=== PATIENT | female | born 1950 | race Caucasian/White ===

== ENCOUNTER 2016-09-04 01:06 | Inpatient (IN) | payer MEDICARE ==
[2016-09-04] MEDS ORDERED: DILTIAZEM 125 MG in SODIUM CHLORIDE 0.9% 100 ML IV ONE (01:30)
[2016-09-04] MEDS ORDERED: DILTIAZEM 5 MG/ML 5 ML VIAL IVP STA (01:30)
--- NOTE | 2016-09-04 01:32 | ED ---
General Adult HPI - General Chief complaint: Chest Pain Stated complaint: irregular heart beat, left arm pain Time Seen by Provider: 09/04/16 01:11 Source: patient, family, RN notes reviewed Mode of arrival: ambulatory Limitations: no limitations - History of Present Illness Initial comments: Patient is a pleasant 66-year-old female presenting to the emergency department complaining of palpitations and some discomfort of the left arm. Patient had palpitations for the past approximately 3 or 4 hours. Patient had a history of atrial fibrillation the past however this does not feel quite like that. Patient has had ablation done less than a year ago. Patient has mild discomfort of the left shoulder and radiating down the left arm. Patient has a difficult time further describing this. No dyspnea. No nausea or diaphoresis. - Related Data Home Medications Medication Instructions Recorded Confirmed Furosemide [Lasix] 10 mg PO QAM 12/20/13 09/04/16 Multivitamins, Thera [Multivitamin 1 tab PO DAILY 12/20/13 09/04/16 (formulary)] Levothyroxine Sodium [Synthroid] 25 mcg PO MOTUWETHFR 04/17/14 09/04/16 ALPRAZolam [Xanax] 0.5 mg PO BID PRN 06/02/15 09/04/16 Atorvastatin [Lipitor] 40 mg PO HS 06/02/15 09/04/16 Cholecalciferol [Vitamin D3] 2,000 unit PO DAILY 06/02/15 09/04/16 Calcium Carbonate [Calcium] 600 mg PO DAILY 09/05/15 09/04/16 Pramipexole [Mirapex] 0.5 mg PO HS 09/05/15 09/04/16 Levothyroxine Sodium [Synthroid] 50 mcg PO SUSA 09/06/15 09/04/16 Omeprazole [PriLOSEC] 20 mg PO DAILY 09/06/15 09/04/16 Fiber Choice 2 tab PO DAILY 02/23/16 09/04/16 Flecainide [Tambocor] 50 mg PO Q12H 02/23/16 09/04/16 Hydrocodone/Acetaminophen [[place] 1 tab PO Q6HR PRN 02/23/16 09/04/16 7.5-325] Warfarin Sodium 4 mg PO SUTUWEFRSA 02/23/16 09/04/16 Warfarin Sodium [Coumadin] 6 mg PO MOTH 02/23/16 09/04/16 traMADol-ACETAMINOP 37.5-325MG 1 tab PO Q6HR PRN 02/23/16 09/04/16 [Ultracet] Cyclobenzaprine [Flexeril] 10 mg PO Q8H PRN 03/29/16 09/04/16 Clotrimazole Cream [Lotrimin Cream] 1 applic TOPICAL TID PRN 04/21/16 09/04/16 Lysine 500 mg PO DAILY PRN 04/21/16 09/04/16 Petrolatum, White [Aquaphor] 1 applic TOPICAL TID PRN 04/21/16 09/04/16 Previous Rx's Medication Instructions Recorded Metoprolol Tartrate [Lopressor] 12.5 mg PO BID #60 tab 04/27/16 Allergies Allergy/AdvReac Type Severity Reaction Status Date / Time celecoxib [From Celebrex] Allergy Rash/Hives Verified 09/04/16 01:11 Penicillins Allergy Rash/Hives Verified 09/04/16 01:11 Sulfa (Sulfonamide Allergy Rash/Hives Verified 09/04/16 01:11 Antibiotics) tretinoin [From Retin-A] Allergy Rash/Hives Verified 09/04/16 01:11 meperidine HCl [From Demerol] AdvReac Nausea & Verified 09/04/16 01:11 Vomiting Review of Systems ROS Statement: Those systems with pertinent positive or pertinent negative responses have been documented in the HPI. ROS Other: All systems not noted in ROS Statement are negative. Constitutional: Denies: fever Eyes: Denies: eye pain ENT: Denies: ear pain Respiratory: Denies: cough, dyspnea Cardiovascular: Reports: palpitations. Denies: chest pain Endocrine: Denies: fatigue Gastrointestinal: Denies: abdominal pain Genitourinary: Denies: dysuria Musculoskeletal: Denies: back pain Skin: Denies: rash Neurological: Denies: weakness Past Medical History Past Medical History: Atrial Fibrillation, Hyperlipidemia, Hypertension, Thyroid Disorder Additional Past Medical History / Comment(s): Major valve prolapse of bilateral prosthetic replacement. High-dose flecainide intolerance History of Any Multi-Drug Resistant Organisms: None Reported Past Surgical History: Appendectomy, Back Surgery, Cardiac Ablation, Cardiac Valve Replacement, Hysterectomy, Orthopedic Surgery, Tonsillectomy Additional Past Surgical History / Comment(s): Right breast cyst removal. Right wrist ganglionectomy. Past Anesthesia/Blood Transfusion Reactions: No Reported Reaction Additional Past Anesthesia/Blood Transfusion Reaction / Comment(s): Patient vomited after previous surgery but she doesn't know if it was from anesthesia or the pain medication. Past Psychological History: Anxiety Additional Psychological History / Comment(s): PT STATED HAS SOME SADDNESS/MILD DEPRESSION OVER RECENT DEATHS IN HER FAMILY BUT DENIES ANY THOUGHTS OF HARMING SELF. Smoking Status: Former smoker Past Alcohol Use History: Occasional Additional Past Alcohol Use History / Comment(s): Patient states she drinks one drink per week usually Past Drug Use History: None Reported - Past Family History Mother Family Medical History: Congestive Heart Failure (CHF), Coronary Artery Disease (CAD), CVA/TIA, Hypertension Additional Family Medical History / Comment(s): Mother has been having multiple TIAs. at age 93 Father Family Medical History: CVA/TIA Additional Family Medical History / Comment(s): Father of a stroke at age 90 General Exam Limitations: no limitations General appearance: alert, in no apparent distress Head exam: Present: atraumatic Eye exam: Present: normal appearance, PERRL ENT exam: Present: normal oropharynx Neck exam: Present: normal inspection Respiratory exam: Present: normal lung sounds bilaterally Cardiovascular Exam: Present: tachycardia, irregular rhythm Expanded Peripheral pulses: 2+: Radial (R), Radial (L), Posterior Tibialis (R), Posterior Tibialis (L) GI/Abdominal exam: Present: soft. Absent: tenderness Extremities exam: Present: normal inspection. Absent: pedal edema, calf tenderness Neurological exam: Present: alert Psychiatric exam: Present: normal affect, normal mood Skin exam: Absent: rash Course Vital Signs 09/04/16 09/04/16 01:09 02:38 Temperature 97.3 F L Pulse Rate 139 H 133 H Respiratory 20 16 Rate Blood Pressure 130/94 109/71 O2 Sat by Pulse 95 95 Oximetry EKG Findings - EKG Comments: EKG Findings:: Atrial flutter with a rate of 153. QRS 74. QT 2. 68. QTC 427. Normal axis. Nonspecific ST-T. Medical Decision Making - Medical Decision Making Patient reevaluated and resting comfortably in bed. Heart rate remains in the low 130s. Patient and family updated on results and plan. Case was discussed in detail with Dr. Carson, who will admit his patient. Cardiology will be consult. Patient is already appropriately anticoagulated. Cardizem drip will be increased. - Lab Data Result diagrams: 09/04/16 01:20 09/04/16 01:20 Lab Results 09/04/16 09/04/16 09/04/16 Range/Units 01:20 01:20 01:20 WBC 9.4 (3.8-10.6) k/uL RBC 4.99 (3.80-5.40) m/uL Hgb 15.5 (11.4-16.0) gm/dL Hct 44.8 (34.0-46.0) % MCV 89.9 (80.0-100.0) fL MCH 31.0 (25.0-35.0) pg MCHC 34.5 (31.0-37.0) g/dL RDW 13.4 (11.5-15.5) % Plt Count 221 (150-450) k/uL Neutrophils % 46 % Lymphocytes % 41 % Monocytes % 7 % Eosinophils % 2 % Basophils % 1 % Neutrophils # 4.3 (1.3-7.7) k/uL Lymphocytes # 3.8 (1.0-4.8) k/uL Monocytes # 0.7 (0-1.0) k/uL Eosinophils # 0.2 (0-0.7) k/uL Basophils # 0.1 (0-0.2) k/uL PT (9.0-12.0) sec INR (<1.1) APTT (22.0-30.0) sec Sodium 141 (137-145) mmol/L Potassium 3.7 (3.5-5.1) mmol/L Chloride 102 (98-107) mmol/L Carbon Dioxide 28 (22-30) mmol/L Anion Gap 11 mmol/L BUN 20 H (7-17) mg/dL Creatinine 0.70 (0.52-1.04) mg/dL Est GFR (MDRD) Af Amer >60 (>60 ml/min/1.73 sqM) Est GFR (MDRD) Non-Af >60 (>60 ml/min/1.73 sqM) Glucose 121 H (74-99) mg/dL Calcium 9.6 (8.4-10.2) mg/dL Magnesium 1.8 (1.6-2.3) mg/dL Total Bilirubin 0.6 (0.2-1.3) mg/dL AST 33 (14-36) U/L ALT 39 (9-52) U/L Alkaline Phosphatase 88 (38-126) U/L Total Creatine Kinase 63 (30-135) U/L CK-MB (CK-2) 0.9 (0.0-2.4) ng/mL CK-MB (CK-2) Rel Index 1.4 Troponin I <0.012 (0.000-0.034) ng/mL Total Protein 7.6 (6.3-8.2) g/dL Albumin 4.3 (3.5-5.0) g/dL TSH 6.140 H (0.465-4.680) mIU/L Free T4 1.23 (0.78-2.19) ng/dL Free T3 pg/mL 4.3 (2.8-5.3) pg/ml 09/04/16 Range/Units 01:20 WBC (3.8-10.6) k/uL RBC (3.80-5.40) m/uL Hgb (11.4-16.0) gm/dL Hct (34.0-46.0) % MCV (80.0-100.0) fL MCH (25.0-35.0) pg MCHC (31.0-37.0) g/dL RDW (11.5-15.5) % Plt Count (150-450) k/uL Neutrophils % % Lymphocytes % % Monocytes % % Eosinophils % % Basophils % % Neutrophils # (1.3-7.7) k/uL Lymphocytes # (1.0-4.8) k/uL Monocytes # (0-1.0) k/uL Eosinophils # (0-0.7) k/uL Basophils # (0-0.2) k/uL PT 20.9 H (9.0-12.0) sec INR 2.2 (<1.1) APTT 30.5 H (22.0-30.0) sec Sodium (137-145) mmol/L Potassium (3.5-5.1) mmol/L Chloride (98-107) mmol/L Carbon Dioxide (22-30) mmol/L Anion Gap mmol/L BUN (7-17) mg/dL Creatinine (0.52-1.04) mg/dL Est GFR (MDRD) Af Amer (>60 ml/min/1.73 sqM) Est GFR (MDRD) Non-Af (>60 ml/min/1.73 sqM) Glucose (74-99) mg/dL Calcium (8.4-10.2) mg/dL Magnesium (1.6-2.3) mg/dL Total Bilirubin (0.2-1.3) mg/dL AST (14-36) U/L ALT (9-52) U/L Alkaline Phosphatase (38-126) U/L Total Creatine Kinase (30-135) U/L CK-MB (CK-2) (0.0-2.4) ng/mL CK-MB (CK-2) Rel Index Troponin I (0.000-0.034) ng/mL Total Protein (6.3-8.2) g/dL Albumin (3.5-5.0) g/dL TSH (0.465-4.680) mIU/L Free T4 (0.78-2.19) ng/dL Free T3 pg/mL (2.8-5.3) pg/ml - Radiology Data Radiology results: image reviewed (Chest x-ray shows no acute process.) Critical Care Time Critical Care Time: Yes Total Critical Care Time: 33 Disposition Clinical Impression: Atrial fibrillation with RVR Disposition: ADMITTED IP TO THIS HOSP
[2016-09-04] MEDS: SODIUM CHLORIDE 0.9% 1,000 ML IV STA ×2 (01:37→06:56)
[2016-09-04 01:40] LABS: Basophils # (A) 0.1 k/uL (0-0.2); Basophils % (A) 1 %; CH 31.4; Eosinophils # (A) 0.2 k/uL (0-0.7); Eosinophils % (A) 2 %; HCT 44.8 % (34.0-46.0); HDW 2.91; HGB 15.5 gm/dL (11.4-16.0); Luc # (Auto) 0.33; Luc % (Auto) 4; Lymphocytes # (A) 3.8 k/uL (1.0-4.8); Lymphocytes % (A) 41 %; MCHC 34.5 g/dL (31.0-37.0); MCV 89.9 fL (80.0-100.0); Monocytes # (A) 0.7 k/uL (0-1.0); Monocytes % (A) 7 %; Neutrophils # (A) 4.3 k/uL (1.3-7.7); Neutrophils % (A) 46 %; RBC 4.99 m/uL (3.80-5.40); RDW 13.4 % (11.5-15.5); WBC 9.4 k/uL (3.8-10.6)
[2016-09-04 01:51] LABS: INR 2.2 (<1.1); Partial Thromboplastin Time 30.5 sec (22.0-30.0); Prothrombin Time 20.9 sec (9.0-12.0)
[2016-09-04 01:54] LABS: ALT 39 U/L (9-52); AST 33 U/L (14-36); Alkaline Phosphatase 88 U/L (38-126); Anion Gap 11 mmol/L; Blood Urea Nitrogen 20 mg/dL (7-17); Calcium 9.6 mg/dL (8.4-10.2); Carbon Dioxide 28 mmol/L (22-30); Chloride 102 mmol/L (98-107); Glucose 121 mg/dL (74-99); Magnesium 1.8 mg/dL (1.6-2.3); Non-African American GFR(MDRD) >60 (>60 ml/min/1.73 sqM); Potassium 3.7 mmol/L (3.5-5.1); Sodium 141 mmol/L (137-145); Total Bilirubin 0.6 mg/dL (0.2-1.3); Total Protein 7.6 g/dL (6.3-8.2)
[2016-09-04 02:00] LABS: Creatine Kinase 63 U/L (30-135)
[2016-09-04 02:13] LABS: Creatine Kinase MB 0.9 ng/mL (0.0-2.4); Troponin I <0.012 ng/mL (0.000-0.034)
--- NOTE | 2016-09-04 02:24 | XR ---
EXAM: XR Chest, 1 View. CLINICAL HISTORY: Reason: dysrhythmia TECHNIQUE: Frontal view of the chest. COMPARISON: Chest x-ray 04/29/2016. FINDINGS: Lungs: Unremarkable. No consolidation. Pleural space: Unremarkable. No pneumothorax. Heart: Unremarkable. No cardiomegaly. Mediastinum: Unremarkable. Bones/joints: Sternotomy wires and mediastinal surgical material. IMPRESSION: No acute findings.
[2016-09-04] MEDS ORDERED: HYDROcodone/APAP 5-325MG 1 EACH TAB PO STA (03:03)
[2016-09-04] MEDS ORDERED: NALOXONE 0.4 MG/ML 1 ML VIAL IV PRN (03:13)
[2016-09-04] MEDS: SODIUM CHLORIDE 0.9% 1,000 ML IV SCH (06:56)
--- NOTE | 2016-09-04 08:57 | P.CRDCN ---
History of Present Illness Consult date: 09/04/16 Requesting physician: Jesus Carson Consult reason: atrial fibrillation Chief complaint: Chest discomfort and palpitations History of present illness: This is a 66-year-old female with history of ex-is no atrial fibrillation, patient underwent an ablation in April of last year by Dr. Cid, she also has history of mitral valve replacement, cardiac catheterization performed prior to the valve surgery in 2013 revealed normal coronary arteries. Most recent echo performed in September of this year revealed normal ejection fraction. Patient also has history of hypertension, hyperlipidemia, vertigo, hypothyroidism and descending aortic aneurysm. She presents to the hospital on this occasion with symptoms of discomfort in her left upper chest, left shoulder area with numbness in the left arm. She also had associated palpitations. According to the patient, she seen an kid club attendant last week and was started on Synthroid. She initially thought some of her symptoms may have been secondary to that. Overall since the patient 's ablation, she states that she has been doing very well. She takes Coumadin for anticoagulation, INR an admission 2.2. Potassium 3.7, BUN 20, creatinine 0.7. CBC normal. The serum level I.8, troponins negative 2. TSH level 6.14. EKG on presentation here showed atrial fibrillation with rapid ventricular response, patient was initiated on IV Cardizem drip and continues to be on Cardizem drip this morning. She is still in atrial fibrillation. Blood pressure on arrival to the emergency room 130/90 with a heart rate of 140. Afebrile. The patient states that she used to take flecainide and beta chiara prior to her ablation and that these were both discontinued after her ablation. At the time of my examination this morning, her only complaint is that she feels tired. Past Medical History Past Medical History: Atrial Fibrillation, Hyperlipidemia, Hypertension, Thyroid Disorder Additional Past Medical History / Comment(s): vertigo, neck pain. Major valve prolapse of bilateral prosthetic replacement-mitral. High-dose flecainide intolerance History of Any Multi-Drug Resistant Organisms: None Reported Past Surgical History: Appendectomy, Back Surgery, Cardiac Ablation, Cardiac Valve Replacement, Hysterectomy, Orthopedic Surgery, Tonsillectomy Additional Past Surgical History / Comment(s): Right breast cyst removal. Right wrist ganglionectomy. Past Anesthesia/Blood Transfusion Reactions: No Reported Reaction Additional Past Anesthesia/Blood Transfusion Reaction / Comment(s): Patient vomited after previous surgery but she doesn't know if it was from anesthesia or the pain medication. Past Psychological History: Anxiety Additional Psychological History / Comment(s): PT STATED HAS SOME SADDNESS/MILD DEPRESSION OVER RECENT DEATHS IN HER FAMILY BUT DENIES ANY THOUGHTS OF HARMING SELF. Smoking Status: Former smoker Past Alcohol Use History: Occasional Additional Past Alcohol Use History / Comment(s): Patient states she drinks one drink per week usually Past Drug Use History: None Reported - Past Family History Mother Family Medical History: Congestive Heart Failure (CHF), Coronary Artery Disease (CAD), CVA/TIA, Hypertension Additional Family Medical History / Comment(s): Mother has been having multiple TIAs. at age 93 Father Family Medical History: CVA/TIA Additional Family Medical History / Comment(s): Father of a stroke at age 90 Medications and Allergies Home Medications Medication Instructions Recorded Confirmed Type Furosemide [Lasix] 10 mg PO QAM 12/20/13 09/04/16 History Multivitamins, Thera [Multivitamin 1 tab PO DAILY 12/20/13 09/04/16 History (formulary)] Levothyroxine Sodium [Synthroid] 25 mcg PO MOTUWETHFR 04/17/14 09/04/16 History ALPRAZolam [Xanax] 0.5 mg PO BID PRN 06/02/15 09/04/16 History Atorvastatin [Lipitor] 40 mg PO HS 06/02/15 09/04/16 History Levothyroxine Sodium [Synthroid] 50 mcg PO SUSA 09/06/15 09/04/16 History Omeprazole [PriLOSEC] 20 mg PO DAILY 09/06/15 09/04/16 History Fiber Choice 2 tab PO DAILY 02/23/16 09/04/16 History Hydrocodone/Acetaminophen [[place] 1 tab PO Q6HR PRN 02/23/16 09/04/16 History 7.5-325] Warfarin Sodium 4 mg PO SUMOTUTHFR 02/23/16 09/04/16 History Warfarin Sodium [Coumadin] 6 mg PO WESA 02/23/16 09/04/16 History Cyclobenzaprine [Flexeril] 10 mg PO Q8H PRN 03/29/16 09/04/16 History Baclofen [Lioresal] 10 mg PO BID PRN 09/04/16 09/04/16 History Cetirizine HCl [Zyrtec] 10 mg PO DAILY PRN 09/04/16 09/04/16 History Allergies Allergy/AdvReac Type Severity Reaction Status Date / Time celecoxib [From Celebrex] Allergy Rash/Hives Verified 09/04/16 08:05 Penicillins Allergy Rash/Hives Verified 09/04/16 08:05 Sulfa (Sulfonamide Allergy Rash/Hives Verified 09/04/16 08:05 Antibiotics) tretinoin [From Retin-A] Allergy Rash/Hives Verified 09/04/16 08:05 meperidine HCl [From Demerol] AdvReac Nausea & Verified 09/04/16 08:05 Vomiting Physical Exam Vitals: Vital Signs Pulse Resp BP Pulse Ox 09/04/16 04:10 115 H 18 100/50 100 Intake and Output 09/03/16 09/04/16 09/04/16 22:59 06:59 14:59 Intake Total 106.5 240 Balance 106.5 240 Intake: Intake, IV Titration 6.5 Amount Diltiazem 125 mg In 6.5 Sodium Chloride 0.9% 100 ml @ 10 MG/HR 10 mls/hr IV .[id number] Rx#: [id number] Oral 100 240 Other: Voiding Method Toilet # Voids 1 Weight 89.3 kg PHYSICAL EXAMINATION: HEENT: Head is atraumatic, normocephalic. Pupils equal, round. Neck is supple. There is no elevated jugular venous pressure. HEART EXAMINATION: S1 and S2 irregularly irregular systolic murmur is heard. CHEST EXAMINATION: Lungs are clear to auscultation and precussion. No chest wall tenderness is noted on palpation or with deep breathing. ABDOMEN: Soft, nontender. Bowel sounds are heard. No organomegaly noted. EXTREMITIES: 2+ peripheral pulses with no evidence of peripheral edema and no calf tenderness noted. NEUROLOGIC patient is awake, alert and oriented -3. . Results 09/04/16 01:20 09/04/16 01:20 Cardiac Enzymes 09/04/16 Range/Units 07:33 Troponin I <0.012 (0.000-0.034) ng/mL Current Medications Generic Name Dose Route Start Last Admin Trade Name Freq PRN Reason Stop Dose Admin Diltiazem HCl 125 mg/ Sodium 125 mls @ 10 mls/hr 09/04/16 01:30 09/04/16 03: 22 Chloride IV 09/04/16 13:59 10 mg/hr .[id number] ONE 10 mls/hr 10 MG/HR Infusion Sodium Chloride 1,000 mls @ 50 mls/hr 09/04/16 01:29 09/04/16 06:56 Saline 0.9% IV 09/04/16 21:28 50 mls/hr .Q20H STA Administration Sodium Chloride 1,000 mls @ 20 mls/hr 09/04/16 03:15 09/04/16 06:56 Saline 0.9% IV 20 mls/hr .Q24H DORIS Administration Naloxone HCl 0.2 mg 09/04/16 03:13 Narcan IV Q2M PRN Opioid Reversal Intake and Output 09/03/16 09/04/16 09/04/16 22:59 06:59 14:59 Intake Total 106.5 240 Balance 106.5 240 Intake: Intake, IV Titration 6.5 Amount Diltiazem 125 mg In 6.5 Sodium Chloride 0.9% 100 ml @ 10 MG/HR 10 mls/hr IV .[id number] ONE Rx#: [id number] Oral 100 240 Other: Voiding Method Toilet # Voids 1 Weight 89.3 kg EKG Interpretations (text) EKG shows atrial fibrillation with a rapid ventricular response. Assessment and Plan Plan: Assessment and plan #1 atrial fibrillation with rapid ventricular response, patient has history of paroxysmal atrial fibrillation, underwent ablation in April of last year. #2 hypertension #3 hyperlipidemia #4 hypothyroidism, TSH is 6.14. # 5 history of vertigo #6 chest discomfort, atypical for acute coronary syndrome. Troponins negative 2. Cardiac catheterization performed in 2013 revealed normal coronary arteries. #7 history of ascending aortic aneurysm. Plan We will resume the patient's Coumadin, Synthroid, Lasix, Lipitor. We will obtain an echocardiogram with Doppler study. We will also give the patient 5 tonight 100 mg now and 3 times a day, at the patient on Lopressor 25 mg now and twice a day. We will keep the patient nothing by mouth at midnight, if she does not convert to normal sinus rhythm we will consider cardioversion tomorrow. Further recommendations to follow. DNP note has been reviewed, I agree with a documented findings and plan of care. Patient was seen and examined.
[2016-09-04] MEDS ORDERED: ZOLPIDEM 5 MG TAB PO PRN (09:36)
--- NOTE | 2016-09-04 09:44 | P.PN ---
Progress Note - Text This is an addendum to the dictated cardiology consultation. The patient has a known history of mitral valve replacement, paroxysmal atrial fibrillation, status post ablation done in April 2016 who presented with palpitations and recurrent atrial fibrillation. Her symptoms were associated with dyspnea, dizziness and left arm and chest discomfort. She continues to be in atrial fibrillation with episodes of rapid ventricle response. Her troponins are normal and there is no evidence of acute ST segment changes. When she had her cardiac catheterization she had no evidence of obstructive CAD. Her most recent echo in April 05 showed a normal systolic function was see no evidence of significant valvular abnormality. Patient has recurrent atrial fibrillation, post ablation. She has been anticoagulated. I will restart flecainide at the 100 mg twice a day and add a beta chiara. If she continues to be in atrial fibrillation in 24 hours then I will proceed with reversion. The plan and the risk were discussed with the patient who is in full agreement and understanding. Thank you for this consult we will follow with you.
[2016-09-04] MEDS: FLECAINIDE 50 MG TAB PO SCH ×2 (10:50→22:22)
[2016-09-04] MEDS: METOPROLOL TARTRATE 25 MG TAB PO SCH ×2 (10:50→22:23)
[2016-09-04] MEDS: FUROSEMIDE 10 MG TAB PO SCH (10:51)
[2016-09-04] MEDS: ALPRAZolam 0.25 MG TAB PO PRN ×2 (10:56→23:55)
[2016-09-04] MEDS: LEVOTHYROXINE 25 MCG TAB PO SCH (11:49)
--- NOTE | 2016-09-04 13:49 | P.HPIM ---
History of Present Illness H&P Date: 09/04/16 Chief Complaint: rapid heart rate Patient came in to the er for C/o of rapid heart rate. She has a h/o Afib with ablation in the fall of 2015. HSe had been taken off all her rate control meds. SHe reports yeaterday increased heart rate and palpitations. Only new med was change to DINA synthroid by Dr Jarvis. She is doin g better now with Lopressor. Review of Systems All systems: negative Cardiovascular: Reports as per HPI, Reports irregular heart beat Past Medical History Past Medical History: Atrial Fibrillation, Hyperlipidemia, Hypertension, Thyroid Disorder Additional Past Medical History / Comment(s): vertigo, neck pain. Major valve prolapse of bilateral prosthetic replacement-mitral. High-dose flecainide intolerance History of Any Multi-Drug Resistant Organisms: None Reported Past Surgical History: Appendectomy, Back Surgery, Cardiac Ablation, Cardiac Valve Replacement, Hysterectomy, Orthopedic Surgery, Tonsillectomy Additional Past Surgical History / Comment(s): Right breast cyst removal. Right wrist ganglionectomy. Past Anesthesia/Blood Transfusion Reactions: No Reported Reaction Additional Past Anesthesia/Blood Transfusion Reaction / Comment(s): Patient vomited after previous surgery but she doesn't know if it was from anesthesia or the pain medication. Past Psychological History: Anxiety Additional Psychological History / Comment(s): PT STATED HAS SOME SADDNESS/MILD DEPRESSION OVER RECENT DEATHS IN HER FAMILY BUT DENIES ANY THOUGHTS OF HARMING SELF. Smoking Status: Former smoker Past Alcohol Use History: Occasional Additional Past Alcohol Use History / Comment(s): Patient states she drinks one drink per week usually Past Drug Use History: None Reported - Past Family History Mother Family Medical History: Congestive Heart Failure (CHF), Coronary Artery Disease (CAD), CVA/TIA, Hypertension Additional Family Medical History / Comment(s): Mother has been having multiple TIAs. at age 93 Father Family Medical History: CVA/TIA Additional Family Medical History / Comment(s): Father of a stroke at age 90 Medications and Allergies Home Medications Medication Instructions Recorded Confirmed Type Furosemide [Lasix] 10 mg PO QAM 12/20/13 09/04/16 History Multivitamins, Thera [Multivitamin 1 tab PO DAILY 12/20/13 09/04/16 History (formulary)] Levothyroxine Sodium [Synthroid] 25 mcg PO MOTUWETHFR 04/17/14 09/04/16 History ALPRAZolam [Xanax] 0.5 mg PO BID PRN 06/02/15 09/04/16 History Atorvastatin [Lipitor] 40 mg PO HS 06/02/15 09/04/16 History Levothyroxine Sodium [Synthroid] 50 mcg PO SUSA 09/06/15 09/04/16 History Omeprazole [PriLOSEC] 20 mg PO DAILY 09/06/15 09/04/16 History Fiber Choice 2 tab PO DAILY 02/23/16 09/04/16 History Hydrocodone/Acetaminophen [[place] 1 tab PO Q6HR PRN 02/23/16 09/04/16 History 7.5-325] Warfarin Sodium 4 mg PO SUMOTUTHFR 02/23/16 09/04/16 History Warfarin Sodium [Coumadin] 6 mg PO WESA 02/23/16 09/04/16 History Cyclobenzaprine [Flexeril] 10 mg PO Q8H PRN 03/29/16 09/04/16 History Baclofen [Lioresal] 10 mg PO BID PRN 09/04/16 09/04/16 History Cetirizine HCl [Zyrtec] 10 mg PO DAILY PRN 09/04/16 09/04/16 History Allergies Allergy/AdvReac Type Severity Reaction Status Date / Time celecoxib [From Celebrex] Allergy Rash/Hives Verified 09/04/16 08:05 Penicillins Allergy Rash/Hives Verified 09/04/16 08:05 Sulfa (Sulfonamide Allergy Rash/Hives Verified 09/04/16 08:05 Antibiotics) tretinoin [From Retin-A] Allergy Rash/Hives Verified 09/04/16 08:05 meperidine HCl [From Demerol] AdvReac Nausea & Verified 09/04/16 08:05 Vomiting Physical Exam Vitals: Vital Signs Temp Pulse Pulse Resp BP Pulse Ox 09/04/16 12:00 64 18 106/63 97 09/04/16 08:00 97 F L 80 17 112/58 97 09/04/16 04:10 115 H 18 100/50 100 Intake and Output 09/03/16 09/04/16 09/04/16 22:59 06:59 14:59 Intake Total 106.5 240 Balance 106.5 240 Intake: Intake, IV Titration 6.5 Amount Diltiazem 125 mg In 6.5 Sodium Chloride 0.9% 100 ml @ 10 MG/HR 10 mls/hr IV .[id number] Rx#: [id number] Oral 100 240 Other: Voiding Method Toilet # Voids 1 Weight 89.3 kg - Constitutional General appearance: average body habitus - EENT Eyes: PERRLA Ears: bilateral: normal - Neck Neck: no lymphadenopathy, no thyromegaly - Respiratory Respiratory: bilateral: CTA - Cardiovascular Rhythm: irregularly irregular Heart sounds: normal: S1, S2 - Gastrointestinal General gastrointestinal: no hepatomegaly, normal bowel sounds, no splenomegaly - Neurologic Neurologic: CNII-XII intact - Musculoskeletal Musculoskeletal: gait normal - Psychiatric Psychiatric: A&O x's 3 Results CBC & Chem 7: 09/04/16 01:20 09/04/16 01:20 Thrombosis Risk Factor Assmnt - DVT/VTE Prophylaxis DVT/VTE Prophylaxis: Pharmacologic Prophylaxis ordered - Choose All That Apply Each Risk Factor Represents 2 Points: Age 61-74 years Thrombosis Risk Factor Assessment Total Risk Factor Score: 2 Thrombosis Risk Factor Assessment Level: Low Risk Assessment and Plan Plan: paroxismal AFib: cardiology following. she is on Metoprolol, coumadin, lasix, Tambicor Neck Pain: she had been referrred to PMR, but has not been seen yet.reorder [place] if needed hypothryroidism: check tsh, continue synthroid hyperlipidemia: cont atorvastatin GI prophylaxis: add pepcid DVT prophylaxis: cont coumadin, daily INR, see cardiology notes for more she will seen again in 24hr, cont meds
[2016-09-04] MEDS: FAMOTIDINE 20 MG TAB PO SCH (17:18)
[2016-09-04] MEDS: WARFARIN 2 MG TAB PO SCH (17:18)
[2016-09-04] MEDS: HYDROcodone/APAP 7.5-325MG 1 EACH TAB PO PRN ×2 (17:20→23:55)
[2016-09-04] MEDS: ATORVASTATIN 40 MG TAB PO SCH (22:23)
[2016-09-04] MEDS: MELATONIN 5 MG TABLET PO SCH (22:23)
[2016-09-04] MEDS: CYCLOBENZAPRINE 10 MG TAB PO PRN (22:23)
[2016-09-05] MEDS ORDERED: LEVOTHYROXINE 25 MCG TAB PO SCH (06:30)
[2016-09-05 06:44] LABS: Basophils # (A) 0.1 k/uL (0-0.2); Basophils % (A) 1 %; CH 31.3; CHCM 34.6; Eosinophils # (A) 0.2 k/uL (0-0.7); Eosinophils % (A) 3 %; HCT 43.2 % (34.0-46.0); HDW 2.92; HGB 14.6 gm/dL (11.4-16.0); Luc # (Auto) 0.17; Luc % (Auto) 3; Lymphocytes # (A) 2.9 k/uL (1.0-4.8); Lymphocytes % (A) 48 %; MCH 30.8 pg (25.0-35.0); MCHC 33.9 g/dL (31.0-37.0); MCV 90.9 fL (80.0-100.0); Monocytes # (A) 0.4 k/uL (0-1.0); Monocytes % (A) 7 %; Neutrophils # (A) 2.4 k/uL (1.3-7.7); Neutrophils % (A) 39 %; RBC 4.75 m/uL (3.80-5.40); RDW 13.5 % (11.5-15.5); WBC 6.1 k/uL (3.8-10.6); WBC (Perox) 6.31
[2016-09-05 06:49] LABS: INR 2.8 (<1.1); Prothrombin Time 26.6 sec (9.0-12.0)
[2016-09-05 06:53] LABS: Anion Gap 12 mmol/L; Blood Urea Nitrogen 14 mg/dL (7-17); Carbon Dioxide 21 mmol/L (22-30); Chloride 108 mmol/L (98-107); Glucose 96 mg/dL (74-99); Non-African American GFR(MDRD) >60 (>60 ml/min/1.73 sqM); Potassium 4.6 mmol/L (3.5-5.1); Sodium 141 mmol/L (137-145)
[2016-09-05] MEDS: SODIUM CHLORIDE 0.9% 1,000 ML IV SCH ×2 (07:02→14:39)
--- NOTE | 2016-09-05 10:11 | P.PN ---
Subjective Patient came in to the er for C/o of rapid heart rate. She has a h/o Afib with ablation in the fall of 2015. HSe had been taken off all her rate control meds. SHe reports yeaterday increased heart rate and palpitations. Only new med was change to DINA synthroid by Dr Jarvis. She is doin g better now with Lopressor. Today she feels a bit better. She does complain of shortness of breath with exertion. She reports this as a same as her previous episode of atrial fibrillation. He denies any chest pains or pressures today. She is going to have a cardioversion today. Her thyroid functions show slightly hypothyroid. She indicates she is tolerating a diet and is in no pain. Denies any nausea or vomiting today. Objective - Vital Signs Vital signs: Vital Signs Temp 97.0 F L 09/05/16 04:00 Pulse 90 09/05/16 04:00 Resp 18 09/05/16 04:00 BP 104/69 09/05/16 04:00 Pulse Ox 96 09/05/16 04:00 Intake & Output 09/04/16 09/05/16 09/05/16 18:59 06:59 18:59 Intake Total 1120 400 Output Total 450 450 Balance 670 -50 Weight 89.4 kg Intake: IV 20 Diltiazem 125 mg In 20 Sodium Chloride 0.9% 100 ml @ 10 MG/HR 10 mls/hr IV .[id number] Rx#: [id number] Intake, IV Titration 500 400 Amount Sodium Chloride 0.9% 1, 500 400 000 ml @ 50 mls/hr IV . Q20H STA Rx#:[id number] Oral 600 Output: Urine 450 450 Other: Voiding Method Toilet - Exam General: The patient is awake and alert, in no distress, and does not appear acutely ill. Neck: The neck is supple, there is no thyromegaly, lymphadenopathy, tenderness or JVD. Cardiovascular: S1S2 is normal, There is a irregular rate and rhythm. 1/6 murmur heard best over the apex, no rub or gallop is appreciated. Respiratory: Lungs are clear to auscultation bilaterally, respirations are non -labored, breath sounds are equal. Gastrointestinal: Soft, non-distended, non-tender abdomen without masses or organomegaly noted. There is no rebound or guarding present. Bowel sounds are unremarkable. Musculoskeletal: Normal ROM, no tenderness, There is no pedal edema. There is no calf tenderness or swelling. No cords were appreciated. Neurological: CN II-XII intact, there are no obvious motor or sensory deficits. Coordination appears grossly intact. Speech is normal. Skin: Skin is warm and dry and no rashes or lesions are noted. - Labs CBC & Chem 7: 09/05/16 06:05 09/05/16 06:05 Labs: Abnormal Lab Results - Last 24 Hours (Table) 09/05/16 09/05/16 Range/Units 06:05 06:05 PT 26.6 H (9.0-12.0) sec Chloride 108 H (98-107) mmol/L Carbon Dioxide 21 L (22-30) mmol/L Assessment and Plan Plan: paroxismal atrial fibrillation: cardiology following. she is on Metoprolol, coumadin, lasix, Tambicor, waiting on cardioversion History of mitral valve repair: We'll monitor Neck Pain: she had been referrred to PMR, but has not been seen yet.reorder [place] if needed for pain, Flexeril when necessary hypothryroidism: continue synthroid , she may need a higher dose in the future, Dr. Jarvis is following outpatient hyperlipidemia: Continue atorvastatin GI prophylaxis: Continue famotidine DVT prophylaxis: Continue coumadin, daily INR, see cardiology notes for more she will seen again in 24hr, cont meds
[2016-09-05] MEDS ORDERED: LIDOCAINE 1% INJ 10MG/ML (20 ML MDV) ONE (11:25)
[2016-09-05] MEDS ORDERED: PROPOFOL 10 MG/ML 20 ML VIAL IV ONE (11:25)
--- NOTE | 2016-09-05 11:31 | PN ---
Mrs. Geovany Crane is a 66-year-old female status post mitral valve surgery, history of atrial fibrillation ablation who presented with recurrent atrial fibrillation with rapid ventricular response. She is feeling slightly better today, although she continues to be dyspneic on exertion. She continues to be in atrial fibrillation, but her rate is controlled. She denies any dizziness. No syncope. She continues to be on flecainide 100 mg twice a day, metoprolol tartrate 25 mg twice a day, Lipitor 40 mg daily in addition to Coumadin. PHYSICAL EXAMINATION: Blood pressure 104/60 with the heart rate 90s. LUNGS: Clear. HEART: Regular rate and rhythm. S1, S2, no S3, with systolic murmur. No diastolic murmur. No rub. ABDOMEN: Soft, nontender. EXTREMITIES: No edema. Lab data revealed BUN and creatinine 14 and 0.65. Potassium 4.6. INR 2.8. IMPRESSION: 1. Recurrent atrial fibrillation. 2. Status post mitral valve replacement. 3. Hyperlipidemia. RECOMMENDATIONS: I will proceed with transesophageal echocardiogram and cardioversion today to restore normal sinus rhythm. The rationale behind the procedure as well as risks and complications were discussed with the patient who is in full understanding and agreement. Depending on her progress, further recommendation will be made.
[2016-09-05] MEDS ORDERED: BENZOCAINE SPRAY 100 APPLIC/CAN MUCOUS MEM ONE (12:10)
[2016-09-05] MEDS ORDERED: SODIUM CHLORIDE 0.9% 1,000 ML IV ONE (12:27)
[2016-09-05] MEDS ORDERED: SODIUM CHLORIDE 0.9% 1,000 ML IV SCH (12:30)
--- NOTE | 2016-09-05 13:00 | ECHOT ---
DATE OF SERVICE: INDICATION: Evaluation of left atrium. PROCEDURE: After explaining the procedure to the patient as well as the risks and complications, her blood pressure, heart rate, O2 saturations were monitored. The throat was sprayed with Cetacaine. She received sedation per Anesthesia Department. Following that, the probe was introduced into the esophagus without difficulty. Images were obtained. Following that, the probe was removed. There was no immediate complication. FINDINGS: Left atrial size is dilated. Left atrial appendage has been ligated. The left ventricular size and systolic function normal. The aortic valve appears to be normal. A bioprosthetic mitral valve was noted. Tricuspid valve is normal. The descending thoracic aorta appears to be normal. No pericardial effusion was noted. Contrast bubble study revealed no evidence of shunting across the interatrial septum. Doppler pulse wave and color Doppler obtained and revealed a normal function of her mitral valve with mild to moderate tricuspid regurgitation and no shunting by color Doppler study. CONCLUSION: 1. Dilated left atrium with no evidence of thrombus. 2. Normal left ventricular size and systolic function. 3. Bioprosthetic mitral valve with normal appearance and function. 4. Mild to moderate tricuspid regurgitation. 5. No shunting across the interatrial septum. 6. Normal appearance of the descending thoracic aorta. FINDINGS: FINAL IMPRESSION:
[2016-09-05] MEDS: ALPRAZolam 0.25 MG TAB PO PRN ×2 (14:36→22:09)
[2016-09-05] MEDS: HYDROcodone/APAP 7.5-325MG 1 EACH TAB PO PRN ×2 (14:36→22:09)
[2016-09-05] MEDS: LEVOTHYROXINE 25 MCG TAB PO SCH (14:39)
[2016-09-05] MEDS: FAMOTIDINE 20 MG TAB PO SCH (14:39)
[2016-09-05] MEDS: FLECAINIDE 50 MG TAB PO SCH ×2 (14:40→20:24)
[2016-09-05] MEDS: METOPROLOL TARTRATE 25 MG TAB PO SCH ×2 (14:40→20:24)
[2016-09-05] MEDS: FUROSEMIDE 10 MG TAB PO SCH (14:40)
[2016-09-05] MEDS: WARFARIN 2 MG TAB PO SCH (17:06)
[2016-09-05] MEDS: ATORVASTATIN 40 MG TAB PO SCH (20:23)
[2016-09-05] MEDS: MELATONIN 5 MG TABLET PO SCH (20:24)
[2016-09-05] MEDS: CYCLOBENZAPRINE 10 MG TAB PO PRN (23:50)
[2016-09-06] MEDS: LEVOTHYROXINE 25 MCG TAB PO SCH (06:20)
[2016-09-06] MEDS: HYDROcodone/APAP 7.5-325MG 1 EACH TAB PO PRN (06:37)
[2016-09-06 07:24] LABS: INR 2.7 (<1.1); Prothrombin Time 26.1 sec (9.0-12.0)
[2016-09-06] MEDS ORDERED: FLECAINIDE 50 MG TAB PO SCH (07:30)
--- NOTE | 2016-09-06 07:42 | CE ---
DATE OF SERVICE: INDICATION: Atrial fibrillation. PROCEDURE: After explaining the procedure to patient as well as risks and complications and after performing transesophageal echocardiogram and obtaining sedated state by the General Anesthesia Department, the cardioversion using 200 biphasic synchronized joules were performed with amish of normal sinus rhythm. There was no immediate complication.
[2016-09-06] MEDS: METOPROLOL TARTRATE 25 MG TAB PO SCH (08:48)
[2016-09-06] MEDS: FUROSEMIDE 10 MG TAB PO SCH (08:48)
[2016-09-06] MEDS: FAMOTIDINE 20 MG TAB PO SCH (08:48)
[2016-09-06] MEDS: SODIUM CHLORIDE 0.9% 1,000 ML IV SCH (08:48)
[2016-09-06 10:08] VITALS: RESP 20
--- NOTE | 2016-09-06 10:55 | PN ---
Mrs. Hahn is a 66-year-old female with a history of mitral valve replacement, history of atrial fibrillation, status post ablation who presents with atrial fibrillation. She was started on flecainide with persistent atrial fibrillation, subsequently underwent transesophageal echocardiogram and cardioversion with protestant of normal sinus rhythm. She is doing well this morning, ambulating without difficulty. Denying any chest pain, denies any dizziness or palpitation. She continues to be at this time on Coumadin, Lipitor 40 mg daily, flecainide 100 mg twice a day, Lasix 10 mg daily, metoprolol tartrate 25 mg twice a day and levothyroxine. PHYSICAL EXAMINATION: Blood pressure 111/60 with a heart rate in the 70s. LUNGS: Clear. HEART: Regular rate and rhythm. S1, S2, no S3 with soft systolic murmur. ABDOMEN: Soft, nontender. EXTREMITIES: No edema. LAB DATA: Her INR is pending today. IMPRESSION: 1. Atrial fibrillation, status post transesophageal echocardiogram and cardioversion to sinus mechanism. 2. Status post mitral valve replacement. 3. History of hyperlipidemia. RECOMMENDATION: Patient will be discharged home today, the dose of her flecainide will be decreased to 50 mg twice a day. She will be followed as an outpatient and depending on her progress, further recommendation will be made.
[2016-09-06 11:29] VITALS: TEMP 98.4
--- NOTE | 2016-09-06 14:01 | P.DS ---
Providers Date of admission: 09/04/16 03:14 Expected date of discharge: 09/06/16 Attending physician: Jesus Carson Consults: Cardiology Primary care physician: Jesus Carson [facility] Course: Patient came in to the er for C/o of rapid heart rate. She has a h/o Afib with ablation in the fall of 2015. HSe had been taken off all her rate control meds. SHe reports yeaterday increased heart rate and palpitations. Only new med was change to DINA synthroid by Dr Jarvis. She is doin g better now with Lopressor. she felt better 09/05/2016. She does complain of shortness of breath with exertion. She reports this as a same as her previous episode of atrial fibrillation. SHe denies any chest pains or pressures today. She is going to have a cardioversion today. Her thyroid functions show slightly hypothyroid. She indicates she is tolerating a diet and is in no pain. Denies any nausea or vomiting today. 09/06/2016 she underwent a LAURA and cardioversion that were successful. After this cardiology recommendations continue Tambocor and metoprolol. She was cleared for discharge Final diagnosis. paroxismal atrial fibrillation S/P cardioversion History of mitral valve repair Neck Pain hypothryroidism hyperlipidemia Plan - Discharge Summary New Discharge Prescriptions: Flecainide [Tambocor] 50 mg PO Q12HR #180 tab Metoprolol Tartrate [Lopressor] 25 mg PO BID #180 tab Discharge Medication List Furosemide [Lasix] 10 mg PO QAM 12/20/13 [History] Multivitamins, Thera [Multivitamin (formulary)] 1 tab PO DAILY 12/20/13 [History ] Levothyroxine Sodium [Synthroid] 25 mcg PO MOTUWETHFR 04/17/14 [History] ALPRAZolam [Xanax] 0.5 mg PO BID PRN 06/02/15 [History] Atorvastatin [Lipitor] 40 mg PO HS 06/02/15 [History] Levothyroxine Sodium [Synthroid] 50 mcg PO SUSA 09/06/15 [History] Omeprazole [PriLOSEC] 20 mg PO DAILY 09/06/15 [History] Fiber Choice 2 tab PO DAILY 02/23/16 [History] Hydrocodone/Acetaminophen [[place] 7.5-325] 1 tab PO Q6HR PRN 02/23/16 [History] Warfarin Sodium 4 mg PO SUMOTUTHFR 02/23/16 [History] Warfarin Sodium [Coumadin] 6 mg PO WESA 02/23/16 [History] Cyclobenzaprine [Flexeril] 10 mg PO Q8H PRN 03/29/16 [History] Baclofen [Lioresal] 10 mg PO BID PRN 09/04/16 [History] Cetirizine HCl [Zyrtec] 10 mg PO DAILY PRN 09/04/16 [History] Flecainide [Tambocor] 50 mg PO Q12HR #180 tab 09/06/16 [Rx] Metoprolol Tartrate [Lopressor] 25 mg PO BID #180 tab 09/06/16 [Rx] Follow up Appointment(s)/Referral(s): Dipesh Benson MD [STAFF PHYSICIAN] - 1 Week Jesus Carson MD [Primary Care Provider] - 1-2 days Discharge Disposition: HOME SELF-CARE
[2016-09-06 14:59] VITALS: BP 101/68; PULSE 87
[2016-09-06] MEDS ORDERED: WARFARIN 3 MG TAB PO SCH (18:00)
[2016-09-09] MEDS ORDERED: LEVOTHYROXINE 25 MCG TAB PO SCH (06:30)
== END 2016-09-06 15:05 | disposition home or self-care (01) | DRG 310 ==
LOC: EC 01:06 → 6SEL 03:14
PROVIDERS: ADMIT Family Medicine; ATTEND Family Medicine
PROC: B245ZZ4 Ultrasonography of Left Heart, Transesophageal (ICD-10-PCS; 2016-09-05)
PROC: 5A2204Z Restoration of Cardiac Rhythm, Single (ICD-10-PCS; principal; 2016-09-05 07:30)
DX: I48.0 Paroxysmal atrial fibrillation (principal); I71.2 Thoracic aortic aneurysm, without rupture; Z95.2 Presence of prosthetic heart valve; I10 Essential (primary) hypertension; E03.9 Hypothyroidism, unspecified; E78.5 Hyperlipidemia, unspecified; F41.9 Anxiety disorder, unspecified; G47.00 Insomnia, unspecified; M54.2 Cervicalgia; Z90.710 Acquired absence of both cervix and uterus; Z90.49 Acquired absence of other specified parts of digestive tract; Z87.891 Personal history of nicotine dependence; Z79.01 Long term (current) use of anticoagulants; Z79.899 Other long term (current) drug therapy; Z88.5 Allergy status to narcotic agent; Z88.0 Allergy status to penicillin; Z88.2 Allergy status to sulfonamides; Z88.8 Allergy status to other drugs, medicaments and biological substances; Z82.49 Family history of ischemic heart disease and other diseases of the circulatory system
CPT/HCPCS: 36415; 71010; 80048; 80053; 82550; 82553; 83735; 84439; 84443; 84481; 84484; 85025; 85610; 85730; 92960; 93005; 93312; 93320; 93325; 96365; 96366; 96376; 99291

== ENCOUNTER → 2016-10-06 | Outpatient (CLI) | payer MEDICARE ==
[2016-10-06 16:40] LABS: INR 2.9 (<1.1); Prothrombin Time 27.5 sec (9.0-12.0)
== END | disposition home or self-care (01) ==
LOC: LABWHC1 16:19
PROVIDERS: ATTEND Psychiatry & Neurology Neurology
DX: D68.9 Coagulation defect, unspecified (principal)
CPT/HCPCS: 36415; 85610

== ENCOUNTER 2016-10-27 02:07 | Emergency (ER) | payer MEDICARE ==
[2016-10-27 02:11] VITALS: TEMP 98
[2016-10-27 02:45] LABS: Basophils % (A) 0 %; CH 31.5; CHCM 35.1; Eosinophils # (A) 0.2 k/uL (0-0.7); Eosinophils % (A) 2 %; HCT 39.4 % (34.0-46.0); HDW 2.91; HGB 14.1 gm/dL (11.4-16.0); Luc # (Auto) 0.23; Luc % (Auto) 2; Lymphocytes # (A) 3.6 k/uL (1.0-4.8); Lymphocytes % (A) 37 %; MCH 32.3 pg (25.0-35.0); MCHC 35.8 g/dL (31.0-37.0); Mean Platelet Volume 6.9; Monocytes # (A) 0.5 k/uL (0-1.0); Monocytes % (A) 5 %; Neutrophils # (A) 5.3 k/uL (1.3-7.7); Neutrophils % (A) 53 %; RBC 4.38 m/uL (3.80-5.40); RDW 13.9 % (11.5-15.5)
[2016-10-27 02:51] LABS: Particle Count 23840; RBC,Urine >182 /hpf (0-5); WBC,Urine 11 /hpf (0-5)
[2016-10-27 02:52] LABS: Appearance,Urine Bloody (Clear); UA Billing (MACRO vs. MICRO) MICRO
[2016-10-27 02:58] LABS: Partial Thromboplastin Time 40.4 sec (22.0-30.0); Prothrombin Time 56.4 sec (9.0-12.0)
[2016-10-27] MEDS ORDERED: PHENAZOPYRIDINE 100 MG TAB PO STA (02:59)
[2016-10-27 03:00] LABS: INR 5.6 (<1.1)
[2016-10-27] MEDS ORDERED: NITROFURANTOIN MONOHYD/M-CRYST 100 MG CAP PO STA (03:11)
[2016-10-27] MEDS ORDERED: PHYTONADIONE ORAL 5 MG/5 ML ORAL.SYRG PO STA (03:11)
[2016-10-27] MEDS ORDERED: ONDANSETRON 4 MG ODT STARTER PACK 2 TAB BTL PO STA (03:17)
--- NOTE | 2016-10-27 03:26 | ED ---
Female Urogenital HPI - General Chief complaint: Urogenital Stated complaint: Vaginal Bleeding Time Seen by Provider: 10/27/16 02:17 Source: patient, RN notes reviewed, old records reviewed Mode of arrival: wheelchair Limitations: no limitations - History of Present Illness Initial comments: This is a 66-year-old female presenting to the emergency department with chief complaint 1 day of dysuria and polyuria. Patient reports whenever she urinates she's noticed that only blood. She reports that she is on Coumadin. She states for the past 2 weeks she has been eating a proper diet she's had increased diarrhea. Patient reports that has not subsided but she is realized that she has not been eating properly for her Coumadin. Patient states she has not had it checked recently and is concerned that it may be off. Patient denies any fever or chills. She reports that she does feel somewhat nauseated. Denies any specific abdominal pain or flap back pain or flank pain. Patient reports that she had a relatively normal day today. It all the symptoms started with started this evening. She reports that every few minutes she feels like she needs to urinate and when she does only has a few dribbles of urine at that time. Patient reports she has not had a urinary tract infection recently. She reports that she's had a total hysterectomy. - Related Data Home Medications Medication Instructions Recorded Confirmed Furosemide [Lasix] 10 mg PO QAM 12/20/13 10/27/16 Multivitamins, Thera [Multivitamin 1 tab PO DAILY 12/20/13 10/27/16 (formulary)] Levothyroxine Sodium [Synthroid] 25 mcg PO MOTUWETHFR 04/17/14 10/27/16 ALPRAZolam [Xanax] 0.5 mg PO BID PRN 06/02/15 10/27/16 Atorvastatin [Lipitor] 40 mg PO HS 06/02/15 10/27/16 Levothyroxine Sodium [Synthroid] 50 mcg PO SUSA 09/06/15 10/27/16 Omeprazole [PriLOSEC] 20 mg PO DAILY 09/06/15 10/27/16 Fiber Choice 2 tab PO DAILY 02/23/16 10/27/16 Hydrocodone/Acetaminophen [Reydon 1 tab PO Q6HR PRN 02/23/16 10/27/16 7.5-325] Warfarin Sodium 4 mg PO SUMOTUTHFR 02/23/16 10/27/16 Warfarin Sodium [Coumadin] 6 mg PO WESA 02/23/16 10/27/16 Cyclobenzaprine [Flexeril] 10 mg PO Q8H PRN 03/29/16 10/27/16 Baclofen [Lioresal] 10 mg PO BID PRN 09/04/16 10/27/16 Cetirizine HCl [Zyrtec] 10 mg PO DAILY PRN 09/04/16 10/27/16 Diphenox-Atrop 2.5-0.025 mg 2 tab PO QID PRN 10/27/16 10/27/16 [Lomotil] Previous Rx's Medication Instructions Recorded Flecainide [Tambocor] 50 mg PO Q12HR #180 tab 09/06/16 Metoprolol Tartrate [Lopressor] 25 mg PO BID #180 tab 09/06/16 Nitrofurantoin Monohyd/M-Cryst 100 mg PO Q12HR #14 cap 10/27/16 [Macrobid] Phenazopyridine HCl [Pyridium] 100 mg PO TID #6 tab 10/27/16 Allergies Allergy/AdvReac Type Severity Reaction Status Date / Time celecoxib [From Celebrex] Allergy Rash/Hives Verified 10/27/16 02:11 Penicillins Allergy Rash/Hives Verified 10/27/16 02:11 Sulfa (Sulfonamide Allergy Rash/Hives Verified 10/27/16 02:11 Antibiotics) tretinoin [From Retin-A] Allergy Rash/Hives Verified 10/27/16 02:11 meperidine HCl [From Demerol] AdvReac Nausea & Verified 10/27/16 02:11 Vomiting Review of Systems ROS Statement: Those systems with pertinent positive or pertinent negative responses have been documented in the HPI. ROS Other: All systems not noted in ROS Statement are negative. Past Medical History Past Medical History: Atrial Fibrillation, Hyperlipidemia, Hypertension, Thyroid Disorder Additional Past Medical History / Comment(s): vertigo, neck pain. Major valve prolapse of bilateral prosthetic replacement-mitral. High-dose flecainide intolerance History of Any Multi-Drug Resistant Organisms: None Reported Past Surgical History: Appendectomy, Back Surgery, Cardiac Ablation, Cardiac Valve Replacement, Hysterectomy, Orthopedic Surgery, Tonsillectomy Additional Past Surgical History / Comment(s): Right breast cyst removal. Right wrist ganglionectomy. Past Anesthesia/Blood Transfusion Reactions: No Reported Reaction Additional Past Anesthesia/Blood Transfusion Reaction / Comment(s): Patient vomited after previous surgery but she doesn't know if it was from anesthesia or the pain medication. Past Psychological History: Anxiety Additional Psychological History / Comment(s): PT STATED HAS SOME SADDNESS/MILD DEPRESSION OVER RECENT DEATHS IN HER FAMILY BUT DENIES ANY THOUGHTS OF HARMING SELF. Smoking Status: Former smoker Past Alcohol Use History: Occasional Additional Past Alcohol Use History / Comment(s): Patient states she drinks one drink per week usually Past Drug Use History: None Reported - Past Family History Mother Family Medical History: Congestive Heart Failure (CHF), Coronary Artery Disease (CAD), CVA/TIA, Hypertension Additional Family Medical History / Comment(s): Mother has been having multiple TIAs. at age 93 Father Family Medical History: CVA/TIA Additional Family Medical History / Comment(s): Father of a stroke at age 90 General Exam - General Exam Comments Initial Comments: This is a 66-year-old female. No acute distress. Limitations: no limitations General appearance: alert, in no apparent distress Head exam: Present: atraumatic, normocephalic, normal inspection Eye exam: Present: normal appearance, PERRL, EOMI. Absent: scleral icterus, conjunctival injection, periorbital swelling ENT exam: Present: normal exam, mucous membranes moist Neck exam: Present: normal inspection. Absent: tenderness, meningismus, lymphadenopathy Respiratory exam: Present: normal lung sounds bilaterally. Absent: respiratory distress, wheezes, rales, rhonchi, stridor Cardiovascular Exam: Present: regular rate, normal rhythm, normal heart sounds. Absent: systolic murmur, diastolic murmur, rubs, gallop, clicks GI/Abdominal exam: Present: soft, normal bowel sounds. Absent: distended, tenderness, guarding, rebound, rigid Extremities exam: Present: normal inspection, full ROM, normal capillary refill. Absent: tenderness, pedal edema, joint swelling, calf tenderness Back exam: Present: normal inspection Neurological exam: Present: alert, oriented X3, CN II-XII intact Psychiatric exam: Present: normal affect, normal mood Skin exam: Present: warm, dry, intact, normal color. Absent: rash Course Vital Signs 10/27/16 02:09 Temperature 98.0 F Pulse Rate 76 Respiratory 18 Rate Blood Pressure 142/69 O2 Sat by Pulse 98 Oximetry Medical Decision Making - Medical Decision Making Is a 66-year-old female presents emergency Department with chief complaint of polyuria and dysuria. Patient reports every time she urinates he only has blood when she does. Patient reports she is on Coumadin but has not been monitoring her diet is concerned that her INR levels are abnormal. Patient's INR at this time is 5.4. Patient was given 5 mg of vitamin K by mouth. Patient urine is also very thick with blood unable to totally and last for urinalysis. Given patient's physical symptoms and presentation we'll treat the patient for urinary tract infection. Patient will be started on Macrobid and also given Pyridium for pain. Patient has been advised to discontinue her Coumadin for the next 2 days. 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 shira rao checks her INR levels. As a patient denies any chest pain,, abdominal pain, flank pain. White count was normal. Patient agrees to treatment plan will comply. Return parameters were discussed. - Lab Data Result diagrams: 10/27/16 02:21 Lab Results 10/27/16 10/27/16 10/27/16 Range/Units 02:14 02:21 02:21 WBC 10.0 (3.8-10.6) k/uL RBC 4.38 (3.80-5.40) m/uL Hgb 14.1 (11.4-16.0) gm/dL Hct 39.4 (34.0-46.0) % MCV 90.0 (80.0-100.0) fL MCH 32.3 (25.0-35.0) pg MCHC 35.8 (31.0-37.0) g/dL RDW 13.9 (11.5-15.5) % Plt Count 158 (150-450) k/uL Neutrophils % 53 % Lymphocytes % 37 % Monocytes % 5 % Eosinophils % 2 % Basophils % 0 % Neutrophils # 5.3 (1.3-7.7) k/uL Lymphocytes # 3.6 (1.0-4.8) k/uL Monocytes # 0.5 (0-1.0) k/uL Eosinophils # 0.2 (0-0.7) k/uL Basophils # 0.0 (0-0.2) k/uL PT 56.4 H (9.0-12.0) sec INR 5.6 H* (<1.1) APTT 40.4 H (22.0-30.0) sec Urine Color Red Urine Appearance Bloody H (Clear) Urine RBC >182 H (0-5) /hpf Urine WBC 11 H (0-5) /hpf Disposition Clinical Impression: Urinary tract infection, Elevated INR Disposition: HOME SELF-CARE Condition: Good Instructions: Urinary Tract Infection in Women (ED), Elevated INR (ED) Additional Instructions: Follow-up with Dr. Benson on Sunday to have her Coumadin levels rechecked. Discontinue Coumadin for the next 2 days and return to normal diet, then resume normal coumadin. Patient advised to return to the emergency department if any alarming signs or symptoms occur. Completely entire antibiotic prescription. Prescriptions: Nitrofurantoin Monohyd/M-Cryst [Macrobid] 100 mg PO Q12HR #14 cap Phenazopyridine HCl [Pyridium] 100 mg PO TID #6 tab Referrals: Jseus Carson MD [Primary Care Provider] - 1-2 days Time of Disposition: 03:24
[2016-10-27 03:40] VITALS: BP 123/81; PULSE 72; RESP 16
== END 2016-10-27 03:37 | disposition home or self-care (01) ==
LOC: EC 02:07
DX: N39.0 Urinary tract infection, site not specified (principal); R79.1 Abnormal coagulation profile; I48.91 Unspecified atrial fibrillation; E78.5 Hyperlipidemia, unspecified; I10 Essential (primary) hypertension; E07.9 Disorder of thyroid, unspecified; F41.9 Anxiety disorder, unspecified; Z87.891 Personal history of nicotine dependence; Z79.01 Long term (current) use of anticoagulants; Z79.899 Other long term (current) drug therapy; Z88.0 Allergy status to penicillin; Z88.2 Allergy status to sulfonamides; Z88.5 Allergy status to narcotic agent; Z88.6 Allergy status to analgesic agent; Z88.8 Allergy status to other drugs, medicaments and biological substances
CPT/HCPCS: 36415; 85025; 85610; 85730; 81001; 99284; S0119

== ENCOUNTER → 2016-11-28 | Outpatient (CLI) | payer MEDICARE ==
--- NOTE | 2016-11-30 08:51 | CONS ---
REASON FOR THE CONSULTATION: Sleep apnea. PRIMARY CARE PHYSICIAN: Dr. Carson. A 66-year-old female patient coming in with complaints of feeling tired all the time. She reports her sleep quality is not the best. She goes to bed around 11 p.m. to 1 a.m. and she wakes up between 5 and 7 a.m. in the morning. Sometimes , it takes her more than 30 minutes to fall asleep. She is not sure if she quits breathing or she snores at night, however, she feels very tired and fatigued during the day. She does not fall asleep easily while driving or while doing any day to day activities. Coram score is 1. There are further concerns for a sleep breathing disorder knowing that the patient has paroxysmal atrial fibrillation. She has history of mitral valve prolapse and ultimately severe mitral regurgitation requiring mitral valve replacement and she has history of paroxysmal atrial fibrillation for which she has had previous cardiac ablation. PAST MEDICAL HISTORY: 1. Mitral valve replacement. 2. Restless leg syndrome. 3. Hyperlipidemia. 4. Hypothyroidism. 5. Paroxysmal atrial fibrillation. Surgical history includes mitral valve replacement, back surgery with fusion and insertion of plates and rods, complete hysterectomy, appendectomy, tonsillectomy, foot surgery, right toe surgery, wrist surgery with ORIF and cardiac ablation for atrial fibrillation. Allergies are to SULFA, DEMEROL and PENICILLIN. Outpatient medication list includes a combination flecainide, metoprolol, Synthroid, omeprazole, warfarin, Lipitor, Lasix, multivitamin, Requip and fiber. She also takes Xanax p.r.n., Flexeril p.r.n., hydrocodone p.r.n., Baclofen p.r.n. and Zyrtec p.r.n. FAMILY HISTORY: Father had CVA, mother had CVA and TIA and she at the age of 93. REVIEW OF SYSTEM: Twelve-point review of system was done, positive findings were mentioned above in the history of present illness. BP is 115/68, pulse 74, respirations 16, temperature 98.1, saturation is 98% on room air. BMI is 33.4. Weight is 192. Height is 5 feet, 3 inches. Neck size is 14-1/2. GENERAL APPEARANCE: Calm, comfortable. HEENT : Mallampati class 3. There is no goiter or neck masses. LUNGS: Clear to auscultation. HEART: Sounds regular rate and rhythm. Normal S1, S2. No S3. No murmurs. ABDOMEN: Soft, nontender. No organomegaly. EXTREMITIES: No cyanosis or clubbing. IMPRESSION: 1. Obstructive sleep apnea, clinically suspected although the overall clinical suspicion is lower in this patient based on the reported history. 2. Chronic fatigue without major sleepiness. Coram score is 1. 3. Paroxysmal atrial fibrillation. Current rhythm is sinus, wearing a heart monitor. 4. Hypothyroidism. 5. Hyperlipidemia. 6. Restless leg syndrome. 7. Mitral valve replacement. PLAN: 1. Encourage weight loss. 2. Encourage avoiding caffeinated beverages late at night time. 3. To improve sleep hygiene measures. 4. home sleep study looking for any significant sleep breathing disorder that may warrant further treatment. SIMA
== END | disposition home or self-care (01) ==
LOC: SLEEP 14:23
PROVIDERS: ATTEND Internal Medicine Critical Care Medicine
DX: I48.0 Paroxysmal atrial fibrillation (principal); E03.9 Hypothyroidism, unspecified; E78.5 Hyperlipidemia, unspecified; R53.82 Chronic fatigue, unspecified; G25.81 Restless legs syndrome; Z95.2 Presence of prosthetic heart valve; Z88.2 Allergy status to sulfonamides; Z88.5 Allergy status to narcotic agent; Z88.0 Allergy status to penicillin; Z79.899 Other long term (current) drug therapy; Z79.01 Long term (current) use of anticoagulants
CPT/HCPCS: 99211

== ENCOUNTER → 2016-12-20 | Outpatient (CLI) | payer MEDICARE ==
--- NOTE | 2016-12-20 15:18 | XR ---
EXAMINATION TYPE: XR lumbosacral spine min 4V , 5 VIEWS DATE OF EXAM ORDERED: 12/20/2016 HISTORY: M54.89 Other dorsalgia. COMPARISON: Previous study dated 03/22/2015. FINDINGS: There has been an interpedicular fusion at L3, L4 and L5 with spacing material placement a t L4-5. There has been a laminectomy at L4. There is a mild levoscoliosis. There is a superior endplate infraction of L2 which has progressed sli ghtly from previous. This hypertrophic spondylosis in L1-2 as well as T11-12. There is disc space irma rowing at L2-3 and also T11-12. There is mild facet arthropathy in the facets above the fusion. IMPRESSION: 1. POSTSURGICAL CHANGE. 2. DEGENERATIVE CHANGE. 3. SLIGHT WORSENING IN THE SUPERIOR ENDPLATE INFRACTION OF L2.
== END | disposition home or self-care (01) ==
LOC: RADXRMAIN 14:44
PROVIDERS: ATTEND Family Medicine
DX: M47.816 Spondylosis without myelopathy or radiculopathy, lumbar region (principal); Z98.890 Other specified postprocedural states
CPT/HCPCS: 72110

== ENCOUNTER → 2016-12-26 | Outpatient (CLI) | payer MEDICARE ==
--- NOTE | 2016-12-26 14:03 | MM ---
Reason for exam: screening (asymptomatic). Last mammogram was performed 1 year and 1 month ago. History: Patient is postmenopausal and is nulliparous. Family history of breast cancer in aunt. Benign excisional biopsy of the right breast, 1974. Benign excisional biopsy of the right breast, 1973. Physical Findings: A clinical breast exam by your physician is recommended on an annual basis and results should be correlated with mammographic findings. MG Screening Mammo w CAD Bilateral CC and MLO view(s) were taken. Prior study comparison: November 30, 2015, bilateral MG 3d screening mammo w/cad. October 05, 2014, bilateral MG screening mammo w CAD. The breast tissue is heterogeneously dense. This may lower the sensitivity of mammography. There is no discrete abnormality. No significant changes when compared with prior studies. ASSESSMENT: Negative, BI-RAD 1 RECOMMENDATION: Routine screening mammogram of both breasts in 1 year.
== END | disposition home or self-care (01) ==
LOC: RADMAMWWP 09:34
PROVIDERS: ATTEND Family Medicine
DX: Z12.31 Encounter for screening mammogram for malignant neoplasm of breast (principal); Z80.3 Family history of malignant neoplasm of breast

== ENCOUNTER → 2016-12-26 | Outpatient (CLI) | payer MEDICARE ==
[2016-12-26 10:32] LABS: ALT 37 U/L (9-52); AST 31 U/L (14-36); Alkaline Phosphatase 89 U/L (38-126); Anion Gap 8 mmol/L; Blood Urea Nitrogen 13 mg/dL (7-17); Calcium 9.3 mg/dL (8.4-10.2); Carbon Dioxide 29 mmol/L (22-30); Chloride 102 mmol/L (98-107); Cholesterol 151 mg/dL (<200); Glucose 91 mg/dL (74-99); HDL Cholesterol 46 mg/dL (40-60); Non-African American GFR(MDRD) >60 (>60 ml/min/1.73 sqM); Potassium 4.2 mmol/L (3.5-5.1); Sodium 139 mmol/L (137-145); Total Bilirubin 0.7 mg/dL (0.2-1.3); Total Protein 6.9 g/dL (6.3-8.2); Triglycerides 120 mg/dL (<150)
== END | disposition home or self-care (01) ==
LOC: LABWHC1 09:16
PROVIDERS: ATTEND Internal Medicine Interventional Cardiology
DX: E78.2 Mixed hyperlipidemia (principal)
CPT/HCPCS: 36415; 80053; 80061

== ENCOUNTER 2017-01-03 13:16 | Observation (INO) | payer MEDICARE ==
[2017-01-03] MEDS ORDERED: MECLIZINE 25 MG TAB PO STA (13:43)
--- NOTE | 2017-01-03 14:04 | ED ---
General Adult HPI - General Chief complaint: Arrhythmia/Palpitations Stated complaint: Headache/dizziness Time Seen by Provider: 01/03/17 13:20 Source: patient, RN notes reviewed Mode of arrival: wheelchair Limitations: no limitations - History of Present Illness Initial comments: This is a 66-year-old female with past medical history significant for atrial fibrillation. Patient states she has been feeling her atrial fib come and go and she became extremely diaphoretic today with some left-sided chest pain which was very concerning to her because it is not typical for atrial fibrillation. Patient states she started getting some head rushes as well where she felt as though she was dizzy and lightheaded and possibly could follow her. states she needed assistance and keeping her balance. Patient denies those symptoms currently but she still having some mild chest pain. Patient denies any shortness of breath or difficulty breathing. Patient states the sensation in her head started yesterday intermittently and again today intermittently. Patient states the chest pain started after she had the episode of atrial fibrillation today. Patient denies any recent fever chills or cough. Patient denies any abdominal pain patient denies nausea vomiting diarrhea. Patient denies headache patient denies numbness weakness. - Related Data Home Medications Medication Instructions Recorded Confirmed Furosemide [Lasix] 10 mg PO QAM 12/20/13 01/03/17 Multivitamins, Thera [Multivitamin 1 tab PO DAILY 12/20/13 01/03/17 (formulary)] Levothyroxine Sodium [Synthroid] 25 mcg PO MOTUWETHFR 04/17/14 01/03/17 ALPRAZolam [Xanax] 0.5 mg PO BID PRN 06/02/15 01/03/17 Atorvastatin [Lipitor] 40 mg PO HS 06/02/15 01/03/17 Levothyroxine Sodium [Synthroid] 50 mcg PO SUSA 09/06/15 01/03/17 Omeprazole [PriLOSEC] 20 mg PO DAILY 09/06/15 01/03/17 Fiber Choice 2 tab PO DAILY 02/23/16 01/03/17 Hydrocodone/Acetaminophen [Mitchell 1 tab PO Q6HR PRN 02/23/16 01/03/17 7.5-325] Warfarin Sodium 4 mg PO SUMOTUTHFR 02/23/16 01/03/17 Warfarin Sodium [Coumadin] 6 mg PO WESA 02/23/16 01/03/17 Cyclobenzaprine [Flexeril] 10 mg PO Q8H PRN 03/29/16 01/03/17 Baclofen [Lioresal] 10 mg PO BID PRN 09/04/16 01/03/17 Cetirizine HCl [Zyrtec] 10 mg PO DAILY PRN 09/04/16 01/03/17 L.acidoph,Paracasei, B.lactis 1 cap PO DAILY 01/03/17 01/03/17 [Probiotic] Melatonin 5 mg PO HS 01/03/17 01/03/17 rOPINIRole HCL [Requip] 2 mg PO HS 01/03/17 01/03/17 Previous Rx's Medication Instructions Recorded Flecainide [Tambocor] 50 mg PO Q12HR #180 tab 09/06/16 Metoprolol Tartrate [Lopressor] 25 mg PO BID #180 tab 09/06/16 Nitrofurantoin Monohyd/M-Cryst 100 mg PO Q12HR #14 cap 10/27/16 [Macrobid] Allergies Allergy/AdvReac Type Severity Reaction Status Date / Time Penicillins Allergy Rash/Hives Verified 01/03/17 14:27 Sulfa (Sulfonamide Allergy Rash/Hives Verified 01/03/17 14:27 Antibiotics) tretinoin [From Retin-A] Allergy Rash/Hives Verified 01/03/17 14:27 meperidine HCl [From Demerol] AdvReac Nausea & Verified 01/03/17 14:27 Vomiting Review of Systems ROS Statement: Those systems with pertinent positive or pertinent negative responses have been documented in the HPI. ROS Other: All systems not noted in ROS Statement are negative. Past Medical History Past Medical History: Atrial Fibrillation, Hyperlipidemia, Hypertension, Thyroid Disorder Additional Past Medical History / Comment(s): vertigo, neck pain. Major valve prolapse of bilateral prosthetic replacement-mitral. High-dose flecainide intolerance History of Any Multi-Drug Resistant Organisms: None Reported Past Surgical History: Appendectomy, Back Surgery, Cardiac Ablation, Cardiac Valve Replacement, Hysterectomy, Orthopedic Surgery, Tonsillectomy Additional Past Surgical History / Comment(s): Right breast cyst removal. Right wrist ganglionectomy. Past Anesthesia/Blood Transfusion Reactions: No Reported Reaction Additional Past Anesthesia/Blood Transfusion Reaction / Comment(s): Patient vomited after previous surgery but she doesn't know if it was from anesthesia or the pain medication. Past Psychological History: Anxiety Smoking Status: Former smoker Past Alcohol Use History: Occasional Past Drug Use History: None Reported - Past Family History Mother Family Medical History: Congestive Heart Failure (CHF), Coronary Artery Disease (CAD), CVA/TIA, Hypertension Additional Family Medical History / Comment(s): Mother has been having multiple TIAs. at age 93 Father Family Medical History: CVA/TIA Additional Family Medical History / Comment(s): Father of a stroke at age 90 General Exam - General Exam Comments Initial Comments: GENERAL: Patient is well-developed and well-nourished. Patient is nontoxic and well- hydrated and is in mild distress. ENT: Neck is soft and supple. No significant lymphadenopathy is noted. Oropharynx is clear. Moist mucous membranes. EYES: The sclera were anicteric and conjunctiva were pink and moist. Extraocular movements were intact and pupils were equal round and reactive to light. Eyelids were unremarkable. PULMONARY: Unlabored respirations. Good breath sounds bilaterally. No audible rales rhonchi or wheezing was noted. CARDIOVASCULAR: There is a regular rate and rhythm without any murmurs gallops or rubs. ABDOMEN: Soft and nontender with normal bowel sounds. No palpable organomegaly was noted. There is no palpable pulsatile mass. SKIN: Skin is clear with no lesions or rashes and otherwise unremarkable. NEUROLOGIC: Patient is alert and oriented x3. Cranial nerves II through XII are grossly intact. Motor and sensory are also intact. Normal speech, volume and content. Symmetrical smile. MUSCULOSKELETAL: Normal extremities with adequate strength and full range of motion. No lower extremity swelling or edema. No calf tenderness. LYMPHATICS: No significant lymphadenopathy is noted PSYCHIATRIC: Normal psychiatric evaluation. Normal interpersonal interactions appears functionally intact in deals appropriately with others. No signs of depression. No signs of anxiety. Limitations: no limitations Course Vital Signs 01/03/17 01/03/17 01/03/17 13:20 14:24 14:50 Temperature 97.8 F Pulse Rate 94 66 65 Respiratory 20 18 18 Rate Blood Pressure 122/68 120/60 107/58 O2 Sat by Pulse 98 98 99 Oximetry 01/03/17 15:24 Temperature Pulse Rate 63 Respiratory 18 Rate Blood Pressure 136/61 O2 Sat by Pulse 99 Oximetry Medical Decision Making - Medical Decision Making EKG shows sinus rhythm at 67 bpm RI interval 238 QRS is 86 QT interval 444 QTC is 469 per patient's EKG shows no ST segment elevation or depression or T-wave abdomen is noted. - Lab Data Result diagrams: 01/03/17 13:54 01/03/17 13:54 Lab Results 01/03/17 01/03/17 01/03/17 Range/Units 13:54 13:54 13:54 WBC 7.0 (3.8-10.6) k/uL RBC 5.01 (3.80-5.40) m/uL Hgb 15.4 (11.4-16.0) gm/dL Hct 45.6 (34.0-46.0) % MCV 91.0 (80.0-100.0) fL MCH 30.7 (25.0-35.0) pg MCHC 33.7 (31.0-37.0) g/dL RDW 14.5 (11.5-15.5) % Plt Count 252 (150-450) k/uL Neutrophils % 45 % Lymphocytes % 43 % Monocytes % 7 % Eosinophils % 2 % Basophils % 1 % Neutrophils # 3.2 (1.3-7.7) k/uL Lymphocytes # 3.0 (1.0-4.8) k/uL Monocytes # 0.5 (0-1.0) k/uL Eosinophils # 0.2 (0-0.7) k/uL Basophils # 0.1 (0-0.2) k/uL PT (9.0-12.0) sec INR (<1.2) APTT (22.0-30.0) sec Sodium 140 (137-145) mmol/L Potassium 4.1 (3.5-5.1) mmol/L Chloride 106 (98-107) mmol/L Carbon Dioxide 25 (22-30) mmol/L Anion Gap 9 mmol/L BUN 14 (7-17) mg/dL Creatinine 0.69 (0.52-1.04) mg/dL Est GFR (MDRD) Af Amer >60 (>60 ml/min/1.73 sqM) Est GFR (MDRD) Non-Af >60 (>60 ml/min/1.73 sqM) Glucose 104 H (74-99) mg/dL Calcium 9.0 (8.4-10.2) mg/dL Magnesium 1.9 (1.6-2.3) mg/dL Total Bilirubin 0.5 (0.2-1.3) mg/dL AST 29 (14-36) U/L ALT 40 (9-52) U/L Alkaline Phosphatase 97 (38-126) U/L Total Creatine Kinase 37 (30-135) U/L CK-MB (CK-2) 0.5 (0.0-2.4) ng/mL CK-MB (CK-2) Rel Index 1.4 Troponin I <0.012 (0.000-0.034) ng/mL Total Protein 7.4 (6.3-8.2) g/dL Albumin 4.1 (3.5-5.0) g/dL TSH 2.900 (0.465-4.680) mIU/L Free T4 1.34 (0.78-2.19) ng/dL 01/03/17 Range/Units 13:54 WBC (3.8-10.6) k/uL RBC (3.80-5.40) m/uL Hgb (11.4-16.0) gm/dL Hct (34.0-46.0) % MCV (80.0-100.0) fL MCH (25.0-35.0) pg MCHC (31.0-37.0) g/dL RDW (11.5-15.5) % Plt Count (150-450) k/uL Neutrophils % % Lymphocytes % % Monocytes % % Eosinophils % % Basophils % % Neutrophils # (1.3-7.7) k/uL Lymphocytes # (1.0-4.8) k/uL Monocytes # (0-1.0) k/uL Eosinophils # (0-0.7) k/uL Basophils # (0-0.2) k/uL PT 21.4 H (9.0-12.0) sec INR 2.2 H (<1.2) APTT 29.7 (22.0-30.0) sec Sodium (137-145) mmol/L Potassium (3.5-5.1) mmol/L Chloride (98-107) mmol/L Carbon Dioxide (22-30) mmol/L Anion Gap mmol/L BUN (7-17) mg/dL Creatinine (0.52-1.04) mg/dL Est GFR (MDRD) Af Amer (>60 ml/min/1.73 sqM) Est GFR (MDRD) Non-Af (>60 ml/min/1.73 sqM) Glucose (74-99) mg/dL Calcium (8.4-10.2) mg/dL Magnesium (1.6-2.3) mg/dL Total Bilirubin (0.2-1.3) mg/dL AST (14-36) U/L ALT (9-52) U/L Alkaline Phosphatase (38-126) U/L Total Creatine Kinase (30-135) U/L CK-MB (CK-2) (0.0-2.4) ng/mL CK-MB (CK-2) Rel Index Troponin I (0.000-0.034) ng/mL Total Protein (6.3-8.2) g/dL Albumin (3.5-5.0) g/dL TSH (0.465-4.680) mIU/L Free T4 (0.78-2.19) ng/dL Disposition Clinical Impression: Chest pain, Vertigo Disposition: ADMITTED IP TO THIS HOSP Referrals: Jesus Carson MD [Primary Care Provider] - 1-2 days Time of Disposition: 15:33
[2017-01-03 14:13] LABS: Basophils # (A) 0.1 k/uL (0-0.2); Basophils % (A) 1 %; CH 31.3; CHCM 34.6; Eosinophils # (A) 0.2 k/uL (0-0.7); Eosinophils % (A) 2 %; HCT 45.6 % (34.0-46.0); HDW 2.85; HGB 15.4 gm/dL (11.4-16.0); Luc # (Auto) 0.18; Luc % (Auto) 3; Lymphocytes % (A) 43 %; MCH 30.7 pg (25.0-35.0); MCHC 33.7 g/dL (31.0-37.0); Mean Platelet Volume 7.6; Monocytes # (A) 0.5 k/uL (0-1.0); Monocytes % (A) 7 %; Neutrophils # (A) 3.2 k/uL (1.3-7.7); Neutrophils % (A) 45 %; RBC 5.01 m/uL (3.80-5.40); RDW 14.5 % (11.5-15.5); WBC (Perox) 6.88
[2017-01-03 14:23] LABS: INR 2.2 (<1.2); Partial Thromboplastin Time 29.7 sec (22.0-30.0); Prothrombin Time 21.4 sec (9.0-12.0)
[2017-01-03 14:28] LABS: ALT 40 U/L (9-52); AST 29 U/L (14-36); Alkaline Phosphatase 97 U/L (38-126); Anion Gap 9 mmol/L; Blood Urea Nitrogen 14 mg/dL (7-17); Carbon Dioxide 25 mmol/L (22-30); Chloride 106 mmol/L (98-107); Glucose 104 mg/dL (74-99); Magnesium 1.9 mg/dL (1.6-2.3); Non-African American GFR(MDRD) >60 (>60 ml/min/1.73 sqM); Potassium 4.1 mmol/L (3.5-5.1); Sodium 140 mmol/L (137-145); Total Bilirubin 0.5 mg/dL (0.2-1.3); Total Protein 7.4 g/dL (6.3-8.2)
[2017-01-03 14:40] LABS: Creatine Kinase 37 U/L (30-135)
--- NOTE | 2017-01-03 14:45 | XR ---
EXAMINATION TYPE: XR chest 2V DATE OF EXAM: 01/03/2017 COMPARISON: 09/04/2016 HISTORY: 66-year-old female with dysrhythmia TECHNIQUE: PA and lateral views FINDINGS: Median sternotomy wires are present. Heart upper limits of normal in size. Mild interstitial prominen ce has a chronic appearance. Retained epicardial pacer leads. No consolidation or pleural effusion. P artially visualized posterior lumbar fusion hardware. IMPRESSION: Chronic changes without acute process.
[2017-01-03 14:52] LABS: Creatine Kinase MB 0.5 ng/mL (0.0-2.4); Troponin I <0.012 ng/mL (0.000-0.034)
--- NOTE | 2017-01-03 15:25 | CT ---
EXAMINATION TYPE: CT brain wo con DATE OF EXAM: 01/03/2017 COMPARISON: Prior CT brain 04/29/2016 HISTORY: Headache and dizziness. CT DLP: 1067 mGycm Automated exposure control for dose reduction was used. Helical acquisition obtained through the [employer] n. FINDINGS: No significant interval change is evident. There is no hemorrhage or hydrocephalus. Cortical atrophy is noted. IMPRESSION: STABLE EXAM, NO ACUTE ABNORMALITY.
[2017-01-03] MEDS ORDERED: NITROGLYCERIN SL TABS 0.4 MG TAB SUBLINGUAL PRN (15:34)
[2017-01-03] MEDS ORDERED: MECLIZINE 25 MG TAB PO PRN (15:35)
[2017-01-03] MEDS ORDERED: LORATADINE 10 MG TAB PO PRN (17:28)
[2017-01-03] MEDS ORDERED: BACLOFEN 10 MG TAB PO PRN (17:28)
[2017-01-03] MEDS ORDERED: CYCLOBENZAPRINE 10 MG TAB PO PRN (17:28)
[2017-01-03] MEDS ORDERED: WARFARIN 3 MG TAB PO SCH (18:00)
[2017-01-03] MEDS: LEVOTHYROXINE 25 MCG TAB PO SCH (18:03)
[2017-01-03] MEDS: NITROGLYCERIN OINT 1 INCH/GM PACKET TOPICAL SCH ×2 (18:03→23:40)
[2017-01-03] MEDS: METOPROLOL TARTRATE 25 MG TAB PO SCH (20:18)
[2017-01-03] MEDS: ATORVASTATIN 40 MG TAB PO SCH (20:18)
[2017-01-03] MEDS: ALPRAZolam 0.5 MG TAB PO PRN (20:18)
[2017-01-03] MEDS: FLECAINIDE 50 MG TAB PO SCH (20:18)
[2017-01-03] MEDS: NITROFURANTOIN MONOHYD/M-CRYST 100 MG CAP PO SCH (20:18)
[2017-01-03 21:01] LABS: Creatine Kinase 30 U/L (30-135)
[2017-01-03 21:14] LABS: Creatine Kinase MB 0.4 ng/mL (0.0-2.4); Troponin I <0.012 ng/mL (0.000-0.034)
[2017-01-03] MEDS: LACTOBACILLUS ACIDOPH & BULGAR 1 EACH PACKET PO SCH (21:27)
[2017-01-03] MEDS: DIPHENOX-ATROP 2.5-0.025 MG 1 EACH TAB PO SCH ×2 (21:27→22:29)
[2017-01-03] MEDS: MELATONIN 5 MG TABLET PO SCH (21:57)
[2017-01-03] MEDS: HYDROcodone/APAP 7.5-325MG 1 EACH TAB PO PRN (21:57)
[2017-01-04 02:39] LABS: Cholesterol 141 mg/dL (<200); HDL Cholesterol 36 mg/dL (40-60)
[2017-01-04 02:49] LABS: Creatine Kinase 29 U/L (30-135)
[2017-01-04 03:01] LABS: Creatine Kinase MB 0.4 ng/mL (0.0-2.4); Troponin I <0.012 ng/mL (0.000-0.034)
[2017-01-04] MEDS: NITROGLYCERIN OINT 1 INCH/GM PACKET TOPICAL SCH ×4 (06:11→20:20)
[2017-01-04] MEDS: DIPHENOX-ATROP 2.5-0.025 MG 1 EACH TAB PO SCH ×4 (06:17→22:05)
[2017-01-04] MEDS: LEVOTHYROXINE 25 MCG TAB PO SCH (06:17)
[2017-01-04] MEDS: ASPIRIN 325 MG TAB PO SCH (09:44)
[2017-01-04] MEDS: NITROFURANTOIN MONOHYD/M-CRYST 100 MG CAP PO SCH ×2 (09:48→20:05)
[2017-01-04] MEDS: PANTOPRAZOLE 40 MG TABLET PO SCH (09:52)
[2017-01-04] MEDS: FLECAINIDE 50 MG TAB PO SCH ×2 (09:52→20:05)
[2017-01-04] MEDS: ALPRAZolam 0.5 MG TAB PO PRN ×2 (12:13→22:05)
[2017-01-04] MEDS: MULTIVITAMINS, THERA 1 EACH TAB PO SCH (12:13)
[2017-01-04] MEDS: METOPROLOL TARTRATE 25 MG TAB PO SCH ×2 (12:13→20:05)
[2017-01-04] MEDS: FUROSEMIDE 10 MG TAB PO SCH (12:13)
--- NOTE | 2017-01-04 13:32 | P.CRDCN ---
History of Present Illness Consult date: 01/04/17 History of present illness: This is a 66-year-old female patient who follows with Dr. Benson in the office. She has a history of atrial fibrillation with rapid ventricular response and is maintained on Coumadin, metoprolol 25 mg twice a day and flecanide 50 mg twice a day. She presented to the emergency room after an episode of converting into atrial fibrillation with what she believes to be a rapid ventricular rate. She became very dizzy at home and felt what she described as a "swishing" in her head with some chest pressure. She has a history of an ablation in April [address] Cid and a subsequent LAURA cardioversion in September [address] Benson. Since the cardioversion she has episodes of recurrent atrial fibrillation and recently had a 30-day Holter monitor to evaluate this. Upon examination she is seen resting comfortably in bed in no acute distress. Cardiac monitoring overnight shows no episodes of atrial fibrillation and EKG upon admission is a normal sinus mechanism. She denies any chest pain, shortness of breath, nausea, vomiting, diaphoresis or palpitations. Her INR is therapeutic at 2.2 and troponins are negative. Chest x-ray is negative for acute process. Review of Systems REVIEW OF SYSTEMS: Patient denies any chest discomfort. No shortness of breath. No diaphoresis. He denies headache, dizziness, blurred vision, double vision. No dyspnea on exertion. Patient denies any stomach discomfort. No nausea, vomiting. No hematochezia. No hematemesis. Denies any black stools or blood in his stools. No syncope. No palpitations. No cough. No recent fever or chills. Denies dysuria or hematuria. No muscle weakness or numbness. Past Medical History Past Medical History: Atrial Fibrillation, Hyperlipidemia, Hypertension, Thyroid Disorder Additional Past Medical History / Comment(s): vertigo, neck pain, wore a heart monitor for a sun that was taken off december 09. Major valve prolapse of bilateral prosthetic replacement-mitral. High-dose flecainide intolerance History of Any Multi-Drug Resistant Organisms: None Reported Past Surgical History: Appendectomy, Back Surgery, Cardiac Ablation, Cardiac Valve Replacement, Hysterectomy, Orthopedic Surgery, Tonsillectomy Additional Past Surgical History / Comment(s): Right breast cyst removal.pasr cardioversion for afib., injections in neck.sees dr snow. Right wrist ganglionectomy. Past Anesthesia/Blood Transfusion Reactions: No Reported Reaction Additional Past Anesthesia/Blood Transfusion Reaction / Comment(s): Patient vomited after previous surgery but she doesn't know if it was from anesthesia or the pain medication. Smoking Status: Former smoker - Past Family History Mother Family Medical History: Congestive Heart Failure (CHF), Coronary Artery Disease (CAD), CVA/TIA, Hypertension Additional Family Medical History / Comment(s): Mother has been having multiple TIAs. at age 93 Father Family Medical History: CVA/TIA Additional Family Medical History / Comment(s): Father of a stroke at age 90 Medications and Allergies Home Medications Medication Instructions Recorded Confirmed Type Furosemide [Lasix] 10 mg PO QAM 12/20/13 01/03/17 History Multivitamins, Thera [Multivitamin 1 tab PO DAILY 12/20/13 01/03/17 History (formulary)] Levothyroxine Sodium [Synthroid] 25 mcg PO MOTUWETHFR 04/17/14 01/03/17 History ALPRAZolam [Xanax] 0.5 mg PO BID PRN 06/02/15 01/03/17 History Atorvastatin [Lipitor] 40 mg PO HS 06/02/15 01/03/17 History Levothyroxine Sodium [Synthroid] 50 mcg PO SUSA 09/06/15 01/03/17 History Omeprazole [PriLOSEC] 20 mg PO DAILY 09/06/15 01/03/17 History Fiber Choice 2 tab PO DAILY 02/23/16 01/03/17 History Hydrocodone/Acetaminophen [[place] 1 tab PO Q6HR PRN 02/23/16 01/03/17 History 7.5-325] Warfarin Sodium 4 mg PO SUMOTUTHFR 02/23/16 01/03/17 History Warfarin Sodium [Coumadin] 6 mg PO WESA 02/23/16 01/03/17 History Cyclobenzaprine [Flexeril] 10 mg PO Q8H PRN 03/29/16 01/03/17 History Baclofen [Lioresal] 10 mg PO BID PRN 09/04/16 01/03/17 History Cetirizine HCl [Zyrtec] 10 mg PO DAILY PRN 09/04/16 01/03/17 History L.acidoph,Paracasei, B.lactis 1 cap PO DAILY 01/03/17 01/03/17 History [Probiotic] Melatonin 5 mg PO HS 01/03/17 01/03/17 History rOPINIRole HCL [Requip] 2 mg PO HS 01/03/17 01/03/17 History Allergies Allergy/AdvReac Type Severity Reaction Status Date / Time Penicillins Allergy Rash/Hives Verified 01/03/17 14:27 Sulfa (Sulfonamide Allergy Rash/Hives Verified 01/03/17 14:27 Antibiotics) tretinoin [From Retin-A] Allergy Rash/Hives Verified 01/03/17 14:27 meperidine HCl [From Demerol] AdvReac Nausea & Verified 01/03/17 14:27 Vomiting Physical Exam Vitals: Vital Signs Temp Pulse Pulse Resp BP BP Pulse Ox 01/04/17 07:27 98.7 F 57 L 16 110/51 95 01/04/17 04:00 18 01/04/17 03:24 97.6 F 63 18 104/56 93 L 01/03/17 23:37 18 01/03/17 23:17 60 18 90/48 96 01/03/17 20:38 95 01/03/17 20:00 18 01/03/17 19:45 98 F 74 18 114/75 96 01/03/17 17:07 18 01/03/17 16:59 97.3 F L 62 18 114/58 97 01/03/17 16:21 97.3 F L 62 18 114/58 97 01/03/17 16:00 98.1 F 54 L 16 115/61 98 01/03/17 15:24 63 18 136/61 99 01/03/17 14:50 65 18 107/58 99 01/03/17 14:24 66 18 120/60 98 01/03/17 13:20 97.8 F 94 20 122/68 98 Intake and Output 01/03/17 01/04/17 01/04/17 22:59 06:59 14:59 Intake Total 236 250 Balance 236 250 Intake: Oral 236 250 Other: Voiding Method Toilet Toilet # Voids 2 # Bowel Movements 1 GENERAL: This is a 66-year-old female in no apparent distress at the time of my examination. HEENT: Head is atraumatic, normocephalic. Pupils are equal, round. Sclerae anicteric. Conjunctivae are clear. Mucous membranes of the mouth are moist. Neck is supple. There is no jugular venous distention. No carotid bruit is heard. LUNGS: Clear to auscultation no wheezes, rales or rhonchi. No chest wall tenderness is noted on palpation or with deep breathing. HEART: Regular rate and rhythm, click heard at the apex from mitral valve replacement, no rubs or gallops. S1 and S2 heard. ABDOMEN: Soft, nontender. Bowel sounds are heard. No organomegaly noted. EXTREMITIES: 2+ peripheral pulses with no evidence of peripheral edema and no calf tenderness noted. NEUROLOGIC: Patient is awake, alert and oriented x3. Results 01/03/17 13:54 01/03/17 13:54 Cardiac Enzymes 01/03/17 01/03/17 01/03/17 Range/Units 13:54 13:54 20:11 AST 29 (14-36) U/L CK-MB (CK-2) 0.5 0.4 (0.0-2.4) ng/mL Troponin I <0.012 <0.012 (0.000-0.034) ng/mL 01/04/17 Range/Units 02:00 AST (14-36) U/L CK-MB (CK-2) 0.4 (0.0-2.4) ng/mL Troponin I <0.012 (0.000-0.034) ng/mL Coagulation 01/03/17 Range/Units 13:54 PT 21.4 H (9.0-12.0) sec APTT 29.7 (22.0-30.0) sec Lipids 01/04/17 Range/Units 02:00 Triglycerides 157 H (<150) mg/dL Cholesterol 141 (<200) mg/dL HDL Cholesterol 36 L (40-60) mg/dL CBC 01/03/17 Range/Units 13:54 WBC 7.0 (3.8-10.6) k/uL RBC 5.01 (3.80-5.40) m/uL Hgb 15.4 (11.4-16.0) gm/dL Hct 45.6 (34.0-46.0) % Plt Count 252 (150-450) k/uL Comprehensive Metabolic Panel 01/03/17 Range/Units 13:54 Sodium 140 (137-145) mmol/L Potassium 4.1 (3.5-5.1) mmol/L Chloride 106 (98-107) mmol/L Carbon Dioxide 25 (22-30) mmol/L BUN 14 (7-17) mg/dL Creatinine 0.69 (0.52-1.04) mg/dL Glucose 104 H (74-99) mg/dL Calcium 9.0 (8.4-10.2) mg/dL AST 29 (14-36) U/L ALT 40 (9-52) U/L Alkaline Phosphatase 97 (38-126) U/L Total Protein 7.4 (6.3-8.2) g/dL Albumin 4.1 (3.5-5.0) g/dL Current Medications Generic Name Dose Route Start Last Admin Trade Name Freq PRN Reason Stop Dose Admin Hydrocodone Bitart/Acetaminophen 1 each 01/03/17 17:28 01/03/17 21:57 [place] 7.5-325 PO 1 each Q6HR PRN Administration Pain Alprazolam 0.5 mg 01/03/17 17:28 01/03/17 20:18 Xanax PO 0.5 mg BID PRN Administration Anxiety Aspirin 325 mg 01/04/17 09:00 Aspirin PO DAILY [facility] Atorvastatin Calcium 40 mg 01/03/17 21:00 01/03/17 20:18 Lipitor PO 40 mg HS DORIS Administration Baclofen 10 mg 01/03/17 17:28 01/03/17 19:25 Lioresal PO 10 mg BID PRN Administration CRAMPS Cyclobenzaprine HCl 10 mg 01/03/17 17:28 Flexeril PO Q8H PRN Muscle Pain Diphenoxylate HCl/Atropine 1 each 01/03/17 20:45 01/04/17 06:17 Lomotil PO 1 each Q6HR DORIS Administration Flecainide Acetate 50 mg 01/03/17 21:00 01/03/17 20:18 Tambocor PO 50 mg Q12HR DORIS Administration Furosemide 10 mg 01/04/17 09:00 Lasix PO QAM DORIS Lactobacillus Acidoph/Bulgar[place] 1 each 01/03/17 20:45 01/03/17 21:27 Lactinex PO 1 each PC-SUPPER DORIS Administration Levothyroxine Sodium 25 mcg 01/03/17 17:45 01/04/17 06:17 Synthroid PO 25 mcg [email or web address] [facility] Administration Levothyroxine Sodium 50 mcg 01/06/17 06:30 Synthroid PO [email or web address] [facility] Loratadine 10 mg 01/03/17 17:28 Claritin PO DAILY PRN ALLERGIES Meclizine HCl 25 mg 01/03/17 15:35 01/03/17 21:57 Antivert PO 25 mg TID PRN Administration Vertigo Melatonin 5 mg 01/03/17 21:00 01/03/17 21:57 Melatonin PO 5 mg HS [facility] Administration Metoprolol Tartrate 25 mg 01/03/17 21:00 01/03/17 20:18 Lopressor PO 25 mg BID [facility] Administration Multivitamins 1 each 01/04/17 12:00 Theragran PO [id number]@1200 [facility] Nitrofurantoin Macrocrystals 100 mg 01/03/17 21:00 01/03/17 20:18 Macrobid PO 100 mg Q12HR [facility] Administration Nitroglycerin 1 inch 01/03/17 18:00 01/04/17 06:11 Nitro-Bid Oint TOPICAL Not Given Q6HR [facility] Nitroglycerin 0.4 mg 01/03/17 15:34 Nitrostat SUBLINGUAL Q5M PRN Chest Pain Pantoprazole Sodium 40 mg 01/04/17 07:30 Protonix PO AC-[id number] [facility] Ropinirole HCl 2 mg 01/03/17 21:00 01/03/17 20:17 Requip PO 2 mg HS [facility] Administration Warfarin Sodium 6 mg 01/03/17 18:00 01/03/17 18:34 Coumadin PO 6 mg [email or web address] [facility] Administration Warfarin Sodium 4 mg 01/04/17 18:00 Coumadin PO [email or web address] [facility] Intake and Output 01/03/17 01/04/17 01/04/17 22:59 06:59 14:59 Intake Total 236 250 Balance 236 250 Intake: Oral 236 250 Other: Voiding Method Toilet Toilet # Voids 2 # Bowel Movements 1 01/03/17 13:54 01/03/17 13:54 - EKG Interpretation EKG: sinus rhythm Assessment and Plan Plan: ASSESSMENT 1. History of atrial fibrillation with history of rapid ventricular rate, status post successful ablation and cardioversion 2. Near syncope 3. Chest pain 4. History of mitral valve replacement PLAN We will increase the patient's flecainide dose to 100 mg twice a day, if she continues to have episodes of atrial fibrillation with rapid ventricular rate would recommend she have a repeat consultation with Dr. Cid to discuss possibilty a repeat ablation. She should follow-up with Dr. Benson in the office in 2 weeks. Nurse Practitioner note has been reviewed, I agree with a documented findings and plan of care. Patient was seen and examined.
[2017-01-04] MEDS: HYDROcodone/APAP 7.5-325MG 1 EACH TAB PO PRN ×2 (13:39→22:05)
[2017-01-04] MEDS ORDERED: ACETAMINOPHEN TAB 325 MG TAB PO PRN (17:39)
[2017-01-04] MEDS ORDERED: WARFARIN 2 MG TAB PO SCH (18:00)
--- NOTE | 2017-01-04 18:23 | P.HPIM ---
History of Present Illness H&P Date: 01/04/17 Chief Complaint: Arrhythmia/ palpitations This 62-year-old female known to the practice with a past history of some significant for atrial fibrillation patient states she has been experiencing A. fib coming and going she became extremely diaphoretic today with some left- sided chest pain which was very concerning to her because it was not typical for the atrial fibrillation that she been experiencing. Patient states she started getting 100 rashes as well her, also she experienced vertigo and lightheadedness as well. state that she needed assistance to keep her balance. Patient stated that those symptoms completely lately resolved but she was still having some mild chest pain patient denies shortness of breath or difficulty breathing. Patient states the sensation in her head started yesterday intermittently and again today intermittently. Patient states the chest pain started after she had an episode of atrial fibrillation earlier today. This patient denies recent fever chills or cough denies abdominal pain as well as nausea and vomiting patient did state however she recently had occipital injections by a local neurologist for the vertigo and that she was given baclofen recently for discomfort and spasm Review of Systems Constitutional: Reports fatigue Ears, nose, mouth and throat: Reports as per HPI, Reports headache Cardiovascular: Reports as per HPI, Reports chest pain, Reports irregular heart beat, Reports lightheadedness, Reports rapid heart beat Respiratory: Reports as per HPI Gastrointestinal: Reports as per HPI Genitourinary: Reports as per HPI Menstruation: Reports as per HPI Musculoskeletal: Reports as per HPI Integumentary: Reports as per HPI Neurological: Reports as per HPI Psychiatric: Reports as per HPI Past Medical History Past Medical History: Atrial Fibrillation, Hyperlipidemia, Hypertension, Thyroid Disorder Additional Past Medical History / Comment(s): vertigo, neck pain, wore a heart monitor for a sun that was taken off december 09. Major valve prolapse of bilateral prosthetic replacement-mitral. High-dose flecainide intolerance History of Any Multi-Drug Resistant Organisms: None Reported Past Surgical History: Appendectomy, Back Surgery, Cardiac Ablation, Cardiac Valve Replacement, Hysterectomy, Orthopedic Surgery, Tonsillectomy Additional Past Surgical History / Comment(s): Right breast cyst removal.pasr cardioversion for afib., injections in neck.sees dr snow. Right wrist ganglionectomy. Past Anesthesia/Blood Transfusion Reactions: No Reported Reaction Additional Past Anesthesia/Blood Transfusion Reaction / Comment(s): Patient vomited after previous surgery but she doesn't know if it was from anesthesia or the pain medication. Smoking Status: Former smoker - Past Family History Mother Family Medical History: Congestive Heart Failure (CHF), Coronary Artery Disease (CAD), CVA/TIA, Hypertension Additional Family Medical History / Comment(s): Mother has been having multiple TIAs. at age 93 Father Family Medical History: CVA/TIA Additional Family Medical History / Comment(s): Father of a stroke at age 90 Medications and Allergies Home Medications Medication Instructions Recorded Confirmed Type RX: Furosemide [Lasix] 10 mg PO QAM 12/20/13 01/03/17 History RX: Multivitamins, Thera 1 tab PO DAILY 12/20/13 01/03/17 History [Multivitamin (formulary)] RX: Levothyroxine Sodium 25 mcg PO MOTUWETHFR 04/17/14 01/03/17 History [Synthroid] RX: ALPRAZolam [Xanax] 0.5 mg PO BID PRN 06/02/15 01/03/17 History RX: Atorvastatin [Lipitor] 40 mg PO HS 06/02/15 01/03/17 History RX: Levothyroxine Sodium 50 mcg PO SUSA 09/06/15 01/03/17 History [Synthroid] RX: Omeprazole [PriLOSEC] 20 mg PO DAILY 09/06/15 01/03/17 History Fiber Choice 2 tab PO DAILY 02/23/16 01/03/17 History RX: Hydrocodone/Acetaminophen 1 tab PO Q6HR PRN 02/23/16 01/03/17 History [[place] 7.5-325] RX: Warfarin Sodium 4 mg PO SUMOTUTHFR 02/23/16 01/03/17 History RX: Warfarin Sodium [Coumadin] 6 mg PO WESA 02/23/16 01/03/17 History RX: Cyclobenzaprine [Flexeril] 10 mg PO Q8H PRN 03/29/16 01/03/17 History RX: Baclofen [Lioresal] 10 mg PO BID PRN 09/04/16 01/03/17 History RX: Cetirizine HCl [Zyrtec] 10 mg PO DAILY PRN 09/04/16 01/03/17 History L.acidoph,Paracasei, B.lactis 1 cap PO DAILY 01/03/17 01/03/17 History [Probiotic] RX: Melatonin 5 mg PO HS 01/03/17 01/03/17 History rOPINIRole HCL [Requip] 2 mg PO HS 01/03/17 01/03/17 History Allergies Allergy/AdvReac Type Severity Reaction Status Date / Time Penicillins Allergy Rash/Hives Verified 01/03/17 14:27 Sulfa (Sulfonamide Allergy Rash/Hives Verified 01/03/17 14:27 Antibiotics) tretinoin [From Retin-A] Allergy Rash/Hives Verified 01/03/17 14:27 meperidine HCl [From Demerol] AdvReac Nausea & Verified 01/03/17 14:27 Vomiting Physical Exam Osteopathic Statement: *. No significant issues noted on an osteopathic structural exam other than those noted in the History and Physical/Consult. Vitals: Vital Signs Temp Pulse Resp BP Pulse Ox 01/04/17 16:00 98.1 F 65 16 111/75 95 01/04/17 12:00 98.1 F 60 16 105/50 97 01/04/17 07:27 98.7 F 57 L 16 110/51 95 01/04/17 04:00 18 01/04/17 03:24 97.6 F 63 18 104/56 93 L 01/03/17 23:37 18 01/03/17 23:17 60 18 90/48 96 01/03/17 20:38 95 01/03/17 20:00 18 01/03/17 19:45 98 F 74 18 114/75 96 Intake and Output 01/04/17 01/04/17 01/04/17 06:59 14:59 22:59 Intake Total 250 345 Balance 250 345 Intake: Oral 250 345 Other: Voiding Method Toilet Toilet # Voids 2 # Bowel Movements 1 General: [Patient awake, alert and oriented times 3. Patient in no acute distress.] HEENT: [PERRL. EOMI. No pharyngeal erythema or exudate.] Neck: [No adenopathy.] Cardiac: [Heart regular in rate and rhythm. No S3. No S4. No clicks, rubs. No murmur.] Lungs: [Clear to auscultation bilaterally.] Abdomen: [No mass. No organomegaly. Bowel sounds presnt and normoactive in all 4 quadrants.] Extremes: [No edema no cyanosis no claudication normal pulses] : [] Musculoskeletal: [No joint erythema, edema or tenderness.] Skin: [No rash.] Neurologic: [No lateralizing deficits. CN II - XII grossly intact.] Lymphatic: [No adenopathy.] Results CBC & Chem 7: 01/03/17 13:54 01/03/17 13:54 Labs: Abnormal Lab Results - Last 24 Hours (Table) 01/04/17 01/04/17 Range/Units 02:00 02:00 Total Creatine Kinase 29 L (30-135) U/L Triglycerides 157 H (<150) mg/dL HDL Cholesterol 36 L (40-60) mg/dL Assessment and Plan (1) Chest pain Narrative/Plan: Patient's flecainide dose was increased to 100 mg twice daily by cardiology Decision was made to keep patient overnight to see if she tolerates the increase in dose Status: Acute (2) Vertigo Narrative/Plan: Patient recently was treated for vertigo with occipital crest injections and was also given at this time prescription for baclofen which she filled and begin taking which may account for the unusual sensation that she was feeling in her head Status: Acute (3) A-fib Narrative/Plan: Patient's flecainide dose was increased to 100 mg twice a day, if she continued to have episodes of atrial fibrillation with rapid response she would be evaluated by Dr. Cdi for possible repeat ablation Cardiology stated patient should remain overnight to see how she tolerates the increased dose in flecainide Status: Acute
[2017-01-04] MEDS: ATORVASTATIN 40 MG TAB PO SCH (20:05)
[2017-01-04] MEDS: MELATONIN 5 MG TABLET PO SCH (20:20)
[2017-01-04] MEDS: LACTOBACILLUS ACIDOPH & BULGAR 1 EACH PACKET PO SCH (20:25)
[2017-01-05] MEDS: HYDROcodone/APAP 7.5-325MG 1 EACH TAB PO PRN (04:07)
[2017-01-05] MEDS: NITROGLYCERIN OINT 1 INCH/GM PACKET TOPICAL SCH ×2 (05:22→12:33)
[2017-01-05] MEDS: DIPHENOX-ATROP 2.5-0.025 MG 1 EACH TAB PO SCH ×2 (05:37→12:33)
[2017-01-05] MEDS: LEVOTHYROXINE 25 MCG TAB PO SCH (05:37)
[2017-01-05 07:37] LABS: INR 3.1 (<1.2); Prothrombin Time 30.5 sec (9.0-12.0)
[2017-01-05] MEDS: ALPRAZolam 0.5 MG TAB PO PRN (08:28)
[2017-01-05] MEDS: FLECAINIDE 50 MG TAB PO SCH (08:28)
[2017-01-05] MEDS: NITROFURANTOIN MONOHYD/M-CRYST 100 MG CAP PO SCH (08:29)
[2017-01-05] MEDS: ASPIRIN 325 MG TAB PO SCH (08:29)
[2017-01-05] MEDS: FUROSEMIDE 10 MG TAB PO SCH (08:29)
[2017-01-05] MEDS: METOPROLOL TARTRATE 25 MG TAB PO SCH (08:29)
[2017-01-05] MEDS: PANTOPRAZOLE 40 MG TABLET PO SCH (08:30)
[2017-01-05] MEDS ORDERED: CALCIUM POLYCARBOPHIL 625 MG TAB PO SCH (09:00)
[2017-01-05 12:09] VITALS: RESP 18
[2017-01-05] MEDS: MULTIVITAMINS, THERA 1 EACH TAB PO SCH (12:33)
--- NOTE | 2017-01-05 13:33 | P.PN ---
Subjective This is a 66-year-old female patient who follows with Dr. Benson in the office. She has a history of atrial fibrillation with rapid ventricular response and is maintained on Coumadin, metoprolol 25 mg twice a day and flecanide 50 mg twice a day. She presented to the emergency room after an episode of converting into atrial fibrillation with what she believes to be a rapid ventricular rate. She became very dizzy at home and felt what she described as a "swishing" in her head with some chest pressure. She has a history of an ablation in April [address] Cid and a subsequent LAURA cardioversion in September [address] Benson. Since the cardioversion she has episodes of recurrent atrial fibrillation and recently had a 30-day Holter monitor to evaluate this. Upon examination she is seen resting comfortably in bed in no acute distress. Cardiac monitoring overnight shows no episodes of atrial fibrillation and EKG upon admission is a normal sinus mechanism. She denies any chest pain, shortness of breath, nausea, vomiting, diaphoresis or palpitations. Her INR is therapeutic at 2.2 and troponins are negative. Chest x-ray is negative for acute process. 01/05/2017 Patient seems to be tolerating increased dose of flecainide. She has shown no signs of further arrhythmia on the continuous telemetry monitoring. She is up ambulating in the halls with no complaints of dizziness, chest pain, shortness of breath, palpitations or nausea. Objective - Vital Signs Vital signs: Vital Signs Temp 98.2 F 01/05/17 12:00 Pulse 63 01/05/17 12:00 Resp 18 01/05/17 12:00 BP 89/44 01/05/17 12:00 Pulse Ox 95 01/05/17 12:00 Intake & Output 01/04/17 01/05/17 01/05/17 18:59 06:59 18:59 Intake Total 345 320 Balance 345 320 Intake: Oral 345 320 Other: Voiding Method Toilet Toilet Toilet - Exam GENERAL: Well-appearing, well-nourished and in no acute distress. NECK: Supple without JVD or thyromegaly. LUNGS: Breath sounds clear to auscultation bilaterally and equal. No wheezes, rales or rhonchi. HEART: Regular rate and rhythm, click heard at the apex from mitral valve replacement, no rubs or gallops. S1 and S2 heard. ABDOMEN: Soft, nontender, normoactive bowel sounds. EXTREMITIES: Normal range of motion, no edema. No clubbing or cyanosis. Peripheral pulses intact and strong. - Labs CBC & Chem 7: 01/03/17 13:54 01/03/17 13:54 Labs: Abnormal Lab Results - Last 24 Hours (Table) 01/05/17 Range/Units 07:08 PT 30.5 H (9.0-12.0) sec INR 3.1 H (<1.2) Assessment and Plan Plan: ASSESSMENT 1. History of atrial fibrillation with history of rapid ventricular rate, status post successful ablation and cardioversion 2. Near syncope 3. Chest pain 4. History of mitral valve replacement PLAN Patient can be discharged home on increased dose of flecainide 100 mg twice a day. She is to follow-up with Dr. Benson in the office in 2 weeks. Nurse Practitioner note has been reviewed, I agree with a documented findings and plan of care. Patient was seen and examined.
[2017-01-05 16:18] VITALS: BP 134/57; PULSE 64; TEMP 97.7
--- NOTE | 2017-01-05 17:06 | P.DS ---
Providers Date of admission: 01/03/17 15:34 Expected date of discharge: 01/05/17 Attending physician: Jesus Carson Consults: 01/03/17 15:34 Consult Physician Urgent Consulting Provider: [facility] Consult Reason/Comments: Chest pain Do you want consulting provider notified?: Yes Primary care physician: Jesus Carson - Discharge Diagnosis(es) (1) Chest pain She was observed for intermittent A. fib cardiology evaluated patient and determined to increase flecainide 200 mg twice daily General: [Patient awake, alert and oriented times 3. Patient in no acute distress.] HEENT: [PERRL. EOMI. No pharyngeal erythema or exudate.] Neck: [No adenopathy.] Cardiac: [Heart regular in rate and rhythm. No S3. No S4. No clicks, rubs. No murmur.] Lungs: [Clear to auscultation bilaterally.] Abdomen: [No mass. No organomegaly. Bowel sounds presnt and normoactive in all 4 quadrants.] Extremes: [No edema no cyanosis no claudication normal pulses] : [] Musculoskeletal: [No joint erythema, edema or tenderness.] Skin: [No rash.] Neurologic: [No lateralizing deficits. CN II - XII grossly intact.] Lymphatic: [No adenopathy.] Current Visit: Yes Status: Acute (2) Vertigo Current Visit: Yes Status: Acute (3) A-fib Current Visit: No Status: Acute Plan - Discharge Summary New Discharge Prescriptions: New Flecainide [Tambocor] 100 mg PO Q12HR #60 tab Discontinued Flecainide [Tambocor] 50 mg PO Q12HR #180 tab No Action Furosemide [Lasix] 10 mg PO QAM Multivitamins, Thera [Multivitamin (formulary)] 1 tab PO DAILY Levothyroxine Sodium [Synthroid] 25 mcg PO MOTUWETHFR ALPRAZolam [Xanax] 0.5 mg PO BID PRN PRN Reason: Anxiety Atorvastatin [Lipitor] 40 mg PO HS Levothyroxine Sodium [Synthroid] 50 mcg PO SUSA Omeprazole [PriLOSEC] 20 mg PO DAILY Warfarin Sodium 4 mg PO SUMOTUTHFR Hydrocodone/Acetaminophen [[place] 7.5-325] 1 tab PO Q6HR PRN PRN Reason: Pain Warfarin Sodium [Coumadin] 6 mg PO WESA Fiber Choice 2 tab PO DAILY Cyclobenzaprine [Flexeril] 10 mg PO Q8H PRN PRN Reason: Pain Cetirizine HCl [Zyrtec] 10 mg PO DAILY PRN PRN Reason: ALLERGIES Baclofen [Lioresal] 10 mg PO BID PRN PRN Reason: CRAMPS Metoprolol Tartrate [Lopressor] 25 mg PO BID #180 tab Nitrofurantoin Monohyd/M-Cryst [Macrobid] 100 mg PO Q12HR #14 cap rOPINIRole HCL [Requip] 2 mg PO HS Melatonin 5 mg PO HS L.acidoph,Paracasei, B.lactis [Probiotic] 1 cap PO DAILY Discharge Medication List Furosemide [Lasix] 10 mg PO QAM 12/20/13 [History] Multivitamins, Thera [Multivitamin (formulary)] 1 tab PO DAILY 12/20/13 [History ] Levothyroxine Sodium [Synthroid] 25 mcg PO MOTUWETHFR 04/17/14 [History] ALPRAZolam [Xanax] 0.5 mg PO BID PRN 06/02/15 [History] Atorvastatin [Lipitor] 40 mg PO HS 06/02/15 [History] Levothyroxine Sodium [Synthroid] 50 mcg PO SUSA 09/06/15 [History] Omeprazole [PriLOSEC] 20 mg PO DAILY 09/06/15 [History] Fiber Choice 2 tab PO DAILY 02/23/16 [History] Hydrocodone/Acetaminophen [[place] 7.5-325] 1 tab PO Q6HR PRN 02/23/16 [History] Warfarin Sodium 4 mg PO SUMOTUTHFR 02/23/16 [History] Warfarin Sodium [Coumadin] 6 mg PO WESA 02/23/16 [History] Cyclobenzaprine [Flexeril] 10 mg PO Q8H PRN 03/29/16 [History] Baclofen [Lioresal] 10 mg PO BID PRN 09/04/16 [History] Cetirizine HCl [Zyrtec] 10 mg PO DAILY PRN 09/04/16 [History] Metoprolol Tartrate [Lopressor] 25 mg PO BID #180 tab 09/06/16 [Rx] Nitrofurantoin Monohyd/M-Cryst [Macrobid] 100 mg PO Q12HR #14 cap 10/27/16 [Rx] L.acidoph,Paracasei, B.lactis [Probiotic] 1 cap PO DAILY 01/03/17 [History] Melatonin 5 mg PO HS 01/03/17 [History] rOPINIRole HCL [Requip] 2 mg PO HS 01/03/17 [History] Flecainide [Tambocor] 100 mg PO Q12HR #60 tab 01/05/17 [Rx] Follow up Appointment(s)/Referral(s): Dipesh Benson MD [STAFF PHYSICIAN] - 2 Weeks Jesus Carson MD [Primary Care Provider] - 1-2 days Patient Instructions/Handouts: Chest Pain (GEN) Activity/Diet/Wound Care/Special Instructions: low fat/low salt diet activity as tolerated
[2017-01-06] MEDS ORDERED: LEVOTHYROXINE 50 MCG TAB PO SCH (06:30)
== END 2017-01-05 17:20 | disposition home or self-care (01) ==
LOC: EC 13:16 → 3OBS 15:34
PROVIDERS: ADMIT Family Medicine; ATTEND Family Medicine
DX: I48.91 Unspecified atrial fibrillation (principal); R51 Headache; I10 Essential (primary) hypertension; E78.5 Hyperlipidemia, unspecified; E07.9 Disorder of thyroid, unspecified; F41.9 Anxiety disorder, unspecified; R55 Syncope and collapse; Z79.899 Other long term (current) drug therapy; Z79.01 Long term (current) use of anticoagulants; Z88.0 Allergy status to penicillin; Z88.2 Allergy status to sulfonamides; Z88.8 Allergy status to other drugs, medicaments and biological substances; Z87.891 Personal history of nicotine dependence; Z82.49 Family history of ischemic heart disease and other diseases of the circulatory system; Z82.3 Family history of stroke; Z95.2 Presence of prosthetic heart valve
CPT/HCPCS: 36415; 70450; 71020; 80053; 80061; 82550; 82553; 83735; 84439; 84443; 84484; 85025; 85610; 85730; 93005; 94760; 99285

== ENCOUNTER → 2017-02-22 | Outpatient (CLI) | payer MEDICARE ==
--- NOTE | 2017-02-22 11:42 | XR ---
EXAM TYPE: LUMBAR SPINE X RAY SERIES COMPARISON: NONE HISTORY: 12/20/2016 TECHNIQUE: 4 views are submitted. FINDINGS: Extensive postsurgical change seen with a slight curvature the spine and diffuse osteopenia. Chronic appearing superior endplate compression deformity in the upper lumbar spine. Multilevel degenerative disc disease seen. Postsurgical region appears in near-anatomic alignment. Vascular calcifications noted. IMPRESSION: 1. Postoperative change with chronic appearing superior endplate compression deformity in the upper l umbar region. Stable from the previous exam.
== END | disposition home or self-care (01) ==
LOC: RADXRMAIN 11:06
PROVIDERS: ATTEND Family Medicine
DX: M54.5 Low back pain (principal); Z98.890 Other specified postprocedural states
CPT/HCPCS: 72110

== ENCOUNTER → 2017-03-20 | Outpatient (CLI) | payer MEDICARE ==
--- NOTE | 2017-03-20 13:06 | PN ---
PROGRESS NOTE A 66-year-old female patient, diagnosed having mild obstructive sleep apnea with an AHI of 12, currently on auto CPAP therapy, coming in for a compliancy check. Despite the mild nature of her AMY, the patient is very much benefitting from the treatment. Her sleep quality has improved. Her snoring has subsided. She is waking up much more alert during the day. No significant sleepiness and she has got more energy and her thinking process has also improved and her headaches are gone. She has no specific complaints otherwise. She is very happy with the treatment. She is averaging around 6 hours of 52 minutes of CPAP use every night. Her CPAP use for more than 4 hours is 100% and her P90 pressure is at 7.2, and her AHI is down to 1.7. As such, treatment has been extremely successful and the patient has no complaints for now. Her current vitals: BP is 127/68, pulse 66, respiratory rate 16, temperature 98.1, weight is 190 [place] Score is at 4, saturation 99% on room air. GENERAL APPEARANCE: Calm, comfortable. HEENT: Negative for JVD. No goiter or neck masses. Head is atraumatic, normocephalic. NECK: Supple. There is no JVD. No goiter or neck mass. LUNGS: Clear to auscultation. HEART: Sounds are regular rate and rhythm. Normal S1, S2. No S3. No S4. No murmurs. ABDOMEN: Soft, nontender. No organomegaly. EXTREMITIES: No edema. No cyanosis or clubbing. NEUROLOGIC: Alert and oriented x3. There is no focal neurological deficits. PSYCHIATRIC: Adequate mood and affect. No anxiety or depression. SKIN: Negative for ulcers or wounds. IMPRESSION: 1. Mild obstructive sleep apnea with apnea-hypopnea index of 12, currently receiving auto continuous positive airway pressure therapy and treatment is successful. 2. Hypersomnia, improved. 3. Chronic fatigue, improved. 4. Nocturnal oxygen desaturation, recovered. 5. Paroxysmal atrial fibrillation. Current rhythm is sinus. 6. Hypothyroidism. 7. Hyperlipidemia. 8. Mitral valve repair. 9. RLS. PLAN: Treatment has been successful. Continue auto CPAP therapy. No need for any adjustments. See me back in a year's time in followup. MMODL / IJN: [id number] /
== END ==
LOC: SLEEP 10:24
PROVIDERS: ATTEND Internal Medicine Critical Care Medicine
DX: G47.33 Obstructive sleep apnea (adult) (pediatric) (principal); R53.83 Other fatigue; I48.0 Paroxysmal atrial fibrillation; E03.9 Hypothyroidism, unspecified; E78.5 Hyperlipidemia, unspecified; G25.81 Restless legs syndrome

== ENCOUNTER → 2017-05-03 | Outpatient (CLI) | payer MEDICARE | END | disposition home or self-care (01) | LOC: LABWHC1 10:17 | PROVIDERS: ATTEND Internal Medicine Endocrinology, Diabetes & Metabolism | DX: E03.8 Other specified hypothyroidism (principal) | CPT/HCPCS: 36415; 84443 ==

== ENCOUNTER → 2017-07-03 | Outpatient (CLI) | payer MEDICARE ==
--- NOTE | 2017-07-03 21:17 | PN ---
PROGRESS NOTE A 67-year-old female patient with known history of obstructive sleep apnea coming in for a routine followup. Doing well, averaging around 7.9 hours of CPAP use per night, CPAP use for more than 4 hours is 28/30 over the past 30 days. AHI while on treatment is down 2.1. Leak factor is 11 L/minute and the average CPAP use around 7.9 hours per night. No significant leaks around the mask. The tubing temperature is at 72. Humidity level is at 3. Snoring has completely subsided. She is waking up alert and refreshed and her apnea score at baseline was 12. BP is 102/69, pulse 72, respirations 16, temperature 98.3, weight 203. Height is 5 feet 4 inches, BMI 34.8. [place] Score is 1. GENERAL APPEARANCE: Calm, comfortable. Head is atraumatic, normocephalic. NECK: Supple. There is no JVD. No goiter or neck masses. LUNGS: Clear to auscultation. HEART: Sounds regular rhythm. Normal S1, S2. No S3, S4. No murmurs. ABDOMEN: Soft, nontender. No organomegaly. EXTREMITIES: No edema. No cyanosis or clubbing. REVIEW OF SYSTEMS: 12-point review of system was done. The positive findings are mentioned above in the history of present illness. IMPRESSION: 1. Obstructive sleep apnea, apnea-hypopnea index of 12. Continues to be successfully treated with auto CPAP. Adequate compliance and clinical response. 2. Hypersomnia, recovered. 3. Chronic fatigue, improved. 4. Paroxysmal atrial fibrillation. Rhythm is sinus. 5. Hypothyroidism. 6. Hyperlipidemia. 7. Mitral valve repair. 8. Restless leg syndrome. PLAN: 1. Renew supplies. 2. See me back in a year's time, earlier if needed. MMODL / IJN: [id number] /
== END | disposition home or self-care (01) ==
LOC: SLEEP 14:52
PROVIDERS: ATTEND Internal Medicine Critical Care Medicine
DX: G47.33 Obstructive sleep apnea (adult) (pediatric) (principal); I48.0 Paroxysmal atrial fibrillation; E03.9 Hypothyroidism, unspecified; E78.5 Hyperlipidemia, unspecified; G25.81 Restless legs syndrome; Z99.89 Dependence on other enabling machines and devices; Z95.2 Presence of prosthetic heart valve

== ENCOUNTER → 2017-11-01 | Outpatient (CLI) | payer MEDICARE ==
[2017-11-01 08:53] LABS: Basophils % (A) 1 %; Eosinophils # (A) 0.2 k/uL (0-0.7); Eosinophils % (A) 4 %; HCT 42.6 % (34.0-46.0); HGB 14.3 gm/dL (11.4-16.0); Lymphocytes # (A) 2.4 k/uL (1.0-4.8); Lymphocytes % (A) 38 %; MCH 30.4 pg (25.0-35.0); MCHC 33.6 g/dL (31.0-37.0); MCV 90.4 fL (80.0-100.0); Monocytes # (A) 0.4 k/uL (0-1.0); Monocytes % (A) 7 %; Neutrophils % (A) 49 %; Platelet Count 226 k/uL (150-450); RBC 4.71 m/uL (3.80-5.40); RDW 13.9 % (11.5-15.5); WBC 6.2 k/uL (3.8-10.6)
[2017-11-01 09:24] LABS: ALT 36 U/L (9-52); AST 28 U/L (14-36); Alkaline Phosphatase 76 U/L (38-126); Anion Gap 9 mmol/L; Blood Urea Nitrogen 15 mg/dL (7-17); Calcium 9.3 mg/dL (8.4-10.2); Carbon Dioxide 27 mmol/L (22-30); Chloride 104 mmol/L (98-107); Cholesterol 170 mg/dL (<200); Glucose 96 mg/dL (74-99); HDL Cholesterol 46 mg/dL (40-60); LDL Cholesterol,Calculated 79 mg/dL (0-99); Potassium 4.4 mmol/L (3.5-5.1); Sodium 140 mmol/L (137-145); Total Bilirubin 0.6 mg/dL (0.2-1.3); Total Protein 6.5 g/dL (6.3-8.2); Triglycerides 227 mg/dL (<150)
[2017-11-01 09:38] LABS: T4, Free (Free Thyroxine) 1.12 ng/dL (0.78-2.19)
== END | disposition home or self-care (01) ==
LOC: LABWHC1 08:20
PROVIDERS: ATTEND Internal Medicine Endocrinology, Diabetes & Metabolism
DX: Z00.00 Encounter for general adult medical examination without abnormal findings (principal); E03.8 Other specified hypothyroidism; E78.00 Pure hypercholesterolemia, unspecified; M25.50 Pain in unspecified joint; M19.90 Unspecified osteoarthritis, unspecified site; Z79.01 Long term (current) use of anticoagulants; Z79.899 Other long term (current) drug therapy
CPT/HCPCS: 36415; 80053; 80061; 84439; 84443; 85025; 86803

== ENCOUNTER → 2017-11-13 | Outpatient (CLI) | payer MEDICARE ==
--- NOTE | 2017-11-13 14:32 | MR ---
MR left ankle HISTORY: Strain or muscle and tendon left ankle No comparisons Multiplanar multisequence imaging through the left ankle There is fluid signal along the peroneal longus and brevis tendons, increased signal is present withi n the tendon suggestive of a partial tear. There is an ankle joint effusion present, fluid signal ext ends into the sinus Tarsi, ligament is not well-defined at this level. Osteoarthritic changes are pre sent with reactive marrow edema involving the subtalar joint with joint space loss and marginal spurr ing. Ossific density present distal to the lateral malleolus compatible with chronic fracture, avulsi on injury. Degenerative changes present at the tarsometatarsal joint of the first digit subchondral g eode formation, joint space loss, similar findings present at the intertarsal and second tarsometatar portia joint, marginal spurring present at the third and fourth tarsometatarsal joints. Joint space loss and subchondral sclerosis, reactive marrow edema noted especially at the posterior facet subtalar ortiz int Plantar aponeurosis, Achilles tendon are intact. Striated appearance within the Achilles tendon could represent strain or partial tear. Flexor and extensor tendons are intact. Subchondral marrow edema p resent at the tibiotalar joint within the talus, no definite osteochondral fracture identified, carti lizzy signal slightly thinned lateral aspect of the talus. 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 Suspect partial tear of the peroneal tendons as described. Consider sinus Tarsi syndrome.
== END ==
LOC: RADMRIMAIN 08:31
PROVIDERS: ATTEND Podiatrist Foot & Ankle Surgery
DX: S96.912A Strain of unspecified muscle and tendon at ankle and foot level, left foot, initial encounter (principal); M19.90 Unspecified osteoarthritis, unspecified site

== ENCOUNTER → 2017-12-12 | Outpatient (CLI) | payer MEDICARE ==
[2017-12-12 09:17] LABS: ALT 32 U/L (9-52); AST 32 U/L (14-36); Alkaline Phosphatase 76 U/L (38-126); Anion Gap 12 mmol/L; Blood Urea Nitrogen 17 mg/dL (7-17); Calcium 9.3 mg/dL (8.4-10.2); Carbon Dioxide 27 mmol/L (22-30); Chloride 102 mmol/L (98-107); Cholesterol 169 mg/dL (<200); Glucose 106 mg/dL (74-99); HDL Cholesterol 49 mg/dL (40-60); LDL Cholesterol,Calculated 85 mg/dL (0-99); Potassium 4.4 mmol/L (3.5-5.1); Sodium 141 mmol/L (137-145); Total Bilirubin 0.5 mg/dL (0.2-1.3); Total Protein 6.7 g/dL (6.3-8.2); Triglycerides 176 mg/dL (<150)
== END | disposition home or self-care (01) ==
LOC: LABWHC1 07:55
PROVIDERS: ATTEND Internal Medicine Interventional Cardiology
DX: E78.2 Mixed hyperlipidemia (principal)
CPT/HCPCS: 36415; 80053; 80061

== ENCOUNTER → 2018-01-10 | Outpatient (CLI) | payer MEDICARE ==
--- NOTE | 2018-01-15 13:30 | MM ---
Reason for exam: screening (asymptomatic). Last mammogram was performed 1 year ago. History: Patient is postmenopausal and is nulliparous. Family history of breast cancer in aunt. Benign excisional biopsy of the right breast, 1974. Benign excisional biopsy of the right breast, 1973. MG 3D Screening Mammo W/Cad Bilateral CC and MLO view(s) were taken. Prior study comparison: December 26, 2016, bilateral MG screening mammo w CAD. November 30, 2015, bilateral MG 3d screening mammo w/cad. October 05, 2014, bilateral MG screening mammo w CAD. There are scattered fibroglandular densities. Bilateral nodularity is mor defined from prior exams along with an area of possible distortion laterally in the right breast. ASSESSMENT: Incomplete: need additional imaging evaluation, BI-RAD 0 RECOMMENDATION: Special view mammogram of both breasts.
== END | disposition home or self-care (01) ==
LOC: RADMAMWWP 08:27
PROVIDERS: ATTEND Family Medicine
DX: Z12.31 Encounter for screening mammogram for malignant neoplasm of breast (principal); Z80.3 Family history of malignant neoplasm of breast
CPT/HCPCS: 77063; 77067

== ENCOUNTER → 2018-01-23 | Outpatient (CLI) | payer MEDICARE ==
--- NOTE | 2018-01-24 08:50 | MM ---
Reason for exam: additional evaluation requested from abnormal screening. Last mammogram was performed less than 1 month ago. History: Patient is postmenopausal and is nulliparous. Family history of breast cancer in aunt. Benign excisional biopsy of the right breast, 1974. Benign excisional biopsy of the right breast, 1973. Physical Findings: Nurse did not find any significant physical abnormalities on exam. MG 3D Work Up W/Cad JOCY Bilateral spot compression CC and spot compression MLO view(s) were taken. ML view(s) were taken of the right breast. LM view(s) were taken of the left breast. Prior study comparison: December 26, 2016, bilateral MG screening mammo w CAD. November 30, 2015, bilateral MG 3d screening mammo w/cad. September 23, 2013, CAD bilateral diagnostic mammogram. Finding: There is a typically benign 7 mm equal density (isodense) mass in the 3 o'clock position of the left breast consistent with possible cysts. New finding since December 26, 2016, November 30, 2015, and September 23, 2013. These results were verbally communicated with the patient and result sheet given to the patient on 01/23/18. ASSESSMENT: Incomplete: need additional imaging evaluation, BI-RAD 0 RECOMMENDATION: Ultrasound of the left breast.
--- NOTE | 2018-01-24 08:51 | USB ---
Reason for exam: additional evaluation requested from abnormal screening. History: Patient is postmenopausal and is nulliparous. Family history of breast cancer in aunt. Benign excisional biopsy of the right breast, 1974. Benign excisional biopsy of the right breast, 1973. US Breast Workup Limited LT Left limited breast ultrasound including focal area of concern, retroareolar and axilla demonstrates a 0.5 x 0.3 x 0.5cm lesion too small to characterize at 1 o'clock and a 0.6 x 0.4 x 0.5cm cystic cluster at 2 o'clock. These results were verbally communicated with the patient and result sheet given to the patient on 01/23/18. ASSESSMENT: Benign, BI-RAD 2 RECOMMENDATION: Return to routine screening mammogram schedule for both breasts.
== END | disposition home or self-care (01) ==
LOC: RADMAMWWP 12:47
PROVIDERS: ATTEND Family Medicine
DX: R92.8 Other abnormal and inconclusive findings on diagnostic imaging of breast (principal)
CPT/HCPCS: 77066; 76642; G0279; 77062

== ENCOUNTER → 2018-05-03 | Outpatient (CLI) | payer MEDICARE ==
[2018-05-03 17:01] LABS: Albumin 4.2 g/dL (3.80-4.90); Albumin/Globulin Ratio 2.1 (1.20-2.10); Anion Gap 6.5 mmol/L (4.00-12.00); Carbon Dioxide 28.5 mmol/L (21.6-31.8); LDL Cholesterol,Calculated 69.8 mg/dL (0.0-131.0); Potassium 4.1 mmol/L (3.5-5.5); Total Bilirubin 0.5 mg/dL (0.2-1.2); Total Protein 6.2 g/dL (6.2-8.2); VLDL Calculation 42.2 mg/dL (5.00-40.00)
== END ==
LOC: LABWHC1 07:27
PROVIDERS: ATTEND Internal Medicine Interventional Cardiology
DX: E78.2 Mixed hyperlipidemia (principal)
CPT/HCPCS: 36415; 80053; 80061

== ENCOUNTER → 2018-08-02 | Outpatient (CLI) | payer MEDICARE | LOC: LABWHC1 08:14 | PROVIDERS: ATTEND Internal Medicine Endocrinology, Diabetes & Metabolism | DX: E03.8 Other specified hypothyroidism (principal) | CPT/HCPCS: 36415; 84443 ==

== ENCOUNTER → 2018-09-17 | Outpatient (CLI) | payer MEDICARE | LOC: LABWHC1 09:47 | PROVIDERS: ATTEND Internal Medicine Endocrinology, Diabetes & Metabolism | DX: E03.8 Other specified hypothyroidism (principal) | CPT/HCPCS: 36415; 84443 ==

== ENCOUNTER 2018-09-20 11:28 | Emergency (ER) | payer MEDICARE ==
--- NOTE | 2018-09-20 11:56 | ED ---
General Adult HPI - General Chief complaint: Arrhythmia/Palpitations Stated complaint: A-Fib problems Time Seen by Provider: 09/20/18 11:38 Source: patient, RN notes reviewed Mode of arrival: ambulatory Limitations: no limitations - History of Present Illness Initial comments: Patient is a pleasant 68-year-old female presenting to the emergency department palpitations. Patient does have history of similar symptoms previously associated with atrial fibrillation. Patient did have some discomfort of her right shoulder yesterday that radiated down the arm. No discomfort today. Patient did take an extra fleckanide this morning. Patient still has occasional symptoms. Patient describes symptoms as if quivering in her chest. Patient denies ever having any chest discomfort. Patient does get some dyspnea associated with palpitations only. - Related Data Home Medications Medication Instructions Recorded Confirmed Furosemide [Lasix] 10 mg PO QAM 12/20/13 09/20/18 Multivitamins, Thera [Multivitamin 1 tab PO DAILY 12/20/13 09/20/18 (formulary)] ALPRAZolam [Xanax] 0.5 mg PO BID PRN 06/02/15 09/20/18 Atorvastatin [Lipitor] 40 mg PO HS 06/02/15 09/20/18 Omeprazole [PriLOSEC] 20 mg PO DAILY PRN 09/06/15 09/20/18 Warfarin Sodium 4 mg PO DAILY 02/23/16 09/20/18 Cyclobenzaprine [Flexeril] 10 mg PO Q8H PRN 03/29/16 09/20/18 Melatonin 5 mg PO HS 01/03/17 09/20/18 rOPINIRole HCL [Requip] 2 mg PO HS PRN 01/03/17 09/20/18 Albuterol Inhaler [Ventolin Hfa 1 - 2 puff INHALATION RT-Q6H PRN 04/01/18 09/20/18 Inhaler] Albuterol Nebulized [Ventolin 2.5 mg INHALATION RT-Q6H PRN 04/01/18 09/20/18 Nebulized] Calcium Carbonate [Calcium] 600 mg PO DAILY 04/01/18 09/20/18 Cholecalciferol (Vitamin D3) 2,000 unit PO DAILY 04/01/18 09/20/18 [Vitamin D3] Flecainide [Tambocor] 50 mg PO BID 04/01/18 09/20/18 Levothyroxine Sodium [Synthroid] 75 mcg PO MOTUWETHFRSA 04/01/18 09/20/18 Zolpidem [Ambien] 10 mg PO HS PRN 09/20/18 09/20/18 Previous Rx's Medication Instructions Recorded Metoprolol Tartrate [Lopressor] 25 mg PO BID #180 tab 09/06/16 Allergies Allergy/AdvReac Type Severity Reaction Status Date / Time gabapentin Allergy Unknown Verified 09/20/18 12:08 Penicillins Allergy Rash/Hives Verified 09/20/18 12:08 Sulfa (Sulfonamide Allergy Rash/Hives Verified 09/20/18 12:08 Antibiotics) tretinoin [From Retin-A] Allergy Rash/Hives Verified 09/20/18 12:08 escitalopram [From Lexapro] AdvReac Nausea & Verified 09/20/18 12:08 Vomiting meperidine HCl [From Demerol] AdvReac Nausea & Verified 09/20/18 12:08 Vomiting Review of Systems ROS Statement: Those systems with pertinent positive or pertinent negative responses have been documented in the HPI. ROS Other: All systems not noted in ROS Statement are negative. Constitutional: Denies: fever Eyes: Denies: eye pain ENT: Denies: ear pain Respiratory: Reports: as per HPI. Denies: cough Cardiovascular: Reports: palpitations. Denies: chest pain Endocrine: Denies: fatigue Gastrointestinal: Denies: abdominal pain Genitourinary: Denies: dysuria Musculoskeletal: Denies: back pain Skin: Denies: rash Neurological: Denies: weakness Past Medical History Past Medical History: Atrial Fibrillation, Hyperlipidemia, Hypertension, Thyroid Disorder Additional Past Medical History / Comment(s): Recent lung infection with antibiotics, respiratory infection after cruise in Jul 2017-pt had bronch and lavage/ABX/12 day hospitalization, Afib RVR, hypothyroid, vertigo with ablation 2 yrs ago, chronic cervical pain since ablation procedure, chronic back pain, mitral valve prolapse with surgery, AMY with Cpap, occasional migraines, UTI. History of Any Multi-Drug Resistant Organisms: None Reported Past Surgical History: Appendectomy, Back Surgery, Breast Surgery, Cardiac Ablation, Cardiac Valve Replacement, Heart Catheterization, Hysterectomy, Joint Replacement, Orthopedic Surgery, Tonsillectomy Additional Past Surgical History / Comment(s): 07/2017 bronchoscopy with lavage, cardioversion, cardiac ablation, open mitral valve replacement, back surgery with rods/screws, cervical injections, R wrist ganglion cyst removed, R great toe replacement, L great toe "cleaned up", L knee arthroscopy, L ankle surgery for tendon/ligament and cysts, colonoscopy, R breast cystectomy, total hysterectomy. Past Anesthesia/Blood Transfusion Reactions: No Reported Reaction Additional Past Anesthesia/Blood Transfusion Reaction / Comment(s): Patient vomited after previous surgeries but she doesn't know if it was from anesthesia or the pain medication. Past Psychological History: Anxiety Smoking Status: Former smoker Past Alcohol Use History: Occasional Past Drug Use History: None Reported - Past Family History Mother Family Medical History: Congestive Heart Failure (CHF), Coronary Artery Disease (CAD), CVA/TIA, Hypertension Additional Family Medical History / Comment(s): Mother has been having multiple TIAs. at age 93 Father Family Medical History: CVA/TIA Additional Family Medical History / Comment(s): Father of a stroke at age 90 General Exam Limitations: no limitations General appearance: alert, in no apparent distress Head exam: Present: atraumatic Eye exam: Present: normal appearance, PERRL ENT exam: Present: normal oropharynx Neck exam: Present: normal inspection Respiratory exam: Present: normal lung sounds bilaterally Cardiovascular Exam: Present: irregular rhythm, other (Patient heart sounds are regular rate and rhythm however patient did go into an irregular rhythm rate couple of seconds during the evaluation.) Expanded Peripheral pulses: 2+: Radial (R), Radial (L), Dorsalis Pedis (R), Dorsalis Pedis (L) GI/Abdominal exam: Present: soft. Absent: tenderness Extremities exam: Present: normal inspection Neurological exam: Present: alert Psychiatric exam: Present: normal affect, normal mood Skin exam: Present: normal color Course Vital Signs 09/20/18 09/20/18 09/20/18 11:34 11:48 11:54 Temperature 97.6 F Pulse Rate 63 62 Pulse Rate [ 62 Left Supine Valuation Consultant ] Respiratory 20 16 Rate Blood Pressure 132/75 135/67 O2 Sat by Pulse 99 98 Oximetry 09/20/18 09/20/18 12:57 14:30 Temperature Pulse Rate 60 65 Pulse Rate [ Left Supine Valuation Consultant ] Respiratory 18 18 Rate Blood Pressure 108/68 104/59 O2 Sat by Pulse 96 97 Oximetry EKG Findings - EKG Comments: EKG Findings:: Sinus rhythm at 62. First-degree AV block IA of 266. QRS 92. QT 426. QTc were 32. Normal axis. Normal QRS. No acute ST change. Medical Decision Making - Medical Decision Making Patient reevaluated and resting comfortably in bed. Monitor normal sinus rhythm. Patient was witnessed by nursing staff with atrial fibrillation for a couple of seconds following ambulation. Case was discussed in detail with Dr. Dahl who is comfortable with discharge and follow-up with this patient. He states the patient is not comfortable he will observe her with cardiology consult. Patient was offered this option and prefers discharge home. Patient is agreeable to close follow-up with primary care physician as well as cardiology next week, patient is currently symptom-free. - Lab Data Result diagrams: 09/20/18 13:49 09/20/18 12:20 Lab Results 09/20/18 09/20/18 09/20/18 Range/Units 12:20 12:20 12:20 WBC (3.8-10.6) k/uL RBC (3.80-5.40) m/uL Hgb (11.4-16.0) gm/dL Hct (34.0-46.0) % MCV (80.0-100.0) fL MCH (25.0-35.0) pg MCHC (31.0-37.0) g/dL RDW (11.5-15.5) % Plt Count (150-450) k/uL Neutrophils % % Lymphocytes % % Monocytes % % Eosinophils % % Basophils % % Neutrophils # (1.3-7.7) k/uL Lymphocytes # (1.0-4.8) k/uL Monocytes # (0-1.0) k/uL Eosinophils # (0-0.7) k/uL Basophils # (0-0.2) k/uL PT 26.3 H (9.0-12.0) sec INR 2.7 H (<1.2) APTT 21.9 L (22.0-30.0) sec Sodium 139 (137-145) mmol/L Potassium 4.8 (3.5-5.1) mmol/L Chloride 107 (98-107) mmol/L Carbon Dioxide 25 (22-30) mmol/L Anion Gap 7 mmol/L BUN 13 (7-17) mg/dL Creatinine 0.54 (0.52-1.04) mg/dL Est GFR (CKD-EPI)AfAm >90 (>60 ml/min/1.73 sqM) Est GFR (CKD-EPI)NonAf >90 (>60 ml/min/1.73 sqM) Glucose 95 (74-99) mg/dL Calcium 9.6 (8.4-10.2) mg/dL Magnesium 1.9 (1.6-2.3) mg/dL Total Bilirubin 0.8 (0.2-1.3) mg/dL AST 38 H (14-36) U/L ALT 33 (9-52) U/L Alkaline Phosphatase 82 (38-126) U/L Troponin I <0.012 (0.000-0.034) ng/mL Total Protein 7.2 (6.3-8.2) g/dL Albumin 4.3 (3.5-5.0) g/dL TSH 4.040 (0.465-4.680) mIU/L Free T4 1.43 (0.78-2.19) ng/dL Free T3 pg/mL 3.5 (2.8-5.3) pg/ml 09/20/18 Range/Units 13:49 WBC 6.8 (3.8-10.6) k/uL RBC 4.97 (3.80-5.40) m/uL Hgb 15.1 (11.4-16.0) gm/dL Hct 44.2 (34.0-46.0) % MCV 89.0 (80.0-100.0) fL MCH 30.4 (25.0-35.0) pg MCHC 34.2 (31.0-37.0) g/dL RDW 14.1 (11.5-15.5) % Plt Count 236 (150-450) k/uL Neutrophils % 54 % Lymphocytes % 33 % Monocytes % 6 % Eosinophils % 4 % Basophils % 1 % Neutrophils # 3.6 (1.3-7.7) k/uL Lymphocytes # 2.3 (1.0-4.8) k/uL Monocytes # 0.4 (0-1.0) k/uL Eosinophils # 0.2 (0-0.7) k/uL Basophils # 0.0 (0-0.2) k/uL PT (9.0-12.0) sec INR (<1.2) APTT (22.0-30.0) sec Sodium (137-145) mmol/L Potassium (3.5-5.1) mmol/L Chloride (98-107) mmol/L Carbon Dioxide (22-30) mmol/L Anion Gap mmol/L BUN (7-17) mg/dL Creatinine (0.52-1.04) mg/dL Est GFR (CKD-EPI)AfAm (>60 ml/min/1.73 sqM) Est GFR (CKD-EPI)NonAf (>60 ml/min/1.73 sqM) Glucose (74-99) mg/dL Calcium (8.4-10.2) mg/dL Magnesium (1.6-2.3) mg/dL Total Bilirubin (0.2-1.3) mg/dL AST (14-36) U/L ALT (9-52) U/L Alkaline Phosphatase (38-126) U/L Troponin I (0.000-0.034) ng/mL Total Protein (6.3-8.2) g/dL Albumin (3.5-5.0) g/dL TSH (0.465-4.680) mIU/L Free T4 (0.78-2.19) ng/dL Free T3 pg/mL (2.8-5.3) pg/ml - Radiology Data Radiology results: image reviewed (Chest x-ray shows no acute process) Disposition Clinical Impression: A-fib Disposition: HOME SELF-CARE Condition: Stable Instructions (If sedation given, give patient instructions): A-fib (Atrial Fibr illation) (ED) Additional Instructions: Please follow-up with your primary care physician and 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 Return for increased heart rate, pain or difficulty breathing, worsening symptoms or other concerns. Is patient prescribed a controlled substance at d/c from ED?: No Referrals: Jesus Carson MD [Primary Care Provider] - 1-2 days Dipesh Benson MD [STAFF PHYSICIAN] - 1-2 days Time of Disposition: 15:49
[2018-09-20 12:57] LABS: ALT 33 U/L (9-52); AST 38 U/L (14-36); Albumin 4.3 g/dL (3.5-5.0); Alkaline Phosphatase 82 U/L (38-126); Anion Gap 7 mmol/L; Blood Urea Nitrogen 13 mg/dL (7-17); Calcium 9.6 mg/dL (8.4-10.2); Carbon Dioxide 25 mmol/L (22-30); Chloride 107 mmol/L (98-107); Glucose 95 mg/dL (74-99); Magnesium 1.9 mg/dL (1.6-2.3); Sodium 139 mmol/L (137-145); Total Bilirubin 0.8 mg/dL (0.2-1.3); Total Protein 7.2 g/dL (6.3-8.2)
--- NOTE | 2018-09-20 12:57 | XR ---
EXAMINATION TYPE: XR chest 2V DATE OF EXAM: 09/20/2018 COMPARISON: 04/01/2018 HISTORY: Dysrhythmia. TECHNIQUE: Frontal and lateral views of the chest are obtained. FINDINGS: There is no focal air space opacity, pleural effusion, or pneumothorax seen. Post CABG ch anges are seen of the chest. The cardiac silhouette size is within normal limits. The osseous struc tures are intact. There is partial visualization of surgical fusion of the lumbar spine. Very mild de xtroscoliosis of the lower thoracic spine is noted. IMPRESSION: No acute cardiopulmonary process.
[2018-09-20 12:58] VITALS: RESP 18
[2018-09-20 12:58] LABS: Potassium 4.8 mmol/L (3.5-5.1)
[2018-09-20 13:14] LABS: INR 2.7 (<1.2); Prothrombin Time 26.3 sec (9.0-12.0); T4, Free (Free Thyroxine) 1.43 ng/dL (0.78-2.19)
[2018-09-20 13:47] LABS: Partial Thromboplastin Time 21.9 sec (22.0-30.0)
[2018-09-20 14:06] LABS: Basophils % (A) 1 %; Eosinophils # (A) 0.2 k/uL (0-0.7); Eosinophils % (A) 4 %; HCT 44.2 % (34.0-46.0); HGB 15.1 gm/dL (11.4-16.0); Lymphocytes # (A) 2.3 k/uL (1.0-4.8); Lymphocytes % (A) 33 %; MCH 30.4 pg (25.0-35.0); MCHC 34.2 g/dL (31.0-37.0); Mean Platelet Volume 7.5; Monocytes # (A) 0.4 k/uL (0-1.0); Monocytes % (A) 6 %; Neutrophils # (A) 3.6 k/uL (1.3-7.7); Neutrophils % (A) 54 %; Platelet Count 236 k/uL (150-450); RBC 4.97 m/uL (3.80-5.40); RDW 14.1 % (11.5-15.5); WBC 6.8 k/uL (3.8-10.6)
[2018-09-20 16:06] VITALS: BP 115/65; PULSE 64; TEMP 97.8
== END 2018-09-20 16:06 | disposition home or self-care (01) ==
LOC: EC 11:28
DX: I48.91 Unspecified atrial fibrillation (principal); E78.5 Hyperlipidemia, unspecified; I10 Essential (primary) hypertension; E03.9 Hypothyroidism, unspecified; G47.33 Obstructive sleep apnea (adult) (pediatric); G89.29 Other chronic pain; Z87.891 Personal history of nicotine dependence; Z88.0 Allergy status to penicillin; Z88.2 Allergy status to sulfonamides; Z88.5 Allergy status to narcotic agent; Z88.8 Allergy status to other drugs, medicaments and biological substances; Z79.01 Long term (current) use of anticoagulants; Z79.890 Hormone replacement therapy; Z79.899 Other long term (current) drug therapy; Z86.79 Personal history of other diseases of the circulatory system; Z95.2 Presence of prosthetic heart valve; Z95.818 Presence of other cardiac implants and grafts; Z98.890 Other specified postprocedural states; Z96.698 Presence of other orthopedic joint implants; Z99.89 Dependence on other enabling machines and devices; Z82.49 Family history of ischemic heart disease and other diseases of the circulatory system
CPT/HCPCS: 36415; 71046; 80053; 83735; 84439; 84443; 84481; 84484; 85025; 85610; 85730; 93005; 99285

== ENCOUNTER 2018-10-30 11:24 | Day surgery (SDC) | payer MEDICARE ==
[2018-10-25 12:02] VITALS: BMI 35.7
[~2018-10-30 11:24] MED LIST: LACTATED RINGERS 1,000 ML IV SCH; LIDOCAINE 1% 20 ML VIAL (10MG/ML) FOR IV START INTRADERMA PRN; LIDOCAINE 2% (PF) 20 MG/ML 5 ML VIAL INHALATION ONE; LIDOCAINE VISCOUS 300 MG/15 ML CUP MUCOUS MEM ONE; SODIUM CHLORIDE 0.9% 1,000 ML IV SCH
[2018-10-30 11:51] VITALS: TEMP 98.6
[2018-10-30] MEDS ORDERED: LACTATED RINGERS 1,000 ML IV ONE (11:51)
[2018-10-30] MEDS ORDERED: SODIUM CHLORIDE 0.9% 1,000 ML IV ONE (11:51)
[2018-10-30] MEDS ORDERED: MIDAZOLAM (PF) 2 MG/2 ML VIAL IVP ONE (12:04)
[2018-10-30] MEDS ORDERED: ALBUTEROL NEBULIZED 2.5 MG/3 ML INHALATION STA (12:10)
[2018-10-30] MEDS: ALBUTEROL NEB (CONC) 2.5 MG/0.5 ML INHALATION ONE ×2 (12:12→12:16)
[2018-10-30] MEDS ORDERED: PROPOFOL 10 MG/ML 20 ML VIAL IV ONE (12:39)
[2018-10-30] MEDS ORDERED: LIDOCAINE 2% INJ 20 MG/ML INTRATRACH ONE (12:54)
--- NOTE | 2018-10-30 12:59 | P.PCN ---
Date of Procedure: 10/30/18 Preoperative Diagnosis: Persistent cough, COPD, tracheobronchomalacia Postoperative Diagnosis: Cough, COPD, tracheobronchomalacia Procedure(s) Performed: Flexible bronchoscopy, bronchioloalveolar lavage of the lingula Anesthesia: MAC Surgeon: Hattie Brito Estimated Blood Loss (ml): 0 Pathology: other Condition: stable Disposition: same day Operative Findings: This procedure was done under conscious sedation. Indication with the procedure was persistent cough, not responsive to antibiotics and steroids. The patient was brought into the endoscopy suite. A consent was obtained. Timeout was done. Under conscious sedation, a flexible bronchoscope was done. Anesthetic agents was being administered by [facility] RN the bedside. The patient was given propofol. After achieving adequate sedation, the flexible bronchoscope was inserted through the right nostril. The bronchoscope was advanced to the posterior nasopharynx, and vented oropharynx and the pharyngeal and laryngeal structures were all inspected. All of this upper airway structures were within normal limits. Epiglottis was identified. The arytenoids vallecula and the true and the false vocal cords were all inspected and there was no abnormalities noted. The function of the vocal cords was within normal limits. Following that a total of 2 mL of 1% lidocaine was applied to the vocal cord and the bronchoscope was advanced through the upper trachea. A moderate degree of tracheobronchomalacia was noted throughout the patient's airway. The airway inspection included the entire trachea, bilateral mainstem bronchi, right upper lobe bronchus, right middle lobe bronchus regular lobe bronchus, left upper lobe bronchus and left lower bronchus along with a segments and subsegments. All of these areas were palpated and within normal limits. Contrary to my expectation, there was no significant mucosal inflammatory changes or any mucous plugs. No endobronchial tumors. No lesions. No foreign bodies. MRI inspection was completed. The bronchoscope was wedged in the severe segment of the lingula whe re lavage was done. A total 100 mL of normal saline was infused and 35 mL was aspirated. No complications. Bronchoscope was removed. The patient a chest to recovery in stable condition. No bedside complications. The patient will be discharged home. We'll be awaiting the cultures and sensitivities. We'll give the patient another prednisone taper.
[2018-10-30 13:48] VITALS: BP 113/66; PULSE 65; RESP 18
== END 2018-10-30 13:41 | disposition home or self-care (01) ==
LOC: ORWHC2ENDO 11:24
PROVIDERS: ATTEND Internal Medicine Critical Care Medicine
DX: J98.09 Other diseases of bronchus, not elsewhere classified (principal); E03.9 Hypothyroidism, unspecified; I48.2 Chronic atrial fibrillation; J44.9 Chronic obstructive pulmonary disease, unspecified; I10 Essential (primary) hypertension; G47.33 Obstructive sleep apnea (adult) (pediatric); E78.5 Hyperlipidemia, unspecified; E66.9 Obesity, unspecified; Z68.35 Body mass index [BMI] 35.0-35.9, adult; Z79.01 Long term (current) use of anticoagulants; Z79.890 Hormone replacement therapy; Z79.899 Other long term (current) drug therapy; Z79.51 Long term (current) use of inhaled steroids; Z79.52 Long term (current) use of systemic steroids; Z87.01 Personal history of pneumonia (recurrent); Z88.0 Allergy status to penicillin; Z88.2 Allergy status to sulfonamides; Z88.8 Allergy status to other drugs, medicaments and biological substances; Z88.5 Allergy status to narcotic agent; Z95.2 Presence of prosthetic heart valve
CPT/HCPCS: 94640; 88108; 88305; 87252; 87070; 87205; 87116; 87102; 87206; 31624; J2001 ×2; J2704; J2250

== ENCOUNTER → 2018-11-22 | Outpatient (CLI) | payer MEDICARE | END | disposition home or self-care (01) | LOC: LABWHC1 09:55 | PROVIDERS: ATTEND Internal Medicine Endocrinology, Diabetes & Metabolism | DX: E03.8 Other specified hypothyroidism (principal) | CPT/HCPCS: 36415; 84443 ==

== ENCOUNTER → 2018-11-29 | Outpatient (CLI) | payer MEDICARE ==
[2018-11-29 11:22] LABS: African American GFR (CKD) >90 (>60 ml/min/1.73 sqM); Blood Urea Nitrogen 15 mg/dL (7-17)
--- NOTE | 2018-11-29 12:09 | CT ---
EXAMINATION TYPE: CT chest w con DATE OF EXAM: 11/29/2018 COMPARISON: 04/01/2018 HISTORY: Shortness of breath Automated exposure control for dose reduction was used. CONTRAST: CT scan of the chest is performed with IV Contrast, patient injected with 100 mL of Isovue 300. FINDINGS: LUNGS: The lungs are grossly clear, there is no concerning parenchymal mass or nodule identified. T here is no pleural effusion or pneumothorax seen. The tracheobronchial tree is patent. Scattered dalila cified granulomas. MEDIASTINUM: There are no greater than 1 cm hilar or mediastinal lymph nodes. No pericardial effusi on is seen. Thoracic aorta is of normal caliber. The heart is enlarged. UPPER ABDOMEN: There is evidence of hepatic steatosis. OTHER: No additional significant abnormality is seen. IMPRESSION: 1. Remote granulomatous disease. No evidence for infiltrate or mass.
== END | disposition home or self-care (01) ==
LOC: RADCTMAIN 10:13
PROVIDERS: ATTEND Internal Medicine
DX: R06.02 Shortness of breath (principal)
CPT/HCPCS: 82565; 84520; 71260; Q9967

== ENCOUNTER → 2019-01-02 | Outpatient (CLI) | payer MEDICARE | END | disposition home or self-care (01) | LOC: LABWHC1 12:56 | PROVIDERS: ATTEND Internal Medicine Endocrinology, Diabetes & Metabolism | DX: E03.8 Other specified hypothyroidism (principal) | CPT/HCPCS: 36415; 84443 ==

== ENCOUNTER → 2019-01-16 | Outpatient (CLI) | payer MEDICARE ==
--- NOTE | 2019-01-17 08:19 | US ---
DATE OF EXAM: 01/16/2019 COMPARISON: NONE CLINICAL HISTORY: E03.8 Other specified hypothyroidism. GLAND SIZE: Right Lobe: 4.3 x 1.7 x 1.8 cm Overall Parenchyma: heterogenous Left Lobe: 4.1 x 1.7 x 1.5 cm Overall Parenchyma: heterogeneous Isthmus Thickness: 0.5 cm NODULES RIGHT: # of nodules measured on right: 2 1. 0.8 X 0.8 x 1.0 cm solid nodule at the lower pole with poorly defined margins. This nodule is r ound and shows intranodular vascularity. Prior size: no prior 2. 0.7 X 0.7 x 0.4 cm mixed nodule at the mid pole with poorly defined margins. This nodule is wid er than tall and shows intranodular vascularity. Prior size: no prior LEFT: # of nodules measured on left: 2 1. 0.9 X 0.8 x 0.6 cm solid nodule at the lower pole with poorly defined margins . This nodule is irregular and shows intranodular vascularity. Prior size: no prior 2. 1.2 X 1.0 x 0.5 cm mixed nodule at the mid pole with well-defined margins. This nodule is wider than tall and shows intranodular vascularity. Prior size: no prior ISTHMUS: # of nodules measured in the isthmus: 0 Bilateral neck scanned, no evidence of lymphadenopathy. IMPRESSION: There are small bilateral thyroid nodules measuring up to 1.2 cm on the left. Follow-up is recommende d in 6-12 months to ensure ability.
== END | disposition home or self-care (01) ==
LOC: RADUSWWP 16:11
PROVIDERS: ATTEND Internal Medicine Endocrinology, Diabetes & Metabolism
DX: E04.2 Nontoxic multinodular goiter (principal)
CPT/HCPCS: 76536

== ENCOUNTER → 2019-02-01 | Outpatient (CLI) | payer MEDICARE ==
[2019-02-01 09:09] LABS: Basophils # (A) 0.1 k/uL (0-0.2); Basophils % (A) 1 %; Eosinophils # (A) 0.2 k/uL (0-0.7); Eosinophils % (A) 3 %; HCT 41.2 % (34.0-46.0); HGB 14.4 gm/dL (11.4-16.0); Lymphocytes # (A) 2.4 k/uL (1.0-4.8); Lymphocytes % (A) 36 %; MCH 32.6 pg (25.0-35.0); MCHC 34.9 g/dL (31.0-37.0); MCV 93.4 fL (80.0-100.0); Mean Platelet Volume 7.2; Monocytes # (A) 0.5 k/uL (0-1.0); Monocytes % (A) 8 %; Neutrophils # (A) 3.4 k/uL (1.3-7.7); Neutrophils % (A) 51 %; Platelet Count 217 k/uL (150-450); RBC 4.41 m/uL (3.80-5.40); RDW 14.9 % (11.5-15.5); WBC 6.6 k/uL (3.8-10.6)
[2019-02-01 17:02] LABS: African American GFR (CKD) 104.6 (60.0-200.0); Albumin 4.1 g/dL (3.80-4.90); Albumin/Globulin Ratio 2.05 (1.60-3.17); Anion Gap 7.8 mmol/L (4.00-12.00); BUN/Creat Ratio 17.14 Ratio (12.00-20.00); Calcium 9.2 mg/dL (8.7-10.3); Carbon Dioxide 26.2 mmol/L (21.6-31.8); Chol/HDL Ratio 2.88; LDL Cholesterol,Calculated 72.4 mg/dL (0.0-131.0); Phosphorus 3.7 mg/dL (2.4-5.1); Potassium 4.4 mmol/L (3.5-5.5); Total Bilirubin 0.6 mg/dL (0.3-1.2); Total Protein 6.1 g/dL (6.2-8.2); VLDL Calculation 25.6 mg/dL (5.00-40.00)
[2019-02-01 17:10] LABS: T4, Free (Free Thyroxine) 1.4 ng/dL (0.80-1.80)
== END | disposition home or self-care (01) ==
LOC: LABWHC1 08:25
PROVIDERS: ATTEND Nurse Practitioner Women's Health
DX: Z00.00 Encounter for general adult medical examination without abnormal findings (principal); E78.00 Pure hypercholesterolemia, unspecified; E03.9 Hypothyroidism, unspecified; Z79.899 Other long term (current) drug therapy
CPT/HCPCS: 36415; 80053; 80061; 83735; 83970; 84100; 84439; 84443; 85025

== ENCOUNTER 2019-02-23 03:25 | Emergency (ER) | payer MEDICARE ==
[2019-02-23 03:33] VITALS: RESP 18
[2019-02-23] MEDS ORDERED: METOCLOPRAMIDE 5 MG/ML 2 ML VIAL IVP STA (04:28)
--- NOTE | 2019-02-23 04:33 | ED ---
Arrhythmia/Palpitations HPI <Marisol López - Last Filed: 02/23/19 06:55> - General Source: patient Mode of arrival: wheelchair Limitations: no limitations <Lucio Bearden - Last Filed: 02/25/19 20:58> - General Chief Complaint: Arrhythmia/Palpitations Stated Complaint: Nausea/Chest Pressure Hx Afib Time Seen by Provider: 02/23/19 04:11 - History of Present Illness Initial Comments: Patient is 68-year-old female with history of heart valve replacement is presenting to the emergency department with a chief complaint of weakness. Patient reports she developed sudden onset of weakness approximately 4 hours ago. Patient also reports she felt like her heart is "vibrating". Patient does have history of A. fib and it was treated with an ablation in 2016. Currently patient denies any chest pain, shortness of breath or heart palpitations. Patient does report nausea with no vomiting. Patient denies any headache blurry vision. Patient denies any abdominal pain. Patient does take Coumadin. Patient denies any fevers or chills. Patient denies any back pain or abdominal pain. Patient denies any urinary or bowel symptoms. (Lucio Bearden) - Related Data Home Medications Medication Instructions Recorded Confirmed Furosemide [Lasix] 10 mg PO QAM 12/20/13 10/30/18 Multivitamins, Thera [Multivitamin 1 tab PO DAILY 12/20/13 10/30/18 (formulary)] ALPRAZolam [Xanax] 0.5 mg PO BID PRN 06/02/15 10/30/18 Atorvastatin [Lipitor] 40 mg PO HS 06/02/15 10/30/18 Omeprazole [PriLOSEC] 20 mg PO DAILY PRN 09/06/15 10/30/18 Warfarin Sodium 4 mg PO DAILY 02/23/16 10/30/18 Cyclobenzaprine [Flexeril] 10 mg PO Q8H PRN 03/29/16 10/30/18 Melatonin 5 mg PO HS 01/03/17 10/30/18 rOPINIRole HCL [Requip] 2 mg PO HS PRN 01/03/17 10/30/18 Albuterol Inhaler [Ventolin Hfa 1 - 2 puff INHALATION RT-Q6H PRN 04/01/18 10/30/18 Inhaler] Albuterol Nebulized [Ventolin 2.5 mg INHALATION RT-Q6H PRN 04/01/18 10/30/18 Nebulized] Calcium Carbonate [Calcium] 600 mg PO DAILY 04/01/18 10/30/18 Cholecalciferol (Vitamin D3) 2,000 unit PO DAILY 04/01/18 10/30/18 [Vitamin D3] Flecainide [Tambocor] 50 mg PO BID 04/01/18 10/30/18 Levothyroxine Sodium [Synthroid] 75 mcg PO MOTUWETHFRSA 04/01/18 10/30/18 Zolpidem [Ambien] 10 mg PO HS PRN 09/20/18 10/30/18 Previous Rx's Medication Instructions Recorded Metoprolol Tartrate [Lopressor] 25 mg PO BID #180 tab 09/06/16 Allergies Allergy/AdvReac Type Severity Reaction Status Date / Time gabapentin Allergy Rash/Hives Verified 10/25/18 11:51 Penicillins Allergy Rash/Hives Verified 09/20/18 12:08 Sulfa (Sulfonamide Allergy Rash/Hives Verified 09/20/18 12:08 Antibiotics) tretinoin [From Retin-A] Allergy Rash/Hives Verified 09/20/18 12:08 escitalopram [From Lexapro] AdvReac Nausea & Verified 09/20/18 12:08 Vomiting meperidine HCl [From Demerol] AdvReac Nausea & Verified 09/20/18 12:08 Vomiting Review of Systems ROS Other: All systems not noted in ROS Statement are negative. <Marisol López - Last Filed: 02/23/19 06:55> ROS Other: All systems not noted in ROS Statement are negative. <Lucio Bearden - Last Filed: 02/25/19 20:58> ROS Statement: Those systems with pertinent positive or pertinent negative responses have been documented in the HPI. Past Medical History Past Medical History: Atrial Fibrillation, Hyperlipidemia, Hypertension, Thyroid Disorder Additional Past Medical History / Comment(s): Afib RVR, hypothyroid, vertigo with ablation 2 yrs ago, chronic cervical pain since ablation procedure, chronic back pain, mitral valve prolapse with surgery, AMY with Cpap, occasional migraines, UTI. 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 History of Any Multi-Drug Resistant Organisms: None Reported Past Surgical History: Appendectomy, Back Surgery, Breast Surgery, Cardiac Ablation, Cardiac Valve Replacement, Heart Catheterization, Hysterectomy, Joint Replacement, Orthopedic Surgery, Tonsillectomy Additional Past Surgical History / Comment(s): 07/2017 bronchoscopy with lavage, cardioversion, cardiac ablation, open mitral valve replacement, back surgery with rods/screws, cervical injections, R wrist ganglion cyst removed, R great toe replacement, L great toe "cleaned up", L knee arthroscopy, L ankle surgery for tendon/ligament and cysts, colonoscopy, R breast cystectomy, total hysterectomy. Past Anesthesia/Blood Transfusion Reactions: Postoperative Nausea & Vomiting (PONV) Additional Past Anesthesia/Blood Transfusion Reaction / Comment(s): Patient vomited after previous surgeries but she doesn't know if it was from anesthesia or the pain medication. Past Psychological History: Anxiety Smoking Status: Former smoker - Past Family History Mother Family Medical History: Congestive Heart Failure (CHF), Coronary Artery Disease (CAD), CVA/TIA, Hypertension Additional Family Medical History / Comment(s): Mother has been having multiple TIAs. at age 93 Father Family Medical History: CVA/TIA Additional Family Medical History / Comment(s): Father of a stroke at age 90 <Lucio Bearden - Last Filed: 02/25/19 20:58> General Exam Limitations: no limitations General appearance: alert, in no apparent distress Head exam: Present: atraumatic, normocephalic, normal inspection Eye exam: Present: normal appearance, PERRL, EOMI Pupils: Present: normal accommodation ENT exam: Present: normal exam, normal oropharynx, mucous membranes moist, TM's normal bilaterally, normal external ear exam Neck exam: Present: normal inspection, full ROM Respiratory exam: Present: normal lung sounds bilaterally Cardiovascular Exam: Present: regular rate, normal rhythm, normal heart sounds GI/Abdominal exam: Present: soft. Absent: tenderness Extremities exam: Present: normal inspection, full ROM, normal capillary refill, other (+2 ulnar radial pulses bilaterally.) Back exam: Present: normal inspection, full ROM Neurological exam: Present: alert, oriented X3 Psychiatric exam: Present: normal affect, normal mood Skin exam: Present: warm, intact, normal color <Lucio Bearden Last Filed: 02/25/19 20:58> Course Vital Signs 02/23/19 02/23/19 02/23/19 03:29 04:39 07:00 Temperature 97.4 F L 97.7 F Pulse Rate 62 60 57 L Respiratory 18 18 18 Rate Blood Pressure 112/65 102/59 122/72 O2 Sat by Pulse 99 95 95 Oximetry EKG Findings - EKG Comments: EKG Findings:: Sinus bradycardia with first-degree AV block. Ventricular rate 59, UT interval 256, QRS duration 86, QT/QTc 460/463. <Lucio Bearden - Last Filed: 02/25/19 20:58> Medical Decision Making - Lab Data Result diagrams: 02/23/19 03:50 02/23/19 03:50 <Marisol López - Last Filed: 02/23/19 06:55> - Lab Data Result diagrams: 02/23/19 03:50 02/23/19 03:50 <Lucio Bearden - Last Filed: 02/25/19 20:58> - Medical Decision Making Patient is 68-year-old female presenting to the emergency department with a chief complaint of nausea vomiting chest palpitation. EKG is indicative of first-degree AV heart block. Patient is bradycardic. Patient does have nausea but no vomiting at this time. Patient was given antiemetics and fluids. On reevaluation patient reports she feels better. Patient reports the chest palpitation as since resolved. Patient denies any chest pain or shortness of breath at this time. Laboratory workup is unremarkable. Chest x-ray is unremarkable. At this time patient care transferred to Dr. López. (Lucio Bearden) - Lab Data Lab Results 02/23/19 02/23/19 02/23/19 Range/Units 03:50 03:50 03:50 WBC 8.8 (3.8-10.6) k/uL RBC 4.79 (3.80-5.40) m/uL Hgb 15.1 (11.4-16.0) gm/dL Hct 43.4 (34.0-46.0) % MCV 90.7 (80.0-100.0) fL MCH 31.6 (25.0-35.0) pg MCHC 34.9 (31.0-37.0) g/dL RDW 13.2 (11.5-15.5) % Plt Count 233 (150-450) k/uL Neutrophils % 54 % Lymphocytes % 34 % Monocytes % 6 % Eosinophils % 3 % Basophils % 1 % Neutrophils # 4.7 (1.3-7.7) k/uL Lymphocytes # 3.0 (1.0-4.8) k/uL Monocytes # 0.5 (0-1.0) k/uL Eosinophils # 0.3 (0-0.7) k/uL Basophils # 0.1 (0-0.2) k/uL PT 24.3 H (9.0-12.0) sec INR 2.5 H (<1.2) APTT 33.9 H (22.0-30.0) sec Sodium 138 (137-145) mmol/L Potassium 4.3 (3.5-5.1) mmol/L Chloride 102 (98-107) mmol/L Carbon Dioxide 30 (22-30) mmol/L Anion Gap 6 mmol/L BUN 17 (7-17) mg/dL Creatinine 0.60 (0.52-1.04) mg/dL Est GFR (CKD-EPI)AfAm >90 (>60 ml/min/1.73 sqM) Est GFR (CKD-EPI)NonAf >90 (>60 ml/min/1.73 sqM) Glucose 104 H (74-99) mg/dL Plasma Lactic Acid Fran (0.7-2.0) mmol/L Calcium 9.3 (8.4-10.2) mg/dL Magnesium 2.0 (1.6-2.3) mg/dL Total Bilirubin 0.5 (0.2-1.3) mg/dL AST 34 (14-36) U/L ALT 28 (9-52) U/L Alkaline Phosphatase 84 (38-126) U/L Troponin I (0.000-0.034) ng/mL Total Protein 6.8 (6.3-8.2) g/dL Albumin 4.0 (3.5-5.0) g/dL Urine Color Urine Appearance (Clear) Urine pH (5.0-8.0) Ur Specific [place] (1.001-1.035) Urine Protein (Negative) Urine Glucose (UA) (Negative) Urine Ketones (Negative) Urine Blood (Negative) Urine Nitrite (Negative) Urine Bilirubin (Negative) Urine Urobilinogen (<2.0) mg/dL Ur Leukocyte Esterase (Negative) 02/23/19 02/23/19 02/23/19 Range/Units 03:50 03:50 05:04 WBC (3.8-10.6) k/uL RBC (3.80-5.40) m/uL Hgb (11.4-16.0) gm/dL Hct (34.0-46.0) % MCV (80.0-100.0) fL MCH (25.0-35.0) pg MCHC (31.0-37.0) g/dL RDW (11.5-15.5) % Plt Count (150-450) k/uL Neutrophils % % Lymphocytes % % Monocytes % % Eosinophils % % Basophils % % Neutrophils # (1.3-7.7) k/uL Lymphocytes # (1.0-4.8) k/uL Monocytes # (0-1.0) k/uL Eosinophils # (0-0.7) k/uL Basophils # (0-0.2) k/uL PT (9.0-12.0) sec INR (<1.2) APTT (22.0-30.0) sec Sodium (137-145) mmol/L Potassium (3.5-5.1) mmol/L Chloride (98-107) mmol/L Carbon Dioxide (22-30) mmol/L Anion Gap mmol/L BUN (7-17) mg/dL Creatinine (0.52-1.04) mg/dL Est GFR (CKD-EPI)AfAm (>60 ml/min/1.73 sqM) Est GFR (CKD-EPI)NonAf (>60 ml/min/1.73 sqM) Glucose (74-99) mg/dL Plasma Lactic Acid Fran 1.0 (0.7-2.0) mmol/L Calcium (8.4-10.2) mg/dL Magnesium (1.6-2.3) mg/dL Total Bilirubin (0.2-1.3) mg/dL AST (14-36) U/L ALT (9-52) U/L Alkaline Phosphatase (38-126) U/L Troponin I <0.012 (0.000-0.034) ng/mL Total Protein (6.3-8.2) g/dL Albumin (3.5-5.0) g/dL Urine Color Yellow Urine Appearance Clear (Clear) Urine pH 5.5 (5.0-8.0) Ur Specific [place] 1.020 (1.001-1.035) Urine Protein Negative (Negative) Urine Glucose (UA) Negative (Negative) Urine Ketones Negative (Negative) Urine Blood Negative (Negative) Urine Nitrite Negative (Negative) Urine Bilirubin Negative (Negative) Urine Urobilinogen <2.0 (<2.0) mg/dL Ur Leukocyte Esterase Negative (Negative) Disposition Is patient prescribed a controlled substance at d/c from ED?: No Time of Disposition: 07:03 <Marisol López - Last Filed: 02/23/19 06:55> Is patient prescribed a controlled substance at d/c from ED?: No <Lucio Bearden - Last Filed: 02/25/19 20:58> Clinical Impression: Nausea & vomiting, Palpitations Disposition: HOME SELF-CARE Condition: Stable Instructions (If sedation given, give patient instructions): Heart Palpitations (ED) Additional Instructions: Please follow-up with your primary care doctor in 2-4 days. Return to the ED for any new or worsening symptoms. Referrals: Keiry Baxter MD [Primary Care Provider] - 1-2 days
[2019-02-23 04:39] LABS: Basophils # (A) 0.1 k/uL (0-0.2); Basophils % (A) 1 %; Eosinophils # (A) 0.3 k/uL (0-0.7); Eosinophils % (A) 3 %; HCT 43.4 % (34.0-46.0); HGB 15.1 gm/dL (11.4-16.0); Lymphocytes % (A) 34 %; MCH 31.6 pg (25.0-35.0); MCHC 34.9 g/dL (31.0-37.0); MCV 90.7 fL (80.0-100.0); Mean Platelet Volume 7.1; Monocytes # (A) 0.5 k/uL (0-1.0); Monocytes % (A) 6 %; Neutrophils # (A) 4.7 k/uL (1.3-7.7); Neutrophils % (A) 54 %; Platelet Count 233 k/uL (150-450); RBC 4.79 m/uL (3.80-5.40); RDW 13.2 % (11.5-15.5); WBC 8.8 k/uL (3.8-10.6)
[2019-02-23] MEDS ORDERED: SODIUM CHLORIDE 0.9% 1,000 ML IV STA (04:47)
[2019-02-23 04:48] LABS: ALT 28 U/L (9-52); AST 34 U/L (14-36); African American GFR (CKD) >90 (>60 ml/min/1.73 sqM); Alkaline Phosphatase 84 U/L (38-126); Anion Gap 6 mmol/L; Blood Urea Nitrogen 17 mg/dL (7-17); Calcium 9.3 mg/dL (8.4-10.2); Carbon Dioxide 30 mmol/L (22-30); Chloride 102 mmol/L (98-107); Glucose 104 mg/dL (74-99); Sodium 138 mmol/L (137-145); Total Bilirubin 0.5 mg/dL (0.2-1.3); Total Protein 6.8 g/dL (6.3-8.2)
[2019-02-23 04:49] LABS: INR 2.5 (<1.2); Partial Thromboplastin Time 33.9 sec (22.0-30.0); Prothrombin Time 24.3 sec (9.0-12.0)
[2019-02-23] MEDS ORDERED: ALPRAZolam 0.25 MG TAB PO STA (05:00)
[2019-02-23 05:27] LABS: Potassium 4.3 mmol/L (3.5-5.1)
[2019-02-23 05:39] LABS: Appearance,Urine Clear (Clear); Bilirubin,Urine Negative (Negative); Blood,Urine Negative (Negative); Color,Urine Yellow; Glucose,Urine (UA) Negative (Negative); Ketones,Urine Negative (Negative); Leukocyte Esterase,Urine Negative (Negative); Nitrite,Urine Negative (Negative); PH, Urine 5.5 (5.0-8.0); Protein,Urine Negative (Negative); Urobilinogen,Urine <2.0 mg/dL (<2.0)
[2019-02-23 07:01] VITALS: BP 122/72; PULSE 57; TEMP 97.7
[2019-02-23] MEDS ORDERED: ONDANSETRON 4 MG ODT STARTER PACK 2 TAB BTL PO STA (07:04)
== END 2019-02-23 07:17 | disposition home or self-care (01) ==
LOC: EC 03:25
DX: R11.2 Nausea with vomiting, unspecified (principal); R00.2 Palpitations; F41.9 Anxiety disorder, unspecified; E78.5 Hyperlipidemia, unspecified; I10 Essential (primary) hypertension; E03.9 Hypothyroidism, unspecified; I48.2 Chronic atrial fibrillation; G47.33 Obstructive sleep apnea (adult) (pediatric); Z79.01 Long term (current) use of anticoagulants; Z79.82 Long term (current) use of aspirin; Z79.890 Hormone replacement therapy; Z79.899 Other long term (current) drug therapy; Z88.0 Allergy status to penicillin; Z88.2 Allergy status to sulfonamides; Z88.6 Allergy status to analgesic agent; Z88.5 Allergy status to narcotic agent; Z88.8 Allergy status to other drugs, medicaments and biological substances; Z99.89 Dependence on other enabling machines and devices; Z95.5 Presence of coronary angioplasty implant and graft; Z95.2 Presence of prosthetic heart valve; Z98.890 Other specified postprocedural states; Z87.891 Personal history of nicotine dependence; Z82.49 Family history of ischemic heart disease and other diseases of the circulatory system
CPT/HCPCS: 36415; 93005; 80053; 83605; 83735; 84484; 85025; 85610; 85730; 81003; 99285; 96374; 96361 ×2; J2765; S0119

== ENCOUNTER → 2019-02-24 | Outpatient (CLI) | payer MEDICARE | END | disposition home or self-care (01) | LOC: LABWHC1 09:22 | PROVIDERS: ATTEND Internal Medicine Endocrinology, Diabetes & Metabolism | DX: E03.8 Other specified hypothyroidism (principal) | CPT/HCPCS: 36415; 84443 ==

== ENCOUNTER → 2019-02-27 | Outpatient (CLI) | payer MEDICARE ==
--- NOTE | 2019-02-28 14:03 | MM ---
Reason for exam: screening (asymptomatic). Last mammogram was performed 1 year and 1 month ago. History: Patient is postmenopausal and is nulliparous. Family history of breast cancer in aunt. Benign excisional biopsy of the right breast, 1974. Benign excisional biopsy of the right breast, 1973. Physical Findings: A clinical breast exam by your physician is recommended on an annual basis and results should be correlated with mammographic findings. MG 3D Screening Mammo W/Cad Bilateral CC and MLO view(s) were taken. Prior study comparison: January 23, 2018, bilateral MG 3d work up w/cad JOCY. January 10, 2018, bilateral MG 3d screening mammo w/cad. There are scattered fibroglandular densities. Asymmetric breast tissue left lower inner quadrant 3cm from nipple. This finding is changed when compared with previous exams. ASSESSMENT: Incomplete: need additional imaging evaluation, BI-RAD 0 RECOMMENDATION: Ultrasound of the left breast. [facility] will attempt to contact patient to return for ultrasound.
== END | disposition home or self-care (01) ==
LOC: RADMAMWWP 09:12
PROVIDERS: ATTEND Family Medicine
DX: Z12.31 Encounter for screening mammogram for malignant neoplasm of breast (principal); Z80.3 Family history of malignant neoplasm of breast
CPT/HCPCS: 77063; 77067

== ENCOUNTER → 2019-03-06 | Outpatient (CLI) | payer MEDICARE ==
--- NOTE | 2019-03-06 14:10 | USB ---
Reason for exam: additional evaluation requested from abnormal screening. History: Patient is postmenopausal and is nulliparous. Family history of breast cancer in aunt. Benign excisional biopsy of the right breast, 1974. Benign excisional biopsy of the right breast, 1973. Physical Findings: Nurse Summary: 1cm movable nodule (nurse dw). US Breast Workup Limited LT Left limited breast ultrasound including focal area of concern, retroareolar and axilla demonstrates a 0.5 x 0.3 x 0.3cm probable cystic cluster at 8 o'clock, mammographically stable for 1 year and a 0.3 x 0.2 x 0.4cm probable small cyst in dense tissue at 9 o'clock, 6 month follow up ultrasound recommended. These results were verbally communicated with the patient and result sheet given to the patient on 03/06/19. ASSESSMENT: Probably benign, BI-RAD 3 RECOMMENDATION: Ultrasound of the left breast in 6 months. (lower inner quadrant)
== END | disposition home or self-care (01) ==
LOC: RADUSWWP 13:00
PROVIDERS: ATTEND Family Medicine
DX: R92.8 Other abnormal and inconclusive findings on diagnostic imaging of breast (principal)

== ENCOUNTER → 2019-03-19 | Outpatient (CLI) | payer MEDICARE ==
--- NOTE | 2019-03-19 16:06 | XR ---
EXAMINATION TYPE: XR chest 2V DATE OF EXAM: 03/19/2019 COMPARISON: 09/20/2018 INDICATION: R05, G 44.9 TECHNIQUE: Frontal and lateral views of the chest are obtained. FINDINGS: The heart size is normal. The pulmonary vasculature is normal. The lungs are clear. Sternotomy wires are present from prior surgery IMPRESSION: 1. No acute pulmonary process.
== END | disposition home or self-care (01) ==
LOC: RADXRMAIN 14:02
PROVIDERS: ATTEND Nurse Practitioner Women's Health
DX: J44.9 Chronic obstructive pulmonary disease, unspecified (principal)
CPT/HCPCS: 71046

== ENCOUNTER 2019-04-21 09:36 | Emergency (ER) | payer MEDICARE ==
[2019-04-21 09:45] VITALS: RESP 18
[2019-04-21] MEDS ORDERED: SODIUM CHLORIDE 0.9% 1,000 ML IV STA (10:18)
[2019-04-21 11:02] LABS: Basophils # (A) 0.1 k/uL (0-0.2); Basophils % (A) 1 %; Eosinophils # (A) 0.1 k/uL (0-0.7); Eosinophils % (A) 1 %; HGB 15.1 gm/dL (11.4-16.0); Lymphocytes # (A) 1.9 k/uL (1.0-4.8); Lymphocytes % (A) 23 %; MCH 31.1 pg (25.0-35.0); MCHC 34.3 g/dL (31.0-37.0); MCV 90.6 fL (80.0-100.0); Monocytes # (A) 0.4 k/uL (0-1.0); Monocytes % (A) 5 %; Neutrophils # (A) 5.6 k/uL (1.3-7.7); Neutrophils % (A) 68 %; Platelet Count 233 k/uL (150-450); RBC 4.85 m/uL (3.80-5.40); RDW 13.7 % (11.5-15.5); WBC 8.2 k/uL (3.8-10.6)
--- NOTE | 2019-04-21 11:03 | ED ---
Weakness HPI - General Chief complaint: Weakness Stated complaint: Weak/abn blood pressure Time Seen by Provider: 04/21/19 09:57 Source: patient Mode of arrival: ambulatory Limitations: no limitations - History of Present Illness Initial comments: Patient is a 68-year-old female, with PMHx of Maritza moon on warfarin, hypertension, thyroid disorder, hyperlipidemia, presenting to emergency Department with complaints of weakness since early this morning. Patient states yesterday she was just feeling a little bit more tired than usual and then she woke up early this morning feeling weak and lightheaded so she attempted to get something to drink from her kitchen but states she felt too weak to walk there. Patient then laid back down and woke up approximately 8:30 this morning and felt very similar. Patient states she took her blood pressure and it was really low. Patient denies any recent fever, chills, nausea, vomiting, diarrhea, cough, chest pain. Patient states she does feel a little shortness of breath but she thinks it is mostly from feeling weak. Patient denies any urinary complaints at this time. Patient has no other complaints at this time. Upon arrival to the ER, Patient's BP was 105/62, rest of vitals were normal. - Related Data Home Medications Medication Instructions Recorded Confirmed Furosemide [Lasix] 10 mg PO QAM 12/20/13 04/21/19 Multivitamins, Thera [Multivitamin 1 tab PO DAILY 12/20/13 04/21/19 (formulary)] ALPRAZolam [Xanax] 0.5 mg PO BID PRN 06/02/15 04/21/19 Atorvastatin [Lipitor] 40 mg PO HS 06/02/15 04/21/19 Omeprazole [PriLOSEC] 20 mg PO DAILY PRN 09/06/15 04/21/19 Warfarin Sodium 4 mg PO DIRECTED 02/23/16 04/21/19 Cyclobenzaprine [Flexeril] 10 mg PO Q8H PRN 03/29/16 04/21/19 Melatonin 5 mg PO HS 01/03/17 04/21/19 rOPINIRole HCL [Requip] 2 mg PO HS PRN 01/03/17 04/21/19 Albuterol Inhaler [Ventolin Hfa 1 - 2 puff INHALATION RT-Q6H PRN 04/01/18 04/21/19 Inhaler] Albuterol Nebulized [Ventolin 2.5 mg INHALATION RT-Q6H PRN 04/01/18 04/21/19 Nebulized] Calcium Carbonate [Calcium] 600 mg PO DAILY 04/01/18 04/21/19 Cholecalciferol (Vitamin D3) 2,000 unit PO DAILY 04/01/18 04/21/19 [Vitamin D3] Flecainide [Tambocor] 50 mg PO BID 04/01/18 04/21/19 Fluticasone/Vilanterol [Breo 1 puff INHALATION RT-DAILY 04/21/19 04/21/19 Ellipta 200-25 Mcg INH] Levothyroxine Sodium [Synthroid] 75 mcg PO DAILY 04/21/19 04/21/19 Previous Rx's Medication Instructions Recorded Metoprolol Tartrate [Lopressor] 25 mg PO BID #180 tab 09/06/16 Allergies Allergy/AdvReac Type Severity Reaction Status Date / Time gabapentin Allergy Rash/Hives Verified 04/21/19 09:42 Penicillins Allergy Rash/Hives Verified 04/21/19 09:42 Sulfa (Sulfonamide Allergy Rash/Hives Verified 04/21/19 09:42 Antibiotics) tretinoin [From Retin-A] Allergy Rash/Hives Verified 04/21/19 09:42 escitalopram [From Lexapro] AdvReac Nausea & Verified 04/21/19 09:42 Vomiting meperidine HCl [From Demerol] AdvReac Nausea & Verified 04/21/19 09:42 Vomiting Review of Systems ROS Statement: Those systems with pertinent positive or pertinent negative responses have been documented in the HPI. ROS Other: All systems not noted in ROS Statement are negative. Past Medical History Past Medical History: Atrial Fibrillation, Hyperlipidemia, Hypertension, Thyroid Disorder Additional Past Medical History / Comment(s): Afib RVR, hypothyroid, vertigo with ablation 2 yrs ago, chronic cervical pain since ablation procedure, chronic back pain, mitral valve prolapse with surgery, AMY with Cpap, occasional migraines, UTI. 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 History of Any Multi-Drug Resistant Organisms: None Reported Past Surgical History: Appendectomy, Back Surgery, Breast Surgery, Cardiac Ablation, Cardiac Valve Replacement, Heart Catheterization, Hysterectomy, Joint Replacement, Orthopedic Surgery, Tonsillectomy Additional Past Surgical History / Comment(s): 07/2017 bronchoscopy with lavage, cardioversion, cardiac ablation, open mitral valve replacement, back surgery with rods/screws, cervical injections, R wrist ganglion cyst removed, R great toe replacement, L great toe "cleaned up", L knee arthroscopy, L ankle surgery for tendon/ligament and cysts, colonoscopy, R breast cystectomy, total hysterectomy. Past Anesthesia/Blood Transfusion Reactions: Postoperative Nausea & Vomiting (PONV) Additional Past Anesthesia/Blood Transfusion Reaction / Comment(s): Patient vomited after previous surgeries but she doesn't know if it was from anesthesia or the pain medication. Past Psychological History: Anxiety Smoking Status: Former smoker Past Alcohol Use History: Occasional Past Drug Use History: None Reported - Past Family History Mother Family Medical History: Congestive Heart Failure (CHF), Coronary Artery Disease (CAD), CVA/TIA, Hypertension Additional Family Medical History / Comment(s): Mother has been having multiple TIAs. at age 93 Father Family Medical History: CVA/TIA Additional Family Medical History / Comment(s): Father of a stroke at age 90 General Exam - General Exam Comments Initial Comments: GENERAL: Well-appearing, well-nourished and in no acute distress. HEAD: Atraumatic, normocephalic. EYES: Pupils equal round and reactive to light, extraocular movements intact, sclera anicteric, conjunctiva are normal. ENT: TMs normal, nares patent, oropharynx clear without exudates. Moist mucous membranes. NECK: Normal range of motion, supple without lymphadenopathy or JVD. LUNGS: Breath sounds clear to auscultation bilaterally and equal. No wheezes rales or rhonchi. HEART: Regular rate and rhythm without murmurs, rubs or gallops. ABDOMEN: Soft, nontender, normoactive bowel sounds. No guarding, no rebound. No masses appreciated. EXTREMITIES: Normal range of motion, no pitting or edema. No clubbing or cyanosis. NEUROLOGICAL: Cranial nerves II through XII grossly intact. Normal speech, normal gait. PSYCH: Normal mood, normal affect. SKIN: Warm, Dry, normal turgor, no rashes or lesions noted. Limitations: no limitations Course Vital Signs 04/21/19 04/21/19 04/21/19 09:42 11:12 13:00 Temperature 97.7 F 98.2 F Pulse Rate 58 L 57 L 60 Respiratory 18 18 18 Rate Blood Pressure 105/62 107/48 138/68 O2 Sat by Pulse 98 98 98 Oximetry EKG Findings - EKG Comments: EKG Findings:: Ventricular rate 55, SD interval 240, QTC 455. Sinus bradycardia with first-degree block. Nonspecific ST abnormality. Similar to previous EKG on 02/23/19. Medical Decision Making - Medical Decision Making Patient is a 68-year-old female presenting with weakness for the past 2 days. Upon arrival to the ER, patient's BP was 105/62. Rest of vitals were normal. Patient's exam was unremarkable. Lab work shows no acute abnormalities. Troponin is normal. UA shows no signs of infection. EKG shows no acute abnormalities. Chest x-ray shows no acute processes. She was given a fluid bolus. Patient states she is still feeling a little tired but the weakness has improved. Case was discussed with Dr. Daniels. Dr. Daniels spoke with Dr. Carson's office and patient will follow up with Dr. Luna tomorrow morning. They are comfortable with her being discharged at this time. Patient is comfortable with this plan of care as well. Patient is stable for discharge at this time. Return parameters were discussed with the patient and she verbalized understanding. - Lab Data Result diagrams: 04/21/19 10:08 04/21/19 10:08 Lab Results 04/21/19 04/21/19 04/21/19 Range/Units 10:08 10:08 10:08 WBC 8.2 (3.8-10.6) k/uL RBC 4.85 (3.80-5.40) m/uL Hgb 15.1 (11.4-16.0) gm/dL Hct 44.0 (34.0-46.0) % MCV 90.6 (80.0-100.0) fL MCH 31.1 (25.0-35.0) pg MCHC 34.3 (31.0-37.0) g/dL RDW 13.7 (11.5-15.5) % Plt Count 233 (150-450) k/uL Neutrophils % 68 % Lymphocytes % 23 % Monocytes % 5 % Eosinophils % 1 % Basophils % 1 % Neutrophils # 5.6 (1.3-7.7) k/uL Lymphocytes # 1.9 (1.0-4.8) k/uL Monocytes # 0.4 (0-1.0) k/uL Eosinophils # 0.1 (0-0.7) k/uL Basophils # 0.1 (0-0.2) k/uL PT (9.0-12.0) sec INR (<1.2) APTT (22.0-30.0) sec Sodium 138 (137-145) mmol/L Potassium 4.0 (3.5-5.1) mmol/L Chloride 103 (98-107) mmol/L Carbon Dioxide 26 (22-30) mmol/L Anion Gap 9 mmol/L BUN 15 (7-17) mg/dL Creatinine 0.64 (0.52-1.04) mg/dL Est GFR (CKD-EPI)AfAm >90 (>60 ml/min/1.73 sqM) Est GFR (CKD-EPI)NonAf >90 (>60 ml/min/1.73 sqM) Glucose 113 H (74-99) mg/dL Plasma Lactic Acid Fran 1.1 (0.7-2.0) mmol/L Calcium 9.7 (8.4-10.2) mg/dL Magnesium 1.8 (1.6-2.3) mg/dL Total Bilirubin 1.0 (0.2-1.3) mg/dL AST 27 (14-36) U/L ALT 28 (9-52) U/L Alkaline Phosphatase 101 (38-126) U/L Troponin I (0.000-0.034) ng/mL Total Protein 7.1 (6.3-8.2) g/dL Albumin 4.2 (3.5-5.0) g/dL Urine Color Urine Appearance (Clear) Urine pH (5.0-8.0) Ur Specific [place] (1.001-1.035) Urine Protein (Negative) Urine Glucose (UA) (Negative) Urine Ketones (Negative) Urine Blood (Negative) Urine Nitrite (Negative) Urine Bilirubin (Negative) Urine Urobilinogen (<2.0) mg/dL Ur Leukocyte Esterase (Negative) 04/21/19 04/21/19 04/21/19 Range/Units 10:08 10:08 11:10 WBC (3.8-10.6) k/uL RBC (3.80-5.40) m/uL Hgb (11.4-16.0) gm/dL Hct (34.0-46.0) % MCV (80.0-100.0) fL MCH (25.0-35.0) pg MCHC (31.0-37.0) g/dL RDW (11.5-15.5) % Plt Count (150-450) k/uL Neutrophils % % Lymphocytes % % Monocytes % % Eosinophils % % Basophils % % Neutrophils # (1.3-7.7) k/uL Lymphocytes # (1.0-4.8) k/uL Monocytes # (0-1.0) k/uL Eosinophils # (0-0.7) k/uL Basophils # (0-0.2) k/uL PT 17.9 H (9.0-12.0) sec INR 1.8 H (<1.2) APTT 30.9 H (22.0-30.0) sec Sodium (137-145) mmol/L Potassium (3.5-5.1) mmol/L Chloride (98-107) mmol/L Carbon Dioxide (22-30) mmol/L Anion Gap mmol/L BUN (7-17) mg/dL Creatinine (0.52-1.04) mg/dL Est GFR (CKD-EPI)AfAm (>60 ml/min/1.73 sqM) Est GFR (CKD-EPI)NonAf (>60 ml/min/1.73 sqM) Glucose (74-99) mg/dL Plasma Lactic Acid Fran (0.7-2.0) mmol/L Calcium (8.4-10.2) mg/dL Magnesium (1.6-2.3) mg/dL Total Bilirubin (0.2-1.3) mg/dL AST (14-36) U/L ALT (9-52) U/L Alkaline Phosphatase (38-126) U/L Troponin I <0.012 (0.000-0.034) ng/mL Total Protein (6.3-8.2) g/dL Albumin (3.5-5.0) g/dL Urine Color Light Yellow Urine Appearance Clear (Clear) Urine pH 6.0 (5.0-8.0) Ur Specific [place] 1.009 (1.001-1.035) Urine Protein Negative (Negative) Urine Glucose (UA) Negative (Negative) Urine Ketones Negative (Negative) Urine Blood Negative (Negative) Urine Nitrite Negative (Negative) Urine Bilirubin Negative (Negative) Urine Urobilinogen <2.0 (<2.0) mg/dL Ur Leukocyte Esterase Negative (Negative) Disposition Clinical Impression: Weakness Disposition: HOME SELF-CARE Condition: Stable Instructions (If sedation given, give patient instructions): Weakness (ED) Additional Instructions: Please return to the Emergency Department if symptoms worsen or any other concerns. Follow-up with Dr. Carson's office tomorrow as discussed. Follow-up with cardiology in a few weeks as discussed. Continue to increase fluid and food intake. Is patient prescribed a controlled substance at d/c from ED?: No Referrals: Jesus Carson MD [Primary Care Provider] - 1-2 days
[2019-04-21 11:13] LABS: ALT 28 U/L (9-52); AST 27 U/L (14-36); African American GFR (CKD) >90 (>60 ml/min/1.73 sqM); Albumin 4.2 g/dL (3.5-5.0); Alkaline Phosphatase 101 U/L (38-126); Anion Gap 9 mmol/L; Blood Urea Nitrogen 15 mg/dL (7-17); Calcium 9.7 mg/dL (8.4-10.2); Carbon Dioxide 26 mmol/L (22-30); Chloride 103 mmol/L (98-107); Glucose 113 mg/dL (74-99); Magnesium 1.8 mg/dL (1.6-2.3); Non-African American GFR(CKD) >90 (>60 ml/min/1.73 sqM); Sodium 138 mmol/L (137-145); Total Protein 7.1 g/dL (6.3-8.2)
[2019-04-21 11:18] LABS: INR 1.8 (<1.2); Partial Thromboplastin Time 30.9 sec (22.0-30.0); Prothrombin Time 17.9 sec (9.0-12.0)
[2019-04-21 11:37] LABS: Appearance,Urine Clear (Clear); Bilirubin,Urine Negative (Negative); Blood,Urine Negative (Negative); Color,Urine Light Yellow; Glucose,Urine (UA) Negative (Negative); Ketones,Urine Negative (Negative); Leukocyte Esterase,Urine Negative (Negative); Nitrite,Urine Negative (Negative); Protein,Urine Negative (Negative); Specific Gravity,Urine 1.009 (1.001-1.035); Urobilinogen,Urine <2.0 mg/dL (<2.0)
--- NOTE | 2019-04-21 12:35 | XR ---
EXAMINATION TYPE: XR chest 2V DATE OF EXAM: 04/21/2019 COMPARISON: 03/19/2019 HISTORY: 68-year-old female with weakness TECHNIQUE: AP and lateral views FINDINGS: Median sternotomy wires are present. Heart upper limits of normal in size. Mild interstitial prominen ce is similar prior. Strandy atelectasis in the lower lungs. No consolidation or pleural effusion. IMPRESSION: Chronic-appearing changes. No acute process seen.
[2019-04-21 13:18] VITALS: BP 138/68; PULSE 60; TEMP 98.2
== END 2019-04-21 13:20 | disposition home or self-care (01) ==
LOC: EC 09:36
DX: R53.1 Weakness (principal); I48.20 Chronic atrial fibrillation, unspecified; I34.1 Nonrheumatic mitral (valve) prolapse; F41.9 Anxiety disorder, unspecified; E78.5 Hyperlipidemia, unspecified; I10 Essential (primary) hypertension; E03.9 Hypothyroidism, unspecified; G47.33 Obstructive sleep apnea (adult) (pediatric); G89.29 Other chronic pain; M54.5 Low back pain; Z79.51 Long term (current) use of inhaled steroids; Z79.01 Long term (current) use of anticoagulants; Z79.890 Hormone replacement therapy; Z79.899 Other long term (current) drug therapy; Z87.891 Personal history of nicotine dependence; Z88.0 Allergy status to penicillin; Z88.2 Allergy status to sulfonamides; Z88.8 Allergy status to other drugs, medicaments and biological substances; Z88.5 Allergy status to narcotic agent; Z95.5 Presence of coronary angioplasty implant and graft; Z95.2 Presence of prosthetic heart valve; Z98.890 Other specified postprocedural states; Z82.49 Family history of ischemic heart disease and other diseases of the circulatory system
CPT/HCPCS: 36415; 71046; 80053; 81003; 83605; 83735; 84484; 85025; 85610; 85730; 93005; 96360; 99285

== ENCOUNTER → 2019-05-12 | Outpatient (CLI) | payer MEDICARE ==
[2019-05-12 21:08] LABS: Immunoglobulin E 9.48 IU/mL (0.00-114.00)
== END | disposition home or self-care (01) ==
LOC: LABWHC1 12:35
PROVIDERS: ATTEND Internal Medicine Critical Care Medicine
DX: Q32.2 Congenital bronchomalacia (principal)
CPT/HCPCS: 36415; 82784; 82785

== ENCOUNTER → 2019-06-06 | Outpatient (CLI) | payer MEDICARE | END | disposition home or self-care (01) | LOC: LABWHC1 12:24 | PROVIDERS: ATTEND Internal Medicine Endocrinology, Diabetes & Metabolism | DX: E03.8 Other specified hypothyroidism (principal) | CPT/HCPCS: 36415; 84443 ==

== ENCOUNTER → 2019-06-06 | Outpatient (CLI) | payer MEDICARE ==
--- NOTE | 2019-06-06 13:40 | US ---
EXAMINATION TYPE: US venous doppler duplex LE DATE OF EXAM: 06/06/2019 12:53 PM COMPARISON: NONE CLINICAL HISTORY: M79.661,M79.662 PAIN IN LT AND RT LOWER LIMB. Patient states sometimes her feet fee l either cold or hot, or numb. No hx blood clots. On blood thinners. SIDE PERFORMED: Bilateral TECHNIQUE: The lower extremity deep venous system is examined utilizing real time linear array sonog sushil with graded compression, doppler sonography and color-flow sonography. VESSELS IMAGED: External Iliac Vein (EIV) Common Femoral Vein Deep Femoral Vein Greater Saphenous Vein * Femoral Vein Popliteal Vein Small Saphenous Vein * Proximal Calf Veins (* superficial vessels) Right Leg: Negative for DVT Left Leg: Negative for DVT IMPRESSION: 1. No diagnostic evidence of DVT.
== END | disposition home or self-care (01) ==
LOC: RADUSWWP 12:20
PROVIDERS: ATTEND Family Medicine
DX: M79.662 Pain in left lower leg (principal); M79.661 Pain in right lower leg; E03.9 Hypothyroidism, unspecified; Z88.0 Allergy status to penicillin; Z88.2 Allergy status to sulfonamides
CPT/HCPCS: 93970

== ENCOUNTER → 2019-08-14 | Outpatient (CLI) | payer MEDICARE ==
--- NOTE | 2019-08-14 12:16 | MM ---
Reason for exam: follow-up at short interval from prior study. Last mammogram was performed 6 months ago. History: Patient is postmenopausal and is nulliparous. Family history of breast cancer in aunt. Benign excisional biopsy of the right breast, 1974. Benign excisional biopsy of the right breast, 1973. Physical Findings: Nurse did not find any significant physical abnormalities on exam. MG 3D Diag Mammo W/Cad LT CC, MLO, and ML view(s) were taken of the left breast. Prior study comparison: February 27, 2019, bilateral MG 3d screening mammo w/cad. January 23, 2018, bilateral MG 3d work up w/cad JOCY. There are scattered fibroglandular densities. Benign appearing calcifications in the left breast. No new suspicious abnormality. Stable left lower inner quadrant anterior depth focal asymmetry. These results were verbally communicated with the patient and result sheet given to the patient on 08/14/19. ASSESSMENT: Incomplete: need additional imaging evaluation, BI-RAD 0 RECOMMENDATION: Ultrasound of the left breast. (lower inner quadrant as recommended on the prior for follow up)
--- NOTE | 2019-08-14 12:18 | USB ---
Reason for exam: additional evaluation requested from abnormal screening. History: Patient is postmenopausal and is nulliparous. Family history of breast cancer in aunt. Benign excisional biopsy of the right breast, 1974. Benign excisional biopsy of the right breast, 1973. US Breast Limited LT Left limited breast ultrasound including focal area of concern, retroareolar and axilla demonstrates a 0.6 x 0.6 x 0.3cm oval, cystic cluster at 10 o'clock, increasing degree of cystic nature apears as a benign cystic cluster. Prior measurements of 0.5 x 0.3 x 0.2cm. These results were verbally communicated with the patient and result sheet given to the patient on 08/14/19. ASSESSMENT: Benign, BI-RAD 2 RECOMMENDATION: Return to routine screening mammogram schedule for both breasts. Back on schedule.
== END | disposition home or self-care (01) ==
LOC: RADMAMWWP 10:50
PROVIDERS: ATTEND Family Medicine
DX: N60.02 Solitary cyst of left breast (principal); R92.8 Other abnormal and inconclusive findings on diagnostic imaging of breast
CPT/HCPCS: 77065; 76642; G0279; 77061

== ENCOUNTER → 2019-12-11 | Outpatient (CLI) | payer MEDICARE ==
--- NOTE | 2019-12-11 10:13 | CT ---
EXAMINATION TYPE: CT chest wo con DATE OF EXAM: 12/11/2019 COMPARISON: 11/29/2018 HISTORY: follow up lung nodule CT DLP: 354.[address] of the chest was performed with lung and mediastinal window settings submitted. The la ck of contrast limits evaluation of the vascular, mediastinal and parenchymal structures including th e upper abdomen. LUNGS: Scattered granulomas are redemonstrated. The lungs are clear and free of infiltrate. No atelec tasis. No pulmonary nodule or mass is detected. No pleural effusion. No CT evidence of interstitia l lung disease. MEDIASTINUM/HARJINDER: Thoracic aorta is of normal caliber with limited evaluation given lack of contrast . The heart is enlarged. No evidence for mediastinal mass. No lymph nodes greater than 1cm. UPPER ABDOMEN: No significant abnormality is seen. OTHER: No significant other abnormality. IMPRESSION: 1. Remote granulomatous disease is stable.
== END | disposition home or self-care (01) ==
LOC: RADCTMAIN 09:42
PROVIDERS: ATTEND Internal Medicine Pulmonary Disease
DX: J84.10 Pulmonary fibrosis, unspecified (principal); R91.1 Solitary pulmonary nodule
CPT/HCPCS: 71250

== ENCOUNTER → 2019-12-11 | Outpatient (CLI) | payer MEDICARE ==
--- NOTE | 2019-12-11 10:49 | US ---
EXAMINATION TYPE: US thyroid st tissue head/neck DATE OF EXAM: 12/11/2019 COMPARISON: 01/16/2019 CLINICAL HISTORY: 69-year-old female E03.8 HYPOTHYROIDISM. TECHNIQUE: Multiple sonographic images of the thyroid gland are obtained. FINDINGS: GLAND SIZE: Right Lobe: 5.1 x 1.4 x 1.6 cm Overall Parenchyma: Diffusely heterogenous Left Lobe: 4.8 x 1.4 x 1.5 cm Overall Parenchyma: Diffusely heterogenous Isthmus Thickness: 0.3 cm NODULES RIGHT: # of nodules measured on right: 0 LEFT: # of nodules measured on left: 0 ISTHMUS: # of nodules measured in the isthmus: 0 Bilateral neck scanned, no evidence of lymphadenopathy. Fire Sprinkler Fitter notes: Today's ultrasound does not show specific nodules, tissue is diffusely heterogeneo us. IMPRESSION: 1. Borderline to mild thyromegaly with diffuse glandular heterogeneity. Correlate for goiter or diffu se thyroiditis. 2. No discrete nodule is apparent on the present exam.
== END | disposition home or self-care (01) ==
LOC: RADUSWWP 08:36
PROVIDERS: ATTEND Internal Medicine Endocrinology, Diabetes & Metabolism
DX: E01.0 Iodine-deficiency related diffuse (endemic) goiter (principal)
CPT/HCPCS: 76536; 84443

== ENCOUNTER → 2019-12-19 | Outpatient (CLI) | payer MEDICARE ==
--- NOTE | 2019-12-19 12:04 | CT ---
EXAMINATION TYPE: CT brain wo con DATE OF EXAM: 12/19/2019 COMPARISON: January 03, 2017 HISTORY: Vertigo x [address] DLP: [address] of the brain was performed. The ventricles, basal cisterns and sulci overlying the cerebral convexities demonstrate mild enlargem ent. There is no evidence for intracranial hemorrhage or sulcal effacement. There is decreased attenuation about the periventricular white matter and deep white matter of both c erebral hemispheres, compatible with chronic small vessel ischemia. Differential diagnosis does inclu de demyelination. No mass effects are seen.No midline shift. Osseous calvarium is intact. If symptoms persist consider MRI. IMPRESSION: 1. Age related atrophic and chronic small vessel ischemic change without acute intracranial process s een at this time.
[2019-12-19 13:30] LABS: Basophils # (A) 0.1 k/uL (0-0.2); Basophils % (A) 1 %; Eosinophils # (A) 0.2 k/uL (0-0.7); Eosinophils % (A) 3 %; HCT 44.8 % (34.0-46.0); HGB 15.1 gm/dL (11.4-16.0); Lymphocytes # (A) 2.7 k/uL (1.0-4.8); Lymphocytes % (A) 32 %; MCH 31.7 pg (25.0-35.0); MCHC 33.8 g/dL (31.0-37.0); MCV 93.7 fL (80.0-100.0); Mean Platelet Volume 7.8; Monocytes # (A) 0.5 k/uL (0-1.0); Monocytes % (A) 6 %; Neutrophils # (A) 4.8 k/uL (1.3-7.7); Neutrophils % (A) 57 %; Platelet Count 228 k/uL (150-450); RBC 4.78 m/uL (3.80-5.40); RDW 13.4 % (11.5-15.5); WBC 8.4 k/uL (3.8-10.6)
[2019-12-19 13:47] LABS: C Reactive Protein <5.0 mg/L (<10.0); Magnesium 2.1 mg/dL (1.6-2.3); Phosphorus 4.6 mg/dL (2.5-4.5)
[2019-12-19 15:19] LABS: Erythrocyte Sedimentation Rate 14 mm/hr (0-20)
== END | disposition home or self-care (01) ==
LOC: RADCTMAIN 11:18
PROVIDERS: ATTEND Family Medicine
DX: I67.82 Cerebral ischemia (principal); G31.1 Senile degeneration of brain, not elsewhere classified; H81.10 Benign paroxysmal vertigo, unspecified ear; H53.9 Unspecified visual disturbance; Z88.2 Allergy status to sulfonamides; Z88.8 Allergy status to other drugs, medicaments and biological substances; Z88.6 Allergy status to analgesic agent; Z88.5 Allergy status to narcotic agent
CPT/HCPCS: 70450; 83735; 84100; 85025; 85652; 86140

== ENCOUNTER → 2019-12-29 | Outpatient (CLI) | payer MEDICARE ==
[2019-12-29 11:46] LABS: Basophils % (A) 1 %; Eosinophils # (A) 0.2 k/uL (0-0.7); Eosinophils % (A) 4 %; HCT 43.4 % (34.0-46.0); HGB 14.7 gm/dL (11.4-16.0); Lymphocytes # (A) 2.1 k/uL (1.0-4.8); Lymphocytes % (A) 37 %; MCH 31.7 pg (25.0-35.0); MCHC 33.8 g/dL (31.0-37.0); MCV 93.8 fL (80.0-100.0); Mean Platelet Volume 7.8; Monocytes # (A) 0.4 k/uL (0-1.0); Monocytes % (A) 6 %; Neutrophils # (A) 2.9 k/uL (1.3-7.7); Neutrophils % (A) 50 %; Platelet Count 203 k/uL (150-450); RBC 4.63 m/uL (3.80-5.40); RDW 13.4 % (11.5-15.5); WBC 5.8 k/uL (3.8-10.6)
[2019-12-29 16:34] LABS: INR 1.79 (0.90-1.11); Prothrombin Time 18.7 sec (9.9-11.9)
[2019-12-29 20:32] LABS: African American GFR (CKD) 103.9 (60.0-200.0); Anion Gap 9.1 mmol/L (4.00-12.00); Calcium 9.4 mg/dL (8.7-10.3); Carbon Dioxide 24.9 mmol/L (21.6-31.8); Non-African American GFR(CKD) 89.7 (60.0-200.0); Potassium 4.3 mmol/L (3.5-5.5)
== END | disposition home or self-care (01) ==
LOC: LABWHC1 10:04
PROVIDERS: ATTEND Internal Medicine
DX: I48.91 Unspecified atrial fibrillation (principal)
CPT/HCPCS: 36415; 80048; 85025; 85610

== ENCOUNTER → 2020-06-14 | Outpatient (CLI) | payer MEDICARE | END | disposition home or self-care (01) | LOC: LABWHC1 11:14 | PROVIDERS: ATTEND Internal Medicine Endocrinology, Diabetes & Metabolism | DX: E03.8 Other specified hypothyroidism (principal) | CPT/HCPCS: 36415; 84443 ==

== ENCOUNTER 2020-08-14 15:00 | Emergency (ER) | payer MEDICARE ==
--- NOTE | 2020-08-14 15:38 | ED ---
General Adult HPI - General Chief complaint: Arrhythmia/Palpitations Stated complaint: AFIB Time Seen by Provider: 08/14/20 15:17 Source: patient Mode of arrival: wheelchair Limitations: no limitations - History of Present Illness Initial comments: Dictation was produced using [employer] dictation software. please excuse any grammatical, word or spelling errors. This patient was cared for during a federal and state declared state of emergency secondary to Covid 19 Chief Complaint: 70-year-old female presents with palpitations History of Present Illness: Patient is a 70-year-old female she has past medical history of A. fib chemistry with multiple ablations and bowel replacement. Patient takes Coumadin. Patient states she noted that she is having palpitations. She has one of those medical devices that Her fall. During 1 episode of palpitations she checked her heart rate and her device read possible A. fib. She had a heart rate jumped from anywhere to the 80s to 120s. She denies any other changes in her daily habits. She took 2 extra metoprolol tablets with better control of her tachycardia. The ROS documented in this emergency department record has been reviewed and confirmed by me. Those systems with pertinent positive or negative responses have been documented in the HPI. All other systems are other negative and/or noncontributory. PHYSICAL EXAM: General Impression: Alert and oriented x3, not in acute distress HEENT: Normocephalic atraumatic, extra-ocular movements intact, pupils equal and reactive to light bilaterally, mucous membranes moist. Cardiovascular: Irregular Chest: Able to complete full sentences, no retractions, no tachypnea Abdomen: abdomen soft, non-tender, non-distended, no organomegaly Musculoskeletal: Pulses present and equal in all extremities, no peripheral edema Motor: no focal deficits noted Neurological: CN II-XII grossly intact, no focal motor or sensory deficits noted Skin: Intact with no visualized rashes Psych: Normal affect and mood ED course: 70-year-old female presents with palpitations. She has history of atrial fibrillation she takes Coumadin. Signs upon arrival are within acceptable limits. EKG shows sinus arrhythmia. Laboratory evaluation obtained. CBC [place]. INR is therapeutic at 2.0. Metabolic panel is unremarkable. Coronal virus is negative. Chest x-ray is nonacute. Repeat vital signs are stable. Patient's clinical stable at bedside. Patient will be discharged. 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 EKG interpretation: Ventricular rate 101, sinus tachycardia,. Interval to 10, QRS 92, QTc 466. No SD prolongation, no QTC prolongation, no ST or T-wave changes noted. EKG compared to 04/21/2019 showing no changes. Overall, this EKG is unremarkable - Related Data Home Medications Medication Instructions Recorded Confirmed Furosemide [Lasix] 10 mg PO QAM 12/20/13 04/21/19 Multivitamins, Thera [Multivitamin 1 tab PO DAILY 12/20/13 04/21/19 (formulary)] ALPRAZolam [Xanax] 0.5 mg PO BID PRN 06/02/15 04/21/19 Atorvastatin [Lipitor] 40 mg PO HS 06/02/15 04/21/19 Omeprazole [PriLOSEC] 20 mg PO DAILY PRN 09/06/15 04/21/19 Warfarin Sodium 4 mg PO DIRECTED 02/23/16 04/21/19 Cyclobenzaprine [Flexeril] 10 mg PO Q8H PRN 03/29/16 04/21/19 Melatonin 5 mg PO HS 01/03/17 04/21/19 rOPINIRole HCL [Requip] 2 mg PO HS PRN 01/03/17 04/21/19 Albuterol Inhaler (Mhu) [Ventolin 1 - 2 puff INHALATION RT-Q6H PRN 04/01/18 04/21/19 Hfa Inhaler (Mhu)] Albuterol Nebulized [Ventolin 2.5 mg INHALATION RT-Q6H PRN 04/01/18 04/21/19 Nebulized] Calcium Carbonate [Calcium] 600 mg PO DAILY 04/01/18 04/21/19 Cholecalciferol (Vitamin D3) 2,000 unit PO DAILY 04/01/18 04/21/19 [Vitamin D3] Flecainide [Tambocor] 50 mg PO BID 04/01/18 04/21/19 Fluticasone/Vilanterol [Breo 1 puff INHALATION RT-DAILY 04/21/19 04/21/19 Ellipta 200-25 Mcg INH] Levothyroxine Sodium [Synthroid] 75 mcg PO DAILY 04/21/19 04/21/19 Previous Rx's Medication Instructions Recorded Metoprolol Tartrate [Lopressor] 25 mg PO BID #180 tab 09/06/16 Allergies Allergy/AdvReac Type Severity Reaction Status Date / Time gabapentin Allergy Rash/Hives Verified 08/14/20 15:08 Penicillins Allergy Rash/Hives Verified 08/14/20 15:08 Sulfa (Sulfonamide Allergy Rash/Hives Verified 08/14/20 15:08 Antibiotics) tretinoin [From Retin-A] Allergy Rash/Hives Verified 08/14/20 15:08 escitalopram [From Lexapro] AdvReac Nausea & Verified 08/14/20 15:08 Vomiting meperidine HCl [From Demerol] AdvReac Nausea & Verified 08/14/20 15:08 Vomiting Review of Systems ROS Statement: Those systems with pertinent positive or pertinent negative responses have been documented in the HPI. ROS Other: All systems not noted in ROS Statement are negative. Past Medical History Past Medical History: Atrial Fibrillation, Hyperlipidemia, Hypertension, Thyroid Disorder Additional Past Medical History / Comment(s): Afib RVR, hypothyroid, vertigo with ablation 2 yrs ago, chronic cervical pain since ablation procedure, chronic back pain, mitral valve prolapse with surgery, AMY with Cpap, occasional migraines, UTI. 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 History of Any Multi-Drug Resistant Organisms: None Reported Past Surgical History: Appendectomy, Back Surgery, Breast Surgery, Cardiac Abl ation, Cardiac Valve Replacement, Heart Catheterization, Hysterectomy, Joint Replacement, Orthopedic Surgery, Tonsillectomy Additional Past Surgical History / Comment(s): 07/2017 bronchoscopy with lavage, cardioversion, cardiac ablation, open mitral valve replacement, back surgery with rods/screws, cervical injections, R wrist ganglion cyst removed, R great toe replacement, L great toe "cleaned up", L knee arthroscopy, L ankle surgery for tendon/ligament and cysts, colonoscopy, R breast cystectomy, total hysterectomy. Past Anesthesia/Blood Transfusion Reactions: Postoperative Nausea & Vomiting (PONV) Additional Past Anesthesia/Blood Transfusion Reaction / Comment(s): Patient vomited after previous surgeries but she doesn't know if it was from anesthesia or the pain medication. Past Psychological History: Anxiety Smoking Status: Never smoker Past Alcohol Use History: Occasional Past Drug Use History: None Reported - Past Family History Mother Family Medical History: Congestive Heart Failure (CHF), Coronary Artery Disease (CAD), CVA/TIA, Hypertension Additional Family Medical History / Comment(s): Mother has been having multiple TIAs. at age 93 Father Family Medical History: CVA/TIA Additional Family Medical History / Comment(s): Father of a stroke at age 90 General Exam Limitations: no limitations Course Vital Signs 08/14/20 08/14/20 15:05 16:34 Temperature 97.9 F 97.6 F Pulse Rate 96 61 Respiratory 18 16 Rate Blood Pressure 122/74 118/62 O2 Sat by Pulse 95 98 Oximetry Medical Decision Making - Lab Data Result diagrams: 08/14/20 15:44 08/14/20 15:44 Lab Results 08/14/20 08/14/20 08/14/20 Range/Units 15:44 15:44 15:44 WBC 7.4 (3.8-10.6) k/uL RBC 4.77 (3.80-5.40) m/uL Hgb 14.9 (11.4-16.0) gm/dL Hct 42.8 (34.0-46.0) % MCV 89.6 (80.0-100.0) fL MCH 31.3 (25.0-35.0) pg MCHC 34.9 (31.0-37.0) g/dL RDW 13.0 (11.5-15.5) % Plt Count 220 (150-450) k/uL MPV 7.0 Neutrophils % 55 % Lymphocytes % 33 % Monocytes % 7 % Eosinophils % 3 % Basophils % 1 % Neutrophils # 4.1 (1.3-7.7) k/uL Lymphocytes # 2.4 (1.0-4.8) k/uL Monocytes # 0.5 (0-1.0) k/uL Eosinophils # 0.2 (0-0.7) k/uL Basophils # 0.1 (0-0.2) k/uL PT 20.0 H (9.0-12.0) sec INR 2.0 H (<1.2) APTT 29.1 (22.0-30.0) sec Sodium 138 (137-145) mmol/L Potassium 3.7 (3.5-5.1) mmol/L Chloride 105 (98-107) mmol/L Carbon Dioxide 25 (22-30) mmol/L Anion Gap 8 mmol/L BUN 19 H (7-17) mg/dL Creatinine 0.68 (0.52-1.04) mg/dL Est GFR (CKD-EPI)AfAm >90 (>60 ml/min/1.73 sqM) Est GFR (CKD-EPI)NonAf >90 (>60 ml/min/1.73 sqM) Glucose 106 H (74-99) mg/dL Calcium 9.4 (8.4-10.2) mg/dL Magnesium 1.8 (1.6-2.3) mg/dL Troponin I (0.000-0.034) ng/mL Coronavirus (PCR) (Not Detectd) 08/14/20 08/14/20 Range/Units 15:44 16:20 WBC (3.8-10.6) k/uL RBC (3.80-5.40) m/uL Hgb (11.4-16.0) gm/dL Hct (34.0-46.0) % MCV (80.0-100.0) fL MCH (25.0-35.0) pg MCHC (31.0-37.0) g/dL RDW (11.5-15.5) % Plt Count (150-450) k/uL MPV Neutrophils % % Lymphocytes % % Monocytes % % Eosinophils % % Basophils % % Neutrophils # (1.3-7.7) k/uL Lymphocytes # (1.0-4.8) k/uL Monocytes # (0-1.0) k/uL Eosinophils # (0-0.7) k/uL Basophils # (0-0.2) k/uL PT (9.0-12.0) sec INR (<1.2) APTT (22.0-30.0) sec Sodium (137-145) mmol/L Potassium (3.5-5.1) mmol/L Chloride (98-107) mmol/L Carbon Dioxide (22-30) mmol/L Anion Gap mmol/L BUN (7-17) mg/dL Creatinine (0.52-1.04) mg/dL Est GFR (CKD-EPI)AfAm (>60 ml/min/1.73 sqM) Est GFR (CKD-EPI)NonAf (>60 ml/min/1.73 sqM) Glucose (74-99) mg/dL Calcium (8.4-10.2) mg/dL Magnesium (1.6-2.3) mg/dL Troponin I <0.012 (0.000-0.034) ng/mL Coronavirus (PCR) Not Detected (Not Detectd) Disposition Clinical Impression: Palpitations Disposition: HOME SELF-CARE Condition: Good Instructions (If sedation given, give patient instructions): Heart Palpitations (ED) Is patient prescribed a controlled substance at d/c from ED?: No Referrals: Jesus Carson MD [Primary Care Provider] - 1-2 days Time of Disposition: 17:19
[2020-08-14 16:00] LABS: Basophils # (A) 0.1 k/uL (0-0.2); Basophils % (A) 1 %; Eosinophils # (A) 0.2 k/uL (0-0.7); Eosinophils % (A) 3 %; HCT 42.8 % (34.0-46.0); HGB 14.9 gm/dL (11.4-16.0); Lymphocytes # (A) 2.4 k/uL (1.0-4.8); Lymphocytes % (A) 33 %; MCH 31.3 pg (25.0-35.0); MCHC 34.9 g/dL (31.0-37.0); MCV 89.6 fL (80.0-100.0); Monocytes # (A) 0.5 k/uL (0-1.0); Monocytes % (A) 7 %; Neutrophils # (A) 4.1 k/uL (1.3-7.7); Neutrophils % (A) 55 %; Platelet Count 220 k/uL (150-450); RBC 4.77 m/uL (3.80-5.40); WBC 7.4 k/uL (3.8-10.6)
--- NOTE | 2020-08-14 16:00 | XR ---
EXAMINATION TYPE: XR chest 1V portable DATE OF EXAM: 08/14/2020 COMPARISON: 04/21/2019 HISTORY: Weakness TECHNIQUE: Single view FINDINGS: Heart and mediastinum are normal. Lungs are clear. Costophrenic angles are clear. There are sternal wires. There are chest leads. IMPRESSION: No active cardiopulmonary disease. No adverse change. Inspiration improved compared to ol d exam.
[2020-08-14 16:12] LABS: Partial Thromboplastin Time 29.1 sec (22.0-30.0)
[2020-08-14] MEDS ORDERED: ALPRAZolam 0.25 MG TAB PO STA (16:19)
[2020-08-14 16:27] LABS: African American GFR (CKD) >90 (>60 ml/min/1.73 sqM); Anion Gap 8 mmol/L; Blood Urea Nitrogen 19 mg/dL (7-17); Calcium 9.4 mg/dL (8.4-10.2); Carbon Dioxide 25 mmol/L (22-30); Chloride 105 mmol/L (98-107); Glucose 106 mg/dL (74-99); Magnesium 1.8 mg/dL (1.6-2.3); Non-African American GFR(CKD) >90 (>60 ml/min/1.73 sqM); Potassium 3.7 mmol/L (3.5-5.1); Sodium 138 mmol/L (137-145)
[2020-08-14 16:35] VITALS: RESP 16; TEMP 97.6
[2020-08-14 17:29] VITALS: BP 118/72; PULSE 62
== END 2020-08-14 17:29 | disposition home or self-care (01) ==
LOC: EC 15:00
DX: R00.2 Palpitations (principal); Z20.822 Contact with and (suspected) exposure to COVID-19; E03.9 Hypothyroidism, unspecified; E78.5 Hyperlipidemia, unspecified; F41.9 Anxiety disorder, unspecified; G47.33 Obstructive sleep apnea (adult) (pediatric); I10 Essential (primary) hypertension; I48.91 Unspecified atrial fibrillation; Z79.01 Long term (current) use of anticoagulants; Z88.0 Allergy status to penicillin
CPT/HCPCS: 36415; 71045; 80048; 83735; 84484; 85025; 85610; 85730; 87635; 93005; 99285

== ENCOUNTER → 2020-08-20 | Outpatient (CLI) | payer MEDICARE ==
[2020-08-20 13:20] LABS: African American GFR (CKD) >90 (>60 ml/min/1.73 sqM); Blood Urea Nitrogen 18 mg/dL (7-17); Non-African American GFR(CKD) 84 (>60 ml/min/1.73 sqM)
--- NOTE | 2020-08-20 14:28 | CT ---
CT CHEST FOR PULMONARY EMBOLISM. EXAMINATION TYPE: CT angio chest DATE OF EXAM: 08/20/2020 INDICATION: Marfan's syndrome. CT DLP: 743.8 mGycm, Automated exposure control for dose reduction was used. CONTRAST: Patient injected with 100ml mL of Isovue 370. COMPARISON: 12/11/2019 TECHNIQUE: Pre and postcontrast CT of the chest is performed on a spiral scan at 2 mm thick sections. Study is performed with intravenous contrast timed for evaluation of the arterial system. This quoc l limit additional portions of the evaluation. 3-D MIP images reconstructed by the technologist are reviewed on the computer in the coronal and sagittal planes. FINDINGS: No persistent filling defects are evident to suggest an acute pulmonary embolism. No mediastinal or hilar adenopathy enlarged by CT criteria is evident. The ascending aorta diameter at the level of the main pulmonary artery is 3.5 cm. The main pulmonary artery diameter at the bifur cation is 2.70 cm. No aneurysmal dilatation of the aorta is evident. No dissection is evident. Vascul ar calcification within the aorta is noted Lung windows are clear. There is a posterior pleural plaque with calcification in the mid right lung, present previously Limited CT section through the upper abdomen are unremarkable. Epicardial leads are noted. IMPRESSIONS: 1. No suspicious dilatation or dissection of the thoracic aorta
== END ==
LOC: RADCTMAIN 12:39
PROVIDERS: ATTEND Internal Medicine Interventional Cardiology
DX: Q87.40 Marfan syndrome, unspecified (principal)
CPT/HCPCS: 82565; 84520; 71275; 36415; Q9967

== ENCOUNTER → 2020-10-01 | Outpatient (CLI) | payer MEDICARE ==
--- NOTE | 2020-10-01 11:47 | XR ---
EXAMINATION TYPE: XR abdomen 1V DATE OF EXAM: 10/01/2020 COMPARISON: NONE HISTORY: Pain TECHNIQUE: Single supine KUB image of the abdomen is obtained FINDINGS: Small bowel demonstrates no evidence for dilatation or air fluid levels. Gas and fecal material is seen in non-distended colon. No convincing evidence for pneumoperitoneum. No unusual calcifications. The lung bases are clear. Postoperative changes lumbar spine. IMPRESSION: 1. Overall nonobstructive bowel gas pattern.
== END | disposition home or self-care (01) ==
LOC: RADXRMAIN 10:11
PROVIDERS: ATTEND Nurse Practitioner Women's Health
DX: R10.11 Right upper quadrant pain (principal)
CPT/HCPCS: 74018

== ENCOUNTER → 2020-11-08 | Outpatient (CLI) | payer MEDICARE ==
--- NOTE | 2020-11-08 16:21 | NM ---
EXAMINATION TYPE: NM hepatobiliary w EF DATE OF EXAM: 11/08/2020 COMPARISON: NONE HISTORY: 70-year-old female R1 0.11, right upper quadrant pain TECHNIQUE: After the intravenous administration of 5.1 mCi Tc 99m Mebrofenin hepatobiliary scintigrap hy is performed. Immediate images post injection. FINDINGS: There is satisfactory initial accumulation of tracer by the liver. The gallbladder is visualized wit hin 10 minutes. The small bowel activity is noted within 6 minutes. At one hour 8 ounces of oral en sure plus is given to mimic CCK and gallbladder ejection fraction is calculated at 61 %, in the nalini l range. Therefore there is no scintigraphic evidence of cystic or common bile duct obstruction to s uggest acute cholecystitis or gallbladder dyskinesia. IMPRESSION: No scintigraphic evidence for acute/chronic cholecystitis or biliary dyskinesia.
== END | disposition home or self-care (01) ==
LOC: RADNMMAIN 12:53
PROVIDERS: ATTEND Family Medicine
DX: R10.11 Right upper quadrant pain (principal)
CPT/HCPCS: 78226; A9537

== ENCOUNTER 2020-11-11 14:30 | Emergency (ER) | payer MEDICARE ==
[2020-11-11] MEDS ORDERED: diphenhydrAMINE 50 MG CAP PO STA (14:59)
[2020-11-11] MEDS ORDERED: predniSONE 50 MG TAB PO STA (14:59)
[2020-11-11] MEDS ORDERED: FAMOTIDINE 20 MG TAB PO STA (14:59)
[2020-11-11] MEDS ORDERED: HYDROcodone/APAP 7.5-325MG 1 EACH TAB PO STA (15:00)
--- NOTE | 2020-11-11 15:36 | CT ---
EXAMINATION TYPE: CT brain wo con DATE OF EXAM: 11/11/2020 HISTORY: headache from new medication CT DLP: 1055.4 mGycm. Automated Exposure Control for Dose Reduction was Utilized. TECHNIQUE: CT scan of the head is performed without contrast. COMPARISON: CT brain December 19, 2019. FINDINGS: There is no acute intracranial hemorrhage or midline shift identified. There is mild-to-m oderate diffuse ventricular and sulcal prominence consistent with diffuse age-related cerebral atroph y greatest over bilateral frontal lobes. There is mild low-attenuation in the periventricular white matter consistent with chronic small vessel ischemic change. The globes are intact and the visualize d sinuses are clear. Mild to moderate vascular calcification distal internal carotid arteries. IMPRESSION: No acute intracranial hemorrhage or midline shift. There is mild to moderate diffuse ce rebral atrophy and mild chronic small vessel ischemic change redemonstrated. No significant change f rom prior.
--- NOTE | 2020-11-11 15:55 | ED ---
General Adult HPI - General Chief complaint: Allergic Reaction Stated complaint: Elevated BP Time Seen by Provider: 11/11/20 14:46 Source: patient, RN notes reviewed Mode of arrival: ambulatory Limitations: no limitations - History of Present Illness Initial comments: 70-year-old female with a past medical history of atrial fibrillation, hyperlipidemia, hypertension presents to the emergency room for ALLERGIC reaction. Patient reports she started a new medication escitalopram today. She reports that she started to notice her face felt flushed and her skin felt itchy shortly after taking this medication. She also developed a headache and checks her blood pressure and it was 160/100 which is high for her. Patient reports she became very anxious about this and her blood pressure would not go down. Therefore she presented to the emergency room. Patient does admit to mild headache at this time. Denies any sudden onset or thunderclap in nature.Patient has no other complaints at this time including shortness of breath, chest pain, abdominal pain, nausea or vomiting, or visual changes. - Related Data Home Medications Medication Instructions Recorded Confirmed Furosemide [Lasix] 10 mg PO QAM 12/20/13 04/21/19 Multivitamins, Thera [Multivitamin 1 tab PO DAILY 12/20/13 04/21/19 (formulary)] ALPRAZolam [Xanax] 0.5 mg PO BID PRN 06/02/15 04/21/19 Atorvastatin [Lipitor] 40 mg PO HS 06/02/15 04/21/19 Omeprazole [PriLOSEC] 20 mg PO DAILY PRN 09/06/15 04/21/19 Warfarin Sodium 4 mg PO DIRECTED 02/23/16 04/21/19 Cyclobenzaprine [Flexeril] 10 mg PO Q8H PRN 03/29/16 04/21/19 Melatonin 5 mg PO HS 01/03/17 04/21/19 rOPINIRole HCL [Requip] 2 mg PO HS PRN 01/03/17 04/21/19 Albuterol Inhaler (Mhu) [Ventolin 1 - 2 puff INHALATION RT-Q6H PRN 04/01/18 04/21/19 Hfa Inhaler (Mhu)] Albuterol Nebulized [Ventolin 2.5 mg INHALATION RT-Q6H PRN 04/01/18 04/21/19 Nebulized] Calcium Carbonate [Calcium] 600 mg PO DAILY 04/01/18 04/21/19 Cholecalciferol (Vitamin D3) 2,000 unit PO DAILY 04/01/18 04/21/19 [Vitamin D3] Flecainide [Tambocor] 50 mg PO BID 04/01/18 04/21/19 Fluticasone/Vilanterol [Breo 1 puff INHALATION RT-DAILY 04/21/19 04/21/19 Ellipta 200-25 Mcg INH] Levothyroxine Sodium [Synthroid] 75 mcg PO DAILY 04/21/19 04/21/19 Previous Rx's Medication Instructions Recorded Metoprolol Tartrate [Lopressor] 25 mg PO BID #180 tab 09/06/16 Allergies Allergy/AdvReac Type Severity Reaction Status Date / Time gabapentin Allergy Rash/Hives Verified 11/11/20 14:36 Penicillins Allergy Rash/Hives Verified 11/11/20 14:36 Sulfa (Sulfonamide Allergy Rash/Hives Verified 11/11/20 14:36 Antibiotics) tretinoin [From Retin-A] Allergy Rash/Hives Verified 11/11/20 14:36 escitalopram [From Lexapro] AdvReac Nausea & Verified 11/11/20 14:36 Vomiting meperidine HCl [From Demerol] AdvReac Nausea & Verified 11/11/20 14:36 Vomiting Review of Systems ROS Statement: Those systems with pertinent positive or pertinent negative responses have been documented in the HPI. ROS Other: All systems not noted in ROS Statement are negative. Past Medical History Past Medical History: Atrial Fibrillation, Hyperlipidemia, Hypertension, Thyroid Disorder Additional Past Medical History / Comment(s): Afib RVR, hypothyroid, vertigo with ablation 2 yrs ago, chronic cervical pain since ablation procedure, chronic back pain, mitral valve prolapse with surgery, AMY with Cpap, occasional migraines, UTI. 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 History of Any Multi-Drug Resistant Organisms: None Reported Past Surgical History: Appendectomy, Back Surgery, Breast Surgery, Cardiac Ablation, Cardiac Valve Replacement, Heart Catheterization, Hysterectomy, Joint Replacement, Orthopedic Surgery, Tonsillectomy Additional Past Surgical History / Comment(s): 07/2017 bronchoscopy with lavage, cardioversion, cardiac ablation, open mitral valve replacement, back surgery with rods/screws, cervical injections, R wrist ganglion cyst removed, R great toe replacement, L great toe "cleaned up", L knee arthroscopy, L ankle surgery for tendon/ligament and cysts, colonoscopy, R breast cystectomy, total hysterectomy. Past Anesthesia/Blood Transfusion Reactions: Postoperative Nausea & Vomiting (PONV) Additional Past Anesthesia/Blood Transfusion Reaction / Comment(s): Patient vomited after previous surgeries but she doesn't know if it was from anesthesia or the pain medication. Past Psychological History: Anxiety Smoking Status: Never smoker Past Alcohol Use History: Occasional Past Drug Use History: None Reported - Past Family History Mother Family Medical History: Congestive Heart Failure (CHF), Coronary Artery Disease (CAD), CVA/TIA, Hypertension Additional Family Medical History / Comment(s): Mother has been having multiple TIAs. at age 93 Father Family Medical History: CVA/TIA Additional Family Medical History / Comment(s): Father of a stroke at age 90 General Exam Limitations: no limitations General appearance: alert, in no apparent distress Head exam: Present: atraumatic, normocephalic, normal inspection Eye exam: Present: normal appearance, PERRL, EOMI. Absent: scleral icterus, conjunctival injection, periorbital swelling ENT exam: Present: normal exam, mucous membranes moist Neck exam: Present: normal inspection, full ROM. Absent: tenderness, meningismus, lymphadenopathy Respiratory exam: Present: normal lung sounds bilaterally. Absent: respiratory distress, wheezes, rales, rhonchi, stridor Cardiovascular Exam: Present: regular rate, normal rhythm, normal heart sounds. Absent: systolic murmur, diastolic murmur, rubs, gallop, clicks GI/Abdominal exam: Present: soft, normal bowel sounds. Absent: distended, tenderness, guarding, rebound, rigid Skin exam: Present: warm, dry, intact, normal color, other (No skin rash noted however patient does have flushed cheeks.). Absent: rash Course Vital Signs 11/11/20 14:33 Temperature 98 F Pulse Rate 62 Respiratory 20 Rate Blood Pressure 158/88 O2 Sat by Pulse 99 Oximetry Medical Decision Making - Medical Decision Making Patient presents for possible ALLERGIC reaction to citalopram. She has a flushed face and itchy arms without diffuse body rash. No swelling of the lips tongue or throat. Patient also has a headache and believes it is from her blood pressure. Here blood pressure is 158/88. Repeat blood pressure was 145/90. CT brain was ordered which did not show intracranial hemorrhage or midline shift. Patient was given [place] which did help. She declined any further pain medi cations. Patient is itching improved significantly with Benadryl. Recommended she discontinue the new medication and take Benadryl as needed. She will keep a log of her blood pressures and follow up with her doctor. She will return here for any worsening symptoms. Disposition Clinical Impression: Allergic reaction, Headache, Hypertension Disposition: HOME SELF-CARE Instructions (If sedation given, give patient instructions): General Allergic Reaction (ED), Acute Headache (ED) Additional Instructions: Please take Benadryl as needed. Take your [place] for pain. Discontinue the new medication. Follow-up with your doctor to discuss medication change as well as high blood pressure. Keep a log over the next week of blood pressures twice daily. Return to the emergency room for any worsening symptoms. Is patient prescribed a controlled substance at d/c from ED?: No Referrals: Jesus Carson MD [Primary Care Provider] - 1-2 days Time of Disposition: 16:28
[2020-11-11 17:02] VITALS: BP 133/66; PULSE 64; RESP 18; TEMP 99
== END 2020-11-11 17:30 | disposition home or self-care (01) ==
LOC: EC 14:30
DX: I10 Essential (primary) hypertension (principal); R23.2 Flushing; T43.225A Adverse effect of selective serotonin reuptake inhibitors, initial encounter; E78.5 Hyperlipidemia, unspecified; E03.9 Hypothyroidism, unspecified; I48.91 Unspecified atrial fibrillation; G47.33 Obstructive sleep apnea (adult) (pediatric); G43.909 Migraine, unspecified, not intractable, without status migrainosus; F41.9 Anxiety disorder, unspecified; Z79.01 Long term (current) use of anticoagulants; Z79.890 Hormone replacement therapy
CPT/HCPCS: 70450; 99284; J7512

== ENCOUNTER → 2020-12-20 | Outpatient (CLI) | payer MEDICARE ==
[2020-12-20 16:00] LABS: T4, Free (Free Thyroxine) 1.5 ng/dL (0.80-1.80)
== END | disposition home or self-care (01) ==
LOC: LABWHC1 09:27
PROVIDERS: ATTEND Internal Medicine Endocrinology, Diabetes & Metabolism
DX: E04.2 Nontoxic multinodular goiter (principal)
CPT/HCPCS: 36415; 84439; 84443

== ENCOUNTER 2021-04-05 07:27 | Emergency (ER) | payer MEDICARE ==
[2021-04-05 07:32] VITALS: TEMP 98.4
[2021-04-05] MEDS ORDERED: ONDANSETRON 4 MG/2 ML VIAL IVP STA (08:08)
[2021-04-05] MEDS ORDERED: MORPHINE SULFATE 4 MG/ML SYRINGE IVP STA (08:08)
[2021-04-05 08:49] LABS: Basophils % (A) 1 %; Eosinophils # (A) 0.2 k/uL (0-0.7); Eosinophils % (A) 3 %; HCT 35.4 % (34.0-46.0); HGB 12.3 gm/dL (11.4-16.0); Lymphocytes # (A) 2.6 k/uL (1.0-4.8); Lymphocytes % (A) 33 %; MCH 32.4 pg (25.0-35.0); MCHC 34.7 g/dL (31.0-37.0); MCV 93.2 fL (80.0-100.0); Mean Platelet Volume 7.6; Monocytes # (A) 0.5 k/uL (0-1.0); Monocytes % (A) 6 %; Neutrophils # (A) 4.3 k/uL (1.3-7.7); Neutrophils % (A) 55 %; Platelet Count 234 k/uL (150-450); RDW 13.4 % (11.5-15.5); WBC 7.8 k/uL (3.8-10.6)
[2021-04-05 08:59] LABS: INR 2.1 (<1.2); Prothrombin Time 20.5 sec (9.0-12.0)
[2021-04-05 09:19] LABS: ALT 22 U/L (4-34); AST 45 U/L (14-36); African American GFR (CKD) >90 (>60 ml/min/1.73 sqM); Albumin 3.8 g/dL (3.5-5.0); Alkaline Phosphatase 96 U/L (38-126); Anion Gap 12 mmol/L; Blood Urea Nitrogen 13 mg/dL (7-17); Calcium 9.4 mg/dL (8.4-10.2); Carbon Dioxide 19 mmol/L (22-30); Chloride 108 mmol/L (98-107); Glucose 114 mg/dL (74-99); Non-African American GFR(CKD) >90 (>60 ml/min/1.73 sqM); Sodium 139 mmol/L (137-145); Total Bilirubin 1.7 mg/dL (0.2-1.3); Total Protein 6.8 g/dL (6.3-8.2)
[2021-04-05 09:46] LABS: Potassium 3.8 mmol/L (3.5-5.1)
--- NOTE | 2021-04-05 10:28 | CT ---
EXAMINATION TYPE: CT angio abdomen pelvis DATE OF EXAM: 04/05/2021 HISTORY: Hematoma CT DLP: 2312.2mGycm Automated Exposure Control for Dose Reduction was Utilized. CONTRAST: CTA scan of the abdomen and pelvis with lower extremity runoff is performed without oral and without and with IV Contrast, patient injected with 100 mL of Isovue 370. Three-D reconstructed images are cr eated on an independent workstation and reviewed COMPARISON: None. FINDINGS: VASCULAR: [id number] calcified plaque in the abdominal aorta extends into the iliac vessels. Th ere is patent celiac artery with mild calcified plaque at its origin but no significant stenosis. The re is narrowing at origin of SMA sagittal image 89 with stenosis of just under 50%. There is small ca liber second left renal artery. There is no significant stenosis in the bilateral renal arteries. Pat ent IRENE. No aneurysm. Patent iliac arteries bilaterally without significant plaque or stenosis. In th e left groin there is heterogeneous hematoma measuring 9.5 x 6.8 cm coronal image 35 x 5.0 cm AP diam eter axial image 120. This is anterior to the femoral vessels with a ovoid area of hyperdensity along the medial aspect axial images 119 -124 series 501 consistent with area of acute or active hemorrhag e. Moderate ill-defined fluid and fat stranding is noted. Suspect small caliber feeding vessel sagitt al image 103 between femoral vessels and hematoma. No significant plaque or stenosis in the superfici al femoral to the popliteal arteries bilaterally up to knee joint. LUNG BASES: Calcification at level of the mitral valve. There are inferior epicardial pacer wires. LIVER/GB: No significant abnormality is appreciated. PANCREAS: No significant abnormality is seen. SPLEEN: No significant abnormality is seen. ADRENALS: No significant abnormality is seen. KIDNEYS: There is 1.6 cm thin-walled cyst medially in the lower pole right kidney. Mild bilateral hyd ronephrosis without obstructing calculi. Moderately distended bladder extending to lower abdominal le chaitanya. BOWEL: No significant abnormality is seen. UTERUS/ADNEXA: Uterus surgically absent or markedly atrophic. Occasional scattered tiny pelvic phlebo liths. LYMPH NODES: No greater than 1cm abdominal or pelvic lymph nodes are appreciated. OSSEOUS STRUCTURES: Osseous structures are demineralized. Transitional-type L6 vertebra is sacralized on the right. Slight underlying scoliotic curvature. There is vertebral plasty at mild height loss L 2 vertebra extending into L1-L2 disc space. Posterior interpedicular rods and screws transfix L3-L5 l evels bilaterally. Artificial disc material L4-L5 level. OTHER: No significant additional abnormality is seen. LOWER EXTREMITIES: Metallic hardware from total left knee arthroplasty causes streak artifact. IMPRESSION: Moderate size anterior lateral left thigh hematoma as detailed above with focus of active or more acute hemorrhage medially. Possible small caliber feeding vessel into hematoma just above si te of the left common femoral artery bifurcation.
[2021-04-05] MEDS ORDERED: HYDROmorphone 0.5 MG/0.5 ML SYRINGE IVP STA ×2 (10:45→13:01)
[2021-04-05 10:54] VITALS: BP 102/65; RESP 18
--- NOTE | 2021-04-05 11:31 | ED ---
General Adult HPI - General Chief complaint: Recheck/Abnormal Lab/Rx Stated complaint: hematoma Time Seen by Provider: 04/05/21 07:49 Source: patient, RN notes reviewed Mode of arrival: ambulatory Limitations: no limitations - History of Present Illness Initial comments: 70-year-old female presents to the emergency department for a chief complaint of left groin pain. Patient had an open lesion with access through the left groin last Sunday at [facility]. States that she had some bruising since that time and is on Coumadin. However today she woke up in acute pain of the left groin. States it is unbearable. Patient states there is a lump and it feels like it is expanding. States the bruising has worsened as well. Patient has no other complaints at this time including shortness of breath, chest pain, abdominal pain, nausea or vomiting, headache, or visual changes. - Related Data Home Medications Medication Instructions Recorded Confirmed Furosemide [Lasix] 10 mg PO DAILY 12/20/13 04/05/21 Multivitamins, Thera [Multivitamin 1 tab PO DAILY 12/20/13 04/05/21 (formulary)] ALPRAZolam [Xanax] 0.5 mg PO TID PRN 06/02/15 04/05/21 Atorvastatin [Lipitor] 40 mg PO HS 06/02/15 04/05/21 Warfarin Sodium 2 mg PO HS 02/23/16 04/05/21 Levothyroxine Sodium [Synthroid] 75 mcg PO DAILY 04/21/19 04/05/21 Amiodarone [Cordarone] See Taper PO DAILY 04/05/21 04/05/21 Cholecalciferol (Vitamin D3) 125 mcg PO DAILY 04/05/21 04/05/21 [Vitamin D3 (125 MCG = 5,000 IU)] Colchicine 0.6 mg PO DAILY 04/05/21 04/05/21 Cyanocobalamin (Vitamin B-12) 1,000 mcg PO DAILY 04/05/21 04/05/21 [Vitamin B-12] HYDROcodone/APAP 7.5-325MG [[place] 1 tab PO Q4H PRN 04/05/21 04/05/21 7.5-325] Pantoprazole [Protonix] 40 mg PO BID 04/05/21 04/05/21 Sucralfate [Carafate] 1 gm PO TID 04/05/21 04/05/21 Zolpidem [Ambien] 10 mg PO HS PRN 04/05/21 04/05/21 lisinopriL [Zestril] 5 mg PO DAILY 04/05/21 04/05/21 Previous Rx's Medication Instructions Recorded Metoprolol Tartrate [Lopressor] 25 mg PO BID #180 tab 09/06/16 Allergies Allergy/AdvReac Type Severity Reaction Status Date / Time gabapentin Allergy Rash/Hives Verified 04/05/21 08:31 Penicillins Allergy Rash/Hives Verified 04/05/21 08:31 Sulfa (Sulfonamide Allergy Rash/Hives Verified 04/05/21 08:31 Antibiotics) tretinoin [From Retin-A] Allergy Rash/Hives Verified 04/05/21 08:31 escitalopram [From Lexapro] AdvReac Nausea & Verified 04/05/21 08:31 Vomiting meperidine HCl [From Demerol] AdvReac Nausea & Verified 04/05/21 08:31 Vomiting Review of Systems ROS Statement: Those systems with pertinent positive or pertinent negative responses have been documented in the HPI. ROS Other: All systems not noted in ROS Statement are negative. Past Medical History Past Medical History: Atrial Fibrillation, Hyperlipidemia, Hypertension, Thyroid Disorder Additional Past Medical History / Comment(s): Afib RVR, hypothyroid, vertigo with ablation 2 yrs ago, chronic cervical pain since ablation procedure, chronic back pain, mitral valve prolapse with surgery, AMY with Cpap, occasional migraines, UTI. 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 History of Any Multi-Drug Resistant Organisms: None Reported Past Surgical History: Appendectomy, Back Surgery, Breast Surgery, Cardiac Ablation, Cardiac Valve Replacement, Heart Catheterization, Hysterectomy, Joint Replacement, Orthopedic Surgery, Tonsillectomy Additional Past Surgical History / Comment(s): 07/2017 bronchoscopy with lavage, cardioversion, cardiac ablation, open mitral valve replacement, back surgery with rods/screws, cervical injections, R wrist ganglion cyst removed, R great toe replacement, L great toe "cleaned up", L knee arthroscopy, L ankle surgery for tendon/ligament and cysts, colonoscopy, R breast cystectomy, total hysterectomy. Past Anesthesia/Blood Transfusion Reactions: Postoperative Nausea & Vomiting (PONV) Additional Past Anesthesia/Blood Transfusion Reaction / Comment(s): Patient vomited after previous surgeries but she doesn't know if it was from anesthesia or the pain medication. Past Psychological History: Anxiety Smoking Status: Never smoker Past Alcohol Use History: Occasional Past Drug Use History: None Reported - Past Family History Mother Family Medical History: Congestive Heart Failure (CHF), Coronary Artery Disease (CAD), CVA/TIA, Hypertension Additional Family Medical History / Comment(s): Mother has been having multiple TIAs. at age 93 Father Family Medical History: CVA/TIA Additional Family Medical History / Comment(s): Father of a stroke at age 90 General Exam Limitations: no limitations General appearance: alert, in no apparent distress Head exam: Present: atraumatic Eye exam: Present: normal appearance, PERRL, EOMI. Absent: scleral icterus, conjunctival injection ENT exam: Present: normal exam, mucous membranes moist Neck exam: Present: normal inspection, full ROM. Absent: tenderness Respiratory exam: Present: normal lung sounds bilaterally. Absent: respiratory distress, wheezes Cardiovascular Exam: Present: regular rate, normal rhythm, normal heart sounds GI/Abdominal exam: Present: soft, normal bowel sounds. Absent: distended, tenderness Extremities exam: Present: tenderness (Tenderness of the left groin with ecchymosis noted as well as palpable hematoma nonpulsatile.), normal capillary refill (Capillary refill less than 2 seconds, DP pulses 2+ in the left lower extremity.), other (Sensation intact left lower extremity.. Significant ecchymosis noted of the left groin extending down to the left knee on the medial aspect of the left leg.). Absent: calf tenderness Neurological exam: Present: alert Course Vital Signs 04/05/21 04/05/21 04/05/21 07:29 08:35 10:53 Temperature 98.4 F Pulse Rate 97 100 83 Respiratory 22 20 18 Rate Blood Pressure 158/71 155/82 102/65 O2 Sat by Pulse 100 100 100 Oximetry 04/05/21 13:34 Temperature Pulse Rate 93 Respiratory 18 Rate Blood Pressure O2 Sat by Pulse 98 Oximetry - Reevaluation(s) Reevaluation #1: 04/05/21 11:[address] Xiao as I could not get a hold of the cardiologists from [facility]. He stated that this should be managed by cardiology. Recommended reversing the Coumadin but making sure with the market research lead first. Reevaluation #2: 04/05/21 11:30 Lissa call several places with an essentially calm trying to get hold of the market research lead. At this point we will try our own cardiology. 1131 Dr Schuler will call back in 10 mins. he is in a procedure Medical Decision Making - Medical Decision Making vitals are stable. CBC and CMP unremarkable. Hemoglobin is 12.3. INR 2.1. CT angiography revealed him 9.5 x 6.8 cm anterior lateral left thigh hematoma as detailed above with focus of active or more acute hemorrhage medially. There is a possible small caliber feeding vessel into the hematoma just above the left common femoral artery bifurcation. I was able to discuss this case with patient's market research lead at [facility]. At this time does not recommend reversing the Coumadin. Recommends transferring back to original facility. He does state that patient had a 7 cm hematoma at that time as well. I spoke with Dr. Hopkins, ER attending at [facility], accepts transfer - Lab Data Result diagrams: 04/05/21 08:18 04/05/21 08:18 Lab Results 04/05/21 04/05/21 04/05/21 Range/Units 08:18 08:18 08:18 WBC 7.8 (3.8-10.6) k/uL RBC 3.80 (3.80-5.40) m/uL Hgb 12.3 (11.4-16.0) gm/dL Hct 35.4 (34.0-46.0) % MCV 93.2 (80.0-100.0) fL MCH 32.4 (25.0-35.0) pg MCHC 34.7 (31.0-37.0) g/dL RDW 13.4 (11.5-15.5) % Plt Count 234 (150-450) k/uL MPV 7.6 Neutrophils % 55 % Lymphocytes % 33 % Monocytes % 6 % Eosinophils % 3 % Basophils % 1 % Neutrophils # 4.3 (1.3-7.7) k/uL Lymphocytes # 2.6 (1.0-4.8) k/uL Monocytes # 0.5 (0-1.0) k/uL Eosinophils # 0.2 (0-0.7) k/uL Basophils # 0.0 (0-0.2) k/uL PT 20.5 H (9.0-12.0) sec INR 2.1 H (<1.2) APTT 28.0 (22.0-30.0) sec Sodium 139 (137-145) mmol/L Potassium 3.8 (3.5-5.1) mmol/L Chloride 108 H (98-107) mmol/L Carbon Dioxide 19 L (22-30) mmol/L Anion Gap 12 mmol/L BUN 13 (7-17) mg/dL Creatinine 0.59 (0.52-1.04) mg/dL Est GFR (CKD-EPI)AfAm >90 (>60 ml/min/1.73 sqM) Est GFR (CKD-EPI)NonAf >90 (>60 ml/min/1.73 sqM) Glucose 114 H (74-99) mg/dL Calcium 9.4 (8.4-10.2) mg/dL Total Bilirubin 1.7 H (0.2-1.3) mg/dL AST 45 H (14-36) U/L ALT 22 (4-34) U/L Alkaline Phosphatase 96 (38-126) U/L Total Protein 6.8 (6.3-8.2) g/dL Albumin 3.8 (3.5-5.0) g/dL Disposition Clinical Impression: Hematoma complicating a procedure, Left groin pain Disposition: OTHER INSTITUTION NOT DEFINED Is patient prescribed a controlled substance at d/c from ED?: No Referrals: Jesus Carson MD [Primary Care Provider] - 1-2 days Decision Time: 12:34 - Out of Hospital Transfer - Req. Specs Out of Hospital Transfer - Requested Specifics: Other Emergency Center ([facility])
[2021-04-05] MEDS ORDERED: LORazepam 2 MG/ML INJ IV STA (13:01)
[2021-04-05] MEDS ORDERED: SODIUM CHLORIDE 0.9% 1,000 ML IV STA (13:01)
[2021-04-05 13:35] VITALS: PULSE 93
== END 2021-04-05 14:38 | disposition other institution (70) ==
LOC: EC 07:27
DX: R10.32 Left lower quadrant pain (principal); L76.32 Postprocedural hematoma of skin and subcutaneous tissue following other procedure; I10 Essential (primary) hypertension; I48.91 Unspecified atrial fibrillation; E78.5 Hyperlipidemia, unspecified; E03.9 Hypothyroidism, unspecified; F41.9 Anxiety disorder, unspecified; Z79.01 Long term (current) use of anticoagulants; Z79.890 Hormone replacement therapy; Z79.899 Other long term (current) drug therapy; Z88.0 Allergy status to penicillin; Z88.2 Allergy status to sulfonamides; Z88.5 Allergy status to narcotic agent; Z88.8 Allergy status to other drugs, medicaments and biological substances; Z90.49 Acquired absence of other specified parts of digestive tract; Z95.2 Presence of prosthetic heart valve; Z82.49 Family history of ischemic heart disease and other diseases of the circulatory system
CPT/HCPCS: 36415; 93005; 80053; 85025; 85610; 85730; 87635; 74174; 99285; 96374; 96375 ×3; 96376; J2060; J2270; J2405; J1170; Q9967

== ENCOUNTER → 2021-06-14 | Outpatient (CLI) | payer MEDICARE ==
--- NOTE | 2021-06-14 16:08 | US ---
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 TECHNIQUE: Multiple sonographic images of the thyroid gland are obtained. FINDINGS: GLAND SIZE: Right Lobe: 4.7 x 1.6 x 1.8 cm Overall Parenchyma: Markedly heterogenous Left Lobe: 3.8 x 1.6 x 1.9 cm Overall Parenchyma: Markedly heterogeneous Isthmus Thickness: 0.6 cm NODULES RIGHT: # of nodules measured on right: 0 LEFT: # of nodules measured on left: 0 ISTHMUS: # of nodules measured in the isthmus: 0 Bilateral neck scanned, no evidence of lymphadenopathy. IMPRESSION: Markedly heterogeneous thyroid gland suggesting goiter or diffuse thyroiditis. No discrete nodules ar e seen.
== END | disposition home or self-care (01) ==
LOC: RADUSWWP 13:25
PROVIDERS: ATTEND Internal Medicine Endocrinology, Diabetes & Metabolism
DX: E07.89 Other specified disorders of thyroid (principal)
CPT/HCPCS: 76536

== ENCOUNTER → 2021-06-14 | Outpatient (CLI) | payer MEDICARE ==
--- NOTE | 2021-06-14 16:49 | BD ---
EXAMINATION TYPE: Axial Bone Density DATE OF EXAM: 06/14/2021 COMPARISON: NONE CLINICAL HISTORY: post menopausal Height: 5'3 06/05 Weight: 195 FRAX RISK QUESTIONS: History of Fracture in Adulthood: y Secondary Osteoporosis: RISK FACTORS HISTORY OF: Spine Fracture: y When: 2008 Surgery to Spine/rt forearm When: 2010 2013 Active: n Postmenopausal woman: MEDICATIONS: Thyroid Medications: Which medication: Synthroid How Lon years Additional Medications: cholesterol, heart , xanax, pain , urinate Additional History: EXAM MEASUREMENTS: Bone mineral density about the R hip (g/cm2): 0.859 Bone mineral density about the L hip (g/cm2): 0.689 T Score values are as follows: -----R Neck: -1.3 -----L Neck: -2.5 -----R Total: -1.0 -----L Total: -2.6 Bone mineral density about the L Wrist (g/cm2): 0.501 T Score values are as follows: -----Dist. R+U: -4.1 -----Prox. R+U: -1.7 -----Radius total: -2.9 IMPRESSION: Osteoporosis (T Score less than -2.5). There is increased fracture risk and therapy is usually indicated based on age. Re-Screen 1-2 years. NOTE: T-SCORE=SD OF THE YOUNG ADULT MEAN.
== END | disposition home or self-care (01) ==
LOC: RADBDWWP 13:27
PROVIDERS: ATTEND Family Medicine
DX: M81.0 Age-related osteoporosis without current pathological fracture (principal); Z78.0 Asymptomatic menopausal state
CPT/HCPCS: 77080

== ENCOUNTER → 2021-06-20 | Outpatient (CLI) | payer MEDICARE ==
--- NOTE | 2021-06-21 13:18 | MM ---
Reason for exam: screening (asymptomatic). Last mammogram was performed 1 year and 10 months ago. History: Patient is postmenopausal and is nulliparous. Family history of breast cancer in aunt. Benign excisional biopsy of the right breast, 1974. Benign excisional biopsy of the right breast, 1973. Physical Findings: A clinical breast exam by your physician is recommended on an annual basis and results should be correlated with mammographic findings. MG 3D Screening Mammo W/Cad Bilateral CC and MLO view(s) were taken. Prior study comparison: August 14, 2019, left breast MG 3d diag mammo w/cad LT. February 27, 2019, bilateral MG 3d screening mammo w/cad. The breast tissue is heterogeneously dense. This may lower the sensitivity of mammography. No significant changes when compared with prior studies. ASSESSMENT: Benign, BI-RAD 2 RECOMMENDATION: Routine screening mammogram of both breasts in 1 year.
== END | disposition home or self-care (01) ==
LOC: RADMAMWWP 15:28
PROVIDERS: ATTEND Family Medicine
DX: Z12.31 Encounter for screening mammogram for malignant neoplasm of breast (principal); Z80.3 Family history of malignant neoplasm of breast; Z78.0 Asymptomatic menopausal state
CPT/HCPCS: 77063; 77067

== ENCOUNTER 2021-12-21 11:12 | Day surgery (SDC) | payer MEDICARE ==
[2021-12-20 09:25] VITALS: BMI 33.5
[~2021-12-21 11:12] MED LIST changes: +ALBUTEROL NEB (CONC) 2.5 MG/0.5 ML INHALATION ONE; -LIDOCAINE 1% 20 ML VIAL (10MG/ML) FOR IV START INTRADERMA PRN; -SODIUM CHLORIDE 0.9% 1,000 ML IV SCH
[2021-12-21] MEDS ORDERED: LIDOCAINE 1% (10MG/ML) FOR IV START INTRADERMA ONE (12:22)
[2021-12-21 12:24] VITALS: RESP 16; TEMP 96.8
[2021-12-21] MEDS ORDERED: fentaNYL (PF) 50 MCG/ML 2 ML AMP IV ONE (12:25)
[2021-12-21] MEDS ORDERED: MIDAZOLAM 2 MG/2 ML VIAL ONE (13:08)
[2021-12-21] MEDS ORDERED: GLYCOPYRROLATE 0.2 MG/ML 2 ML VIAL ONE (13:08)
[2021-12-21] MEDS ORDERED: LIDOCAINE 2% INJ 20 MG/ML (2 ML VIAL) ONE (13:08)
[2021-12-21] MEDS ORDERED: PROPOFOL 10 MG/ML 20 ML VIAL IV ONE (13:08)
[2021-12-21] MEDS ORDERED: KETAMINE 10 MG/ML 20 ML VIAL ONE (13:08)
[2021-12-21] MEDS ORDERED: fentaNYL (PF) 50 MCG/ML 2 ML AMP ONE (13:08)
[2021-12-21] MEDS ORDERED: LIDOCAINE 2% INJ 20 MG/ML INTRATRACH ONE (13:21)
[2021-12-21 13:54] VITALS: BP 109/69; PULSE 89
--- NOTE | 2021-12-21 13:54 | P.PCN ---
Date of Procedure: 12/21/21 Preoperative Diagnosis: Cough/dyspnea Postoperative Diagnosis: tracheobronchomalacia , possible superinfection Procedure(s) Performed: Flexible bronchoscopy Airway inspection Bronchioloalveolar lavage of the left upper lobe Anesthesia: MAC Surgeon: Hattie Brito Estimated Blood Loss (ml): 0 Pathology: other Condition: stable Disposition: same day Operative Findings: This is a 71-year-old female patient was having barky cough, recurrent episodes of shortness of breath especially with mobility and activity. She has tried several courses of antibiotics and steroids on outpatient basis without much help. For that reason, the patient was brought into the endoscopy room to undergo bronchoscopy and the bronchioloalveolar lavage. This procedure was under conscious sedation. Anesthetic agents were administered by anesthesia the bedside. After achieving adequate sedation, a flexible bronchoscope was introduced through the right nostril into the events of the upper airway. Examination of the posterior pharynx, larynx, epiglottis, arytenoids and the vocal cords was done. The vocal cords were slightly swollen. Nevertheless, the vocal cord function mobility was within normal limits without any nodules or lesions. A total of 267% lidocaine was applied to the vocal cords and following that the bronchoscope was advanced into the upper airway. Examination of the tracheal bronchial tree was done. Immediately, it was obvious that the patient's had tracheobronchomalacia and this is considered to be moderate to severe in nature as the patient has narrowing of the airway to less than 25% of his normal caliber with breathing and coughing. There was some retained secretions that were scant and there were minimal at this point. No purulent secretions were identified. I performed a complete airway examination. The examined airways into the trachea, bilateral mainstem bronchi, right upper lobe bronchus, bronchus intermedius, right middle lobe bronchus and right lower lobe bronchus and the various 10 segments on the right and exaggeration of the left side included the left mainstem bronchus, left upper lobe bronchus, left lower lobe bronchus and the various 8 segments on the left. No endobronchial tumors. Mucosa was slightly inflamed and irritated. No active bleeds. No foreign bodies. No tumors. The bronchoscope was wedged in the left upper lobe and bronchial alveolar lavage was done. A total of 60 mL of fluid was infused and 15-20 mL was suctioned back without any major difficulties. The samples will be sent for microbial cultures and analysis. Bronchoscope was gradually removed. Appropriate therapeutic airway suctioning was done. The procedure was terminated and bronchoscope was removed and the patient was transferred recovery in stable condition. The bronchioloalveolar lavage was collected from the left will be sent for microbial cultures and analysis. We'll continue to follow. Plan We'll be awaiting results of the cultures. Continue steroids. Continue bronchodilators. No need for antibiotics at this point in time. Further recommendations to follow
== END 2021-12-21 14:27 | disposition home or self-care (01) ==
LOC: ORWHC2ENDO 11:12
PROVIDERS: ATTEND Internal Medicine Critical Care Medicine
DX: J98.09 Other diseases of bronchus, not elsewhere classified (principal); J20.9 Acute bronchitis, unspecified; I10 Essential (primary) hypertension; E78.5 Hyperlipidemia, unspecified; G47.33 Obstructive sleep apnea (adult) (pediatric); M19.90 Unspecified osteoarthritis, unspecified site; I48.20 Chronic atrial fibrillation, unspecified; F41.9 Anxiety disorder, unspecified; E03.9 Hypothyroidism, unspecified; J44.9 Chronic obstructive pulmonary disease, unspecified; Z95.2 Presence of prosthetic heart valve; Z87.891 Personal history of nicotine dependence; Z79.01 Long term (current) use of anticoagulants; Z79.899 Other long term (current) drug therapy; Z79.890 Hormone replacement therapy; Z88.5 Allergy status to narcotic agent; Z88.0 Allergy status to penicillin; Z88.2 Allergy status to sulfonamides; Z88.8 Allergy status to other drugs, medicaments and biological substances; Z88.1 Allergy status to other antibiotic agents; Z90.710 Acquired absence of both cervix and uterus; Z98.890 Other specified postprocedural states; Z82.49 Family history of ischemic heart disease and other diseases of the circulatory system; Z82.3 Family history of stroke
CPT/HCPCS: 87252; 87070; 87205; 87116; 87102; 87206; 31624; J2001 ×2; J2250; J3010; J2704

== ENCOUNTER → 2021-12-26 | Outpatient (CLI) | payer MEDICARE ==
--- NOTE | 2021-12-26 15:54 | XR ---
EXAMINATION TYPE: XR lumbar spine 2 or 3V DATE OF EXAM: 12/26/2021 COMPARISON: 02/22/2017 HISTORY: Low back pain TECHNIQUE: 3 view lumbar spine FINDINGS: Scoliosis present with the convexity to the left centered at L1-L2. Pedicle screws are with in the L2-L3 and L3-4. Disc spacers present at L3-4. There is attempted sacralization of L5 on the ri ght. There may be some compression of L3. Superior endplate compression of L1 is noted. Minimal retro listhesis of L1 on L2 may be present. Findings appear stable from 2017. IMPRESSION: 1. Scoliosis, postsurgical changes, and compression deformities discussed above appear stable. 2. Stable mild grade 1 retrolisthesis of L1 on L2.
--- NOTE | 2021-12-26 15:57 | XR ---
EXAMINATION TYPE: XR thoracic spine complete DATE OF EXAM: 12/26/2021 COMPARISON: Lumbar spine 02/22/2017. HISTORY: Back pain TECHNIQUE: 3 view thoracic spine FINDINGS: There is a scoliosis of the convexity the right centered at T8. Note is made of electronic wire within the mid spinal region. Sternotomy wires are in the midline Pedicles appear intact. Some mild superior endplate compression of T 12 may be present. This is an in terval change from 2017 but is of indeterminant age. Degenerative disc changes within the lower thora cic spine. IMPRESSION: 1. Scoliosis. 2. Mild superior endplate compression of T12 which is an interval finding 2017.
== END | disposition home or self-care (01) ==
LOC: RADXRMAIN 14:14
PROVIDERS: ATTEND Family Medicine
DX: S22.080A Wedge compression fracture of T11-T12 vertebra, initial encounter for closed fracture (principal); M43.16 Spondylolisthesis, lumbar region
CPT/HCPCS: 72072; 72100

== ENCOUNTER → 2022-01-12 | Outpatient (CLI) | payer MEDICARE ==
--- NOTE | 2022-01-12 08:45 | CT ---
EXAMINATION TYPE: CT lumbar spine wo con CT DLP: 1517 mGycm, Automated exposure control for dose reduction was used. DATE OF EXAM: 01/12/2022 8:02 AM COMPARISON: 03/28/2015 04/05/2021. CLINICAL INDICATION:Female, 71 years old with history of M54.50 LOW BACK PAIN, Low back pain TECHNIQUE: Multiple axial images were obtained from the midportion of T11 through the sacroiliac kya nts. Soft tissue and bone windows in coronal and sagittal planes were obtained and reviewed. FINDINGS: Alignment: There are 5 lumbar type vertebral bodies with mild levoscoliosis changes apex L1-L2. Grade 1 anterolisthesis of L4 and L5. No spondylolysis. Bone: Age-indeterminate deformity of the superior endplate of T12 which is new from 04/05/2021. There is approximately 25% height loss and 4 mm retropulsion. Multilevel disc degeneration changes are seen throughout the spine with L2-L3 and L4 fusion hardware with hardware intact and in place. There is v ertebroplasty changes of L2. There is a transitional L5 vertebrae with sacralization on the right. Th ere is extensive facet joint arthropathy throughout the spine. Discs: T12-L1: No spinal canal or neural foraminal stenosis is identified. L1-L2: Disc bulging without significant spinal canal stenosis and neural foramen are mildly narrowed on the right. Left neural foramen is patent. L2-L3: No spinal canal or neural foraminal stenosis is identified. L3-L4: Discectomy changes at this level without spinal canal or neural foraminal stenosis is identifi ed. L4-L5: Grade 1 anterolisthesis with disc uncovering and facet joint arthropathy with mild spinal can al stenosis and mild to moderate left neural foraminal stenosis.. L5-S1: No significant spinal canal stenosis. No neural foramen are patent. Other: Mild atherosclerosis of the arterial vasculature. Small hiatal hernia present. IMPRESSION: 1. Age-indeterminate T12 superior endplate compression deformity with 25% height loss and 4 mm retrop ulsion. This is new from 04/05/2021 2. No evidence of significant spinal canal or neural foraminal stenosis 3. Disc degeneration changes and postsurgical changes with moderate to severe facet joint arthropathy .
== END | disposition home or self-care (01) ==
LOC: RADCTMAIN 07:38
PROVIDERS: ATTEND Orthopaedic Surgery Orthopaedic Surgery of the Spine
DX: M47.816 Spondylosis without myelopathy or radiculopathy, lumbar region (principal); M48.061 Spinal stenosis, lumbar region without neurogenic claudication; M99.73 Connective tissue and disc stenosis of intervertebral foramina of lumbar region; M43.16 Spondylolisthesis, lumbar region; M51.26 Other intervertebral disc displacement, lumbar region; M41.86 Other forms of scoliosis, lumbar region
CPT/HCPCS: 72131

== ENCOUNTER → 2022-01-16 | Outpatient (CLI) | payer MEDICARE ==
[2022-01-16 12:03] LABS: INR 2.5 (<1.2); Partial Thromboplastin Time 33.8 sec (22.0-30.0); Prothrombin Time 25.3 sec (9.0-12.0)
--- NOTE | 2022-01-16 13:03 | XR ---
EXAMINATION TYPE: XR chest 2V DATE OF EXAM: 01/16/2022 10:39 AM COMPARISON: Chest radiographs from 12/02/2021, CT lumbar spine 01/12/2022. TECHNIQUE: XR chest 2V Frontal and lateral views of the chest. CLINICAL INDICATION:Female, 71 years old with history of [id number]; FINDINGS: Lungs/Pleura: There is no evidence of pleural effusion, focal consolidation, or pneumothorax. Pulmonary vascularity: Unremarkable. Heart/mediastinum: Cardiomediastinal silhouette is unremarkable. Atherosclerotic calcifications are seen in the aorta. Post surgical changes of mediastinal clips. Musculoskeletal: No acute osseous pathology. Midline sternotomy wires are noted and stable. Post surg ical changes of the lumbar spine with bilateral pedicular screws and rods. Subtle vertebral augmentat ion changes of L1. Known T12 compression fracture is poorly visualized. IMPRESSION: No acute cardiopulmonary disease/process. Postsurgical changes of the lumbar spine with poor visualization of known T12 compression fracture.
[2022-01-16 14:44] LABS: Basophils # (A) 0.06 X 10*3/uL (0.00-0.10); Basophils % (A) 0.8 %; Eosinophils # (A) 0.15 X 10*3/uL (0.04-0.35); Eosinophils % (A) 2.1 %; HCT 42.2 % (37.2-46.3); HGB 14.2 g/dL (12.0-15.0); Immature Grans, Automated 0.5 %; Lymphocytes # (A) 1.87 X 10*3/uL (0.90-5.00); Lymphocytes % (A) 25.7 %; MCH 31.4 pg (27.0-32.0); MCHC 33.6 g/dL (32.0-37.0); MCV 93.4 fL (80.0-97.0); Monocytes # (A) 0.65 X 10*3/uL (0.20-1.00); Monocytes % (A) 8.9 %; NRBC Per 100 WBC 0 /100 WBCS (0.0-0.0); Neutrophils # (A) 4.51 X 10*3/uL (1.80-7.70); Platelet Count 257 X 10*3/uL (140-440); RBC 4.52 X 10*6/uL (4.10-5.20); WBC 7.28 X 10*3/uL (4.50-10.00)
[2022-01-16 15:48] LABS: African American GFR (CKD) 102.8 (60.0-200.0); Albumin 4.3 g/dL (3.8-4.9); Albumin/Globulin Ratio 1.38 (1.60-3.17); Anion Gap 10.4 mmol/L (10.00-18.00); BUN/Creat Ratio 17.44 Ratio (12.00-20.00); Blood Urea Nitrogen 12.1 mg/dL (9.0-27.0); Calcium 9.7 mg/dL (8.7-10.3); Globulin 3.1 g/dL (1.6-3.3); Non-African American GFR(CKD) 88.7 (60.0-200.0); Potassium 3.7 mmol/L (3.5-5.5); Total Bilirubin 0.6 mg/dL (0.30-1.20); Total Protein 7.4 g/dL (6.2-8.2)
[2022-01-16 20:34] LABS: Appearance,Urine Clear (Clear); Bilirubin,Urine Negative (Negative); Blood,Urine Negative (Negative); Color,Urine Yellow (Yellow); Ketones,Urine Negative (Negative); Nitrite,Urine Negative (Negative); PH, Urine 5.5 (5.0-8.0); Specific Gravity,Urine 1.006 (1.001-1.030); Urobilinogen,Urine 0.2 (0.2,1.0)
== END | disposition home or self-care (01) ==
LOC: LABWHC1 09:54
PROVIDERS: ATTEND Orthopaedic Surgery Orthopaedic Surgery of the Spine
DX: Z01.812 Encounter for preprocedural laboratory examination (principal); S22.089A Unspecified fracture of T11-T12 vertebra, initial encounter for closed fracture; Y99.9 Unspecified external cause status
CPT/HCPCS: 36415; 71046; 80053; 81003; 85025; 85610; 85730; 93005

== ENCOUNTER 2022-03-19 11:04 | Emergency (ER) | payer MEDICARE ==
[2022-03-19 11:34] VITALS: RESP 18; TEMP 98
[2022-03-19] MEDS ORDERED: SODIUM CHLORIDE 0.9% 1,000 ML IV STA (11:57)
[2022-03-19] MEDS ORDERED: METOCLOPRAMIDE 5 MG/ML 2 ML VIAL IVP STA (11:58)
[2022-03-19] MEDS ORDERED: FAMOTIDINE 20 MG/2 ML VIAL IV STA (12:00)
--- NOTE | 2022-03-19 12:03 | ED ---
General Adult HPI - General Chief complaint: Dizziness Stated complaint: Blurred vision,nausea Time Seen by Provider: 03/19/22 11:36 Source: patient, RN notes reviewed Mode of arrival: wheelchair Limitations: no limitations - History of Present Illness Initial comments: Patient is a pleasant 71-year-old female presenting to the emergency department with fatigue. Patient was diagnosed with COVID-19 infection in February and has been having some symptoms since that time. Fatigue has been persistent. Patient has had some nausea, some more today. No vomiting. Patient has felt foggy and lightheaded. Patient did have worsening of that today with some associated blurred vision. Patient did not pass out. Patient still has loss of taste and smell. Patient feels she is probably tolerating less oral intake than normal. - Related Data Home Medications Medication Instructions Recorded Confirmed Furosemide [Lasix] 20 mg PO DAILY 12/20/13 01/17/22 Multivitamins, Thera [Multivitamin 1 tab PO DAILY 12/20/13 01/17/22 (formulary)] ALPRAZolam [Xanax] 0.25 mg PO TID PRN 06/02/15 01/17/22 Atorvastatin [Lipitor] 40 mg PO HS 06/02/15 01/17/22 Warfarin Sodium 2 mg PO MOTH 02/23/16 01/17/22 Levothyroxine Sodium [Synthroid] 75 mcg PO DAILY 04/21/19 01/17/22 Cyanocobalamin (Vitamin B-12) 1,000 mcg PO DAILY 04/05/21 01/17/22 [Vitamin B-12] Pantoprazole [Protonix] 40 mg PO DAILY 04/05/21 01/20/22 Zolpidem [Ambien] 5 mg PO HS PRN 04/05/21 01/17/22 Albuterol Sulfate [Albuterol 1 puff PO BID PRN 12/20/21 01/20/22 Sulfate Hfa] Warfarin Sodium 4 mg PO SUTUWEFRSA 12/20/21 01/17/22 lisinopriL [Prinivil] 10 mg PO HS 12/20/21 01/17/22 Hydrocodone/Acetaminophen 1 tab PO Q6HR PRN 01/17/22 01/17/22 [Hydrocodone/Acetaminophen 5-325] Vitamin D2 (Unknown Dose) 1 tab PO DAILY 01/17/22 Zinc (Unknown Dose) 1 tab PO DAILY 01/17/22 Albuterol Nebulized [Ventolin 2.5 mg INHALATION Q4H 01/20/22 01/20/22 Nebulized] Previous Rx's Medication Instructions Recorded Metoprolol Tartrate [Lopressor] 25 mg PO BID #180 tab 09/06/16 Metoclopramide HCl [Reglan] 10 mg PO Q6HR PRN #15 tablet 03/19/22 Allergies Allergy/AdvReac Type Severity Reaction Status Date / Time gabapentin Allergy Rash/Hives Verified 03/19/22 11:34 Penicillins Allergy Rash/Hives Verified 03/19/22 11:34 Sulfa (Sulfonamide Allergy Rash/Hives Verified 03/19/22 11:34 Antibiotics) tretinoin [From Retin-A] Allergy Rash/Hives Verified 03/19/22 11:34 escitalopram [From Lexapro] AdvReac Nausea & Verified 03/19/22 11:34 Vomiting meperidine HCl [From Demerol] AdvReac Nausea & Verified 03/19/22 11:34 Vomiting Review of Systems ROS Statement: Those systems with pertinent positive or pertinent negative responses have been documented in the HPI. ROS Other: All systems not noted in ROS Statement are negative. Constitutional: Denies: fever Eyes: Reports: as per HPI. Denies: eye pain ENT: Denies: ear pain Respiratory: Denies: dyspnea Cardiovascular: Denies: palpitations Endocrine: Reports: fatigue Gastrointestinal: Reports: nausea, vomiting. 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, SOB, History of Any Multi-Drug Resistant Organisms: None Reported Past Surgical History: Appendectomy, Back Surgery, Breast Surgery, Cardiac Ablation, Cardiac Valve Replacement, Heart Catheterization, Hysterectomy, Joint Replacement, Orthopedic Surgery, Tonsillectomy Additional Past Surgical History / Comment(s): 07/2017 bronchoscopy with lavage, cardioversion x 2, cardiac ablation x 3, open mitral valve replacement 2013, back surgery with rods/screws, cervical injections, R wrist ganglion cyst removed, R great toe surgery, L great toe "cleaned up", L knee arthroscopy, L ankle surgery for tendon/ligament and cysts, colonoscopy, R breast cystectomy, left knee replacement. left great toe, rt second toe surgery , devendra cataracts Past Anesthesia/Blood Transfusion Reactions: Postoperative Nausea & Vomiting (PONV) Additional Past Anesthesia/Blood Transfusion Reaction / Comment(s): Patient vomited after previous surgeries but she doesn't know if it was from anesthesia or the pain medication. Past Psychological History: Anxiety Smoking Status: Former smoker Past Alcohol Use History: Daily Past Drug Use History: None Reported - Past Family History Mother Family Medical History: CVA/TIA Father Family Medical History: CVA/TIA Additional Family Medical History / Comment(s): . General Exam Limitations: no limitations General appearance: alert, in no apparent distress Head exam: Present: normocephalic Eye exam: Present: normal appearance, PERRL ENT exam: Present: normal oropharynx Neck exam: Present: normal inspection Respiratory exam: Present: normal lung sounds bilaterally Cardiovascular Exam: Present: regular rate, normal rhythm, normal heart sounds Expanded Peripheral pulses: 2+: Radial (R), Radial (L), Posterior Tibialis (R), Posterior Tibialis (L) GI/Abdominal exam: Present: soft. Absent: tenderness Extremities exam: Present: normal inspection. Absent: pedal edema, calf tenderness Neurological exam: Present: alert, oriented X3, CN II-XII intact. Absent: motor sensory deficit Expanded Neurological exam: Present: protecting the airway Speech: Present: fluid speech Cranial nerves: EOM's Intact: Normal Motor strength exam: RUE: 5, LUE: 5, RLE: 5, LLE: 5 Eye Response: (4) open spontaneously Motor Response: (6) obeys commands Verbal Response: (5) oriented Psychiatric exam: Present: normal affect, normal mood Skin exam: Present: normal color Course Vital Signs 03/19/22 11:27 Temperature 98.0 F Pulse Rate 74 Respiratory 18 Rate Blood Pressure 115/75 O2 Sat by Pulse 98 Oximetry EKG Findings - EKG Comments: EKG Findings:: Sinus rhythm rate 71. IA 196. QRS 92. QT 416. QTc 39. Normal axis. Normal QRS. No acute ST change. Medical Decision Making - Medical Decision Making Patient reevaluated and updated. Patient states she is feeling better, mostly she believes from lying down. Patient does not want any further medication. Patient states she did have an episode of diarrhea. Patient states she did have some of this with Coban 19 as well. Patient does request medication for her back pain. Patient takes [place] at home. - Lab Data Result diagrams: 03/19/22 12:53 03/19/22 12:53 Lab Results 03/19/22 03/19/22 03/19/22 Range/Units 12:53 12:53 12:53 WBC 8.9 (3.8-10.6) k/uL RBC 4.64 (3.80-5.40) m/uL Hgb 14.9 (11.4-16.0) gm/dL Hct 42.4 (34.0-46.0) % MCV 91.5 (80.0-100.0) fL MCH 32.1 (25.0-35.0) pg MCHC 35.1 (31.0-37.0) g/dL RDW 14.0 (11.5-15.5) % Plt Count 173 (150-450) k/uL MPV 8.2 Neutrophils % 66 % Lymphocytes % 23 % Monocytes % 7 % Eosinophils % 2 % Basophils % 1 % Neutrophils # 5.9 (1.3-7.7) k/uL Lymphocytes # 2.0 (1.0-4.8) k/uL Monocytes # 0.6 (0-1.0) k/uL Eosinophils # 0.2 (0-0.7) k/uL Basophils # 0.1 (0-0.2) k/uL PT 18.3 H (9.0-12.0) sec INR 1.8 H (<1.2) APTT 30.5 H (22.0-30.0) sec Sodium 135 L (137-145) mmol/L Potassium 3.8 (3.5-5.1) mmol/L Chloride 97 L (98-107) mmol/L Carbon Dioxide 31 H (22-30) mmol/L Anion Gap 7 mmol/L BUN 13 (7-17) mg/dL Creatinine 0.75 (0.52-1.04) mg/dL Est GFR (CKD-EPI)AfAm >90 (>60 ml/min/1.73 sqM) Est GFR (CKD-EPI)NonAf 82 (>60 ml/min/1.73 sqM) Glucose 105 H (74-99) mg/dL Plasma Lactic Acid Fran (0.7-2.0) mmol/L Calcium 9.0 (8.4-10.2) mg/dL Total Bilirubin 0.9 (0.2-1.3) mg/dL AST 29 (14-36) U/L ALT 31 (4-34) U/L Alkaline Phosphatase 149 H (38-126) U/L Troponin I (0.000-0.034) ng/mL Total Protein 6.8 (6.3-8.2) g/dL Albumin 4.1 (3.5-5.0) g/dL 03/19/22 03/19/22 Range/Units 12:53 12:53 WBC (3.8-10.6) k/uL RBC (3.80-5.40) m/uL Hgb (11.4-16.0) gm/dL Hct (34.0-46.0) % MCV (80.0-100.0) fL MCH (25.0-35.0) pg MCHC (31.0-37.0) g/dL RDW (11.5-15.5) % Plt Count (150-450) k/uL MPV Neutrophils % % Lymphocytes % % Monocytes % % Eosinophils % % Basophils % % Neutrophils # (1.3-7.7) k/uL Lymphocytes # (1.0-4.8) k/uL Monocytes # (0-1.0) k/uL Eosinophils # (0-0.7) k/uL Basophils # (0-0.2) k/uL PT (9.0-12.0) sec INR (<1.2) APTT (22.0-30.0) sec Sodium (137-145) mmol/L Potassium (3.5-5.1) mmol/L Chloride (98-107) mmol/L Carbon Dioxide (22-30) mmol/L Anion Gap mmol/L BUN (7-17) mg/dL Creatinine (0.52-1.04) mg/dL Est GFR (CKD-EPI)AfAm (>60 ml/min/1.73 sqM) Est GFR (CKD-EPI)NonAf (>60 ml/min/1.73 sqM) Glucose (74-99) mg/dL Plasma Lactic Acid Fran 0.9 (0.7-2.0) mmol/L Calcium (8.4-10.2) mg/dL Total Bilirubin (0.2-1.3) mg/dL AST (14-36) U/L ALT (4-34) U/L Alkaline Phosphatase (38-126) U/L Troponin I <0.012 (0.000-0.034) ng/mL Total Protein (6.3-8.2) g/dL Albumin (3.5-5.0) g/dL - Radiology Data Radiology results: report reviewed (Computed tomography scan the brain reveals no abnormality. Atrophy and chronic small vessel ischemia.), image reviewed (Chest x-ray shows no acute process) Disposition Clinical Impression: Dizziness Disposition: HOME SELF-CARE Condition: Stable Instructions (If sedation given, give patient instructions): Dizziness (ED), COVID-19 (Coronavirus Disease 2019) (ED) Additional Instructions: Please follow-up with primary care physician in the next day or 2 for recheck. [id number] Antivert if needed for dizziness. Prescription for Reglan for nausea and dizziness has been sent to pharmacy. Return for weakness, confusion, speech problems, worsening or changing symptoms or any other concerns. Prescriptions: Metoclopramide HCl [Reglan] 10 mg PO Q6HR PRN #15 tablet PRN Reason: Nausea Is patient prescribed a controlled substance at d/c from ED?: No Referrals: Jesus Carson MD [Primary Care Provider] - 1-2 days Time of Disposition: 14:00
--- NOTE | 2022-03-19 12:35 | XR ---
EXAMINATION TYPE: XR chest 2V DATE OF EXAM: 03/19/2022 COMPARISON: Chest x-ray 01/16/2022 HISTORY: Weakness TECHNIQUE: Frontal and lateral views of the chest are obtained. FINDINGS: There is no focal air space opacity, pleural effusion, or pneumothorax seen. Patient is po st median sternotomy. Vertebral plasty change noted near the thoracic lumbar junction. Aorta is dense . Cardiac valve replacement change is present. The cardiac silhouette size is within normal limits. The osseous structures are intact. IMPRESSION: No acute cardiopulmonary process.
--- NOTE | 2022-03-19 13:14 | CT ---
EXAMINATION TYPE: CT brain wo con DATE OF EXAM: 03/19/2022 COMPARISON: CT brain 11/11/2020 HISTORY: Weakness CT DLP: 1143.4 mGycm Automated exposure control for dose reduction was used. Helical imaging through the brain. FINDINGS: There is no hemorrhage or hydrocephalus. Cerebral vascular calcifications are present. Cortical atrop hy is mild. Periventricular white matter shows patchy low attenuation. Orbits are symmetric. Calvariu m is intact. No evident paranasal sinus disease. IMPRESSION: STABLE EXAM, NO ACUTE ABNORMALITY. AGE-RELATED CHANGES OF ATROPHY AND CHRONIC SMALL VESSEL ISCHEMIA. MRI MAY BE OF BENEFIT.
[2022-03-19 13:20] LABS: ALT 31 U/L (4-34); AST 29 U/L (14-36); African American GFR (CKD) >90 (>60 ml/min/1.73 sqM); Albumin 4.1 g/dL (3.5-5.0); Alkaline Phosphatase 149 U/L (38-126); Anion Gap 7 mmol/L; Basophils # (A) 0.1 k/uL (0-0.2); Basophils % (A) 1 %; Blood Urea Nitrogen 13 mg/dL (7-17); Carbon Dioxide 31 mmol/L (22-30); Chloride 97 mmol/L (98-107); Eosinophils # (A) 0.2 k/uL (0-0.7); Eosinophils % (A) 2 %; Glucose 105 mg/dL (74-99); HCT 42.4 % (34.0-46.0); HGB 14.9 gm/dL (11.4-16.0); Lymphocytes % (A) 23 %; MCH 32.1 pg (25.0-35.0); MCHC 35.1 g/dL (31.0-37.0); MCV 91.5 fL (80.0-100.0); Mean Platelet Volume 8.2; Monocytes # (A) 0.6 k/uL (0-1.0); Monocytes % (A) 7 %; Neutrophils # (A) 5.9 k/uL (1.3-7.7); Neutrophils % (A) 66 %; Non-African American GFR(CKD) 82 (>60 ml/min/1.73 sqM); Platelet Count 173 k/uL (150-450); Potassium 3.8 mmol/L (3.5-5.1); RBC 4.64 m/uL (3.80-5.40); Sodium 135 mmol/L (137-145); Total Bilirubin 0.9 mg/dL (0.2-1.3); Total Protein 6.8 g/dL (6.3-8.2); WBC 8.9 k/uL (3.8-10.6)
[2022-03-19 13:24] LABS: INR 1.8 (<1.2); Partial Thromboplastin Time 30.5 sec (22.0-30.0); Prothrombin Time 18.3 sec (9.0-12.0)
[2022-03-19] MEDS ORDERED: HYDROcodone/APAP 7.5-325MG 1 EACH TAB PO ONE (13:57)
[2022-03-19 14:22] VITALS: BP 127/69; PULSE 76
== END 2022-03-19 14:37 | disposition home or self-care (01) ==
LOC: EC 11:04
DX: R42 Dizziness and giddiness (principal); I48.91 Unspecified atrial fibrillation; J44.9 Chronic obstructive pulmonary disease, unspecified; E78.5 Hyperlipidemia, unspecified; I10 Essential (primary) hypertension; E07.9 Disorder of thyroid, unspecified; Z87.891 Personal history of nicotine dependence; Z88.0 Allergy status to penicillin; Z88.2 Allergy status to sulfonamides; Z88.8 Allergy status to other drugs, medicaments and biological substances; Z79.899 Other long term (current) drug therapy; Z99.89 Dependence on other enabling machines and devices; Z79.890 Hormone replacement therapy; Z79.01 Long term (current) use of anticoagulants; Z79.51 Long term (current) use of inhaled steroids
CPT/HCPCS: 36415; 93005; 80053; 83605; 84484; 85025; 85610; 85730; 71046; 70450; 96374; 96375; 96361; 99285; J2765

== ENCOUNTER → 2022-08-16 | Outpatient (CLI) | payer MEDICARE | END | disposition home or self-care (01) | LOC: LABWHC1 10:57 | PROVIDERS: ATTEND Internal Medicine Endocrinology, Diabetes & Metabolism | DX: E03.8 Other specified hypothyroidism (principal) | CPT/HCPCS: 36415; 84443 ==

== ENCOUNTER → 2023-01-27 | Outpatient (CLI) | payer MEDICARE ==
--- NOTE | 2023-01-28 13:00 | MR ---
EXAMINATION TYPE: MR shoulder RT wo con DATE OF EXAM: 01/27/2023 COMPARISON: None HISTORY: Shoulder pain TECHNIQUE: Multiplanar, multisequence imaging of the right shoulder is performed without contrast. FINDINGS: The osseous structures are intact and there is no bone contusion or fracture. There is marked osteoarthritic change of the acromioclavicular joint resulting in mild shoulder impin gement. There is marked hypertrophic bursitis involving the subcutaneous acromial and subdeltoid bursa and chairez bscapular recess. There is marked thickening and diffuse abnormal signal intensity in the supraspinatus tendon consiste nt with tendinosis. There is a small rim rent tear of the supraspinatus tendon is well. The infraspinatus tendon and subscapularis tendon are intact. Grossly the cartilaginous labrum is intact. There is mild osteoarthritic change of the glenohumeral j oint with mild hypertrophic spurring of the glenoid. The biceps tendon is normal in size. IMPRESSION: 1. Marked hypertrophic bursitis the shoulders described above. 2. Marked degenerative change of the acromioclavicular joint resulting in shoulder impingement. 3. Marked tendinosis of the supraspinatus tendon and small rim rent tear of the supraspinatus tendon. 4. Mild osteoarthritic change of the glenohumeral joint.
== END | disposition home or self-care (01) ==
LOC: RADMRIMAIN 10:56
PROVIDERS: ATTEND Orthopaedic Surgery
DX: M19.011 Primary osteoarthritis, right shoulder (principal); M19.012 Primary osteoarthritis, left shoulder; S46.002A Unspecified injury of muscle(s) and tendon(s) of the rotator cuff of left shoulder, initial encounter; S46.001A Unspecified injury of muscle(s) and tendon(s) of the rotator cuff of right shoulder, initial encounter; M75.41 Impingement syndrome of right shoulder; M75.42 Impingement syndrome of left shoulder; M75.51 Bursitis of right shoulder; X58.XXXA Exposure to other specified factors, initial encounter

== ENCOUNTER → 2023-02-02 | Outpatient (CLI) | payer MEDICARE | END | disposition home or self-care (01) | LOC: LABWHC1 10:43 | PROVIDERS: ATTEND Internal Medicine Endocrinology, Diabetes & Metabolism | DX: E03.8 Other specified hypothyroidism (principal) | CPT/HCPCS: 36415; 84443 ==

== ENCOUNTER 2023-02-13 10:34 | Day surgery (SDC) | payer MEDICARE ==
[2023-02-09 14:09] VITALS: BMI 31.7
[2023-02-13] MEDS ORDERED: LACTATED RINGERS 1,000 ML IV SCH (10:49)
[2023-02-13 10:59] VITALS: TEMP 98.1
[2023-02-13] MEDS ORDERED: PROPOFOL 10 MG/ML 20 ML VIAL IV ONE (12:27)
--- NOTE | 2023-02-13 12:44 | P.PCN ---
Date of Procedure: 02/13/23 Procedure(s) Performed: BRIEF HISTORY: Patient is a 72-year-old pleasant white female scheduled for an elective colonoscopy as a part of evaluation of chronic diarrhea for the last 1 year duration. She is been having bowel movements anywhere from 10-12 a day which are loose to watery in consistency but no blood or mucus in the stool. She is scheduled for colonoscopy to evaluate further. PROCEDURE PERFORMED: Colonoscopy with random biopsy. PREOPERATIVE DIAGNOSIS: Chronic diarrhea of 1 year duration. IV sedation per Anesthesia. PROCEDURE: After informed consent was obtained, the patient, was brought into the endoscopy unit. IV sedation was administered by Anesthesia under continuous monitoring. Digital rectal examination was normal. Initially the Olympus CF-160 flexible video colonoscope was then inserted in the rectum, gradually advanced into the cecum without any difficulty. Careful examination was performed as the scope was gradually being withdrawn. Ileocecal valve and the appendiceal orifice were visualized and appeared normal. Prep was excellent. Mucosa of the cecum, ascending colon, transverse colon, descending colon, sigmoid colon, and rectum appeared normal. Biopsies were done from ascending and descending colon to rule out microscopic/collagenous colitis Retroflexion was performed in the rectum and no lesions were seen. The patient tolerated the procedure well. IMPRESSION: Normal-appearing colon from rectum to cecum with no evidence of active colitis or colorectal neoplasia . RECOMMENDATIONS: Findings of this examination were discussed with the patient as well as a family. She was advised to follow with the biopsy results. She'll be seen in office in 2 weeks.. Recommended repeat screening colonoscopy in 10 years.
[2023-02-13 12:50] VITALS: PULSE 63
[2023-02-13 13:14] VITALS: BP 140/67; RESP 18
== END 2023-02-13 13:29 | disposition home or self-care (01) ==
LOC: ORWHC2ENDO 10:34
PROVIDERS: ATTEND Internal Medicine Gastroenterology
DX: Z12.11 Encounter for screening for malignant neoplasm of colon (principal); K52.9 Noninfective gastroenteritis and colitis, unspecified; I35.9 Nonrheumatic aortic valve disorder, unspecified; I48.91 Unspecified atrial fibrillation; Z88.5 Allergy status to narcotic agent; Z88.0 Allergy status to penicillin; Z88.2 Allergy status to sulfonamides; Z88.6 Allergy status to analgesic agent; Z88.9 Allergy status to unspecified drugs, medicaments and biological substances; Z79.811 Long term (current) use of aromatase inhibitors; Z79.899 Other long term (current) drug therapy
CPT/HCPCS: 88305; 45380; J2704

== ENCOUNTER → 2023-05-25 | Outpatient (CLI) | payer MEDICARE ==
--- NOTE | 2023-05-30 11:51 | MM ---
Reason for Exam: Screening (asymptomatic). Last mammogram was performed 1 year(s) and 11 month(s) ago. Patient History: Menarche at age 15. Patient has no children. Left ovary removed at age 47. Right ovary removed at age 47. Hysterectomy at age 47. Postmenopausal. 1974, Benign Excisional Biopsy on the right side. 1973, Benign Excisional Biopsy on the right side. Maternal aunt had breast cancer. Risk Values: Osiris 5 year model risk: 2.9%. NCI Lifetime model risk: 8.3%. Prior Study Comparison: 02/27/2019 Bilateral Screening Mammogram, [facility]. 08/14/2019 Left Diagnostic Mammogram, [facility]. 06/20/2021 Bilateral Screening Mammogram, [facility]. Tissue Density: There are scattered fibroglandular densities. Findings: Analyzed By CAD. There is no suspicious group of microcalcifications or new suspicious mass. Overall Assessment: Negative, BI-RAD 1 Management: Screening Mammogram of both breasts in [address] [facility] will attempt to contact patient to return for supplemental views and ultrasound if indicated. Patient should continue monthly self-breast exams. A clinical breast exam by your physician is recommended on an annual basis. This exam should not preclude additional follow-up of suspicious palpable abnormalities. Note on Osiris scores and lifetime risk: 1. A Osiris score greater than 3% is considered moderate risk. If this is the case, consider specialist referral to assess eligibility for a risk reducing agent. 2. If overall lifetime risk for the development of breast cancer is 20% or higher, the patient may qualify for future screening with alternating mammogram and breast MRI. Electronically signed and approved by: Pineda Stuart DO
== END | disposition home or self-care (01) ==
LOC: RADMAMWWP 10:06
PROVIDERS: ATTEND Family Medicine
DX: Z12.31 Encounter for screening mammogram for malignant neoplasm of breast (principal); Z78.0 Asymptomatic menopausal state; Z80.3 Family history of malignant neoplasm of breast
CPT/HCPCS: 77063; 77067

== ENCOUNTER → 2023-11-03 | Outpatient (CLI) | payer MEDICARE | END | disposition home or self-care (01) | LOC: LABWHC1 10:05 | PROVIDERS: ATTEND Internal Medicine Endocrinology, Diabetes & Metabolism | DX: E03.8 Other specified hypothyroidism (principal) | CPT/HCPCS: 36415; 84443 ==

== ENCOUNTER → 2023-11-30 | Outpatient (CLI) | payer MEDICARE ==
--- NOTE | 2023-12-05 14:19 | CT ---
EXAMINATION TYPE: CT brain jing capellan DATE OF EXAM: 11/30/2023 COMPARISON: HISTORY: neck pain/dizzy CT DLP: [address] of the brain was performed. The ventricles, basal cisterns and sulci overlying the cerebral convexities demonstrate enlargement. There is no evidence for intracranial hemorrhage or sulcal effacement. There is decreased attenuatio n about the periventricular white matter and deep white matter of both cerebral hemispheres, compatib le with chronic small vessel ischemia. No mass effects are seen. If symptoms persist consider MRI. Osseous calvarium is intact. IMPRESSION: 1. Age related atrophic and chronic small vessel ischemic change without acute intracranial process seen at this time. CT Cervical Spine: Unenhanced CT of the cervical spine was performed with bone and soft tissue window settings submitted . Coronal and sagittal reconstruction is obtained. There is normal alignment and prevertebral soft tissues. No evidence for acute cervical fracture . Scattered degenerative disc disease and spondylosis. Biapical scarring. IMPRESSION: 1. No evidence for acute fracture or subluxation of the cervical spine.
== END | disposition home or self-care (01) ==
LOC: RADCTMAIN 10:02
PROVIDERS: ATTEND Family Medicine
DX: M47.819 Spondylosis without myelopathy or radiculopathy, site unspecified (principal); R42 Dizziness and giddiness; H53.9 Unspecified visual disturbance; R53.83 Other fatigue; R26.9 Unspecified abnormalities of gait and mobility; I67.82 Cerebral ischemia
CPT/HCPCS: 70450; 72125

== ENCOUNTER → 2023-12-28 | Outpatient (CLI) | payer MEDICARE ==
--- NOTE | 2023-12-28 20:36 | MR ---
EXAMINATION TYPE: MR shoulder RT wo con DATE OF EXAM: 12/28/2023 COMPARISON: 01/27/2023 HISTORY: Right shoulder pain, decreased ROM, hx surgery. TECHNIQUE: Multiplanar, multisequence imaging of the right shoulder is performed without contrast. FINDINGS: There are postsurgical changes of rotator cuff repair with a fixation screw in the anterior lateral h umeral head. There is deformity of the humeral head and severe osteoarthritic change of the glenohume ral joint where there is complete loss of articular cartilage and near obliteration of the joint spac e. There is moderate osteoarthritic change of the AC joint. There is a downsloping acromion laterally resulting in moderate shoulder impingement. There is mild abnormal signal intensity involving the undersurface of the supraspinatus tendon near i ts attachment but a definite tear is not identified. There is no retraction of the musculotendinous j unctions of the supraspinatus or infraspinatus. There is marked subacromial and subdeltoid bursitis. Subscapularis tendon is intact. The biceps tendo n is seen within the bicipital groove but the biceps anchor is not identified suggesting chronic tear of the long head of the biceps tendon. There is soft tissue thickening in the region of the rotator cuff interval suggestive of adhesive capsulitis. IMPRESSION: 1. Marked osteophytic change of the glenohumeral joint and moderate osteophytic change of the AC join t. 2. Mild increased signal intensity along the inferior surface of the supraspinatus but no definite di screte tear of the rotator cuff. 3. Postsurgical changes of rotator cuff repair. 4. Marked subacromial and subdeltoid bursitis. 5. Probable chronic tear of the long head of the biceps tendon is suspected above. 6. Findings consistent with adhesive capsulitis.
== END | disposition home or self-care (01) ==
LOC: RADMRIMAIN 09:30
PROVIDERS: ATTEND Orthopaedic Surgery
DX: M75.01 Adhesive capsulitis of right shoulder (principal); M25.711 Osteophyte, right shoulder; M75.52 Bursitis of left shoulder; Z47.31 Aftercare following explantation of shoulder joint prosthesis

== ENCOUNTER → 2023-12-28 | Outpatient (CLI) | payer MEDICARE ==
--- NOTE | 2023-12-28 11:12 | MR ---
EXAMINATION TYPE: MR brain wo/w con DATE OF EXAM: 12/28/2023 COMPARISON: 05/01/2016 HISTORY: Dizziness, nausea, BLE weakness, tremors. TECHNIQUE: Multiplanar, multisequence images of the brain and brainstem is performed without and with IV contras t, utilizing 9 mL intravenous Gadavist . FINDINGS: Diffusion weighted images demonstrate no evidence of a recent infarct or other diffusion ab normality. [id number] degenerative change. Multifocal areas of abnormal signal in the white matter are non specific but most typical of remote microvascular ischemia. Hyperostosis of the frontal calvarium. Midline structures demonstrate normal morphology. The craniocervical junction appears within normal limits. Post contrast images demonstrate no abnormal enhancement. The dural venous sinuses appear pa tent. No significant changes of sinusitis. Orbits are symmetric. IMPRESSION: 1. No acute intracranial process. 2. Degenerative and remote ischemic white matter microvascular disease.
== END | disposition home or self-care (01) ==
LOC: RADMRIMAIN 09:41
PROVIDERS: ATTEND Family Medicine
DX: G57.93 Unspecified mononeuropathy of bilateral lower limbs (principal); R11.0 Nausea; R25.1 Tremor, unspecified; R26.89 Other abnormalities of gait and mobility; I67.82 Cerebral ischemia
CPT/HCPCS: 70553; A9585

== ENCOUNTER 2024-02-08 16:03 | Emergency (ER) | payer MEDICARE ==
[2024-02-08 16:36] VITALS: RESP 18; TEMP 98
--- NOTE | 2024-02-08 16:41 | ED ---
General Adult HPI - General Chief complaint: Neuro Symptoms/Deficit Stated complaint: neuro symp Time Seen by Provider: 02/08/24 16:41 Source: patient, family Mode of arrival: ambulatory Limitations: no limitations - History of Present Illness Initial comments: 73-year-old female presenting with chief complaint of dizziness. Has been ongoing for few months. States that today she was baking cookies when she started to feel off balance. Having difficulties with memory and headaches 73-year-old female presenting chief complaint of dizziness. Patient states that she has been experiencing dizziness for months. She is currently seeing a neurologist and had an MRI, she was informed that she had some "silent strokes". She has also been having ongoing issues with her memory and word recall for months, as well as headaches. No new falls or head injury. She was feeling off balance today while she was baking cookies. She did not pass out. No chest pain or difficulty breathing. No vision or hearing changes. No numbness or tingling. - Related Data Home Medications Medication Instructions Recorded Confirmed Furosemide [Lasix] 20 mg PO DAILY 12/20/13 02/13/23 Multivitamins, Thera [Multivitamin 1 tab PO DAILY 12/20/13 02/13/23 (formulary)] ALPRAZolam [Xanax] 0.25 mg PO TID PRN 06/02/15 02/13/23 Atorvastatin [Lipitor] 40 mg PO HS 06/02/15 02/13/23 Warfarin Sodium 2 mg PO MOTH 02/23/16 02/13/23 Levothyroxine Sodium [Synthroid] 100 mcg PO DAILY 04/21/19 02/13/23 Cyanocobalamin (Vitamin B-12) 1,000 mcg PO DAILY 04/05/21 02/13/23 [Vitamin B-12] Albuterol Sulfate [Albuterol 1 puff PO BID PRN 12/20/21 02/13/23 Sulfate Hfa] Warfarin Sodium 4 mg PO SUTUWEFRSA 12/20/21 02/13/23 lisinopriL [Prinivil] 5 mg PO HS 12/20/21 02/13/23 Hydrocodone/Acetaminophen 1 tab PO Q6HR PRN 01/17/22 02/13/23 [Hydrocodone/Acetaminophen 5-325] Vitamin D2 (Unknown Dose) 1 tab PO DAILY 01/17/22 02/13/23 Albuterol Nebulized [Ventolin 2.5 mg INHALATION Q4H 01/20/22 02/13/23 Nebulized] Amiodarone [Cordarone] 100 mg PO DAILY 02/09/23 02/13/23 Cholestyramine/Aspartame 4 gm PO BID 02/09/23 02/13/23 [Cholestyramine Light Packet] Dicyclomine [Bentyl] 20 mg PO QID 02/09/23 02/13/23 Ibandronate Sodium [Boniva] 150 mg PO QMONTHLY 02/09/23 02/13/23 Omeprazole 20 mg PO DAILY 02/09/23 02/13/23 rOPINIRole HCL [Requip] 0.5 mg PO DAILY 02/09/23 02/13/23 Previous Rx's Medication Instructions Recorded Metoprolol Tartrate [Lopressor] 25 mg PO BID #180 tab 09/06/16 Allergies Allergy/AdvReac Type Severity Reaction Status Date / Time gabapentin Allergy Rash/Hives Verified 02/08/24 16:36 Penicillins Allergy Rash/Hives Verified 02/08/24 16:36 Sulfa (Sulfonamide Allergy Rash/Hives Verified 02/08/24 16:36 Antibiotics) tretinoin [From Retin-A] Allergy Rash/Hives Verified 02/08/24 16:36 escitalopram [From Lexapro] AdvReac Nausea & Verified 02/08/24 16:36 Vomiting meperidine HCl [From Demerol] AdvReac Nausea & Verified 02/08/24 16:36 Vomiting Review of Systems ROS Statement: Those systems with pertinent positive or pertinent negative responses have been documented in the HPI. ROS Other: All systems not noted in ROS Statement are negative. 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, SOB, History of Any Multi-Drug Resistant Organisms: None Reported Past Surgical History: Appendectomy, Back Surgery, Breast Surgery, Cardiac Ablation, Cardiac Valve Replacement, Heart Catheterization, Hysterectomy, Joint Replacement, Orthopedic Surgery, Tonsillectomy Additional Past Surgical History / Comment(s): 07/2017 bronchoscopy with lavage, cardioversion x 2, cardiac ablation x 3, open mitral valve replacement 2013, back surgery with rods/screws, cervical injections, R wrist ganglion cyst removed, R great toe surgery, L great toe "cleaned up", L knee arthroscopy, L ankle surgery for tendon/ligament and cysts, colonoscopy, R breast cystectomy, left knee replacement. left great toe, rt second toe surgery , devendra cataracts Past Anesthesia/Blood Transfusion Reactions: Postoperative Nausea & Vomiting (PONV) Additional Past Anesthesia/Blood Transfusion Reaction / Comment(s): Patient vomited after previous surgeries but she doesn't know if it was from anesthesia or the pain medication. Past Psychological History: Anxiety Smoking Status: Former smoker - Past Family History Mother Family Medical History: CVA/TIA Father Family Medical History: CVA/TIA Additional Family Medical History / Comment(s): . General Exam - General Exam Comments Initial Comments: Visual Physical Exam Vital signs reviewed General: Well-appearing, nontoxic, no acute distress. Head: Normocephalic, atraumatic Eyes: PERRLA, EOMI ENT: Airway patent Chest: Nonlabored breathing Skin: No visual rash, normal skin tone Neuro: Alert and oriented 3 Musculoskeletal: No gross abnormalities Limitations: no limitations General appearance: alert, in no apparent distress Head exam: Present: atraumatic, normocephalic, normal inspection Eye exam: Present: normal appearance, PERRL, EOMI Pupils: Present: normal accommodation Neck exam: Present: normal inspection. Absent: meningismus Respiratory exam: Present: normal lung sounds bilaterally. Absent: respiratory distress, wheezes, rales, rhonchi, stridor Cardiovascular Exam: Present: regular rate, normal rhythm, normal heart sounds. Absent: systolic murmur, diastolic murmur, rubs, gallop, clicks Neurological exam: Present: alert, oriented X3, CN II-XII intact Expanded Patient oriented to: Present: person, place, time Speech: Present: fluid speech Cranial nerves: EOM's Intact: Normal Cerebellar function: Finger to Nose: Normal, Heel to May: Normal Sensory exam: Upper Extremity Light Touch: Normal, Lower Extremity Light Touch: Normal Motor strength exam: RUE: 5, LUE: 5, RLE: 5, LLE: 5 Eye Response: (4) open spontaneously Motor Response: (6) obeys commands Verbal Response: (5) oriented Michelet Total: 15 Psychiatric exam: Present: normal affect, normal mood Skin exam: Present: warm, dry Course Vital Signs 02/08/24 02/08/24 02/08/24 16:31 18:36 20:00 Temperature 98 F Pulse Rate 91 94 94 Respiratory 18 18 18 Rate Blood Pressure 133/79 127/80 138/80 O2 Sat by Pulse 97 97 98 Oximetry 02/08/24 02/09/24 22:00 00:25 Temperature Pulse Rate 98 86 Respiratory 18 18 Rate Blood Pressure 142/90 132/80 O2 Sat by Pulse 98 97 Oximetry Medical Decision Making - Medical Decision Making I performed the quick note portion of this visit, electronically signed Lesley Barrios PA-C Was pt. sent in by a medical professional or institution ([facility], [facility], urgent care, hospital, or skilled nursing...) When possible be specific @ -No Did you speak to anyone other than the patient for history (EMS, parent, family, police, friend...)? What history was obtained from this source @ -No Did you review nursing and triage notes (agree or disagree)? Why? @ -Reviewed patient's MRI Were old charts reviewed (outside hosp., previous admission, EMS record, old EKG, old radiological studies, urgent care reports/EKG's, skilled nursing records)? Report findings @ -No old charts were reviewed Differential Diagnosis (chest pain, altered mental status, abdominal pain women, abdominal pain men, vaginal bleeding, weakness, fever, dyspnea, syncope, headache, dizziness, GI bleed, back pain, seizure, CVA, palpatations, mental health, musculoskeletal)? @ -MDM Differential Dizziness: Benign paroxysmal positional Vertigo, Menieres disease, otitis media, acoustic neuroma, vertebrobasilar insufficiency, cerebellar stroke, encephalitis, hypovolemic, arrhythmia, coronary artery syndrome, anemia this is not meant to be an all-inclusive list EKG interpreted by me (3pts min.). @ -EKG shows sinus rhythm with first-degree AV block. Ventricular rate 84. OR interval 271. QRS 100. QT 405. QTc 446. X-rays interpreted by me (1pt min.). @ -None done CT interpreted by me (1pt min.). @ -CT shows no acute intracranial CT abnormality. Mild/moderate global brain atrophy, with a bifrontal predominance CTA shows evidence of large vessel occlusion, high-grade stenosis or intracranial aneurysm U/S interpreted by me (1pt. min.). @ -None done What testing was considered but not performed or refused? (CT, X-rays, U/S, labs)? Why? @ -None What meds were considered but not given or refused? Why? @ -None Did you discuss the management of the patient with other professionals (professionals i.e. Dr., PA, [facility], lab, RT, psych nurse, licensed social worker, system safety engineer, teacher, ecological technical officer, gearcase assembler)? Give summary @ -No Was smoking cessation discussed for >3mins.? @ -No Was critical care preformed (if so, how long)? @ -No Were there social determinants of health that impacted care today? How? (Homelessness, low income, unemployed, alcoholism, drug addiction, transportation, low edu. Level, literacy, decrease access to med. care, half-way, rehab)? @ -No Was there de-escalation of care discussed even if they declined (Discuss DNR or withdrawal of care, Hospice)? DNR status @ -No What co-morbidities impacted this encounter? (DM, HTN, Smoking, COPD, CAD, Cancer, CVA, ARF, Chemo, Hep., AIDS, mental health diagnosis, sleep apnea, morbid obesity)? @ -None Was patient admitted / discharged? Hospital course, mention meds given and route, prescriptions, significant lab abnormalities, going to OR and other pertinent info. @ -73-year-old female presenting with chief complaint of dizziness. She has had ongoing issues with dizziness for months and currently follows with neurology. Had a recent MRI, was told that she had "silent strokes". History and physical examination are conducted. CT of the brain shows no acute intracranial process and CTA shows no evidence of aneurysm or high-grade stenosis. Labs are grossly unremarkable. EKG shows sinus rhythm. On reevaluation patient is resting comfortably showing no acute signs of distress. She will follow-up with her neurologist, states that she has a series of tests lined up. Discharged home. Follow-up with PCP. Report back to ER with any new or worsening symptoms. Discussed return parameters and answered all questions. Patient conveyed verbal understanding and agreed to the plan. I discussed this case in detail with my attending Dr. Castillo Undiagnosed new problem with uncertain prognosis? @ -No Drug Therapy requiring intensive monitoring for toxicity (Heparin, Nitro, Insulin, Cardizem)? @ -No Were any procedures done? @ -No Diagnosis/symptom? @ -Lightheadedness Acute, or Chronic, or Acute on Chronic? @ -Acute Uncomplicated (without systemic symptoms) or Complicated (systemic symptoms)? @ -Uncomplicated Side effects of treatment? @ -No Exacerbation, Progression, or Severe Exacerbation? @ -No - Lab Data Result diagrams: 02/08/24 17:57 02/08/24 17:57 Lab Results 02/08/24 02/08/24 02/08/24 Range/Units 17:57 17:57 17:57 WBC 7.4 (3.8-10.6) k/uL RBC 4.30 (3.80-5.40) m/uL Hgb 13.5 (11.4-16.0) gm/dL Hct 39.2 (34.0-46.0) % MCV 91.0 (80.0-100.0) fL MCH 31.5 (25.0-35.0) pg MCHC 34.6 (31.0-37.0) g/dL RDW 13.0 (11.5-15.5) % Plt Count 233 (150-450) k/uL MPV 7.4 Neutrophils % 52 % Lymphocytes % 34 % Monocytes % 8 % Eosinophils % 3 % Basophils % 1 % Neutrophils # 3.8 (1.3-7.7) k/uL Lymphocytes # 2.5 (1.0-4.8) k/uL Monocytes # 0.6 (0-1.0) k/uL Eosinophils # 0.2 (0-0.7) k/uL Basophils # 0.1 (0-0.2) k/uL Sodium 135 L (137-145) mmol/L Potassium 3.5 (3.5-5.1) mmol/L Chloride 101 (98-107) mmol/L Carbon Dioxide 30 (22-30) mmol/L Anion Gap 4 mmol/L BUN 14 (7-17) mg/dL Creatinine 0.65 (0.52-1.04) mg/dL Est GFR (CKD-EPI)AfAm >90 (>60 ml/min/1.73 sqM) Est GFR (CKD-EPI)NonAf 90 (>60 ml/min/1.73 sqM) Glucose 93 (74-99) mg/dL Plasma Lactic Acid Fran 0.8 (0.7-2.0) mmol/L Calcium 9.2 (8.4-10.2) mg/dL Total Bilirubin 0.6 (0.2-1.3) mg/dL AST 33 (14-36) U/L ALT 17 (4-34) U/L Alkaline Phosphatase 84 (38-126) U/L Troponin I (0.000-0.034) ng/mL Total Protein 6.6 (6.3-8.2) g/dL Albumin 3.9 (3.5-5.0) g/dL 02/08/24 Range/Units 17:57 WBC (3.8-10.6) k/uL RBC (3.80-5.40) m/uL Hgb (11.4-16.0) gm/dL Hct (34.0-46.0) % MCV (80.0-100.0) fL MCH (25.0-35.0) pg MCHC (31.0-37.0) g/dL RDW (11.5-15.5) % Plt Count (150-450) k/uL MPV Neutrophils % % Lymphocytes % % Monocytes % % Eosinophils % % Basophils % % Neutrophils # (1.3-7.7) k/uL Lymphocytes # (1.0-4.8) k/uL Monocytes # (0-1.0) k/uL Eosinophils # (0-0.7) k/uL Basophils # (0-0.2) k/uL Sodium (137-145) mmol/L Potassium (3.5-5.1) mmol/L Chloride (98-107) mmol/L Carbon Dioxide (22-30) mmol/L Anion Gap mmol/L BUN (7-17) mg/dL Creatinine (0.52-1.04) mg/dL Est GFR (CKD-EPI)AfAm (>60 ml/min/1.73 sqM) Est GFR (CKD-EPI)NonAf (>60 ml/min/1.73 sqM) Glucose (74-99) mg/dL Plasma Lactic Acid Fran (0.7-2.0) mmol/L Calcium (8.4-10.2) mg/dL Total Bilirubin (0.2-1.3) mg/dL AST (14-36) U/L ALT (4-34) U/L Alkaline Phosphatase (38-126) U/L Troponin I <0.012 (0.000-0.034) ng/mL Total Protein (6.3-8.2) g/dL Albumin (3.5-5.0) g/dL Disposition Clinical Impression: Lightheadedness Disposition: HOME SELF-CARE Condition: Good Instructions (If sedation given, give patient instructions): Lightheadedness (ED) Additional Instructions: Follow-up with your PCP. Report back to ER with any new or worsening symptoms. Is patient prescribed a controlled substance at d/c from ED?: No Referrals: Jesus Carson MD [Primary Care Provider] - 1-2 days Time of Disposition: 22:46
[2024-02-08 18:05] LABS: Basophils # (A) 0.1 k/uL (0-0.2); Basophils % (A) 1 %; Eosinophils # (A) 0.2 k/uL (0-0.7); Eosinophils % (A) 3 %; HCT 39.2 % (34.0-46.0); HGB 13.5 gm/dL (11.4-16.0); Lymphocytes # (A) 2.5 k/uL (1.0-4.8); Lymphocytes % (A) 34 %; MCH 31.5 pg (25.0-35.0); MCHC 34.6 g/dL (31.0-37.0); Mean Platelet Volume 7.4; Monocytes # (A) 0.6 k/uL (0-1.0); Monocytes % (A) 8 %; Neutrophils # (A) 3.8 k/uL (1.3-7.7); Neutrophils % (A) 52 %; Platelet Count 233 k/uL (150-450); WBC 7.4 k/uL (3.8-10.6)
[2024-02-08 18:27] LABS: ALT 17 U/L (4-34); AST 33 U/L (14-36); African American GFR (CKD) >90 (>60 ml/min/1.73 sqM); Albumin 3.9 g/dL (3.5-5.0); Alkaline Phosphatase 84 U/L (38-126); Anion Gap 4 mmol/L; Blood Urea Nitrogen 14 mg/dL (7-17); Calcium 9.2 mg/dL (8.4-10.2); Carbon Dioxide 30 mmol/L (22-30); Chloride 101 mmol/L (98-107); Glucose 93 mg/dL (74-99); Non-African American GFR(CKD) 90 (>60 ml/min/1.73 sqM); Potassium 3.5 mmol/L (3.5-5.1); Sodium 135 mmol/L (137-145); Total Bilirubin 0.6 mg/dL (0.2-1.3); Total Protein 6.6 g/dL (6.3-8.2)
--- NOTE | 2024-02-08 21:11 | CT ---
EXAMINATION TYPE: CT brain wo con CT DLP: 1085 mGycm, Automated exposure control for dose reduction was used. DATE OF EXAM: 02/08/2024 8:55 PM COMPARISON: CT head 03/19/2022, MRI brain 12/28/2023. CLINICAL INDICATION:Female, 73 years old with history of dizziness, Feeling off balanced, headache, t rouble with memory, and speech issues for the last few months. TECHNIQUE: Brain: Axial CT images of the brain were obtained with coronal and sagittal reformats created and rev iewed. Contrast used: None. Oral contrast used: None. FINDINGS: Extra-axial spaces: No abnormal extra-axial fluid collections. Basilar cisterns are patent. Ventricular system: Ventricles appear dilated in proportion to the degree of cerebral atrophy. Cerebral parenchyma: No increased attenuation to suggest acute intraparenchymal hemorrhage. The gra y-white matter interface appears maintained. Mild/moderate generalized brain atrophy with a bifronta l predominance. Scattered hypoattenuating areas are seen within the cerebral white matter, nonspecif ic but most often seen with chronic microvascular ischemic changes; mild in degree. Cerebellum: No acute abnormality. Mass effect: No evidence of mass effect or midline shift. Intracranial vasculature: Atherosclerotic calcifications of the larger arteries near the skull base. Soft tissues: No acute or concerning abnormality. Visualized orbits: Orbital contents appear grossly intact. There has likely been previous lens surg abbe. Calvarium/osseous structures: No evidence of calvarial fracture. Prominent arachnoid granulation note d in the left frontal bone. Mild hyperostosis frontalis interna. Paranasal sinuses and mastoid air cells: Clear. MRI is more sensitive for detecting acute processes such as infarct, and may be considered if clinica lly warranted. IMPRESSION: 1. No acute intracranial CT abnormality. 2. Mild/moderate global brain atrophy, with a bifrontal predominance.
--- NOTE | 2024-02-08 22:31 | CT ---
EXAMINATION TYPE: CT angio head CT DLP: 493.2 mGycm, Automated exposure control for dose reduction was used. DATE OF EXAM: 02/08/2024 9:05 PM COMPARISON: Same day CT head, MRI brain 12/28/2023. CLINICAL INDICATION:Female, 73 years old with history of dizziness; PHH, Feeling off balanced, headac he, trouble with memory, and speech issues for the last few months. TECHNIQUE: Axially acquired helical CT angiogram of the head and neck was obtained with contrast util izing 75 cc of Isovue-370 administered intravenously. Axial images are supplemented with 3D reconstru ctions which were post-processed at an independent workstation. NASCET criteria used. FINDINGS: Vertebral arteries: The vertebral arteries are patent. Vertebral artery dominance: Left Basilar artery: Basilar artery is patent, normal in course and caliber. At the bifurcation, the basil ar essentially continues as the left LIVING COACH which appears patent. On the right, basilar essentially term inates as the superior cerebellar artery. Right LIVING COACH shows a origin from the anterior circulatio n and appears patent as seen. Internal Carotid arteries: The visualized upper cervical, petrous, cavernous and supraclinoid segment s are patent. There are some calcifications along the carotid siphons. MAURI: Hypoplastic right A1 segment, with the more distal portions supplied across the anterior communi cating artery. Left MAURI is patent without evidence of aneurysm. ACOM: Present without evidence of aneurysm. MCA: Appear patent bilaterally without evidence of aneurysm or large vessel occlusion. LIVING COACH: Right LIVING COACH shows a origin from the anterior circulation and appears patent as seen. Left PC A arises from the basilar and appears patent as seen. PCOM: origin right LIVING COACH. No sizable left P-comm demonstrated. Dural sinuses: Appear patent IMPRESSION: No evidence of large vessel occlusion, high-grade stenosis or intracranial aneurysm.
[2024-02-09 00:26] VITALS: BP 132/80; PULSE 86
== END 2024-02-09 00:27 | disposition home or self-care (01) ==
LOC: EC 16:03
CPT/HCPCS: 36415; 70450; 70496; 80053; 83605; 84484; 85025; 93005; 99284

== ENCOUNTER → 2024-06-30 | Outpatient (CLI) | payer MEDICARE | END | disposition home or self-care (01) | LOC: LABPAT 10:36 | PROVIDERS: ATTEND Orthopaedic Surgery | DX: Z01.812 Encounter for preprocedural laboratory examination (principal); M19.011 Primary osteoarthritis, right shoulder; Z22.322 Carrier or suspected carrier of Methicillin resistant Staphylococcus aureus | CPT/HCPCS: 87070 ==

== ENCOUNTER 2024-07-23 20:41 | Inpatient (IN) | payer MEDICARE ==
--- NOTE | 2024-07-23 21:29 | XR ---
EXAMINATION TYPE: XR chest 2V DATE OF EXAM: 07/23/2024 9:16 PM COMPARISON: 03/19/2022 CLINICAL INDICATION: Female, 74 years old with history of difficulty breathing, TECHNIQUE: XR chest 2V view(s) obtained. FINDINGS: The heart size is cardiomegaly. The pulmonary vasculature is somewhat prominent. Mild increased perihilar lung markings are present. Correlate for volume overload IMPRESSION: 1. Clinical correlation recommended for volume overload. 2. Cardiomegaly correlate for CHF. [facility], , 07/23/2024 9:26 PM
[2024-07-23 21:33] LABS: Basophils % (A) 0 %; Eosinophils % (A) 0 %; HCT 39.1 % (34.0-46.0); HGB 12.7 gm/dL (11.4-16.0); Lymphocytes # (A) 2.3 k/uL (1.0-4.8); Lymphocytes % (A) 17 %; MCH 30.1 pg (25.0-35.0); MCHC 32.5 g/dL (31.0-37.0); MCV 92.6 fL (80.0-100.0); Mean Platelet Volume 7.6; Monocytes # (A) 0.9 k/uL (0-1.0); Monocytes % (A) 7 %; Neutrophils % (A) 75 %; Platelet Count 252 k/uL (150-450); RBC 4.22 m/uL (3.80-5.40); RDW 13.9 % (11.5-15.5); WBC 13.4 k/uL (3.8-10.6)
[2024-07-23 21:40] LABS: ALT 21 U/L (4-34); AST 26 U/L (14-36); African American GFR (CKD) >90 (>60 ml/min/1.73 sqM); Albumin 4.2 g/dL (3.5-5.0); Alkaline Phosphatase 84 U/L (38-126); Anion Gap 11 mmol/L; Blood Urea Nitrogen 18 mg/dL (7-17); Calcium 9.1 mg/dL (8.4-10.2); Carbon Dioxide 26 mmol/L (22-30); Chloride 102 mmol/L (98-107); Glucose 141 mg/dL (74-99); Non-African American GFR(CKD) 87 (>60 ml/min/1.73 sqM); Potassium 4.2 mmol/L (3.5-5.1); Sodium 139 mmol/L (137-145); Total Bilirubin 0.6 mg/dL (0.2-1.3); Total Protein 7.2 g/dL (6.3-8.2)
[2024-07-23 21:47] LABS: INR 2.7 (<1.2); NT-Pro-B-Type Natriuretic Pept 5780 pg/mL; Partial Thromboplastin Time 28.2 sec (22.0-30.0); Prothrombin Time 27.1 sec (10.0-12.5)
[2024-07-23 22:10] LABS: Influenza A Not Detected (Not Detectd); Influenza B Not Detected (Not Detectd); RSV Not Detected (Not Detectd)
--- NOTE | 2024-07-23 22:44 | ED ---
SOB HPI - General Chief Complaint: Shortness of Breath Stated Complaint: SOB Time Seen by Provider: 07/23/24 20:45 Source: patient Mode of arrival: EMS Limitations: no limitations - History of Present Illness Initial Comments: 74 year old female with past medical history of tracheobronchialmalacia, heart valve replacement who presents to the emergency department reporting shortness of breath. Patient recently went on a cruise. States that prior to the cruise she was started on a steroid pack as well as an antibiotic. 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 She states that while on the cruise she noted swelling in her lower extremities which is not typical for her. When she got back home she saw her primary care yesterday and was started on another course of steroids and cefdinir today. Reports that this evening she was having significant difficulty breathing. She tried to use her albuterol inhaler but lomax d no improvement. EMS found the patient and gave her a DuoNeb breathing treatment. She denies history of heart failure but does have a history of valve replacement and is on Coumadin. No history of DVT or PE. Admits to productive cough. No fevers. Denies any chest pain. No other alleviating, precipitating or modifying factors - Related Data Home Medications Medication Instructions Recorded Confirmed Furosemide [Lasix] 20 mg PO DAILY 12/20/13 07/24/24 Multivitamins, Thera [Multivitamin 1 tab PO DAILY 12/20/13 07/24/24 (formulary)] ALPRAZolam [Xanax] 0.5 mg PO BID PRN 06/02/15 07/24/24 Atorvastatin [Lipitor] 40 mg PO HS 06/02/15 07/24/24 Cyanocobalamin (Vitamin B-12) 1,000 mcg PO DAILY 04/05/21 07/24/24 [Vitamin B-12] Albuterol Sulfate [Albuterol 2 puff PO RT-QID PRN 12/20/21 07/24/24 Sulfate Hfa] Hydrocodone/Acetaminophen 1 tab PO TID PRN 01/17/22 07/24/24 [Hydrocodone/Acetaminophen 5-325] Cholestyramine/Aspartame 4 gm PO BID PRN 02/09/23 07/24/24 [Cholestyramine Light Packet] Ibandronate Sodium [Boniva] 150 mg PO QMONTHLY 02/09/23 07/24/24 Omeprazole 20 mg PO AC-BRKFST 02/09/23 07/24/24 Amiodarone [Cordarone] 100 mg PO DAILY 07/24/24 07/24/24 Amitriptyline HCl [Elavil] 25 mg PO HS 07/24/24 07/24/24 Budesonide [Pulmicort] 0.5 mg INHALATION RT-BID 07/24/24 07/24/24 Cholecalciferol (Vitamin D3) 75 mcg PO DAILY 07/24/24 07/24/24 [Vitamin D3 (3000 Iu)] Fluticasone Nasal [place] [Flonase 1 spray EA NOSTRIL DAILY PRN 07/24/24 07/24/24 Nasal [place]] L.acidoph,Paracasei, B.lactis 1 cap PO DAILY 07/24/24 07/24/24 [Probiotic] Levothyroxine Sodium [Synthroid] 125 mcg PO DAILY 07/24/24 07/24/24 Lidocaine 5% Patch [Lidoderm 5% 1 patch TOPICAL DAILY PRN 07/24/24 07/24/24 Patch] Loperamide [Imodium] 2 mg PO QID PRN 07/24/24 07/24/24 Montelukast [Singulair] 10 mg PO HS 07/24/24 07/24/24 Pregabalin [Lyrica] 100 mg PO BID 07/24/24 07/24/24 lisinopriL [Zestril] 5 mg PO HS 07/24/24 07/24/24 predniSONE See Taper PO DAILY 07/24/24 07/24/24 Previous Rx's Medication Instructions Recorded Budesonide-Formot 160-4.5 Mcg 2 puff INHALATION RT-BID #1 each 07/25/24 [Symbicort 160-4.5 Mcg Inhaler] Dapagliflozin Propanediol [Farxiga] 10 mg PO DAILY #30 tab 07/25/24 Metoprolol Tartrate [Lopressor] 25 mg PO BID #0 07/25/24 Warfarin [Coumadin] 3 mg PO DAILY #7 tab 07/25/24 Zinc Sulfate [Orazinc] 220 mg PO DAILY #30 cap 07/25/24 Allergies Allergy/AdvReac Type Severity Reaction Status Date / Time gabapentin Allergy Rash/Hives Verified 07/24/24 07:35 Penicillins Allergy Rash/Hives Verified 07/24/24 07:35 Sulfa (Sulfonamide Allergy Rash/Hives Verified 07/24/24 07:35 Antibiotics) tretinoin [From Retin-A] Allergy Rash/Hives Verified 07/24/24 07:35 escitalopram [From Lexapro] AdvReac Nausea & Verified 07/24/24 07:35 Vomiting meperidine HCl [From Demerol] AdvReac Nausea & Verified 07/24/24 07:35 Vomiting Review of Systems ROS Statement: Those systems with pertinent positive or pertinent negative responses have been documented in the HPI. ROS Other: All systems not noted in ROS Statement are negative. Past Medical History Past Medical History: CVA/TIA Additional Past Medical History / Comment(s): chronic back pain, hx mitral valve prolapse with surgery, HAD PNEUMONIA IN SEPTEMBER 2018 DX WITH TRACHEOBRONCHOM ALACIA, SOB, History of Any Multi-Drug Resistant Organisms: None Reported Past Surgical History: Appendectomy, Back Surgery, Breast Surgery, Cardiac A blation, Cardiac Valve Replacement, Heart Catheterization, Hysterectomy, Joint Replacement, Orthopedic Surgery, Tonsillectomy Additional Past Surgical History / Comment(s): 07/2017 bronchoscopy with lavage, cardioversion x 2, cardiac ablation x 3, open mitral valve replacement 2013, back surgery with rods/screws, cervical injections, R wrist ganglion cyst removed, R great toe surgery, L great toe "cleaned up", L knee arthroscopy, L ankle surgery for tendon/ligament and cysts, colonoscopy, R breast cystectomy, left knee replacement. left great toe, rt second toe surgery , devendra cataracts Past Anesthesia/Blood Transfusion Reactions: Postoperative Nausea & Vomiting (PONV) Additional Past Anesthesia/Blood Transfusion Reaction / Comment(s): Patient vomited after previous surgeries but she doesn't know if it was from anesthesia or the pain medication. Past Psychological History: Anxiety Smoking Status: Former smoker Past Alcohol Use History: Daily Past Drug Use History: None Reported - Past Family History Mother Family Medical History: CVA/TIA Father Family Medical History: CVA/TIA Additional Family Medical History / Comment(s): . General Exam Limitations: no limitations General appearance: alert, in no apparent distress Head exam: Present: atraumatic, normocephalic, normal inspection Eye exam: Present: normal appearance, PERRL, EOMI. Absent: scleral icterus, conjunctival injection, periorbital swelling ENT exam: Present: normal exam, mucous membranes moist Respiratory exam: Present: wheezes, rales, decreased breath sounds Cardiovascular Exam: Present: regular rate, normal rhythm, normal heart sounds. Absent: systolic murmur, diastolic murmur, rubs, gallop, clicks GI/Abdominal exam: Present: soft, normal bowel sounds. Absent: distended, tenderness, guarding, rebound, rigid Neurological exam: Present: alert, oriented X3, CN II-XII intact Course Vital Signs 07/23/24 07/23/24 07/23/24 20:42 22:41 23:41 Temperature 97.2 F L 97.7 F Pulse Rate 91 70 67 Respiratory 24 17 19 Rate Blood Pressure 149/89 130/61 137/69 O2 Sat by Pulse 100 95 96 Oximetry 07/24/24 07/24/24 07/24/24 04:17 07:49 09:00 Temperature Pulse Rate 56 L 60 75 Respiratory 17 20 20 Rate Blood Pressure 125/61 125/61 153/76 O2 Sat by Pulse 91 L 96 97 Oximetry 07/24/24 07/24/24 07/24/24 10:00 12:00 14:24 Temperature Pulse Rate 61 62 70 Respiratory 22 22 20 Rate Blood Pressure 122/61 126/61 135/70 O2 Sat by Pulse 94 L 91 L 97 Oximetry 07/24/24 07/24/24 07/24/24 14:56 16:00 17:54 Temperature Pulse Rate 68 60 62 Respiratory 16 16 18 Rate Blood Pressure 135/70 130/68 135/68 O2 Sat by Pulse 96 98 96 Oximetry 07/24/24 07/24/24 20:25 20:33 Temperature 97.8 F Pulse Rate 66 70 Respiratory 18 15 Rate Blood Pressure 129/84 129/84 O2 Sat by Pulse 97 96 Oximetry Medical Decision Making - Medical Decision Making Was pt. sent in by a medical professional or institution (, PA, SECRETARY [employer], urgent care, hospital, or correction...) When possible be specific @ -No Did you speak to anyone other than the patient for history (EMS, parent, family, police, friend...)? What history was obtained from this source @ -With EMS for history Did you review nursing and triage notes (agree or disagree)? Why? @ -I reviewed and agree with nursing and triage notes Were old charts reviewed (outside hosp., previous admission, EMS record, old EKG, old radiological studies, urgent care reports/EKG's, correction records)? Report findings @ -No old charts were reviewed Differential Diagnosis (chest pain, altered mental status, abdominal pain women, abdominal pain men, vaginal bleeding, weakness, fever, dyspnea, syncope, headache, dizziness, GI bleed, back pain, seizure, CVA, palpatations, mental health, musculoskeletal)? @ -Differential Dyspnea: Coronary syndrome, arrhythmia, tamponade, asthma, COPD, pulmonary embolism, pneumonia, pneumothorax, pulmonary effusion, anaphylaxis, diabetic ketoacidosis, flailed chest, pulmonary contusion, diaphragmatic rupture, anemia, neuromuscular, this is not meant to be an all-inclusive list. EKG interpreted by me (3pts min.). @ -Yes and demonstrates sinus rhythm with a rate of 84. TN interval 229. QRS 93. QTc of 417. No acute ST segment elevations or depressions X-rays interpreted by me (1pt min.). @ -Yes which demonstrates no acute process CT interpreted by me (1pt min.). @ -None done U/S interpreted by me (1pt. min.). @ -None done What testing was considered but not performed or refused? (CT, X-rays, U/S, labs)? Why? @ -None What meds were considered but not given or refused? Why? @ -None Did you discuss the management of the patient with other professionals (professionals i.e. , PA, [employer], lab, RT, psych nurse, social media assistant, traffic agent, teacher, forest fire officer, case work aide)? Give summary @ -Spoke with Dr. Luna for admission Was smoking cessation discussed for >3mins.? @ -No Was critical care preformed (if so, how long)? @ -No Were there social determinants of health that impacted care today? How? (Homelessness, low income, unemployed, alcoholism, drug addiction, transporta tion, low edu. Level, literacy, decrease access to med. care, fci, rehab)? @ -No Was there de-escalation of care discussed even if they declined (Discuss DNR or withdrawal of care, Hospice)? DNR status @ -No What co-morbidities impacted this encounter? (DM, HTN, Smoking, COPD, CAD, Cancer, CVA, ARF, Chemo, Hep., AIDS, mental health diagnosis, sleep apnea, morbid obesity)? @ -Tracheobronchomalacia Was patient admitted / discharged? Hospital course, mention meds given and route, prescriptions, significant lab abnormalities, going to OR and other pertinent info. @ -Patient seen and evaluated in bed 5. Thorough history and physical exam was performed. Patient placed on continuous pulse ox and cardiac monitoring. Twelve-lead EKG is performed. Laboratory studies are conducted.. Patient is positive for COVID. Lactic acid 2.5. D-dimer is 0.57. INR is therapeutic at 2.7. Chest x-ray demonstrates possible volume overload. I discussed the case with Dr. Luna who is agreeable to admitting the patient. Patient initiated on steroids. She was given 40 mg of Lasix. Patient will be admitted for pulmonology consultation. She went to the floor in stable condition Undiagnosed new problem with uncertain prognosis? @ -No Drug Therapy requiring intensive monitoring for toxicity (Heparin, Nitro, Insulin, Cardizem)? @ -No Were any procedures done? @ -No Diagnosis/symptom? @ -Acute respiratory insufficiency, acute COVID infection, possible new onset heart failure history of tracheobronchomalacia Acute, or Chronic, or Acute on Chronic? @ -Acute Uncomplicated (without systemic symptoms) or Complicated (systemic symptoms)? @ -complicated Side effects of treatment? @ -No Exacerbation, Progression, or Severe Exacerbation? @ -Yes Poses a threat to life or bodily function? How? (Chest pain, [place], [place], pneumonia, PE, COPD, DKA, ARF, appy, cholecystitis, CVA, Diverticulitis, Homicidal, Suicidal, threat to staff... and all critical care pts) @ -No - Lab Data Result diagrams: 07/24/24 07:05 07/25/24 05:21 Lab Results 07/23/24 07/23/24 07/23/24 Range/Units 21:04 21:04 21:04 WBC 13.4 H (3.8-10.6) k/uL RBC 4.22 (3.80-5.40) m/uL Hgb 12.7 (11.4-16.0) gm/dL Hct 39.1 (34.0-46.0) % MCV 92.6 (80.0-100.0) fL MCH 30.1 (25.0-35.0) pg MCHC 32.5 (31.0-37.0) g/dL RDW 13.9 (11.5-15.5) % Plt Count 252 (150-450) k/uL MPV 7.6 Neutrophils % 75 % Lymphocytes % 17 % Monocytes % 7 % Eosinophils % 0 % Basophils % 0 % Neutrophils # 10.0 H (1.3-7.7) k/uL Lymphocytes # 2.3 (1.0-4.8) k/uL Monocytes # 0.9 (0-1.0) k/uL Eosinophils # 0.0 (0-0.7) k/uL Basophils # 0.0 (0-0.2) k/uL PT 27.1 H (10.0-12.5) sec INR 2.7 H (<1.2) APTT 28.2 (22.0-30.0) sec D-Dimer 0.57 (<0.60) mg/L FEU Sodium 139 (137-145) mmol/L Potassium 4.2 (3.5-5.1) mmol/L Chloride 102 (98-107) mmol/L Carbon Dioxide 26 (22-30) mmol/L Anion Gap 11 mmol/L BUN 18 H (7-17) mg/dL Creatinine 0.69 (0.52-1.04) mg/dL Est GFR (CKD-EPI)AfAm >90 (>60 ml/min/1.73 sqM) Est GFR (CKD-EPI)NonAf 87 (>60 ml/min/1.73 sqM) Glucose 141 H (74-99) mg/dL Lactic Ac Sepsis Rflx Plasma Lactic Acid Fran (0.7-2.0) mmol/L Calcium 9.1 (8.4-10.2) mg/dL Total Bilirubin 0.6 (0.2-1.3) mg/dL AST 26 (14-36) U/L ALT 21 (4-34) U/L Alkaline Phosphatase 84 (38-126) U/L Troponin I (0.000-0.034) ng/mL NT-Pro-B Natriuret Pep 5780 pg/mL Total Protein 7.2 (6.3-8.2) g/dL Albumin 4.2 (3.5-5.0) g/dL Influenza Type A (PCR) (Not Detectd) Influenza Type B (PCR) (Not Detectd) RSV (PCR) (Not Detectd) SARS-CoV-2 (PCR) (Not Detectd) 07/23/24 07/23/24 07/23/24 Range/Units 21:04 21:04 21:07 WBC (3.8-10.6) k/uL RBC (3.80-5.40) m/uL Hgb (11.4-16.0) gm/dL Hct (34.0-46.0) % MCV (80.0-100.0) fL MCH (25.0-35.0) pg MCHC (31.0-37.0) g/dL RDW (11.5-15.5) % Plt Count (150-450) k/uL MPV Neutrophils % % Lymphocytes % % Monocytes % % Eosinophils % % Basophils % % Neutrophils # (1.3-7.7) k/uL Lymphocytes # (1.0-4.8) k/uL Monocytes # (0-1.0) k/uL Eosinophils # (0-0.7) k/uL Basophils # (0-0.2) k/uL PT (10.0-12.5) sec INR (<1.2) APTT (22.0-30.0) sec D-Dimer (<0.60) mg/L FEU Sodium (137-145) mmol/L Potassium (3.5-5.1) mmol/L Chloride (98-107) mmol/L Carbon Dioxide (22-30) mmol/L Anion Gap mmol/L BUN (7-17) mg/dL Creatinine (0.52-1.04) mg/dL Est GFR (CKD-EPI)AfAm (>60 ml/min/1.73 sqM) Est GFR (CKD-EPI)NonAf (>60 ml/min/1.73 sqM) Glucose (74-99) mg/dL Lactic Ac Sepsis Rflx Plasma Lactic Acid Fran 2.5 H* (0.7-2.0) mmol/L Calcium (8.4-10.2) mg/dL Total Bilirubin (0.2-1.3) mg/dL AST (14-36) U/L ALT (4-34) U/L Alkaline Phosphatase (38-126) U/L Troponin I <0.012 (0.000-0.034) ng/mL NT-Pro-B Natriuret Pep pg/mL Total Protein (6.3-8.2) g/dL Albumin (3.5-5.0) g/dL Influenza Type A (PCR) Not Detected (Not Detectd) Influenza Type B (PCR) Not Detected (Not Detectd) RSV (PCR) Not Detected (Not Detectd) SARS-CoV-2 (PCR) Detected A (Not Detectd) 07/23/24 Range/Units 21:43 WBC (3.8-10.6) k/uL RBC (3.80-5.40) m/uL Hgb (11.4-16.0) gm/dL Hct (34.0-46.0) % MCV (80.0-100.0) fL MCH (25.0-35.0) pg MCHC (31.0-37.0) g/dL RDW (11.5-15.5) % Plt Count (150-450) k/uL MPV Neutrophils % % Lymphocytes % % Monocytes % % Eosinophils % % Basophils % % Neutrophils # (1.3-7.7) k/uL Lymphocytes # (1.0-4.8) k/uL Monocytes # (0-1.0) k/uL Eosinophils # (0-0.7) k/uL Basophils # (0-0.2) k/uL PT (10.0-12.5) sec INR (<1.2) APTT (22.0-30.0) sec D-Dimer (<0.60) mg/L FEU Sodium (137-145) mmol/L Potassium (3.5-5.1) mmol/L Chloride (98-107) mmol/L Carbon Dioxide (22-30) mmol/L Anion Gap mmol/L BUN (7-17) mg/dL Creatinine (0.52-1.04) mg/dL Est GFR (CKD-EPI)AfAm (>60 ml/min/1.73 sqM) Est GFR (CKD-EPI)NonAf (>60 ml/min/1.73 sqM) Glucose (74-99) mg/dL Lactic Ac Sepsis Rflx Y Plasma Lactic Acid Fran (0.7-2.0) mmol/L Calcium (8.4-10.2) mg/dL Total Bilirubin (0.2-1.3) mg/dL AST (14-36) U/L ALT (4-34) U/L Alkaline Phosphatase (38-126) U/L Troponin I (0.000-0.034) ng/mL NT-Pro-B Natriuret Pep pg/mL Total Protein (6.3-8.2) g/dL Albumin (3.5-5.0) g/dL Influenza Type A (PCR) (Not Detectd) Influenza Type B (PCR) (Not Detectd) RSV (PCR) (Not Detectd) SARS-CoV-2 (PCR) (Not Detectd) Disposition Clinical Impression: Elevated brain natriuretic peptide (BNP) level, Acute respiratory insufficiency, COVID-19 Disposition: ADMITTED IP TO THIS [facility] Condition: Stable Is patient prescribed a controlled substance at d/c from ED?: No Time of Disposition: 22:59 Decision to Admit Reason: Admit from EC Decision Date: 07/23/24 Decision Time: 22:59
[2024-07-23] MEDS ORDERED: NALOXONE 0.4 MG/ML 1 ML VIAL IV PRN (22:59)
[2024-07-23] MEDS: ATORVASTATIN 40 MG TAB PO SCH (23:32)
[2024-07-23] MEDS: HYDROcodone/APAP 5-325MG 1 EACH TAB PO PRN (23:32)
[2024-07-23] MEDS: methylPREDNISolone SOD SUCCI 125 MG/2 ML VIAL IV STA (23:33)
[2024-07-23] MEDS: FUROSEMIDE 10 MG/ML 4 ML VIAL IV STA (23:33)
[2024-07-23] MEDS: METOPROLOL TARTRATE 25 MG TAB PO SCH (23:33)
[2024-07-23] MEDS: WARFARIN 2 MG TAB PO STA (23:40)
[2024-07-24] MEDS: ALBUTEROL HFA INHALER INHALATION PRN (00:30)
[2024-07-24] MEDS: IPRATROPIUM-ALBUTEROL 3 ML NEB INHALATION SCH (00:55)
--- NOTE | 2024-07-24 02:49 | P.CNPUL ---
History of Present Illness Consult date: 07/24/24 Requesting physician: Marisol López Reason for consult: other (COVID) Chief complaint: Shortness of breath History of present illness: Patient is a 74-year-old female with past medical history significant for atrial fibrillation anticoagulated on Coumadin, mitral valve replacement, obstructive sleep apnea, tracheobronchomalacia, COPD. Does follow in the pulmonary office with Dr. Brito. Presented to emergency department last night with a chief complaint of shortness of breath, nonproductive cough, wheezing, chest tightness. Of note, recently returned from a cruise on Sunday. She visited some islands in [place] and in the [place]. Started to feel unwell last . Was seen by her primary care provider, Dr. Carson, yesterday in the office. Reportedly had tested negative for COVID. She is previously vaccinated for COVID, but not up-to-date this season. She was given steroids and oral antibiotic to be completed on outpatient basis. While at home, developed some respiratory distress. Tried to use her albuterol nebs, without much improvement. EMS was called. Workup in the emergency department including a viral 4 Plex, positive for COVID by PCR. Follow-up chest x-ray showing cardiomegaly with interstitial prominence. No focal infiltrates. NT proBNP e levated at 5780. She does endorse some lower extremity swelling while on the trip, and started taking an extra dose of her Lasix 20 mg x 3 days. Denies any chest pain, heart palpitations, syncopal events. She does have history of atrial fibrillation, and is anticoagulated on Coumadin. Her last INR was 2. No history of DVT or PE. D-dimer was low. CBC: WBC count 13.4, hemoglobin 12.7, hematocrit 39, platelets 252. CMP: Sodium 139, potassium 4.2, chloride 102, serum bicarb 26, BUN 18, creatinine 0.69, glucose 141. Lactic was 2.5 it is down to 2. LFTs not elevated. Troponin less than 0.012. EKG: Normal sinus, rate 84 bpm, no acute ST segment or T wave changes. She is currently being evaluated in the emergency department. On room air oxygen. Nondistressed. Continues to be bronchospastic with diffuse expiratory wheezing. Current most recent vital signs: Temperature 97.7 F, heart rate 67 bpm, blood pressure is 137/69 mmHg, SpO2 96% on room air. i Review of Systems Constitutional: Reports fatigue, Reports poor appetite, Denies chills, Denies fever, Denies night sweats, Denies weight gain, Denies weight loss Ears, nose, mouth and throat: Reports nasal congestion, Denies headache, Denies odynophagia, Denies post-nasal drip, Denies sinus pain, Denies sinus pressure, Denies sore throat Cardiovascular: Reports as per HPI Respiratory: Reports congestion, Reports cough, Reports dyspnea, Reports wheezing, Denies cough with sputum, Denies hemoptysis Gastrointestinal: Denies abdominal pain, Denies change in bowel habits, Denies diarrhea, Denies nausea, Denies vomiting Genitourinary: Denies dysuria Musculoskeletal: Denies limitation of motion Integumentary: Denies rash Neurological: Denies seizures, Denies syncope Psychiatric: Denies anxiety, Denies depression 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, SOB, History of Any Multi-Drug Resistant Organisms: None Reported Past Surgical History: Appendectomy, Back Surgery, Breast Surgery, Cardiac Ablation, Cardiac Valve Replacement, Heart Catheterization, Hysterectomy, Joint Replacement, Orthopedic Surgery, Tonsillectomy Additional Past Surgical History / Comment(s): 07/2017 bronchoscopy with lavage, cardioversion x 2, cardiac ablation x 3, open mitral valve replacement 2013, back surgery with rods/screws, cervical injections, R wrist ganglion cyst removed, R great toe surgery, L great toe "cleaned up", L knee arthroscopy, L ankle surgery for tendon/ligament and cysts, colonoscopy, R breast cystectomy, left knee replacement. left great toe, rt second toe surgery , devendra cataracts Past Anesthesia/Blood Transfusion Reactions: Postoperative Nausea & Vomiting (PONV) Additional Past Anesthesia/Blood Transfusion Reaction / Comment(s): Patient vomited after previous surgeries but she doesn't know if it was from anesthesia or the pain medication. Past Psychological History: Anxiety Smoking Status: Former smoker Past Alcohol Use History: Daily Past Drug Use History: None Reported - Past Family History Mother Family Medical History: CVA/TIA Father Family Medical History: CVA/TIA Additional Family Medical History / Comment(s): . Medications and Allergies Home Medications Medication Instructions Recorded Confirmed Type Furosemide [Lasix] 20 mg PO DAILY 12/20/13 07/24/24 History Multivitamins, Thera [Multivitamin 1 tab PO DAILY 12/20/13 07/24/24 History (formulary)] ALPRAZolam [Xanax] 0.5 mg PO BID PRN 06/02/15 07/24/24 History Atorvastatin [Lipitor] 40 mg PO HS 06/02/15 07/24/24 History Warfarin Sodium 2 mg PO MOTH 02/23/16 07/24/24 History Cyanocobalamin (Vitamin B-12) 1,000 mcg PO DAILY 04/05/21 07/24/24 History [Vitamin B-12] Albuterol Sulfate [Albuterol 2 puff PO RT-QID PRN 12/20/21 07/24/24 History Sulfate Hfa] Warfarin Sodium 4 mg PO SUTUWEFRSA 12/20/21 07/24/24 History Hydrocodone/Acetaminophen 1 tab PO TID PRN 01/17/22 07/24/24 History [Hydrocodone/Acetaminophen 5-325] Cholestyramine/Aspartame 4 gm PO BID PRN 02/09/23 07/24/24 History [Cholestyramine Light Packet] Ibandronate Sodium [Boniva] 150 mg PO QMONTHLY 02/09/23 07/24/24 History Omeprazole 20 mg PO AC-BRKFST 02/09/23 07/24/24 History Amiodarone [Cordarone] 100 mg PO DAILY 07/24/24 07/24/24 History Amitriptyline HCl [Elavil] 25 mg PO HS 07/24/24 07/24/24 History Budesonide [Pulmicort] 0.5 mg INHALATION RT-BID 07/24/24 07/24/24 History Cefdinir 300 mg PO Q12HR 07/24/24 07/24/24 History Cholecalciferol (Vitamin D3) 75 mcg PO DAILY 07/24/24 07/24/24 History [Vitamin D3 (3000 Iu)] Fluticasone Nasal [place] [Flonase 1 spray EA NOSTRIL DAILY PRN 07/24/24 07/24/24 History Nasal [place]] L.acidoph,Paracasei, B.lactis 1 cap PO DAILY 07/24/24 07/24/24 History [Probiotic] Levothyroxine Sodium [Synthroid] 125 mcg PO DAILY 07/24/24 07/24/24 History Lidocaine 5% Patch [Lidoderm] 1 patch TOPICAL DAILY PRN 07/24/24 07/24/24 History Loperamide [Imodium] 2 mg PO QID PRN 07/24/24 07/24/24 History Metoprolol Tartrate [Lopressor] 12.5 mg PO BID 07/24/24 07/24/24 History Montelukast [Singulair] 10 mg PO HS 07/24/24 07/24/24 History Pregabalin [Lyrica] 100 mg PO BID 07/24/24 07/24/24 History lisinopriL [Zestril] 5 mg PO HS 07/24/24 07/24/24 History predniSONE See Taper PO DAILY 07/24/24 07/24/24 History Allergies Allergy/AdvReac Type Severity Reaction Status Date / Time gabapentin Allergy Rash/Hives Verified 07/24/24 07:35 Penicillins Allergy Rash/Hives Verified 07/24/24 07:35 Sulfa (Sulfonamide Allergy Rash/Hives Verified 07/24/24 07:35 Antibiotics) tretinoin [From Retin-A] Allergy Rash/Hives Verified 07/24/24 07:35 escitalopram [From Lexapro] AdvReac Nausea & Verified 07/24/24 07:35 Vomiting meperidine HCl [From Demerol] AdvReac Nausea & Verified 07/24/24 07:35 Vomiting Physical Exam Vitals: Vital Signs Temp Pulse Resp BP Pulse Ox 07/23/24 23:41 67 19 137/69 96 07/23/24 22:41 97.7 F 70 17 130/61 95 07/23/24 20:42 97.2 F L 91 24 149/89 100 Intake and Output 07/23/24 07/23/24 07/24/24 14:59 22:59 06:59 Other: Weight 88.451 kg GENERAL EXAM: Alert, 74-year-old female, nonlabored breathing HEAD: Normocephalic and atraumatic EYES: Normal reaction of pupils, equal size. NOSE: Clear with pink turbinates. THROAT: No erythema or exudates. NECK: No masses, no JVD. CHEST: No chest wall deformity. LUNGS: Equal air entry with diffuse expiratory wheezing, and bibasilar inspiratory crackles. On room air oxygen. No conversational dyspnea or accessory muscle us well-dressed CVS: S1 and S2 normal with no audible murmur, regular rhythm. No extra heart sounds ABDOMEN: No hepatosplenomegaly, active bowel sounds, no guarding or rigidity. SPINE: No scoliosis or deformity SKIN: No rashes CENTRAL NERVOUS SYSTEM: No focal deficits, tone is normal in all 4 extremities. EXTREMITIES: There is no peripheral edema, clubbing, or cyanosis. Peripheral pulses are intact. Results - Laboratory Findings CBC and BMP: 07/24/24 07:05 07/24/24 07:05 PT/INR, D-dimer PT 27.1 sec (10.0-12.5) H 07/23/24 21:04 INR 2.7 (<1.2) H 07/23/24 21:04 D-Dimer 0.57 mg/L FEU (<0.60) 07/23/24 21:04 Abnormal lab findings: Abnormal Labs 07/23/24 07/23/24 07/23/24 21:04 21:04 21:04 WBC 13.4 H Neutrophils # 10.0 H PT 27.1 H INR 2.7 H BUN 18 H Glucose 141 H Plasma Lactic Acid Fran SARS-CoV-2 (PCR) 07/23/24 07/23/24 21:04 21:07 WBC Neutrophils # PT INR BUN Glucose Plasma Lactic Acid Fran 2.5 H* SARS-CoV-2 (PCR) Detected A - Diagnostic Findings Chest x-ray: image reviewed Assessment and Plan Assessment: Acute COVID-19 infection Acute COPD exacerbation Tracheobronchomalacia Suspect acute exacerbation of congestive heart failure with an unknown ejection fraction Acute dyspnea, secondary to a combination of above History of paroxysmal atrial fibrillation, anticoagulated on Coumadin, currently sinus mechanism Hypertension History of hyperlipidemia History of mitral valve prolapse and surgical replacement History of obstructive sleep apnea with home CPAP, 6/15 cm H2O History of hypothyroidism Plan: Patient's medications, labs, chest x-ray reviewed COVID-positive by PCR Currently on room air Continues on combination of bronchodilators and high-dose IV Solu-Medrol Check inflammatory markers Chest x-ray showing cardiomegaly, pulmonary vascular congestion. No focal infiltrates NT proBNP elevated at 5780. Patient received a dose of 40 mg IV Lasix in the ED, continue Lasix 20 mg p.o. daily Transthoracic echocardiogram ordered Continue other cardiac meds including Coumadin. Monitor PT/INR We will continue to follow I have personally seen and examined the patient, performed the documentation and the assessment and plan as written. Number of minutes spent on the visit:20 This is a joint evaluation that was done along with the nurse practitioner. This evaluation was done and 32 minutes. The patient is well-known to me. The patient has been hospitalized for worsening shortness of breath, cough congestion chest tightness and wheezing. She tested positive for COVID-19 infection. Noted the patient received vaccination for COVID-19 x 3 in the past and she has been infected with COVID-19 approximately 2 years ago. This is her second infection. She has COPD and her COPD is also exacerbated. She was treated on outpatient basis with antibiotics and steroids without any improvement. She failed treatment and based on that she came into the hospital. Her symptoms started approximately 6 days ago and the patient has not progressively getting worse. At the same time, the patient has previous history of mitral valve replacement, she has paroxysmal atrial fibrillation current rhythm is sinus and the patient remains on anticoagulation with warfarin. She has obstructive sleep apnea maintained on CPAP therapy. She is feeling short of breath and the patient is currently on a combination of Symbicort, Ventolin HFA 4 times a day [id number] and the patient was also started on IV Solu- Medrol 40 mg every 8 hours. Rest of the home medications were resumed. Warfarin level is to be dosed by pharmacy. Most recent INR level is at 3.5. Will continue to follow. I suggest increasing Solu-Medrol dose to 60 mg every 6 hours. Time with Patient: Greater than 30
[2024-07-24] MEDS: LEVOTHYROXINE 100 MCG TAB PO SCH (06:33)
[2024-07-24 07:39] LABS: Basophils % (A) 0 %; Eosinophils % (A) 0 %; HCT 40.5 % (34.0-46.0); Lymphocytes # (A) 1.2 k/uL (1.0-4.8); Lymphocytes % (A) 13 %; MCH 30.1 pg (25.0-35.0); MCV 93.8 fL (80.0-100.0); Mean Platelet Volume 7.3; Monocytes # (A) 0.2 k/uL (0-1.0); Monocytes % (A) 2 %; Neutrophils # (A) 7.9 k/uL (1.3-7.7); Neutrophils % (A) 84 %; Platelet Count 256 k/uL (150-450); RBC 4.32 m/uL (3.80-5.40); RDW 13.8 % (11.5-15.5); WBC 9.4 k/uL (3.8-10.6)
[2024-07-24] MEDS: FUROSEMIDE 20 MG TAB PO SCH (07:43)
[2024-07-24] MEDS: PANTOPRAZOLE 40 MG TABLET PO SCH (07:43)
[2024-07-24] MEDS: methylPREDNISolone SOD SUCCI 40 MG/ML 1 ML VIAL IV SCH (07:44)
[2024-07-24 07:53] LABS: African American GFR (CKD) >90 (>60 ml/min/1.73 sqM); Anion Gap 8 mmol/L; Blood Urea Nitrogen 19 mg/dL (7-17); Calcium 8.9 mg/dL (8.4-10.2); Carbon Dioxide 31 mmol/L (22-30); Chloride 100 mmol/L (98-107); Glucose 126 mg/dL (74-99); Non-African American GFR(CKD) 89 (>60 ml/min/1.73 sqM); Potassium 4.1 mmol/L (3.5-5.1); Sodium 139 mmol/L (137-145)
[2024-07-24] MEDS: ALBUTEROL HFA INHALER INHALATION SCH (07:58)
[2024-07-24] MEDS: SYMBICORT 160-4.5 MCG INHALER INHALATION SCH (07:59)
[2024-07-24] MEDS: AMIODARONE 100 MG TAB PO SCH (08:25)
--- NOTE | 2024-07-24 09:24 | P.CRDCN ---
History of Present Illness History of present illness: HISTORY OF PRESENT ILLNESS: This is a 74-year-old female with a past medical history significant for mitral valve replacement, paroxysmal atrial fibrillation, atrial fibrillation ablation, CHF, hypertension, and hyperlipidemia. Patient follows with Dr. Baxter. We have been asked to see the patient in consultation for CHF. Patient examined at the bedside in the emergency room. Patient states that last week she was on a cruise. She states on she began to feel unwell. She reports having shortness of breath and a cough. She also reports increased lower extremity edema while on her cruise. She states that she saw her primary care physician, Dr. Carson, yesterday in the office and was tested for COVID but it was reportedly negative. She continued to have worsening shortness of breath so she presented to the hospital for further evaluation. The patient was found to be positive for COVID. She currently denies any chest pain or pressure. Bedside telemetry reveals sinus mechanism. Blood pressure 125/61. DIAGNOSTICS: - EKG reveals sinus mechanism with no signs of acute ischemia. - Chest xray clinical correlation recommended for volume overload. Cardiomegaly correlate for CHF. - Laboratory data: WBC 9.4. Hemoglobin 13.0. Platelet count 256. INR 2.7. D- dimer 0.57. Sodium 139. Potassium 4.1. BUN 19. Creatinine 0.65. Lactic acid 2.5. Troponin negative x 1. proBNP 5780. - Current home cardiac medications include grams daily, amiodarone 100 mg daily, lisinopril 5 mg at night, metoprolol tartrate 12.5 mg twice a day, atorvastatin 40 mg at night, warfarin 4 mg on Sunday and Sunday and 2 mg on Sunday and . - Most recent echocardiogram obtained in 2016 revealed ejection fraction 50 to 55%, mild concentric LVH, small pericardial effusion, mild TR, mitral ring annuloplasty is in place. REVIEW OF SYSTEMS: At the time of my exam: CONSTITUTIONAL: Denies fever or chills. HEENT: Denies blurred vision, vision changes, or eye pain. Denies hemoptysis CARDIOVASCULAR: Denies chest pain. Denies orthopnea. Denies PND. Denies palpitations RESPIRATORY: Reports shortness of breath. Reports cough. GASTROINTESTINAL: Denies abdominal pain. Denies nausea or vomiting. HEMATOLOGIC: Denies bleeding disorders. GENITOURINARY: Denies any blood in urine. SKIN: Denies pruitis. Denies rash. PHYSICAL EXAM: VITAL SIGNS: Reviewed. GENERAL: Well-developed in no acute distress. HEENT: Head is normocephalic. Pupils are equal, round. Sclerae anicteric. Mucous membranes of the mouth are moist. Neck supple. No JVD or thyromegaly LUNGS: Respirations even and unlabored. Lungs with expiratory wheezing and rhonchi noted. HEART: Regular rate and rhythm. S1 and S2 heard. ABDOMEN: Soft. Nondistended. Nontender. EXTREMITIES: Normal range of motion. No clubbing or cyanosis. Peripheral pulses intact. No lower extremity edema NEUROLOGIC: Awake and alert. Oriented x 3. ASSESSMENT: Shortness of breath Acute COVID-19 Acute on chronic heart failure with preserved EF, currently euvolemic Acute COPD exacerbation History of tracheobronchomalacia Paroxysmal atrial fibrillation History of A-fib ablation, approximately 2 years ago in [place] History of mitral valve replacement Hypertension Hyperlipidemia Obesity: BMI 33.5 History of bronchoscopy with BAL x 3 per patient PLAN: Obtain 2D echo to assess cardiac structure and function Continue anticoagulation with Coumadin. Continue to monitor INR. Continue with oral diuretics. Add Farxiga 10 mg daily Continue additional cardiac medications Continue telemetry monitoring Further recommendations pending patient course Patient may follow-up postdischarge with her primary writing manager, Dr. Baxter Nurse practitioner note has been reviewed by physician. Signing provider agrees with the documented findings, assessment, and plan of care documented by SHEAR GRINDER OPERATOR as a scribe. 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, SOB, History of Any Multi-Drug Resistant Organisms: None Reported Past Surgical History: Appendectomy, Back Surgery, Breast Surgery, Cardiac Ablation, Cardiac Valve Replacement, Heart Catheterization, Hysterectomy, Joint Replacement, Orthopedic Surgery, Tonsillectomy Additional Past Surgical History / Comment(s): 07/2017 bronchoscopy with lavage, cardioversion x 2, cardiac ablation x 3, open mitral valve replacement 2013, back surgery with rods/screws, cervical injections, R wrist ganglion cyst removed, R great toe surgery, L great toe "cleaned up", L knee arthroscopy, L ankle surgery for tendon/ligament and cysts, colonoscopy, R breast cystectomy, left knee replacement. left great toe, rt second toe surgery , devendra cataracts Past Anesthesia/Blood Transfusion Reactions: Postoperative Nausea & Vomiting (PONV) Additional Past Anesthesia/Blood Transfusion Reaction / Comment(s): Patient v omited after previous surgeries but she doesn't know if it was from anesthesia or the pain medication. Past Psychological History: Anxiety Smoking Status: Former smoker Past Alcohol Use History: Daily Past Drug Use History: None Reported - Past Family History Mother Family Medical History: CVA/TIA Father Family Medical History: CVA/TIA Additional Family Medical History / Comment(s): . Medications and Allergies Home Medications Medication Instructions Recorded Confirmed Type Furosemide [Lasix] 20 mg PO DAILY 12/20/13 07/24/24 History Multivitamins, Thera [Multivitamin 1 tab PO DAILY 12/20/13 07/24/24 History (formulary)] ALPRAZolam [Xanax] 0.5 mg PO BID PRN 06/02/15 07/24/24 History Atorvastatin [Lipitor] 40 mg PO HS 06/02/15 07/24/24 History Warfarin Sodium 2 mg PO MOTH 02/23/16 07/24/24 History Cyanocobalamin (Vitamin B-12) 1,000 mcg PO DAILY 04/05/21 07/24/24 History [Vitamin B-12] Albuterol Sulfate [Albuterol 2 puff PO RT-QID PRN 12/20/21 07/24/24 History Sulfate Hfa] Warfarin Sodium 4 mg PO SUTUWEFRSA 12/20/21 07/24/24 History Hydrocodone/Acetaminophen 1 tab PO TID PRN 01/17/22 07/24/24 History [Hydrocodone/Acetaminophen 5-325] Cholestyramine/Aspartame 4 gm PO BID PRN 02/09/23 07/24/24 History [Cholestyramine Light Packet] Ibandronate Sodium [Boniva] 150 mg PO QMONTHLY 02/09/23 07/24/24 History Omeprazole 20 mg PO AC-BRKFST 02/09/23 07/24/24 History Amiodarone [Cordarone] 100 mg PO DAILY 07/24/24 07/24/24 History Amitriptyline HCl [Elavil] 25 mg PO HS 07/24/24 07/24/24 History Budesonide [Pulmicort] 0.5 mg INHALATION RT-BID 07/24/24 07/24/24 History Cefdinir 300 mg PO Q12HR 07/24/24 07/24/24 History Cholecalciferol (Vitamin D3) 75 mcg PO DAILY 07/24/24 07/24/24 History [Vitamin D3 (3000 Iu)] Fluticasone Nasal [place] [Flonase 1 spray EA NOSTRIL DAILY PRN 07/24/24 07/24/24 History Nasal [place]] L.acidoph,Paracasei, B.lactis 1 cap PO DAILY 07/24/24 07/24/24 History [Probiotic] Levothyroxine Sodium [Synthroid] 125 mcg PO DAILY 07/24/24 07/24/24 History Lidocaine 5% Patch [Lidoderm] 1 patch TOPICAL DAILY PRN 07/24/24 07/24/24 History Loperamide [Imodium] 2 mg PO QID PRN 07/24/24 07/24/24 History Metoprolol Tartrate [Lopressor] 12.5 mg PO BID 07/24/24 07/24/24 History Montelukast [Singulair] 10 mg PO HS 07/24/24 07/24/24 History Pregabalin [Lyrica] 100 mg PO BID 07/24/24 07/24/24 History lisinopriL [Zestril] 5 mg PO HS 07/24/24 07/24/24 History predniSONE See Taper PO DAILY 07/24/24 07/24/24 History Allergies Allergy/AdvReac Type Severity Reaction Status Date / Time gabapentin Allergy Rash/Hives Verified 07/24/24 07:35 Penicillins Allergy Rash/Hives Verified 07/24/24 07:35 Sulfa (Sulfonamide Allergy Rash/Hives Verified 07/24/24 07:35 Antibiotics) tretinoin [From Retin-A] Allergy Rash/Hives Verified 07/24/24 07:35 escitalopram [From Lexapro] AdvReac Nausea & Verified 07/24/24 07:35 Vomiting meperidine HCl [From Demerol] AdvReac Nausea & Verified 07/24/24 07:35 Vomiting Physical Exam Vitals: Vital Signs Temp Pulse Resp BP Pulse Ox 07/24/24 07:49 60 20 125/61 96 07/24/24 04:17 56 L 17 125/61 91 L 07/23/24 23:41 67 19 137/69 96 07/23/24 22:41 97.7 F 70 17 130/61 95 07/23/24 20:42 97.2 F L 91 24 149/89 100 Intake and Output 07/23/24 07/24/24 07/24/24 22:59 06:59 14:59 Other: Weight 88.451 kg Results 07/24/24 07:05 07/24/24 07:05 Cardiac Enzymes 07/23/24 07/23/24 Range/Units 21:04 21:04 AST 26 (14-36) U/L Troponin I <0.012 (0.000-0.034) ng/mL Coagulation 07/23/24 Range/Units 21:04 PT 27.1 H (10.0-12.5) sec APTT 28.2 (22.0-30.0) sec CBC 07/23/24 07/24/24 Range/Units 21:04 07:05 WBC 13.4 H 9.4 (3.8-10.6) k/uL RBC 4.22 4.32 (3.80-5.40) m/uL Hgb 12.7 13.0 (11.4-16.0) gm/dL Hct 39.1 40.5 (34.0-46.0) % Plt Count 252 256 (150-450) k/uL Comprehensive Metabolic Panel 07/23/24 Range/Units 21:04 Sodium 139 (137-145) mmol/L Potassium 4.2 (3.5-5.1) mmol/L Chloride 102 (98-107) mmol/L Carbon Dioxide 26 (22-30) mmol/L BUN 18 H (7-17) mg/dL Creatinine 0.69 (0.52-1.04) mg/dL Glucose 141 H (74-99) mg/dL Calcium 9.1 (8.4-10.2) mg/dL AST 26 (14-36) U/L ALT 21 (4-34) U/L Alkaline Phosphatase 84 (38-126) U/L Total Protein 7.2 (6.3-8.2) g/dL Albumin 4.2 (3.5-5.0) g/dL Current Medications Generic Name Dose Route Start Last Admin Trade Name Freq PRN Reason Stop Dose Admin Hydrocodone Bitart/Acetaminophen 1 each 07/23/24 23:03 07/24/24 07:52 Hydrocodone/Apap 5-325mg 1 Each Tab PO 1 each Q6HR PRN Administration Pain Albuterol Sulfate 2 puff 07/24/24 08:00 07/24/24 07:58 Albuterol Hfa Inhaler INHALATION 2 puff RT-QID DORIS Administration Albuterol Sulfate 2 puff 07/24/24 00:13 07/24/24 00:30 Albuterol Hfa Inhaler INHALATION 2 puff RT-Q4H PRN Administration Shortness Of Breath Or Wheezing Alprazolam 0.25 mg 07/23/24 23:03 Alprazolam 0.25 Mg Tab PO TID PRN Anxiety Amiodarone HCl 100 mg 07/24/24 09:00 Amiodarone 100 Mg Tab PO DAILY DORIS Atorvastatin Calcium 40 mg 07/23/24 23:15 07/23/24 23:32 Atorvastatin 40 Mg Tab PO 40 mg HS DORIS Administration Budesonide/Formoterol Fumarate 2 puff 07/24/24 08:00 07/24/24 07:59 Symbicort 160-4.5 Mcg Inhaler INHALATION 2 puff RT-BID DORIS Administration Furosemide 20 mg 07/24/24 09:00 07/24/24 07:43 Furosemide 20 Mg Tab PO 20 mg DAILY DORSI Administration Levothyroxine Sodium 100 mcg 07/24/24 06:00 07/24/24 06:33 Levothyroxine 100 Mcg Tab PO 100 mcg DAILY@0600 DORIS Administration Lisinopril 5 mg 07/24/24 21:00 Lisinopril 5 Mg Tab PO HS DORIS Methylprednisolone Sodium Succinate 40 mg 07/24/24 08:00 07/24/24 07:44 Methylprednisolone Sod Succi 40 Mg/Ml 1 Ml Vial IV 40 mg Q8HR DORIS Administration Metoprolol Tartrate 25 mg 07/23/24 23:15 07/24/24 07:44 Metoprolol Tartrate 25 Mg Tab PO 25 mg BID DORIS Administration Naloxone HCl 0.2 mg 07/23/24 22:59 Naloxone 0.4 Mg/Ml 1 Ml Vial IV Q2M PRN Opioid Reversal Pantoprazole Sodium 40 mg 07/24/24 07:30 07/24/24 07:43 Pantoprazole 40 Mg Tablet PO 40 mg DAILY@0730 [facility] Administration Warfarin Sodium 4 mg 07/25/24 18:00 Warfarin 2 Mg Tab PO SUTUWEFRSA [facility] Warfarin Sodium 2 mg 07/24/24 18:00 Warfarin 2 Mg Tab PO MOTH [facility] Intake and Output 07/23/24 07/24/24 07/24/24 22:59 06:59 14:59 Other: Weight 88.451 kg 07/24/24 07:05 07/23/24 21:04
[2024-07-24 09:37] LABS: C Reactive Protein 0.7 mg/dL (<1.0)
[2024-07-24] MEDS: DAPAGLIFLOZIN PROPANEDIOL 10 MG TABLET PO SCH (09:50)
[2024-07-24 10:18] LABS: INR 3.5 (<1.2); Prothrombin Time 34.6 sec (10.0-12.5)
[2024-07-24] MEDS ORDERED: CHOLESTYRAMINE (WITH SUGAR) 4 GM PACKET PO PRN (12:10)
[2024-07-24] MEDS ORDERED: DEXTROSE 50% SYRINGE 50 ML IVP PRN ×2 (12:13)
--- NOTE | 2024-07-24 12:16 | P.HPIM ---
History of Present Illness H&P Date: 07/24/24 Chief Complaint: Shortness of breath This is a 74-year-old female with past medical history significant for atrial fibrillation, anticoagulated on Coumadin, ablation, mitral valve replacement, hypertension, hyperlipidemia, morbid obesity, obstructive sleep apnea, COPD, tracheobronchomalacia, hypothyroidism, and multiple medical issues recently returning from a [place] cruise this past Sunday, presented to the ER with progressive shortness of breath,cough and lower extremity edema. Reports while on her cruise she took additional oral Lasix for few days.yesterday followed up with her PCP, tested negative in the office for COVID, received prescriptions for steroids and antibiotics. Shortness of breath continued to progress .Attempted nebulizer treatments with minimal improvement. On admission viral studies positive for COVID. O2 sat on admission 100% on 2 L nasal cannula, currently low 90s on room air. denies chest pain, palpitations. Afebrile, WBC 13.4, recent normalized to 9.4. Hemoglobin 13, platelets 256, INR 2.7, repeat pending. Electrolytes within normal limits, bicarb 31, BUN 19, creatinine 0.65 glucose 141, 126. Lactic acid 2.5, resolved with IV fluid hydration, decreased to 2. K CRP within normal limits, 0.7. proBNP 5780. Received IV push Lasix in the ER. EKG reported sinus rhythm Chest x-ray reported cardiomegaly, prominent pulmonary vasculature, mildly increased perihilar lung markings, correlate for volume overload. Review of Systems ROS Statement: Those systems with pertinent positive or pertinent negative responses have been documented in the HPI. ROS Other: All systems not noted in ROS Statement are negative. 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, SOB, History of Any Multi-Drug Resistant Organisms: None Reported Past Surgical History: Appendectomy, Back Surgery, Breast Surgery, Cardiac Ablation, Cardiac Valve Replacement, Heart Catheterization, Hysterectomy, Joint Replacement, Orthopedic Surgery, Tonsillectomy Additional Past Surgical History / Comment(s): 07/2017 bronchoscopy with lavage, cardioversion x 2, cardiac ablation x 3, open mitral valve replacement 2013, back surgery with rods/screws, cervical injections, R wrist ganglion cyst removed, R great toe surgery, L great toe "cleaned up", L knee arthroscopy, L ankle surgery for tendon/ligament and cysts, colonoscopy, R breast cystectomy, left knee replacement. left great toe, rt second toe surgery , devendra cataracts Past Anesthesia/Blood Transfusion Reactions: Postoperative Nausea & Vomiting (PONV) Additional Past Anesthesia/Blood Transfusion Reaction / Comment(s): Patient vomited after previous surgeries but she doesn't know if it was from anesthesia or the pain medication. Past Psychological History: Anxiety Smoking Status: Former smoker Past Alcohol Use History: Daily Past Drug Use History: None Reported - Past Family History Mother Family Medical History: CVA/TIA Father Family Medical History: CVA/TIA Additional Family Medical History / Comment(s): . Medications and Allergies Home Medications Medication Instructions Recorded Confirmed Type Furosemide [Lasix] 20 mg PO DAILY 12/20/13 07/24/24 History Multivitamins, Thera [Multivitamin 1 tab PO DAILY 12/20/13 07/24/24 History (formulary)] ALPRAZolam [Xanax] 0.5 mg PO BID PRN 06/02/15 07/24/24 History Atorvastatin [Lipitor] 40 mg PO HS 06/02/15 07/24/24 History Warfarin Sodium 2 mg PO MOTH 02/23/16 07/24/24 History Cyanocobalamin (Vitamin B-12) 1,000 mcg PO DAILY 04/05/21 07/24/24 History [Vitamin B-12] Albuterol Sulfate [Albuterol 2 puff PO RT-QID PRN 12/20/21 07/24/24 History Sulfate Hfa] Warfarin Sodium 4 mg PO SUTUWEFRSA 12/20/21 07/24/24 History Hydrocodone/Acetaminophen 1 tab PO TID PRN 01/17/22 07/24/24 History [Hydrocodone/Acetaminophen 5-325] Cholestyramine/Aspartame 4 gm PO BID PRN 02/09/23 07/24/24 History [Cholestyramine Light Packet] Ibandronate Sodium [Boniva] 150 mg PO QMONTHLY 02/09/23 07/24/24 History Omeprazole 20 mg PO AC-BRKFST 02/09/23 07/24/24 History Amiodarone [Cordarone] 100 mg PO DAILY 07/24/24 07/24/24 History Amitriptyline HCl [Elavil] 25 mg PO HS 07/24/24 07/24/24 History Budesonide [Pulmicort] 0.5 mg INHALATION RT-BID 07/24/24 07/24/24 History Cefdinir 300 mg PO Q12HR 07/24/24 07/24/24 History Cholecalciferol (Vitamin D3) 75 mcg PO DAILY 07/24/24 07/24/24 History [Vitamin D3 (3000 Iu)] Fluticasone Nasal [place] [Flonase 1 spray EA NOSTRIL DAILY PRN 07/24/24 07/24/24 History Nasal [place]] L.acidoph,Paracasei, B.lactis 1 cap PO DAILY 07/24/24 07/24/24 History [Probiotic] Levothyroxine Sodium [Synthroid] 125 mcg PO DAILY 07/24/24 07/24/24 History Lidocaine 5% Patch [Lidoderm] 1 patch TOPICAL DAILY PRN 07/24/24 07/24/24 History Loperamide [Imodium] 2 mg PO QID PRN 07/24/24 07/24/24 History Metoprolol Tartrate [Lopressor] 12.5 mg PO BID 07/24/24 07/24/24 History Montelukast [Singulair] 10 mg PO HS 07/24/24 07/24/24 History Pregabalin [Lyrica] 100 mg PO BID 07/24/24 07/24/24 History lisinopriL [Zestril] 5 mg PO HS 07/24/24 07/24/24 History predniSONE See Taper PO DAILY 07/24/24 07/24/24 History Allergies Allergy/AdvReac Type Severity Reaction Status Date / Time gabapentin Allergy Rash/Hives Verified 07/24/24 07:35 Penicillins Allergy Rash/Hives Verified 07/24/24 07:35 Sulfa (Sulfonamide Allergy Rash/Hives Verified 07/24/24 07:35 Antibiotics) tretinoin [From Retin-A] Allergy Rash/Hives Verified 07/24/24 07:35 escitalopram [From Lexapro] AdvReac Nausea & Verified 07/24/24 07:35 Vomiting meperidine HCl [From Demerol] AdvReac Nausea & Verified 07/24/24 07:35 Vomiting Physical Exam Vitals: Vital Signs Temp Pulse Resp BP Pulse Ox 07/24/24 10:00 61 22 122/61 94 L 07/24/24 09:00 75 20 153/76 97 07/24/24 07:49 60 20 125/61 96 07/24/24 04:17 56 L 17 125/61 91 L 07/23/24 23:41 67 19 137/69 96 07/23/24 22:41 97.7 F 70 17 130/61 95 07/23/24 20:42 97.2 F L 91 24 149/89 100 Intake and Output 07/23/24 07/24/24 07/24/24 22:59 06:59 14:59 Other: Weight 88.451 kg GENERAL: well-nourished, alert and oriented x 3, sitting up on stretcher, no acute distress HEENT: Atraumatic, normocephalic. Pupils equal, sclera anicteric conjunctivae normal,mmm. NECK: supple, no JVD,no lymphadenopathy no thyromegaly. LUNGS: Unlabored, equal air entry,scattered rhonchi throughout with expiratory wheezing and fine bibasilar crackles HEART: S1-S2. Regular rate and rhythm without murmurs, rubs or gallops. ABDOMEN: Soft, nontender, normoactive bowel sounds. No guarding, no rebound. No masses appreciated. EXTREMITIES: Normal range of motion, no pitting or lower extremity edema. No clubbing or cyanosis. NEUROLOGICAL: Cranial nerves II through XII grossly intact. No focal deficits. SKIN: Warm, Dry,no rashes noted. Results CBC & Chem 7: 07/24/24 07:05 07/24/24 07:05 Labs: Abnormal Lab Results - Last 24 Hours (Table) 07/23/24 07/23/24 07/23/24 Range/Units 21:04 21:04 21:04 WBC 13.4 H (3.8-10.6) k/uL Neutrophils # 10.0 H (1.3-7.7) k/uL PT 27.1 H (10.0-12.5) sec INR 2.7 H (<1.2) Carbon Dioxide (22-30) mmol/L BUN 18 H (7-17) mg/dL Glucose 141 H (74-99) mg/dL Plasma Lactic Acid Fran (0.7-2.0) mmol/L SARS-CoV-2 (PCR) (Not Detectd) 07/23/24 07/23/24 07/24/24 Range/Units 21:04 21:07 07:05 WBC (3.8-10.6) k/uL Neutrophils # 7.9 H (1.3-7.7) k/uL PT (10.0-12.5) sec INR (<1.2) Carbon Dioxide (22-30) mmol/L BUN (7-17) mg/dL Glucose (74-99) mg/dL Plasma Lactic Acid Fran 2.5 H* (0.7-2.0) mmol/L SARS-CoV-2 (PCR) Detected A (Not Detectd) 07/24/24 07/24/24 Range/Units 07:05 10:03 WBC (3.8-10.6) k/uL Neutrophils # (1.3-7.7) k/uL PT 34.6 H (10.0-12.5) sec INR 3.5 H (<1.2) Carbon Dioxide 31 H (22-30) mmol/L BUN 19 H (7-17) mg/dL Glucose 126 H (74-99) mg/dL Plasma Lactic Acid Fran (0.7-2.0) mmol/L SARS-CoV-2 (PCR) (Not Detectd) Assessment and Plan Assessment: Acute COVID-19 infection Acute on chronic CHF with preserved EF Acute COPD exacerbation Acute hypoxic respiratory failure secondary to all the above Chronic tracheobronchomalacia Paroxysmal atrial fibrillation, anticoagulated on Coumadin History of ablation History of mitral valve replacement Hypertension Hyperlipidemia Hypothyroidism Obstructive sleep apnea, CPAP at home Morbid obesity, BMI 34 Plan: Continue on current medication regimen ,monitoring and symptomatic treatment. Coumadin per pharmacy dosing. Aggressive pulmonary toileting with nebulized bronchodilators, Pulmicort, IV steroids, oral diuretics. Pulmonary an d cardiology recommendations noted. Echo pending. The impression and plan of care has been dictated as directed. : I performed a history and examination of this patient, discussed the same with the dictator. I agree with the dictator's note ,documented as a scribe. Any additional findings or plans will be noted.
[2024-07-24 12:37] LABS: Glucose,Whole Blood 122 mg/dL (70-110)
[2024-07-24] MEDS: LACTOBACILLUS ACIDOPHILUS/PECT 1 EACH CAPSULE PO SCH (12:39)
[2024-07-24] MEDS: PREGABALIN 100 MG CAP PO SCH (12:39)
[2024-07-24] MEDS: INSULIN ASPART (NovoLOG) 100 UNIT/ML VIAL SQ SCH (12:49)
--- NOTE | 2024-07-24 13:06 | CA ---
Transthoracic Echo Report Name: Jocelyn Hahn Age: 74 Gender: F : 1950 Exam Date: 07/24/2024 10:45 Exam Location: [facility] Ht (in): 64 Wt (lb): 195 Ordering Physician: Marisol López DO Attending/Referring Phys: [id number], [place] Epidemiologist Yudelka Garcia RD Procedure CPT: Indications: pulmonary edema Cardiac Hx: MV replaced Technical Quality: Good Contrast 1: Total Dose (mL): Contrast 2: Total Dose (mL): MEASUREMENTS (Male / Female) Normal Values 2D ECHO LV Diastolic Diameter PLAX 5.2 cm 4.2 - 5.9 / 3.9 - 5.3 cm LV Systolic Diameter PLAX 3.5 cm IVS Diastolic Thickness 1.0 cm 0.6 - 1.0 / 0.6 - 0.9 cm LVPW Diastolic Thickness 1.1 cm 0.6 - 1.0 / 0.6 - 0.9 cm LV Relative Wall Thickness 0.4 RV Internal Dim ED PLAX 3.8 cm LVOT Diameter 1.8 cm LA Systolic Diameter LX 5.4 cm 3.0 - 4.0 / 2.7 - 3.8 cm LV Diastolic Volume MOD 4C 97.8 cm??? LV Systolic Volume MOD 4C 38.5 cm??? LV Ejection Fraction MOD 4C 60.7 % LV Cardiac Index MOD 4C 1780.0 cm???/min???m??? LV Diastolic Length 4C 7.3 cm LV Systolic Length 4C 6.1 cm LV Diastolic Volume MOD 2C 82.3 cm??? LV Systolic Volume MOD 2C 46.6 cm??? LV Ejection Fraction MOD 2C 43.4 % LV Cardiac Index MOD 2C 1071.4 cm???/min???m??? LV Diastolic Length 2C 6.9 cm LV Systolic Length 2C 6.3 cm LA Volume 121.0 cm??? 18 - 58 / 22 - 52 cm??? LA Volume Index 59.5 cm???/m??? 16 - 28 cm???/m??? M-MODE Aortic Root Diameter MM 3.5 cm DOPPLER AV Peak Velocity 119.1 cm/s AV Peak Gradient 5.7 mmHg AV Mean Velocity 69.7 cm/s AV Mean Gradient 2.4 mmHg AV Velocity Time Integral 27.0 cm MV Peak Velocity 234.6 cm/s MV Peak Gradient 22.0 mmHg MV Mean Velocity 119.2 cm/s MV Mean Gradient 7.4 mmHg MV Velocity Time Integral 61.9 cm TR Peak Velocity 289.3 cm/s TR Peak Gradient 33.5 mmHg Right Ventricular Systolic Press 37.9 mmHg FINDINGS Left Ventricle Left ventricular ejection fraction is estimated at 55-60 %. Left ventricular cavity size normal. Mildly increased posterior wall thickness. No obvious regional wall motion abnormalities. Right Ventricle Moderate right ventricular dilatation. Moderate pulmonary hypertension. Right Atrium Normal right atrial size. No right atrial thrombus or mass seen. Left Atrium Severely increased left atrial diameter. Severely increased left atrial volume. Moderately increased left atrial area. No left atrial thrombus or mass present. Mitral Valve Porcine MV with mean gradient of 9 mmHg. No mitral regurgitation. Aortic Valve Aortic valve sclerosis. No aortic valve stenosis or regurgitation. Tricuspid Valve Structurally normal tricuspid valve. Mild tricuspid regurgitation. Pulmonic Valve Pulmonic valve not well visualized. No pulmonic regurgitation. Pericardium No pericardial effusion. Aorta Normal size aortic root and proximal ascending aorta. CONCLUSIONS Technically difficult study for interpretation Normal LV systolic function Porcine mitral valve with a mean gradient of 9 mmHg and extremely calcified valve Moderate pulmonary hypertension Previewed by: Dr. Jabier Zhu MD (Electronically Signed) Final Date: 24 July 2024 13:06
[2024-07-24] MEDS: CHOLECALCIFEROL 25 MCG (1000 IU) TABLET PO SCH (14:23)
[2024-07-24] MEDS: ASCORBIC ACID 500 MG TAB PO SCH (14:24)
[2024-07-24] MEDS: ZINC SULFATE 220 MG CAP PO SCH (14:24)
[2024-07-24] MEDS: ALPRAZolam 0.25 MG TAB PO PRN (14:55)
[2024-07-24 16:41] LABS: Glucose,Whole Blood 125 mg/dL (70-110)
[2024-07-24] MEDS ORDERED: WARFARIN 2 MG TAB PO SCH (18:00)
[2024-07-24] MEDS: WARFARIN 1 MG TAB PO ONE (18:31)
[2024-07-24] MEDS: lisinopriL 5 MG TAB PO SCH (20:28)
[2024-07-24] MEDS: MONTELUKAST 10 MG TAB PO SCH (20:29)
[2024-07-24 20:32] LABS: Glucose,Whole Blood 133 mg/dL (70-110)
--- NOTE | 2024-07-24 21:57 | P.CONS ---
History of Present Illness - Reason for Consult Consult date: 07/24/24 COVID-19 Requesting physician: Marisol López - Chief Complaint Shortness of breath and cough x few days - History of Present Illness Patient is a 74-year-old female with a past medical history significant for CVA TIA did have a history of tracheobronchomalacia pneumonia presenting to the hospital for evaluation of increasing shortness of breath in this patient symptom has been going on for about 4 to 5 days and the patient did have azithromycin and steroids from 1 pulmonology with the patient took and did not have any improvement patient mention she was evaluated beginning of the week by her primary care physician and tested negative for influenza RSV and COVID however the patient did have worsening of shortness of breath for the patient presented to hospital patient also have a cough which is moderate intensity but not bringing up any sputum no hemoptysis no pleuritic chest pain patient denies any nausea vomiting no choking on the food no abdominal pain or any diarrhea on presentation to the hospital patient was afebrile no fever have been ordered subsequently patient was not tachycardic or hypotensive she was mildly hypoxic however is currently 97% on room air patient did have a white count of 9.4 with a left shift creatinine 0.65 INR is 3.5 CRP 0.7 patient did tested positive for COVID-19 influenza RSV was negative patient did have a chest x-ray clinical correlation recommended for volume overload cardiomegaly, patient has been started on steroids zinc continued on Coumadin infectious disease was consulted regarding COVID infection Review of Systems Positive point and negatives has been mentioned in the HPI, complete review of systems was performed and all other systems are negative 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, SOB, History of Any Multi-Drug Resistant Organisms: None Reported Past Surgical History: Appendectomy, Back Surgery, Breast Surgery, Cardiac Ablation, Cardiac Valve Replacement, Heart Catheterization, Hysterectomy, Joint Replacement, Orthopedic Surgery, Tonsillectomy Additional Past Surgical History / Comment(s): 07/2017 bronchoscopy with lavage, cardioversion x 2, cardiac ablation x 3, open mitral valve replacement 2013, back surgery with rods/screws, cervical injections, R wrist ganglion cyst removed, R great toe surgery, L great toe "cleaned up", L knee arthroscopy, L ankle surgery for tendon/ligament and cysts, colonoscopy, R breast cystectomy, left knee replacement. left great toe, rt second toe surgery , devendra cataracts Past Anesthesia/Blood Transfusion Reactions: Postoperative Nausea & Vomiting (PONV) Additional Past Anesthesia/Blood Transfusion Reaction / Comm: Patient vomited after previous surgeries but she doesn't know if it was from anesthesia or the pain medication. Past Psychological History: Anxiety Smoking Status: Former smoker Past Alcohol Use History: Daily Past Drug Use History: None Reported - Past Family History Mother Family Medical History: CVA/TIA Father Family Medical History: CVA/TIA Additional Family Medical History / Comment(s): . Medications and Allergies Home Medications Medication Instructions Recorded Confirmed Type Furosemide [Lasix] 20 mg PO DAILY 12/20/13 07/24/24 History Multivitamins, Thera [Multivitamin 1 tab PO DAILY 12/20/13 07/24/24 History (formulary)] ALPRAZolam [Xanax] 0.5 mg PO BID PRN 06/02/15 07/24/24 History Atorvastatin [Lipitor] 40 mg PO HS 06/02/15 07/24/24 History Cyanocobalamin (Vitamin B-12) 1,000 mcg PO DAILY 04/05/21 07/24/24 History [Vitamin B-12] Albuterol Sulfate [Albuterol 2 puff PO RT-QID PRN 12/20/21 07/24/24 History Sulfate Hfa] Hydrocodone/Acetaminophen 1 tab PO TID PRN 01/17/22 07/24/24 History [Hydrocodone/Acetaminophen 5-325] Cholestyramine/Aspartame 4 gm PO BID PRN 02/09/23 07/24/24 History [Cholestyramine Light Packet] Ibandronate Sodium [Boniva] 150 mg PO QMONTHLY 02/09/23 07/24/24 History Omeprazole 20 mg PO AC-BRKFST 02/09/23 07/24/24 History Amiodarone [Cordarone] 100 mg PO DAILY 07/24/24 07/24/24 History Amitriptyline HCl [Elavil] 25 mg PO HS 07/24/24 07/24/24 History Budesonide [Pulmicort] 0.5 mg INHALATION RT-BID 07/24/24 07/24/24 History Cholecalciferol (Vitamin D3) 75 mcg PO DAILY 07/24/24 07/24/24 History [Vitamin D3 (3000 Iu)] Fluticasone Nasal [place] [Flonase 1 spray EA NOSTRIL DAILY PRN 07/24/24 07/24/24 History Nasal [place]] L.acidoph,Paracasei, B.lactis 1 cap PO DAILY 07/24/24 07/24/24 History [Probiotic] Levothyroxine Sodium [Synthroid] 125 mcg PO DAILY 07/24/24 07/24/24 History Lidocaine 5% Patch [Lidoderm 5% 1 patch TOPICAL DAILY PRN 07/24/24 07/24/24 History Patch] Loperamide [Imodium] 2 mg PO QID PRN 07/24/24 07/24/24 History Montelukast [Singulair] 10 mg PO HS 07/24/24 07/24/24 History Pregabalin [Lyrica] 100 mg PO BID 07/24/24 07/24/24 History lisinopriL [Zestril] 5 mg PO HS 07/24/24 07/24/24 History predniSONE See Taper PO DAILY 07/24/24 07/24/24 History Budesonide-Formot 160-4.5 Mcg 2 puff INHALATION RT-BID #1 each 07/25/24 Rx [Symbicort 160-4.5 Mcg Inhaler] Dapagliflozin Propanediol [Farxiga] 10 mg PO DAILY #30 tab 07/25/24 Rx Metoprolol Tartrate [Lopressor] 25 mg PO BID #0 07/25/24 07/24/24 Rx Warfarin [Coumadin] 3 mg PO DAILY #7 tab 07/25/24 Rx Zinc Sulfate [Orazinc] 220 mg PO DAILY #30 cap 07/25/24 Rx Allergies Allergy/AdvReac Type Severity Reaction Status Date / Time gabapentin Allergy Rash/Hives Verified 07/24/24 07:35 Penicillins Allergy Rash/Hives Verified 07/24/24 07:35 Sulfa (Sulfonamide Allergy Rash/Hives Verified 07/24/24 07:35 Antibiotics) tretinoin [From Retin-A] Allergy Rash/Hives Verified 07/24/24 07:35 escitalopram [From Lexapro] AdvReac Nausea & Verified 07/24/24 07:35 Vomiting meperidine HCl [From Demerol] AdvReac Nausea & Verified 07/24/24 07:35 Vomiting Physical Exam Vitals: Vital Signs Temp Pulse Resp BP Pulse Ox 07/24/24 10:00 61 22 122/61 94 L 07/24/24 09:00 75 20 153/76 97 07/24/24 07:49 60 20 125/61 96 07/24/24 04:17 56 L 17 125/61 91 L 07/23/24 23:41 67 19 137/69 96 07/23/24 22:41 97.7 F 70 17 130/61 95 07/23/24 20:42 97.2 F L 91 24 149/89 100 Intake and Output 07/23/24 07/24/24 07/24/24 22:59 06:59 14:59 Other: Weight 88.451 kg GENERAL DESCRIPTION: Elderly female e lying in bed, no distress. No tachypnea or accessory muscle of respiration use. HEENT: Shows Pallor , no scleral icterus. Oral mucous membrane is dry. NECK: Trachea central, no thyromegaly. LUNGS: Unlabored breathing. Decreased intensity of breath sounds, no wheeze HEART: S1, S2, regular rate and rhythm. No loud murmur ABDOMEN: Soft, no tenderness , guarding or rigidity, no organomegaly EXTREMITIES: No edema of feet. SKIN: No rash, no masses palpable. NEUROLOGICAL: The patient is awake, alert, oriented x3, mood and affect normal. Results CBC & Chem 7: 07/24/24 07:05 07/25/24 05:21 Labs: Abnormal Lab Results - Last 24 Hours (Table) 07/23/24 07/23/24 07/23/24 Range/Units 21:04 21:04 21:04 WBC 13.4 H (3.8-10.6) k/uL Neutrophils # 10.0 H (1.3-7.7) k/uL PT 27.1 H (10.0-12.5) sec INR 2.7 H (<1.2) Carbon Dioxide (22-30) mmol/L BUN 18 H (7-17) mg/dL Glucose 141 H (74-99) mg/dL Plasma Lactic Acid Fran (0.7-2.0) mmol/L SARS-CoV-2 (PCR) (Not Detectd) 07/23/24 07/23/24 07/24/24 Range/Units 21:04 21:07 07:05 WBC (3.8-10.6) k/uL Neutrophils # 7.9 H (1.3-7.7) k/uL PT (10.0-12.5) sec INR (<1.2) Carbon Dioxide (22-30) mmol/L BUN (7-17) mg/dL Glucose (74-99) mg/dL Plasma Lactic Acid Fran 2.5 H* (0.7-2.0) mmol/L SARS-CoV-2 (PCR) Detected A (Not Detectd) 07/24/24 07/24/24 Range/Units 07:05 10:03 WBC (3.8-10.6) k/uL Neutrophils # (1.3-7.7) k/uL PT 34.6 H (10.0-12.5) sec INR 3.5 H (<1.2) Carbon Dioxide 31 H (22-30) mmol/L BUN 19 H (7-17) mg/dL Glucose 126 H (74-99) mg/dL Plasma Lactic Acid Fran (0.7-2.0) mmol/L SARS-CoV-2 (PCR) (Not Detectd) Assessment and Plan (1) Allergy to multiple antibiotics Current Visit: Yes Status: Acute Code(s): Z88.1 - ALLERGY STATUS TO OTHER ANTIBIOTIC AGENTS SNOMED Code(s): 354419030 (2) COVID-19 Current Visit: Yes Status: Acute Code(s): U07.1 - COVID-19 SNOMED Code(s): 679891331 Plan: 1patient presented to hospital with increasing shortness of breath and cough and this patient has been diagnosed with a COVID-19 however the patient is not running any fever not hypoxic chest x-ray is more suggestive of CHF with an COVID-19 pneumonia treated will be mostly supportive 2-patient with multiple antibiotic ALLERGIES that would limit the number of antibiotic safe to use 3-patient to continue with steroids, Coumadin for anticoagulation, zinc no need for remdesivir at this point We will follow on clinical condition and cultures to further adjust medication if needed Thank you for this consultation we will follow the patient along with you Dictation was produced using [employer] dictation software. please excuse any grammatical, word or spelling errors. Time with Patient: Greater than 30
[2024-07-25] MEDS: methylPREDNISolone SOD SUCCI 125 MG/2 ML VIAL IV SCH (00:42)
[2024-07-25 06:04] LABS: Glucose,Whole Blood 117 mg/dL (70-110)
[2024-07-25 06:52] LABS: INR 3.2 (<1.2); Prothrombin Time 31.8 sec (10.0-12.5)
[2024-07-25 07:00] LABS: African American GFR (CKD) >90 (>60 ml/min/1.73 sqM); Anion Gap 5 mmol/L; Blood Urea Nitrogen 22 mg/dL (7-17); Calcium 8.5 mg/dL (8.4-10.2); Carbon Dioxide 32 mmol/L (22-30); Chloride 99 mmol/L (98-107); Glucose 107 mg/dL (74-99); Non-African American GFR(CKD) 89 (>60 ml/min/1.73 sqM); Sodium 136 mmol/L (137-145)
--- NOTE | 2024-07-25 10:31 | P.PN ---
Subjective Progress Note Date: 07/25/24 H&P Date: 07/24/24 Chief Complaint: Shortness of breath This is a 74-year-old female with past medical history significant for atrial fibrillation, anticoagulated on Coumadin, ablation, mitral valve replacement, hypertension, hyperlipidemia, morbid obesity, obstructive sleep apnea, COPD, tracheobronchomalacia, hypothyroidism, and multiple medical issues recently returning from a [place] cruise this past Sunday, presented to the ER with progressive shortness of breath,cough and lower extremity edema. Reports while on her cruise she took additional oral Lasix for few days.yesterday followed up with her PCP, tested negative in the office for COVID, received prescriptions for steroids and antibiotics. Shortness of breath continued to progress .At tempted nebulizer treatments with minimal improvement. On admission viral studies positive for COVID. O2 sat on admission 100% on 2 L nasal cannula, currently low 90s on room air. denies chest pain, palpitations. Afebrile, WBC 13.4, recent normalized to 9.4. Hemoglobin 13, platelets 256, INR 2.7, repeat pending. Electrolytes within normal limits, bicarb 31, BUN 19, creatinine 0.65 glucose 141, 126. Lactic acid 2.5, resolved with IV fluid hydration, decreased to 2. K CRP within normal limits, 0.7. proBNP 5780. Received IV push Lasix in the ER. EKG reported sinus rhythm Chest x-ray reported cardiomegaly, prominent pulmonary vasculature, mildly increased perihilar lung markings, correlate for volume overload. 07/25/2024 Maintained on zinc, vitamin C, vitamin D and steroids .evaluated by cardiology and infectious disease with recommendations noted and appreciated. Farxiga added to med regimen. No hypotension, no tachycardia. afebrile, maintaining O2 sats in the high 90s on room air. No conversational dyspnea. Harsh, nonproductive cough. Denies chest pain, palpitations. Denies pleuritic chest pain. Reports she is weak but has been up in her room ambulating. Objective - Vital Signs Vital signs: Vital Signs Temp 98.0 F 07/24/24 23:00 Pulse 56 L 07/25/24 03:15 Resp 18 07/25/24 03:15 BP 151/71 07/25/24 03:15 Pulse Ox 96 07/25/24 03:15 FiO2 Intake & Output 07/24/24 07/25/24 07/25/24 18:59 06:59 18:59 Intake Total 360 Output Total 300 Balance 60 Weight 92.8 kg Intake: Oral 360 Output: Urine 300 Other: Voiding Method Toilet # Voids 1 - Exam GENERAL: well-nourished, alert and oriented x 3, sitting up on stretcher, no acute distress HEENT: Atraumatic, normocephalic. Pupils equal, sclera anicteric conjunctivae normal,mmm. NECK: supple, no JVD LUNGS: Unlabored, equal air entry,scattered rhonchi throughout HEART: S1-S2. Regular rate and rhythm without murmurs, rubs or gallops. ABDOMEN: Soft, nontender, normoactive bowel sounds. No guarding, no rebound. EXTREMITIES: Normal range of motion, no pitting or lower extremity edema. No clubbing or cyanosis. NEUROLOGICAL: Cranial nerves II through XII grossly intact. No focal deficits. SKIN: Warm, Dry,no rashes noted. - Labs CBC & Chem 7: 07/24/24 07:05 07/25/24 05:21 Labs: Abnormal Lab Results - Last 24 Hours (Table) 07/24/24 07/24/24 07/24/24 Range/Units 10:03 12:36 16:39 PT 34.6 H (10.0-12.5) sec INR 3.5 H (<1.2) Sodium (137-145) mmol/L Carbon Dioxide (22-30) mmol/L BUN (7-17) mg/dL Glucose (74-99) mg/dL POC Glucose (mg/dL) 122 H 125 H (70-110) mg/dL 07/24/24 07/25/24 07/25/24 Range/Units 20:24 05:21 05:21 PT 31.8 H (10.0-12.5) sec INR 3.2 H (<1.2) Sodium 136 L (137-145) mmol/L Carbon Dioxide 32 H (22-30) mmol/L BUN 22 H (7-17) mg/dL Glucose 107 H (74-99) mg/dL POC Glucose (mg/dL) 133 H (70-110) mg/dL 07/25/24 Range/Units 06:02 PT (10.0-12.5) sec INR (<1.2) Sodium (137-145) mmol/L Carbon Dioxide (22-30) mmol/L BUN (7-17) mg/dL Glucose (74-99) mg/dL POC Glucose (mg/dL) 117 H (70-110) mg/dL Assessment and Plan Assessment: Acute COVID-19 infection Acute on chronic CHF with preserved EF Acute COPD exacerbation Acute hypoxic respiratory failure secondary to all the above Chronic tracheobronchomalacia Paroxysmal atrial fibrillation, anticoagulated on Coumadin History of ablation History of mitral valve replacement Hypertension Hyperlipidemia Hypothyroidism Obstructive sleep apnea, CPAP at home Morbid obesity, BMI 34 Plan: Continue on current medication regimen ,monitoring and symptomatic treatment. Aggressive pulmonary toileting. Continue on zinc, vitamin D, vitamin C, steroids, bronchodilators and oral diuretics.Coumadin per pharmacy dosing.Transfer to [facility] with telemetry.Maintain supportive care. discharge planning in progress, pending final DC recommendations and clearance per cardiology ,pulmonary and infectious disease. The impression and plan of care has been dictated as directed. : I performed a history and examination of this patient, discussed the same with the dictator. I agree with the dictator's note ,documented as a scribe. Any additional findings or plans will be noted.
--- NOTE | 2024-07-25 11:07 | P.DS ---
Providers Date of admission: 07/23/24 23:01 Expected date of discharge: 07/25/24 Attending physician: Wilfrido Luna Consults: 07/23/24 22:59 Consult Physician Urgent Consulting Provider: Hattie Brito Consult Reason/Comments: acute respiratory insuff, covid infection Do you want consulting provider notified?: Yes Consult Physician Urgent Consulting Provider: Emil Jacobson Consult Reason/Comments: covid infection Do you want consulting provider notified?: Yes 07/23/24 23:02 Consult Physician Urgent Consulting Provider: [facility] Consult Reason/Comments: acute pulmonary edema, hx mitral valve replacement Do you want consulting provider notified?: Yes Primary care physician: Jesus Carson Hospital Course: Final Diagnoses: Acute COVID-19 infection Acute on chronic CHF with preserved EF Acute COPD exacerbation Acute hypoxic respiratory failure secondary to all the above Chronic tracheobronchomalacia Paroxysmal atrial fibrillation, anticoagulated on Coumadin History of ablation History of mitral valve replacement Hypertension Hyperlipidemia Hypothyroidism Obstructive sleep apnea, CPAP at home Morbid obesity, BMI 34 Hospital course:This is a 74-year-old female with past medical history significant for atrial fibrillation, anticoagulated on Coumadin, ablation, mitral valve replacement, hypertension, hyperlipidemia, morbid obesity, obstructive sleep apnea, COPD, tracheobronchomalacia, hypothyroidism, and multiple medical issues recently returning from a [place] cruise this past Sunday, presented to the ER with progressive shortness of breath,cough and lower extremity edema. Reports while on her cruise she took additional oral Lasix for few days.yesterday followed up with her PCP, tested negative in the office for COVID, received prescriptions for steroids and antibiotics. Shortness of breath continued to progress .Attempted nebulizer treatments with minimal improvement. On admission viral studies positive for COVID. O2 sat on admission 100% on 2 L nasal cannula, currently low 90s on room air. denies chest pain, palpitations. Afebrile, WBC 13.4, recent normalized to 9.4. Hemoglobin 13, platelets 256, INR 2.7, repeat pending. Electrolytes within normal limits, bicarb 31, BUN 19, creatinine 0.65 glucose 141, 126. Lactic acid 2.5, resolved with IV fluid hydration, decreased to 2. K CRP within normal limits, 0.7. proBNP 5780. Received IV push Lasix in the ER. EKG reported sinus rhythm Chest x-ray reported cardiomegaly, prominent pulmonary vasculature, mildly increased perihilar lung markings, correlate for volume overload. 07/25/2024 Maintained on zinc, vitamin C, vitamin D and steroids .evaluated by cardiology and infectious disease with recommendations noted and appreciated. Farxiga added to med regimen. No hypotension, no tachycardia. afebrile, maintaining O2 sats in the high 90s on room air. No conversational dyspnea. Harsh, nonproductive cough. Denies chest pain, palpitations. Denies pleuritic chest pain. Reports she is weak but has been up in her room ambulating. Patient will be discharged home today in a stable condition with guarded prognosis. The impression and plan of care has been dictated as directed. : I performed a history and examination of this patient, discussed the same with the dictator. I agree with the dictator's note ,documented as a scribe. Any additional findings or plans will be noted. Patient Condition at Discharge: Stable Plan - Discharge Summary Discharge Rx Participant: Yes New Discharge Prescriptions: New Zinc Sulfate [Orazinc] 220 mg PO DAILY #30 cap Budesonide-Formot 160-4.5 Mcg [Symbicort 160-4.5 Mcg Inhaler] 2 puff INHALATION RT-BID #1 each Dapagliflozin Propanediol [Farxiga] 10 mg PO DAILY #30 tab Warfarin [Coumadin] 3 mg PO DAILY #7 tab Continue Furosemide [Lasix] 20 mg PO DAILY Multivitamins, Thera [Multivitamin (formulary)] 1 tab PO DAILY ALPRAZolam [Xanax] 0.5 mg PO BID PRN PRN Reason: Anxiety Atorvastatin [Lipitor] 40 mg PO HS Ibandronate Sodium [Boniva] 150 mg PO QMONTHLY Montelukast [Singulair] 10 mg PO HS Amiodarone [Cordarone] 100 mg PO DAILY Fluticasone Nasal [place] [Flonase Nasal [place]] 1 spray EA NOSTRIL DAILY PRN PRN Reason: Congestion Pregabalin [Lyrica] 100 mg PO BID Loperamide [Imodium] 2 mg PO QID PRN PRN Reason: Diarrhea Levothyroxine Sodium [Synthroid] 125 mcg PO DAILY Cyanocobalamin (Vitamin B-12) [Vitamin B-12] 1,000 mcg PO DAILY Albuterol Sulfate [Albuterol Sulfate Hfa] 2 puff PO RT-QID PRN PRN Reason: Shortness Of Breath Hydrocodone/Acetaminophen [Hydrocodone/Acetaminophen 5-325] 1 tab PO TID PRN PRN Reason: Pain Omeprazole 20 mg PO AC-BRKFST Cholestyramine/Aspartame [Cholestyramine Light Packet] 4 gm PO BID PRN PRN Reason: Diarrhea L.acidoph,Paracasei, B.lactis [Probiotic] 1 cap PO DAILY Lidocaine 5% Patch [Lidoderm 5% Patch] 1 patch TOPICAL DAILY PRN PRN Reason: Pain predniSONE See Taper PO DAILY Budesonide [Pulmicort] 0.5 mg INHALATION RT-BID lisinopriL [Zestril] 5 mg PO HS Amitriptyline HCl [Elavil] 25 mg PO HS Cholecalciferol (Vitamin D3) [Vitamin D3 (3000 Iu)] 75 mcg PO DAILY Changed Metoprolol Tartrate [Lopressor] 25 mg PO BID #0 Discontinued Warfarin Sodium 2 mg PO MOTH Warfarin Sodium 4 mg PO SUTUWEFRSA Cefdinir 300 mg PO Q12HR Discharge Medication List Furosemide [Lasix] 20 mg PO DAILY 12/20/13 [History] Multivitamins, Thera [Multivitamin (formulary)] 1 tab PO DAILY 12/20/13 [History] ALPRAZolam [Xanax] 0.5 mg PO BID PRN 06/02/15 [History] Atorvastatin [Lipitor] 40 mg PO HS 06/02/15 [History] Cyanocobalamin (Vitamin B-12) [Vitamin B-12] 1,000 mcg PO DAILY 04/05/21 [History] Albuterol Sulfate [Albuterol Sulfate Hfa] 2 puff PO RT-QID PRN 12/20/21 [History] Hydrocodone/Acetaminophen [Hydrocodone/Acetaminophen 5-325] 1 tab PO TID PRN 01/17/22 [History] Cholestyramine/Aspartame [Cholestyramine Light Packet] 4 gm PO BID PRN 02/09/23 [History] Ibandronate Sodium [Boniva] 150 mg PO QMONTHLY 02/09/23 [History] Omeprazole 20 mg PO AC-BRKFST 02/09/23 [History] Amiodarone [Cordarone] 100 mg PO DAILY 07/24/24 [History] Amitriptyline HCl [Elavil] 25 mg PO HS 07/24/24 [History] Budesonide [Pulmicort] 0.5 mg INHALATION RT-BID 07/24/24 [History] Cholecalciferol (Vitamin D3) [Vitamin D3 (3000 Iu)] 75 mcg PO DAILY 07/24/24 [History] Fluticasone Nasal [place] [Flonase Nasal [place]] 1 spray EA NOSTRIL DAILY PRN 07/24/24 [History] L.acidoph,Paracasei, B.lactis [Probiotic] 1 cap PO DAILY 07/24/24 [History] Levothyroxine Sodium [Synthroid] 125 mcg PO DAILY 07/24/24 [History] Lidocaine 5% Patch [Lidoderm 5% Patch] 1 patch TOPICAL DAILY PRN 07/24/24 [History] Loperamide [Imodium] 2 mg PO QID PRN 07/24/24 [History] Montelukast [Singulair] 10 mg PO HS 07/24/24 [History] Pregabalin [Lyrica] 100 mg PO BID 07/24/24 [History] lisinopriL [Zestril] 5 mg PO HS 07/24/24 [History] predniSONE See Taper PO DAILY 07/24/24 [History] Budesonide-Formot 160-4.5 Mcg [Symbicort 160-4.5 Mcg Inhaler] 2 puff INHALATION RT-BID #1 each 07/25/24 [Rx] Dapagliflozin Propanediol [Farxiga] 10 mg PO DAILY #30 tab 07/25/24 [Rx] Metoprolol Tartrate [Lopressor] 25 mg PO BID #0 07/25/24 [Rx] Warfarin [Coumadin] 3 mg PO DAILY #7 tab 07/25/24 [Rx] Zinc Sulfate [Orazinc] 220 mg PO DAILY #30 cap 07/25/24 [Rx] Follow up Appointment(s)/Referral(s): Jesus Carson MD [Primary Care Provider] - 1-2 days Ambulatory/Diagnostic Orders: Prothrombin Time INR [LAB.AMB] Time Frame: 2 Days, Location: None Selected Activity/Diet/Wound Care/Special Instructions: PT/INR in 2 days with results to Dr. Carson
[2024-07-25] MEDS: POTASSIUM CHLORIDE ER 20 MEQ TAB.ER PO STA (11:34)
[2024-07-25 11:37] LABS: Glucose,Whole Blood 118 mg/dL (70-110)
--- NOTE | 2024-07-25 12:46 | P.PN ---
Subjective HISTORY OF PRESENT ILLNESS: This is a 74-year-old female with a past medical history significant for mitral valve replacement, paroxysmal atrial fibrillation, atrial fibrillation ablation, CHF, hypertension, and hyperlipidemia. Patient follows with Dr. Baxter. We have been asked to see the patient in consultation for CHF. Patient examined at the bedside in the emergency room. Patient states that last week she was on a cruise. She states on she began to feel unwell. She reports having shortness of breath and a cough. She also reports increased lower extremity edema while on her cruise. She states that she saw her primary care physician, Dr. Carson, yesterday in the office and was tested for COVID but it was reportedly negative. She continued to have worsening shortness of breath so she presented to the hospital for further evaluation. The patient was found to be positive for COVID. She currently denies any chest pain or pressure. Bedside telemetry reveals sinus mechanism. Blood pressure 125/61. DIAGNOSTICS: - EKG reveals sinus mechanism with no signs of acute ischemia. - Chest xray clinical correlation recommended for volume overload. Cardiomegaly correlate for CHF. - Laboratory data: WBC 9.4. Hemoglobin 13.0. Platelet count 256. INR 2.7. D- dimer 0.57. Sodium 139. Potassium 4.1. BUN 19. Creatinine 0.65. Lactic acid 2.5. Troponin negative x 1. proBNP 5780. - Current home cardiac medications include grams daily, amiodarone 100 mg daily, lisinopril 5 mg at night, metoprolol tartrate 12.5 mg twice a day, atorvastatin 40 mg at night, warfarin 4 mg on Sunday and Sunday and 2 mg on Sunday and . - Most recent echocardiogram obtained in 2015 revealed ejection fraction 50 to 55%, mild concentric LVH, small pericardial effusion, mild TR, mitral ring annuloplasty is in place. 07/25/2024 Patient examined at the bedside. Currently denies any chest pain or pressure. Patient continues to have a frequent cough and wheezing at the time of examination. Echocardiogram completed revealing ejection fraction 55 to 60%, no obvious regional wall motion abnormalities, moderate pulmonary hypertension, porcine mitral valve with mean gradient of 9 mmHg and extremely calcified valve, mild tricuspid regurgitation, and no pericardial effusion. INR today 3.2. PHYSICAL EXAM: VITAL SIGNS: Reviewed. GENERAL: Well-developed in no acute distress. HEENT: Head is normocephalic. Pupils are equal, round. Sclerae anicteric. Mucous membranes of the mouth are moist. Neck supple. No JVD or thyromegaly LUNGS: Respirations even and unlabored. Lungs with expiratory wheezing noted. HEART: Regular rate and rhythm. S1 and S2 heard. ABDOMEN: Soft. Nondistended. Nontender. EXTREMITIES: Normal range of motion. No clubbing or cyanosis. Peripheral pulses intact. No lower extremity edema NEUROLOGIC: Awake and alert. Oriented x 3. ASSESSMENT: Shortness of breath Acute COVID-19 Acute on chronic heart failure with preserved EF, currently euvolemic Acute COPD exacerbation History of tracheobronchomalacia Paroxysmal atrial fibrillation History of A-fib ablation, approximately 2 years ago in [place] History of mitral valve replacement Hypertension Hyperlipidemia Obesity: BMI 33.5 History of bronchoscopy with BAL x 3 per patient PLAN: Continue anticoagulation with Coumadin. Continue to monitor INR. Continue with oral diuretics. Farxiga added yesterday. Continue additional cardiac medications Continue telemetry monitoring Patient may follow-up postdischarge with her primary mold sprayer, Dr. Baxter Patient is currently stable from a cardiac standpoint. No further inpatient recommendations We will sign off. Please reconsult if needed. Nurse practitioner note has been reviewed by physician. Signing provider agrees with the documented findings, assessment, and plan of care documented by AIRPLANE INSPECTOR as a scribe. Objective - Vital Signs Vital signs: Vital Signs Temp 97.8 F 07/25/24 08:00 Pulse 76 07/25/24 08:00 Resp 18 07/25/24 08:00 BP 158/68 07/25/24 08:00 Pulse Ox 98 07/25/24 08:00 FiO2 Intake & Output 07/24/24 07/25/24 07/25/24 18:59 06:59 18:59 Intake Total 360 Output Total 300 Balance 60 Weight 92.8 kg Intake: Oral 360 Output: Urine 300 Other: Voiding Method Toilet Toilet # Voids 1 - Labs CBC & Chem 7: 07/24/24 07:05 07/25/24 05:21 Labs: Abnormal Lab Results - Last 24 Hours (Table) 07/24/24 07/24/24 07/24/24 Range/Units 12:36 16:39 20:24 PT (10.0-12.5) sec INR (<1.2) Sodium (137-145) mmol/L Carbon Dioxide (22-30) mmol/L BUN (7-17) mg/dL Glucose (74-99) mg/dL POC Glucose (mg/dL) 122 H 125 H 133 H (70-110) mg/dL 07/25/24 07/25/24 07/25/24 Range/Units 05:21 05:21 06:02 PT 31.8 H (10.0-12.5) sec INR 3.2 H (<1.2) Sodium 136 L (137-145) mmol/L Carbon Dioxide 32 H (22-30) mmol/L BUN 22 H (7-17) mg/dL Glucose 107 H (74-99) mg/dL POC Glucose (mg/dL) 117 H (70-110) mg/dL
--- NOTE | 2024-07-25 13:11 | P.PN ---
Subjective Progress Note Date: 07/25/24 Principal diagnosis: Reason for follow-up is COVID-19 infection Patient is a 74-year-old female with a past medical history significant for CVA TIA did have a history of tracheobronchomalacia pneumonia presenting to the hospital for evaluation of increasing shortness of breath has been diagnosed with a COVID-19 prompting this consultation. On today's evaluation that is 07/25/2024, the patient continues to be afebrile, the patient is on room air and breathing slightly comfortably, the Pt denies having any chest pain continue to have a cough mostly dry in nature, the patient denies having any abdominal pain no vomiting or any diarrhea. Patient did have a creatinine 0.65 INR is 3.2 Objective - Vital Signs Vital signs: Vital Signs Temp 97.5 F L 07/25/24 12:00 Pulse 60 07/25/24 12:00 Resp 18 07/25/24 12:00 BP 132/63 07/25/24 12:00 Pulse Ox 97 07/25/24 12:00 FiO2 Intake & Output 07/24/24 07/25/24 07/25/24 18:59 06:59 18:59 Intake Total 360 Output Total 300 Balance 60 Weight 92.8 kg Intake: Oral 360 Output: Urine 300 Other: Voiding Method Toilet Toilet # Voids 1 - Exam GENERAL DESCRIPTION: An elderly female lying in bed in no distress RESPIRATORY SYSTEM: Unlabored breathing , decreased breath sounds at bases HEART: S1 S2 regular rate and rhythm , ABDOMEN: Soft , no tenderness EXTREMITIES: No edema feet - Labs CBC & Chem 7: 07/24/24 07:05 07/25/24 05:21 Labs: Abnormal Lab Results - Last 24 Hours (Table) 07/24/24 07/24/24 07/25/24 Range/Units 16:39 20:24 05:21 PT (10.0-12.5) sec INR (<1.2) Sodium 136 L (137-145) mmol/L Carbon Dioxide 32 H (22-30) mmol/L BUN 22 H (7-17) mg/dL Glucose 107 H (74-99) mg/dL POC Glucose (mg/dL) 125 H 133 H (70-110) mg/dL 07/25/24 07/25/24 07/25/24 Range/Units 05:21 06:02 11:36 PT 31.8 H (10.0-12.5) sec INR 3.2 H (<1.2) Sodium (137-145) mmol/L Carbon Dioxide (22-30) mmol/L BUN (7-17) mg/dL Glucose (74-99) mg/dL POC Glucose (mg/dL) 117 H 118 H (70-110) mg/dL Assessment and Plan (1) Allergy to multiple antibiotics Current Visit: Yes Status: Acute Code(s): Z88.1 - ALLERGY STATUS TO OTHER ANTIBIOTIC AGENTS SNOMED Code(s): 186514865 (2) COVID-19 Current Visit: Yes Status: Acute Code(s): U07.1 - COVID-19 SNOMED Code(s): 279166841 Plan: 1patient presented to hospital with increasing shortness of breath and cough and this patient has been diagnosed with a COVID-19 however the patient is not running any fever not hypoxic chest x-ray is more suggestive of CHF with an COVID-19 pneumonia treated will be mostly supportive 2-patient with multiple antibiotic ALLERGIES that would limit the number of antibiotic safe to use 3-patient seem to have some clinical improvement, to continue with steroid Coumadin and zinc no need for remdesivir Multiple question concern answered Dictation was produced using [employer] dictation software. please excuse any grammatical, word or spelling errors.
[2024-07-25] MEDS: guaiFENesin-DM 100-10MG/5ML 10 ML CUP PO SCH (15:16)
--- NOTE | 2024-07-25 15:52 | P.PN ---
Subjective Progress Note Date: 07/25/24 Patient is a 74-year-old female with past medical history significant for atrial fibrillation anticoagulated on Coumadin, mitral valve replacement, obstructive sleep apnea, tracheobronchomalacia, COPD. Does follow in the pulmonary office with Dr. Brito. Presented to emergency department last night with a chief complaint of shortness of breath, nonproductive cough, wheezing, chest tightness. Of note, recently returned from a cruise on Sunday. She visited some [place] in [place] and in the [place]. Started to feel unwell last . Was seen by her primary care provider, Dr. Carson, yesterday in the office. Reportedly had tested negative for COVID. She is previously vaccina gerri for COVID, but not up-to-date this season. She was given steroids and oral antibiotic to be completed on outpatient basis. While at home, developed some respiratory distress. Tried to use her albuterol nebs, without much improvement. EMS was called. Workup in the emergency department including a viral 4 Plex, positive for COVID by PCR. Follow-up chest x-ray showing cardiomegaly with interstitial prominence. No focal infiltrates. NT proBNP elevated at 5780. She does endorse some lower extremity swelling while on the trip, and started taking an extra dose of her Lasix 20 mg x 3 days. Denies any chest pain, heart palpitations, syncopal events. She does have history of atrial fibrillation, and is anticoagulated on Coumadin. Her last INR was 2. No history of DVT or PE. D-dimer was low. CBC: WBC count 13.4, hemoglobin 12.7, hematocrit 39, platelets 252. CMP: Sodium 139, potassium 4.2, chloride 102, serum bicarb 26, BUN 18, creatinine 0.69, glucose 141. Lactic was 2.5 it is down to 2. LFTs not elevated. Troponin less than 0.012. EKG: Normal sinus, rate 84 bpm, no acute ST segment or T wave changes. She is currently being evaluated in the emergency department. On room air oxygen. Nondistressed. Continues to be bronchospastic with diffuse expiratory wheezing. Current most recent vital signs: Temperature 97.7 F, heart rate 67 bpm, blood pressure is 137/69 mmHg, SpO2 96% on room air. On 07/25/2024, the patient is being seen for a follow-up. The patient remains actively bronchospastic and wheezy. She remains congested. She has an acute COPD exacerbation related to COVID-19 infection. She continues to have excessive chest tightness and wheezing. She is also a bit anxious. Noted the patient has COPD and tracheobronchomalacia. She is currently on b ronchodilators. She is on IV Solu-Medrol. Robitussin DM will be also added to her regimen. Rest of the home medication resumed. She remains on anticoagulation warfarin. INR is at 3.2. BUN 22 with a creatinine of 0.6 and sodium levels at 136 and a potassium level is at 4.0. Afebrile. Hemodyna mically stable. As stated, a bit anxious. Her is also sick with the same COVID-19 infection. Not ready for discharge and this case was discussed with her primary care. Objective - Vital Signs Vital signs: Vital Signs Temp 97.5 F L 07/25/24 12:00 Pulse 60 07/25/24 14:00 Resp 18 07/25/24 14:00 BP 132/63 07/25/24 12:00 Pulse Ox 97 07/25/24 12:00 FiO2 Intake & Output 07/24/24 07/25/24 07/25/24 18:59 06:59 18:59 Intake Total 360 Output Total 300 Balance 60 Weight 92.8 kg Intake: Oral 360 Output: Urine 300 Other: Voiding Method Toilet Toilet # Voids 1 - Exam GENERAL EXAM: Alert, 74-year-old female, nonlabored breathing HEAD: Normocephalic and atraumatic EYES: Normal reaction of pupils, equal size. NOSE: Clear with pink turbinates. THROAT: No erythema or exudates. NECK: No masses, no JVD. CHEST: No chest wall deformity. LUNGS: Equal air entry with diffuse expiratory wheezing, and bibasilar inspiratory crackles. On room air oxygen. No conversational dyspnea or accessory muscle us well-dressed CVS: S1 and S2 normal with no audible murmur, regular rhythm. No extra heart sounds ABDOMEN: No hepatosplenomegaly, active bowel sounds, no guarding or rigidity. SPINE: No scoliosis or deformity SKIN: No rashes CENTRAL NERVOUS SYSTEM: No focal deficits, tone is normal in all 4 extremities. EXTREMITIES: There is no peripheral edema, clubbing, or cyanosis. Peripheral pulses are intact. - Labs CBC & Chem 7: 07/24/24 07:05 07/25/24 05:21 Labs: Abnormal Lab Results - Last 24 Hours (Table) 07/24/24 07/24/24 07/25/24 Range/Units 16:39 20:24 05:21 PT (10.0-12.5) sec INR (<1.2) Sodium 136 L (137-145) mmol/L Carbon Dioxide 32 H (22-30) mmol/L BUN 22 H (7-17) mg/dL Glucose 107 H (74-99) mg/dL POC Glucose (mg/dL) 125 H 133 H (70-110) mg/dL 07/25/24 07/25/24 07/25/24 Range/Units 05:21 06:02 11:36 PT 31.8 H (10.0-12.5) sec INR 3.2 H (<1.2) Sodium (137-145) mmol/L Carbon Dioxide (22-30) mmol/L BUN (7-17) mg/dL Glucose (74-99) mg/dL POC Glucose (mg/dL) 117 H 118 H (70-110) mg/dL Assessment and Plan Assessment: Acute COVID-19 infection Acute COPD exacerbation Tracheobronchomalacia congestive heart failure with a preserved ejection fraction and moderate degree of pulm hypertension. Acute dyspnea, secondary to a combination of above History of paroxysmal atrial fibrillation, anticoagulated on Coumadin, currently sinus mechanism Hypertension History of hyperlipidemia History of mitral valve prolapse and surgical replacement History of obstructive sleep apnea with home CPAP, 6/15 cm H2O History of hypothyroidism Plan: Remains symptomatic and the patient continues to have symptoms of COPD exacerbation along with increased anxiety Currently on room air Continues on combination of bronchodilators Continue IV Solu-Medrol Add Robitussin DM 10 mL 4 times a day [id number] Chest x-ray showing cardiomegaly, pulmonary vascular congestion. No focal infiltrates NT proBNP elevated at 5780. continue Lasix 20 mg p.o. daily Echocardiogram was also noted from yesterday and the patient has a ejection fraction is essentially within normal limits. She has a porcine mitral valve which is extremely calcified and moderate degree of pulmonary pretension. Continue other cardiac meds including Coumadin. INR remains therapeutic. Coumadin dosing will be done by pharmacy. We will continue to follow
[2024-07-25 16:47] LABS: Glucose,Whole Blood 192 mg/dL (70-110)
[2024-07-25] MEDS: WARFARIN 3 MG TAB PO ONE (17:38)
[2024-07-25] MEDS ORDERED: WARFARIN 2 MG TAB PO SCH (18:00)
[2024-07-25 20:22] LABS: Glucose,Whole Blood 170 mg/dL (70-110)
[2024-07-26 06:19] LABS: Glucose,Whole Blood 139 mg/dL (70-110)
[2024-07-26 07:04] LABS: Prothrombin Time 39.5 sec (10.0-12.5)
[2024-07-26 11:58] LABS: Glucose,Whole Blood 106 mg/dL (70-110)
--- NOTE | 2024-07-26 13:10 | P.PN ---
Subjective Progress Note Date: 07/26/24 Principal diagnosis: Reason for follow-up is COVID-19 infection Patient is a 74-year-old female with a past medical history significant for CVA TIA did have a history of tracheobronchomalacia pneumonia presenting to the hospital for evaluation of increasing shortness of breath has been diagnosed with a COVID-19 prompting this consultation. On today's evaluation that is 07/26/2024, patient did not have any fever and denies any chills, patient is currently on room air however still complaining of episode of wheezing and coughing causing shortness of breath especially at night no nausea vomiting no abdominal pain or diarrhea. Patient INR is 4.0 no CBC was done today Objective - Vital Signs Vital signs: Vital Signs Temp 98.1 F 07/26/24 08:11 Pulse 76 07/26/24 08:11 Resp 20 07/26/24 08:11 BP 137/63 07/26/24 08:11 Pulse Ox 95 07/26/24 08:11 FiO2 Intake & Output 07/25/24 07/26/24 07/26/24 18:59 06:59 18:59 Intake Total 200 Balance 200 Weight 85 kg Intake: Oral 200 Other: Voiding Method Toilet Toilet Toilet # Voids 2 2 - Exam GENERAL DESCRIPTION: An elderly female lying in bed in no distress RESPIRATORY SYSTEM: Unlabored breathing , decreased breath sounds at bases HEART: S1 S2 regular rate and rhythm , ABDOMEN: Soft , no tenderness EXTREMITIES: No edema feet - Labs CBC & Chem 7: 07/24/24 07:05 07/25/24 05:21 Labs: Abnormal Lab Results - Last 24 Hours (Table) 07/25/24 07/25/24 07/25/24 Range/Units 11:36 16:46 20:20 PT (10.0-12.5) sec INR (<1.2) POC Glucose (mg/dL) 118 H 192 H 170 H (70-110) mg/dL 07/26/24 07/26/24 Range/Units 06:01 06:18 PT 39.5 H (10.0-12.5) sec INR 4.0 H (<1.2) POC Glucose (mg/dL) 139 H (70-110) mg/dL Assessment and Plan (1) Allergy to multiple antibiotics Current Visit: Yes Status: Acute Code(s): Z88.1 - ALLERGY STATUS TO OTHER ANTIBIOTIC AGENTS SNOMED Code(s): 506264778 (2) COVID-19 Current Visit: Yes Status: Acute Code(s): U07.1 - COVID-19 SNOMED Code(s): 674435819 Plan: 1patient presented to hospital with increasing shortness of breath and cough and this patient has been diagnosed with a COVID-19 however the patient is not running any fever not hypoxic chest x-ray is more suggestive of CHF with an COVID-19 pneumonia treated will be mostly supportive 2-patient with multiple antibiotic ALLERGIES that would limit the number of antibiotic safe to use 3-patient to continue with steroid Coumadin and zinc and monitor clinical course closely Multiple question concern answered Dictation was produced using [employer] dictation software. please excuse any grammatical, word or spelling errors. Time with Patient: Less than 30
--- NOTE | 2024-07-26 14:39 | P.PN ---
Subjective Progress Note Date: 07/26/24 Patient is a 74-year-old female with past medical history significant for atrial fibrillation anticoagulated on Coumadin, mitral valve replacement, obstructive sleep apnea, tracheobronchomalacia, COPD. Does follow in the pulmonary office with Dr. Brito. Presented to emergency department last night with a chief complaint of shortness of breath, nonproductive cough, wheezing, chest tightness. Of note, recently returned from a cruise on Sunday. She visited some islands in [place] and in the [place]. Started to feel unwell last . Was seen by her primary care provider, Dr. Carson, yesterday in the office. Reportedly had tested negative for COVID. She is previously vaccina gerri for COVID, but not up-to-date this season. She was given steroids and oral antibiotic to be completed on outpatient basis. While at home, developed some respiratory distress. Tried to use her albuterol nebs, without much improvement. EMS was called. Workup in the emergency department including a viral 4 Plex, positive for COVID by PCR. Follow-up chest x-ray showing cardiomegaly with interstitial prominence. No focal infiltrates. NT proBNP elevated at 5780. She does endorse some lower extremity swelling while on the trip, and started taking an extra dose of her Lasix 20 mg x 3 days. Denies any chest pain, heart palpitations, syncopal events. She does have history of atrial fibrillation, and is anticoagulated on Coumadin. Her last INR was 2. No history of DVT or PE. D-dimer was low. CBC: WBC count 13.4, hemoglobin 12.7, hematocrit 39, platelets 252. CMP: Sodium 139, potassium 4.2, chloride 102, serum bicarb 26, BUN 18, creatinine 0.69, glucose 141. Lactic was 2.5 it is down to 2. LFTs not elevated. Troponin less than 0.012. EKG: Normal sinus, rate 84 bpm, no acute ST segment or T wave changes. She is currently being evaluated in the emergency department. On room air oxygen. Nondistressed. Continues to be bronchospastic with diffuse expiratory wheezing. Current most recent vital signs: Temperature 97.7 F, heart rate 67 bpm, blood pressure is 137/69 mmHg, SpO2 96% on room air. On 07/25/2024, the patient is being seen for a follow-up. The patient remains actively bronchospastic and wheezy. She remains congested. She has an acute COPD exacerbation related to COVID-19 infection. She continues to have excessive chest tightness and wheezing. She is also a bit anxious. Noted the patient has COPD and tracheobronchomalacia. She is currently on b ronchodilators. She is on IV Solu-Medrol. Robitussin DM will be also added to her regimen. Rest of the home medication resumed. She remains on anticoagulation warfarin. INR is at 3.2. BUN 22 with a creatinine of 0.6 and sodium levels at 136 and a potassium level is at 4.0. Afebrile. Hemodyna mically stable. As stated, a bit anxious. Her is also sick with the same COVID-19 infection. Not ready for discharge and this case was discussed with her primary care. On today's evaluation on 07/26/2024, the patient is slightly improved compared to yesterday. Less bronchospastic and wheezy. Continues to have a congested cough. Unable to bring a much sputum. No fever or chills. She is being treated with IV Solu-Medrol regarding his COPD exacerbation includes COVID-19 infection. INR is at 4 and the patient's Coumadin is still on hold. No other labs from today. She is on Mucinex DM for cough and congestion. Rest of the home medication resumed. She remains on IV centimeter of 60 mg every 6 hours. She is also on Symbicort and albuterol HFA 4 times a day. No other significant events overnight. Clinically improving. Anxiety levels have also improved. Objective - Vital Signs Vital signs: Vital Signs Temp 98.1 F 07/26/24 08:11 Pulse 76 07/26/24 08:11 Resp 20 07/26/24 08:11 BP 137/63 07/26/24 08:11 Pulse Ox 95 07/26/24 08:11 FiO2 Intake & Output 07/25/24 07/26/24 07/26/24 18:59 06:59 18:59 Intake Total 200 Balance 200 Weight 85 kg Intake: Oral 200 Other: Voiding Method Toilet Toilet Toilet # Voids 2 2 - Exam GENERAL EXAM: Alert, 74-year-old female, nonlabored breathing HEAD: Normocephalic and atraumatic EYES: Normal reaction of pupils, equal size. NOSE: Clear with pink turbinates. THROAT: No erythema or exudates. NECK: No masses, no JVD. CHEST: No chest wall deformity. LUNGS: Equal air entry with diffuse expiratory wheezing, and bibasilar inspiratory crackles. On room air oxygen. No conversational dyspnea or accessory muscle us well-dressed CVS: S1 and S2 normal with no audible murmur, regular rhythm. No extra heart sounds ABDOMEN: No hepatosplenomegaly, active bowel sounds, no guarding or rigidity. SPINE: No scoliosis or deformity SKIN: No rashes CENTRAL NERVOUS SYSTEM: No focal deficits, tone is normal in all 4 extremities. EXTREMITIES: There is no peripheral edema, clubbing, or cyanosis. Peripheral pulses are intact. - Labs CBC & Chem 7: 07/24/24 07:05 07/25/24 05:21 Labs: Abnormal Lab Results - Last 24 Hours (Table) 07/25/24 07/25/24 07/26/24 Range/Units 16:46 20:20 06:01 PT 39.5 H (10.0-12.5) sec INR 4.0 H (<1.2) POC Glucose (mg/dL) 192 H 170 H (70-110) mg/dL 07/26/24 Range/Units 06:18 PT (10.0-12.5) sec INR (<1.2) POC Glucose (mg/dL) 139 H (70-110) mg/dL Assessment and Plan Assessment: Acute COVID-19 infection Acute COPD exacerbation Tracheobronchomalacia congestive heart failure with a preserved ejection fraction and moderate degree of pulm hypertension. Acute dyspnea, secondary to a combination of above History of paroxysmal atrial fibrillation, anticoagulated on Coumadin, currently sinus mechanism Hypertension History of hyperlipidemia History of mitral valve prolapse and surgical replacement History of obstructive sleep apnea with home CPAP, 6/15 cm H2O History of hypothyroidism Plan: Slightly improved compared to yesterday we will continue same management. No change in medications Currently on room air Continues on combination of bronchodilators Continue IV Solu-Medrol same dose Continue Robitussin DM 10 mL 4 times a day [id number] Chest x-ray showing cardiomegaly, pulmonary vascular congestion. No focal infiltrates NT proBNP elevated at 5780. continue Lasix 20 mg p.o. daily Echocardiogram was also noted from yesterday and the patient has a ejection fraction is essentially within normal limits. She has a porcine mitral valve which is extremely calcified and moderate degree of pulmonary pretension. Continue other cardiac meds including Coumadin. INR remains elevated. Coumadin dosing will be done by pharmacy. We will continue to follow Time with Patient: Greater than 30
[2024-07-26 16:43] LABS: Glucose,Whole Blood 118 mg/dL (70-110)
[2024-07-26] MEDS: WARFARIN 0.5 MG TAB PO ONE (17:18)
[2024-07-26 20:29] LABS: Glucose,Whole Blood 144 mg/dL (70-110)
[2024-07-27 06:09] LABS: Glucose,Whole Blood 124 mg/dL (70-110)
[2024-07-27 06:55] LABS: INR 4.7 (<1.2); Prothrombin Time 46.1 sec (10.0-12.5)
[2024-07-27 12:00] LABS: Glucose,Whole Blood 108 mg/dL (70-110)
[2024-07-27] MEDS: FUROSEMIDE 10 MG/ML 4 ML VIAL IV STA (12:19)
--- NOTE | 2024-07-27 14:27 | P.PN ---
Subjective Progress Note Date: 07/27/24 Patient is a 74-year-old female with past medical history significant for atrial fibrillation anticoagulated on Coumadin, mitral valve replacement, obstructive sleep apnea, tracheobronchomalacia, COPD. Does follow in the pulmonary office with Dr. Brito. Presented to emergency department last night with a chief complaint of shortness of breath, nonproductive cough, wheezing, chest tightness. Of note, recently returned from a cruise on Sunday. She visited some islands in [place] and in the [place]. Started to feel unwell last . Was seen by her primary care provider, Dr. Carson, yesterday in the office. Reportedly had tested negative for COVID. She is previously vaccina gerri for COVID, but not up-to-date this season. She was given steroids and oral antibiotic to be completed on outpatient basis. While at home, developed some respiratory distress. Tried to use her albuterol nebs, without much improvement. EMS was called. Workup in the emergency department including a viral 4 Plex, positive for COVID by PCR. Follow-up chest x-ray showing cardiomegaly with interstitial prominence. No focal infiltrates. NT proBNP elevated at 5780. She does endorse some lower extremity swelling while on the trip, and started taking an extra dose of her Lasix 20 mg x 3 days. Denies any chest pain, heart palpitations, syncopal events. She does have history of atrial fibrillation, and is anticoagulated on Coumadin. Her last INR was 2. No history of DVT or PE. D-dimer was low. CBC: WBC count 13.4, hemoglobin 12.7, hematocrit 39, platelets 252. CMP: Sodium 139, potassium 4.2, chloride 102, serum bicarb 26, BUN 18, creatinine 0.69, glucose 141. Lactic was 2.5 it is down to 2. LFTs not elevated. Troponin less than 0.012. EKG: Normal sinus, rate 84 bpm, no acute ST segment or T wave changes. She is currently being evaluated in the emergency department. On room air oxygen. Nondistressed. Continues to be bronchospastic with diffuse expiratory wheezing. Current most recent vital signs: Temperature 97.7 F, heart rate 67 bpm, blood pressure is 137/69 mmHg, SpO2 96% on room air. On 07/25/2024, the patient is being seen for a follow-up. The patient remains actively bronchospastic and wheezy. She remains congested. She has an acute COPD exacerbation related to COVID-19 infection. She continues to have excessive chest tightness and wheezing. She is also a bit anxious. Noted the patient has COPD and tracheobronchomalacia. She is currently on b ronchodilators. She is on IV Solu-Medrol. Robitussin DM will be also added to her regimen. Rest of the home medication resumed. She remains on anticoagulation warfarin. INR is at 3.2. BUN 22 with a creatinine of 0.6 and sodium levels at 136 and a potassium level is at 4.0. Afebrile. Hemodyna mically stable. As stated, a bit anxious. Her is also sick with the same COVID-19 infection. Not ready for discharge and this case was discussed with her primary care. On today's evaluation on 07/26/2024, the patient is slightly improved compared to yesterday. Less bronchospastic and wheezy. Continues to have a congested cough. Unable to bring a much sputum. No fever or chills. She is being treated with IV Solu-Medrol regarding his COPD exacerbation includes COVID-19 infection. INR is at 4 and the patient's Coumadin is still on hold. No other labs from today. She is on Mucinex DM for cough and congestion. Rest of the home medication resumed. She remains on IV centimeter of 60 mg every 6 hours. She is also on Symbicort and albuterol HFA 4 times a day. No other significant events overnight. Clinically improving. Anxiety levels have also improved. On 07/27/2024, the patient is being seen for a follow-up. The patient remains bronchospastic and wheezy and because she continues to have cough and congestion. She remains on room air oxygen. Modest improvement over the past 24 hours. No new complaints. INR is at 4.7. Remains on Symbicort. Remains on albuterol HFA 4 times a day. Remains on IV Solu-Medrol. Remains on Robitussin DM. Rest of the medications are essentially unchanged. Objective - Vital Signs Vital signs: Vital Signs Temp 97.8 F 07/27/24 12:02 Pulse 68 07/27/24 12:02 Resp 20 07/27/24 12:02 BP 165/74 07/27/24 12:02 Pulse Ox 98 07/27/24 12:02 FiO2 Intake & Output 07/26/24 07/27/24 07/27/24 18:59 06:59 18:59 Intake Total 880 Balance 880 Weight 89.3 kg Intake: Oral 880 Other: Voiding Method Toilet Toilet Toilet # Voids 2 - Exam GENERAL EXAM: Alert, 74-year-old female, nonlabored breathing HEAD: Normocephalic and atraumatic EYES: Normal reaction of pupils, equal size. NOSE: Clear with pink turbinates. THROAT: No erythema or exudates. NECK: No masses, no JVD. CHEST: No chest wall deformity. LUNGS: Equal air entry with diffuse expiratory wheezing, and bibasilar inspiratory crackles. On room air oxygen. No conversational dyspnea or accessory muscle us well-dressed CVS: S1 and S2 normal with no audible murmur, regular rhythm. No extra heart sounds ABDOMEN: No hepatosplenomegaly, active bowel sounds, no guarding or rigidity. SPINE: No scoliosis or deformity SKIN: No rashes CENTRAL NERVOUS SYSTEM: No focal deficits, tone is normal in all 4 extremities. EXTREMITIES: There is no peripheral edema, clubbing, or cyanosis. Peripheral pulses are intact. - Labs CBC & Chem 7: 07/24/24 07:05 07/25/24 05:21 Labs: Abnormal Lab Results - Last 24 Hours (Table) 07/26/24 07/26/24 07/27/24 Range/Units 16:42 20:28 06:08 PT (10.0-12.5) sec INR (<1.2) POC Glucose (mg/dL) 118 H 144 H 124 H (70-110) mg/dL 07/27/24 Range/Units 06:17 PT 46.1 H (10.0-12.5) sec INR 4.7 H (<1.2) POC Glucose (mg/dL) (70-110) mg/dL Assessment and Plan Assessment: Acute COVID-19 infection Acute COPD exacerbation, remains symptomatic Tracheobronchomalacia congestive heart failure with a preserved ejection fraction and moderate degree of pulm hypertension. Acute dyspnea, secondary to a combination of above History of paroxysmal atrial fibrillation, anticoagulated on Coumadin, currently sinus mechanism Hypertension History of hyperlipidemia History of mitral valve prolapse and surgical replacement History of obstructive sleep apnea with home CPAP, 6/15 cm H2O History of hypothyroidism Plan: Ongoing slow improvement. COPD is obviously exacerbated due to COVID-19 infection the patient also has underlying tracheobronchomalacia and she continues to suffer from bronchospasm wheezing and coughing. Currently on room air Continues on combination of bronchodilators Continue IV Solu-Medrol same dose Continue Robitussin DM 10 mL 4 times a day [id number] Chest x-ray showing cardiomegaly, pulmonary vascular congestion. No focal infiltrates NT proBNP elevated at 5780. continue Lasix 20 mg p.o. daily Echocardiogram was also noted from yesterday and the patient has a ejection fraction is essentially within normal limits. She has a porcine mitral valve which is extremely calcified and moderate degree of pulmonary pretension. Continue other cardiac meds including Coumadin. INR remains elevated. Coumadin dosing will be done by pharmacy. We will continue to follow Time with Patient: Greater than 30
--- NOTE | 2024-07-27 14:59 | P.PN ---
Subjective Progress Note Date: 07/27/24 Principal diagnosis: Reason for follow-up is COVID-19 infection Patient is a 74-year-old female with a past medical history significant for CVA TIA did have a history of tracheobronchomalacia pneumonia presenting to the hospital for evaluation of increasing shortness of breath has been diagnosed with a COVID-19 prompting this consultation. On today's evaluation that is 07/27/2024, Patient is afebrile patient is currently on room air and denies still complaining of wheezing and shortness of breath, the patient denies any chest pain or any worsening cough, the patient denies any nausea vomiting did not have any abdominal pain and no diarrhea. Patient INR is 4.7 no CBC was done today Objective - Vital Signs Vital signs: Vital Signs Temp 97.8 F 07/27/24 12:02 Pulse 68 07/27/24 12:02 Resp 20 07/27/24 12:02 BP 165/74 07/27/24 12:02 Pulse Ox 98 07/27/24 12:02 FiO2 Intake & Output 07/26/24 07/27/24 07/27/24 18:59 06:59 18:59 Intake Total 880 Balance 880 Weight 89.3 kg Intake: Oral 880 Other: Voiding Method Toilet Toilet Toilet # Voids 2 - Exam GENERAL DESCRIPTION: An elderly female lying in bed in no distress RESPIRATORY SYSTEM: Unlabored breathing , decreased breath sounds at bases HEART: S1 S2 regular rate and rhythm , ABDOMEN: Soft , no tenderness EXTREMITIES: No edema feet - Labs CBC & Chem 7: 07/24/24 07:05 07/25/24 05:21 Labs: Abnormal Lab Results - Last 24 Hours (Table) 07/26/24 07/26/24 07/27/24 Range/Units 16:42 20:28 06:08 PT (10.0-12.5) sec INR (<1.2) POC Glucose (mg/dL) 118 H 144 H 124 H (70-110) mg/dL 07/27/24 Range/Units 06:17 PT 46.1 H (10.0-12.5) sec INR 4.7 H (<1.2) POC Glucose (mg/dL) (70-110) mg/dL Assessment and Plan (1) Allergy to multiple antibiotics Current Visit: Yes Status: Acute Code(s): Z88.1 - ALLERGY STATUS TO OTHER ANTIBIOTIC AGENTS SNOMED Code(s): 639093932 (2) COVID-19 Current Visit: Yes Status: Acute Code(s): U07.1 - COVID-19 SNOMED Code(s): 652479694 Plan: 1patient presented to hospital with increasing shortness of breath and cough and this patient has been diagnosed with a COVID-19 however the patient is not running any fever not hypoxic chest x-ray is more suggestive of CHF with an COVID-19 pneumonia treated will be mostly supportive 2-patient with multiple antibiotic ALLERGIES that would limit the number of antibiotic safe to use 3-patient currently being treated with steroid Coumadin and zinc and no need for antiviral or antibiotics at this point Multiple question concern answered Dictation was produced using [employer] dictation software. please excuse any grammatical, word or spelling errors. Time with Patient: Less than 30
[2024-07-27] MEDS: WARFARIN 0.5 MG TAB PO ONE (16:13)
[2024-07-27 16:41] LABS: Glucose,Whole Blood 169 mg/dL (70-110)
[2024-07-27 20:06] LABS: Glucose,Whole Blood 158 mg/dL (70-110)
[2024-07-28 04:03] VITALS: RESP 22
[2024-07-28 06:20] LABS: Glucose,Whole Blood 118 mg/dL (70-110)
[2024-07-28 06:43] LABS: INR 3.7 (<1.2); Prothrombin Time 36.8 sec (10.0-12.5)
[2024-07-28 10:46] VITALS: BP 140/78; TEMP 97.5
[2024-07-28 11:36] LABS: Glucose,Whole Blood 100 mg/dL (70-110)
[2024-07-28 12:34] VITALS: PULSE 66
--- NOTE | 2024-07-28 12:37 | P.DS ---
Providers Date of admission: 07/28/24 07:46 Expected date of discharge: 07/28/24 Attending physician: Wilfrido Luna Consults: 07/23/24 22:59 Consult Physician Urgent Consulting Provider: Hattie Brito Consult Reason/Comments: acute respiratory insuff, covid infection Do you want consulting provider notified?: Yes Consult Physician Urgent Consulting Provider: Emil Jacobson Consult Reason/Comments: covid infection Do you want consulting provider notified?: Yes Primary care physician: Jesus Carson Hospital Course: Final Diagnoses: Acute COVID-19 infection Acute on chronic CHF with preserved EF Acute COPD exacerbation Acute hypoxic respiratory failure secondary to all the above Chronic tracheobronchomalacia Paroxysmal atrial fibrillation, anticoagulated on Coumadin History of ablation History of mitral valve replacement Hypertension Hyperlipidemia Hypothyroidism Obstructive sleep apnea, CPAP at home Morbid obesity, BMI 34 Hospital course:This is a 74-year-old female with past medical history significant for atrial fibrillation, anticoagulated on Coumadin, ablation, mitral valve replacement, hypertension, hyperlipidemia, morbid obesity, obstructive sleep apnea, COPD, tracheobronchomalacia, hypothyroidism, and multiple medical issues recently returning from a [employer] cruise this past Sunday, presented to the ER with progressive shortness of breath,cough and lower extremity edema. Reports while on her cruise she took additional oral Lasix for few days.yesterday followed up with her PCP, tested negative in the office for COVID, received prescriptions for steroids and antibiotics. Shortness of breath continued to progress .Attempted nebulizer treatments with minimal improvement. On admission viral studies positive for COVID. O2 sat on admission 100% on 2 L nasal cannula, currently low 90s on room air. denies chest pain, palpitations. Afebrile, WBC 13.4, recent normalized to 9.4. Hemoglobin 13, platelets 256, INR 2.7, repeat pending. Electrolytes within normal limits, bicarb 31, BUN 19, creatinine 0.65 glucose 141, 126. Lactic acid 2.5, resolved with IV fluid hydration, decreased to 2. K CRP within normal limits, 0.7. proBNP 5780. Received IV push Lasix in the ER. EKG reported sinus rhythm Chest x-ray reported cardiomegaly, prominent pulmonary vasculature, mildly increased perihilar lung markings, correlate for volume overload. 07/25/2024 Maintained on zinc, vitamin C, vitamin D and steroids .evaluated by cardiology and infectious disease with recommendations noted and appreciated. Farxiga added to med regimen. No hypotension, no tachycardia. afebrile, maintaining O2 sats in the high 90s on room air. No conversational dyspnea. Harsh, nonproductive cough. Denies chest pain, palpitations. Denies pleuritic chest pain. Reports she is weak but has been up in her room ambulating. Patient will be discharged home today in a stable condition with guarded prognosis. 07/28/2024 significant clinical improvement. Maintained on Robitussin DM, albuterol, Symbicort,steroids, zinc, vitamin D, vitamin C. No antivirals. Cough, congestion improving. Maintaining O2 sats in the mid to high 90s on room air. Afebrile. No conversational dyspnea. Ambulating in the room, denies exertional shortness of breath. Consuming 50 to 75% with no nausea, vomiting or diarrhea. Denies chest pain ,palpitations. Echo reported normal LV function, moderate pulmonary hypertension, porcine mitral valve with mean gradient of 9 mmHg, extremely calcified valve.INR 4.7 yesterday, received no Coumadin last night ,currently decreased to 3.7. Patient has been instructed to take 0.5 mg of Coumadin daily, recheck in 48 hours with further Coumadin dosing recommendation as per Dr. Carson. Patient has been instructed to follow-up with Dr. Carson in 1 to 2 days. Patient requesting to stay another night, disclosed that is an alcoholic, has been sick and has fallen and unable to help her. Case management met with patient, resources offered including home care for her-declined, as well as community resources for her . Cardiology has signed off. Patient has been cleared by infectious disease for discharge. Patient will be discharged home today in a stable condition with guarded prognosis. The impression and plan of care has been dictated as directed. : I performed a history and examination of this patient, discussed the same with the dictator. I agree with the dictator's note ,documented as a scribe. Any additional findings or plans will be noted. Patient Condition at Discharge: Stable Plan - Discharge Summary Discharge Rx Participant: Yes New Discharge Prescriptions: New Zinc Sulfate [Orazinc] 220 mg PO DAILY #30 cap Budesonide-Formot 160-4.5 Mcg [Symbicort 160-4.5 Mcg Inhaler] 2 puff INHALATION RT-BID #1 each Dapagliflozin Propanediol [Farxiga] 10 mg PO DAILY #30 tab guaiFENesin-DM 100-10MG/5ML [Robitussin DM] 10 ml PO Q6HR #240 ml Warfarin [Coumadin] 0.5 mg PO 1800 #4 tab Continue Furosemide [Lasix] 20 mg PO DAILY Multivitamins, Thera [Multivitamin (formulary)] 1 tab PO DAILY ALPRAZolam [Xanax] 0.5 mg PO BID PRN PRN Reason: Anxiety Atorvastatin [Lipitor] 40 mg PO HS Ibandronate Sodium [Boniva] 150 mg PO QMONTHLY Montelukast [Singulair] 10 mg PO HS Amiodarone [Cordarone] 100 mg PO DAILY Fluticasone Nasal [place] [Flonase Nasal [place]] 1 spray EA NOSTRIL DAILY PRN PRN Reason: Congestion Pregabalin [Lyrica] 100 mg PO BID Loperamide [Imodium] 2 mg PO QID PRN PRN Reason: Diarrhea Levothyroxine Sodium [Synthroid] 125 mcg PO DAILY Cyanocobalamin (Vitamin B-12) [Vitamin B-12] 1,000 mcg PO DAILY Albuterol Sulfate [Albuterol Sulfate Hfa] 2 puff PO RT-QID PRN PRN Reason: Shortness Of Breath Hydrocodone/Acetaminophen [Hydrocodone/Acetaminophen 5-325] 1 tab PO TID PRN PRN Reason: Pain Omeprazole 20 mg PO AC-BRKFST Cholestyramine/Aspartame [Cholestyramine Light Packet] 4 gm PO BID PRN PRN Reason: Diarrhea L.acidoph,Paracasei, B.lactis [Probiotic] 1 cap PO DAILY Lidocaine 5% Patch [Lidoderm 5% Patch] 1 patch TOPICAL DAILY PRN PRN Reason: Pain predniSONE See Taper PO DAILY Budesonide [Pulmicort] 0.5 mg INHALATION RT-BID lisinopriL [Zestril] 5 mg PO HS Amitriptyline HCl [Elavil] 25 mg PO HS Cholecalciferol (Vitamin D3) [Vitamin D3 (3000 Iu)] 75 mcg PO DAILY Changed Metoprolol Tartrate [Lopressor] 25 mg PO BID #0 Discontinued Warfarin Sodium 2 mg PO MOTH Warfarin Sodium 4 mg PO MIAHA Cefdinir 300 mg PO Q12HR Discharge Medication List Furosemide [Lasix] 20 mg PO DAILY 12/20/13 [History] Multivitamins, Thera [Multivitamin (formulary)] 1 tab PO DAILY 12/20/13 [History] ALPRAZolam [Xanax] 0.5 mg PO BID PRN 06/02/15 [History] Atorvastatin [Lipitor] 40 mg PO HS 06/02/15 [History] Cyanocobalamin (Vitamin B-12) [Vitamin B-12] 1,000 mcg PO DAILY 04/05/21 [History] Albuterol Sulfate [Albuterol Sulfate Hfa] 2 puff PO RT-QID PRN 12/20/21 [History] Hydrocodone/Acetaminophen [Hydrocodone/Acetaminophen 5-325] 1 tab PO TID PRN 01/17/22 [History] Cholestyramine/Aspartame [Cholestyramine Light Packet] 4 gm PO BID PRN 02/09/23 [History] Ibandronate Sodium [Boniva] 150 mg PO QMONTHLY 02/09/23 [History] Omeprazole 20 mg PO AC-BRKFST 02/09/23 [History] Amiodarone [Cordarone] 100 mg PO DAILY 07/24/24 [History] Amitriptyline HCl [Elavil] 25 mg PO HS 07/24/24 [History] Budesonide [Pulmicort] 0.5 mg INHALATION RT-BID 07/24/24 [History] Cholecalciferol (Vitamin D3) [Vitamin D3 (3000 Iu)] 75 mcg PO DAILY 07/24/24 [History] Fluticasone Nasal [place] [Flonase Nasal [place]] 1 spray EA NOSTRIL DAILY PRN 07/24/24 [History] L.acidoph,Paracasei, B.lactis [Probiotic] 1 cap PO DAILY 07/24/24 [History] Levothyroxine Sodium [Synthroid] 125 mcg PO DAILY 07/24/24 [History] Lidocaine 5% Patch [Lidoderm 5% Patch] 1 patch TOPICAL DAILY PRN 07/24/24 [History] Loperamide [Imodium] 2 mg PO QID PRN 07/24/24 [History] Montelukast [Singulair] 10 mg PO HS 07/24/24 [History] Pregabalin [Lyrica] 100 mg PO BID 07/24/24 [History] lisinopriL [Zestril] 5 mg PO HS 07/24/24 [History] predniSONE See Taper PO DAILY 07/24/24 [History] Budesonide-Formot 160-4.5 Mcg [Symbicort 160-4.5 Mcg Inhaler] 2 puff INHALATION RT-BID #1 each 07/25/24 [Rx] Dapagliflozin Propanediol [Farxiga] 10 mg PO DAILY #30 tab 07/25/24 [Rx] Metoprolol Tartrate [Lopressor] 25 mg PO BID #0 07/25/24 [Rx] Zinc Sulfate [Orazinc] 220 mg PO DAILY #30 cap 07/25/24 [Rx] Warfarin [Coumadin] 0.5 mg PO 1800 #4 tab 07/28/24 [Rx] guaiFENesin-DM 100-10MG/5ML [Robitussin DM] 10 ml PO Q6HR #240 ml 07/28/24 [Rx] Follow up Appointment(s)/Referral(s): Jesus Carson MD [Primary Care Provider] - 1-2 days Ambulatory/Diagnostic Orders: Prothrombin Time INR [LAB.AMB] Time Frame: 2 Days, Location: None Selected Patient Instructions/Handouts: COVID-19 (Coronavirus Disease 2019) (DC) Activity/Diet/Wound Care/Special Instructions: PT/INR in 2 days with results to Dr. Carson Discharge/Stand Alone Forms: Who Do I Call?, Adult [facility] List, Assisted Living Facilities, Community Resources, Help In The Home, In Substance Abuse Facilities, Personal Last Pattern Grader
--- NOTE | 2024-07-28 14:44 | P.PN ---
Subjective Progress Note Date: 07/28/24 Principal diagnosis: Reason for follow-up is COVID-19 infection Patient is a 74-year-old female with a past medical history significant for CVA TIA did have a history of tracheobronchomalacia pneumonia presenting to the hospital for evaluation of increasing shortness of breath has been diagnosed with a COVID-19 prompting this consultation. On today's evaluation that is 07/28/2024, patient has been afebrile, patient is breathing slightly comfortably and is currently on room air, patient denies having any significant chest pain still having a cough and occasional wheezing denies any nausea vomiting no abdominal pain or diarrhea. Patient INR is 3.7 no CBC was done today Objective - Vital Signs Vital signs: Vital Signs Temp 97.5 F L 07/28/24 08:00 Pulse 63 07/28/24 08:00 Resp 22 07/28/24 08:00 BP 140/78 07/28/24 08:00 Pulse Ox 97 07/28/24 08:00 FiO2 Intake & Output 07/27/24 07/28/24 07/28/24 18:59 06:59 18:59 Intake Total 898 120 Balance 898 120 Weight 87.8 kg Intake: Oral 898 120 Other: Voiding Method Toilet Toilet Toilet # Voids 1 2 - Exam GENERAL DESCRIPTION: An elderly female lying in bed in no distress RESPIRATORY SYSTEM: Unlabored breathing , decreased breath sounds at bases HEART: S1 S2 regular rate and rhythm , ABDOMEN: Soft , no tenderness EXTREMITIES: No edema feet - Labs CBC & Chem 7: 07/24/24 07:05 07/25/24 05:21 Labs: Abnormal Lab Results - Last 24 Hours (Table) 07/27/24 07/27/24 07/28/24 Range/Units 16:39 20:04 05:44 PT 36.8 H (10.0-12.5) sec INR 3.7 H (<1.2) POC Glucose (mg/dL) 169 H 158 H (70-110) mg/dL 07/28/24 Range/Units 06:18 PT (10.0-12.5) sec INR (<1.2) POC Glucose (mg/dL) 118 H (70-110) mg/dL Assessment and Plan (1) Allergy to multiple antibiotics Status: Acute Code(s): Z88.1 - ALLERGY STATUS TO OTHER ANTIBIOTIC AGENTS SNOMED Code(s): 786875769 (2) COVID-19 Status: Acute Code(s): U07.1 - COVID-19 SNOMED Code(s): 805201749 Plan: 1patient presented to hospital with increasing shortness of breath and cough and this patient has been diagnosed with a COVID-19 however the patient is not running any fever not hypoxic chest x-ray is more suggestive of CHF with an COVID-19 pneumonia treated will be mostly supportive 2-patient with multiple antibiotic ALLERGIES that would limit the number of antibiotic safe to use 3-patient slowly clinically pulm to continue with current treatment of steroid Coumadin and zinc and no need for antiviral or antibiotics at this point Multiple question concern answered Dictation was produced using [employer] dictation software. please excuse any g rammatical, word or spelling errors. Time with Patient: Less than 30
[2024-07-28] MEDS ORDERED: WARFARIN 0.5 MG TAB PO ONE (18:00)
== END 2024-07-28 13:15 | disposition home or self-care (01) | DRG 177 ==
LOC: EC 20:41 → 3SCARD 23:01 → OBSVTOIN 07-28 07:46
PROVIDERS: ADMIT Family Medicine; ATTEND Family Medicine
DX: U07.1 COVID-19 (principal); I50.33 Acute on chronic diastolic (congestive) heart failure; J96.01 Acute respiratory failure with hypoxia; I27.20 Pulmonary hypertension, unspecified; J44.1 Chronic obstructive pulmonary disease with (acute) exacerbation; I11.0 Hypertensive heart disease with heart failure; Z68.34 Body mass index [BMI] 34.0-34.9, adult; E03.9 Hypothyroidism, unspecified; Z95.3 Presence of xenogenic heart valve; I48.0 Paroxysmal atrial fibrillation; E66.01 Morbid (severe) obesity due to excess calories; Z79.01 Long term (current) use of anticoagulants; E78.5 Hyperlipidemia, unspecified; F41.9 Anxiety disorder, unspecified; G47.33 Obstructive sleep apnea (adult) (pediatric); Z11.52 Encounter for screening for COVID-19; J98.09 Other diseases of bronchus, not elsewhere classified; Z79.890 Hormone replacement therapy; Z79.51 Long term (current) use of inhaled steroids; Z79.52 Long term (current) use of systemic steroids; Z79.84 Long term (current) use of oral hypoglycemic drugs; Z79.899 Other long term (current) drug therapy; Z86.73 Personal history of transient ischemic attack (TIA), and cerebral infarction without residual deficits; Z87.01 Personal history of pneumonia (recurrent); G89.29 Other chronic pain; Z87.891 Personal history of nicotine dependence; I07.1 Rheumatic tricuspid insufficiency; Z88.1 Allergy status to other antibiotic agents; Z90.710 Acquired absence of both cervix and uterus; Z96.652 Presence of left artificial knee joint; Z98.42 Cataract extraction status, left eye; Z98.41 Cataract extraction status, right eye; Z88.8 Allergy status to other drugs, medicaments and biological substances; Z88.0 Allergy status to penicillin; Z88.2 Allergy status to sulfonamides
CPT/HCPCS: 36415; 71046; 80048; 80053; 83036; 83605; 83880; 84484; 85025; 85379; 85610; 85730; 86140; 87636; 93005; 93306; 94640; 96374; 96375; 96376; 99285

== ENCOUNTER → 2024-08-30 | Outpatient (CLI) | payer MEDICARE ==
[2024-08-30 13:19] LABS: Basophils # (A) 0.07 X 10*3/uL (0.00-0.10); Basophils % (A) 1.2 %; Eosinophils # (A) 0.06 X 10*3/uL (0.04-0.35); HCT 40.6 % (37.2-46.3); HGB 13.3 g/dL (12.0-15.0); Lymphocytes # (A) 2.24 X 10*3/uL (0.90-5.00); MCH 30.2 pg (27.0-32.0); MCHC 32.8 g/dL (32.0-37.0); MCV 92.3 FL (80.0-97.0); Mean Platelet Volume 10.4 FL (9.5-12.2); Monocytes # (A) 0.83 X 10*3/uL (0.20-1.00); Monocytes % (A) 14.1 %; NRBC Per 100 WBC 0 X 10*3/uL (0.00-0.01); Neutrophils # (A) 2.67 X 10*3/uL (1.80-7.70); Neutrophils % (A) 45.2 %; Platelet Count 221 X 10*3/uL (140-440)
[2024-08-30 13:38] LABS: ALT 17 U/L (8-44); AST 28 U/L (13-35); Alkaline Phosphatase 100 U/L (41-126); BUN/Creat Ratio 16.12 Ratio (12.00-20.00); Blood Urea Nitrogen 12.9 mg/dL (9.0-27.0); Calcium 9.2 mg/dL (8.7-10.3); Carbon Dioxide 27.1 mmol/L (21.6-31.8); Chloride 104 mmol/L (96-109); Chol/HDL Ratio 3.27 Ratio; Globulin 2.5 g/dL (1.6-3.3); Glucose 98 mg/dL (70-110); LDL Cholesterol,Calculated 80.2 mg/dL (0.0-131.0); Sodium 140 mmol/L (135-145); Total Bilirubin 0.5 mg/dL (0.3-1.2); Total Protein 6.5 g/dL (6.2-8.2)
[2024-08-30 14:14] LABS: INR 2.5 sec (0.93-1.11); Prothrombin Time 26.6 sec (9.9-11.9)
== END | disposition home or self-care (01) ==
LOC: LABWHC1 08:16
PROVIDERS: ATTEND Orthopaedic Surgery
DX: Z00.00 Encounter for general adult medical examination without abnormal findings (principal); Z12.31 Encounter for screening mammogram for malignant neoplasm of breast; Z22.322 Carrier or suspected carrier of Methicillin resistant Staphylococcus aureus; K52.838 Other microscopic colitis; G57.93 Unspecified mononeuropathy of bilateral lower limbs; R53.83 Other fatigue; E03.9 Hypothyroidism, unspecified; M81.0 Age-related osteoporosis without current pathological fracture; I48.0 Paroxysmal atrial fibrillation; Z79.891 Long term (current) use of opiate analgesic; Z79.01 Long term (current) use of anticoagulants; N39.490 Overflow incontinence; R41.3 Other amnesia; Z79.899 Other long term (current) drug therapy; M19.011 Primary osteoarthritis, right shoulder
CPT/HCPCS: 36415; 80053; 80061; 84443; 85025; 85610; 87070

== ENCOUNTER 2024-09-16 05:38 | Day surgery (SDC) | payer MEDICARE ==
[2024-09-11 12:14] VITALS: BMI 33.5
--- NOTE | 2024-09-15 08:04 | P.HPOR ---
History of Present Illness H&P Date: 09/15/24 Chief Complaint: Right shoulder pain The patient is a 74-year-old retired female who presents with right shoulder pain for the past year worsening recently. She is having pain with any attempted overhead use. She is having night symptoms. She has had 2 recent arthroscopies with worsening of her symptoms. She has tried pain medications with only temporary partial relief. Review of Systems Per HPI Past Medical History Past Medical History: Atrial Fibrillation, COPD, CVA/TIA, Hyperlipidemia, Hypertension, Osteoarthritis (OA), Sleep Apnea/CPAP/BIPAP, Thyroid Disorder Additional Past Medical History / Comment(s): Was told she had a silent CVA in October or November 2023, had memory problems and balance was, but Neurologist said it wasn't a stroke, some tiny veins coallapsed." Chronic back pain, hx mitral valve prolapse with valve replacement, HX PNEUMONIA SEPTEMBER 2018 AND DIAGNOSED WITH TRACHEOBRONCHOMALACIA, SOB, neuropathy in feet, ocular migraines, CPAP use. History of Any Multi-Drug Resistant Organisms: None Reported Past Surgical History: Appendectomy, Back Surgery, Breast Surgery, Cardiac Ablation, Cardiac Valve Replacement, Heart Catheterization, Hysterectomy, Joint Replacement, Orthopedic Surgery, Tonsillectomy Additional Past Surgical History / Comment(s): bronchoscopy with lavage, cardio version x2, cardiac ablation x3, open mitral valve replacement 2013, back surgery with rods/screws, cervical injections, R wrist ganglion cyst removed, R great toe surgery, L great toe "cleaned up" and then surgery, L knee arthroscopy, L ankle surgery for tendon/ligament and cysts, colonoscopy, R breast cystectomy, L knee replacement, bilateral cataracts removed. Right shoulder arthroscopy x 2 Past Anesthesia/Blood Transfusion Reactions: Postoperative Nausea & Vomiting (PONV) Additional Past Anesthesia/Blood Transfusion Reaction / Comment(s): No hx blood transfusion. Mom and sister have PONV. Smoking Status: Former smoker - Past Family History Mother Family Medical History: CVA/TIA Father Family Medical History: CVA/TIA Additional Family Medical History / Comment(s): . Medications and Allergies Home Medications Medication Instructions Recorded Confirmed Type Furosemide [Lasix] 20 mg PO DAILY 12/20/13 09/11/24 History Multivitamins, Thera [Multivitamin 1 tab PO DAILY 12/20/13 09/11/24 History (formulary)] ALPRAZolam [Xanax] 0.5 mg PO BID PRN 06/02/15 09/11/24 History Atorvastatin [Lipitor] 40 mg PO HS 06/02/15 09/11/24 History Cyanocobalamin (Vitamin B-12) 1,000 mcg PO DAILY 04/05/21 09/11/24 History [Vitamin B-12] Albuterol Sulfate [Albuterol 2 puff PO RT-QID PRN 12/20/21 09/11/24 History Sulfate Hfa] Hydrocodone/Acetaminophen 1 tab PO TID PRN 01/17/22 09/11/24 History [Hydrocodone/Acetaminophen 5-325] Cholestyramine/Aspartame 4 gm PO BID PRN 02/09/23 09/11/24 History [Cholestyramine Light Packet] Ibandronate Sodium [Boniva] 150 mg PO QMONTHLY 02/09/23 09/11/24 History Omeprazole 20 mg PO AC-BRKFST 02/09/23 09/11/24 History Cholecalciferol (Vitamin D3) 75 mcg PO DAILY 07/24/24 09/11/24 History [Vitamin D3 (3000 Iu)] Fluticasone Nasal [place] [Flonase 1 spray EA NOSTRIL DAILY PRN 07/24/24 09/11/24 History Nasal [place]] L.acidoph,Paracasei, B.lactis 1 cap PO DAILY 07/24/24 09/11/24 History [Probiotic] Levothyroxine Sodium [Synthroid] 125 mcg PO QAM 07/24/24 09/11/24 History Lidocaine 5% Patch [Lidoderm 5% 1 patch TOPICAL DAILY PRN 07/24/24 09/11/24 History Patch] Loperamide [Imodium] 2 mg PO QID PRN 07/24/24 09/11/24 History Montelukast [Singulair] 10 mg PO HS 07/24/24 09/11/24 History Pregabalin [Lyrica] 100 mg PO BID 07/24/24 09/11/24 History lisinopriL [Zestril] 5 mg PO HS 07/24/24 09/11/24 History Amiodarone [Cordarone] 100 mg PO QAM 09/11/24 09/11/24 History Amitriptyline HCl 10 mg PO HS 09/11/24 09/11/24 History Budesonide 0.5 mg INHALATION DAILY PRN 09/11/24 09/11/24 History HYDROcodone/APAP 10-325MG [[place] 1 tab PO Q6HR PRN 09/11/24 09/11/24 History 10-325] Hydrocodone/Acetaminophen 1 tab PO Q6H PRN 09/11/24 09/11/24 History [Hydrocodone/Acetaminophen 7.5-325] Metoprolol Tartrate [Lopressor] 12.5 mg PO BID 09/11/24 09/11/24 History Warfarin [Coumadin] 2 mg PO [id number] 09/11/24 09/11/24 History Warfarin [Coumadin] 4 mg PO MOTH 09/11/24 09/11/24 History Allergies Allergy/AdvReac Type Severity Reaction Status Date / Time gabapentin Allergy Rash/Hives Verified 09/11/24 10:44 Penicillins Allergy Rash/Hives Verified 09/11/24 10:44 Sulfa (Sulfonamide Allergy Rash/Hives Verified 09/11/24 10:44 Antibiotics) tretinoin [From Retin-A] Allergy Rash/Hives Verified 09/11/24 10:44 escitalopram [From Lexapro] AdvReac Nausea & Verified 09/11/24 10:44 Vomiting meperidine HCl [From Demerol] AdvReac Nausea & Verified 09/11/24 10:44 Vomiting Physical Examination - Shoulder right Tenderness with palpation: anterior, bicipital groove Pain: with abduction, with forward flexion ROM: forward flexion: 60 degrees (150 degrees passively) ROM: internal rotation: lower lumbar ROM: external rotation: 50 degrees Crepitus with motion: Yes Tests: internal impingement tests: positive, external impingment tests: positive Results The patient is a well-developed well-nourished female approximately 5 foot 4, 190 pounds of endomorphic habitus. HEENT exam is nonfocal, neck is supple. She is tender about the right anterior glenohumeral joint. Moderate crepitus is noted. Motor strength 5-/5 for external rotation and abduction. Impingement test, Neer test, and Speed test are positive. Her distal neurovascular exam appears intact in the right upper extremity. - Diagnostic results Shoulder x-ray: image reviewed (X-rays of the right shoulder show severe glenohumeral joint osteoarthrosis with some collapse of the humeral head.) Shoulder MRI: image reviewed (MRI of the right shoulder shows his rotator cuff is intact.) Assessment and Plan Assessment: Right severe glenohumeral joint osteoarthrosis History of heart valve replacement on anticoagulation Plan: I talked to the patient at length regarding her condition along with treatment options. At this point she is quite symptomatic having pain secondary to her right glenohumeral joint osteoarthrosis despite conservative measures. After a thorough discussion she opts to proceed with surgery. We will plan to proceed with a right total shoulder arthroplasty versus a reverse total shoulder arthroplasty. We will reinstitute her anticoagulation postoperatively. Risks and benefits were discussed at length in layman's terms. We will likely keep the patient for 23-hour hold postoperatively.
[~2024-09-16 05:38] MED LIST changes: -ALBUTEROL NEB (CONC) 2.5 MG/0.5 ML INHALATION ONE; -LACTATED RINGERS 1,000 ML IV SCH; -LIDOCAINE 2% (PF) 20 MG/ML 5 ML VIAL INHALATION ONE; -LIDOCAINE VISCOUS 300 MG/15 ML CUP MUCOUS MEM ONE; +TRANEXAMIC 1,000 MG/100ML-NACL 1,000 MG in SALINE 1 100ML.BAG IVPB PRN
[2024-09-16] MEDS: LACTATED RINGERS 1,000 ML IV SCH (06:45)
[2024-09-16] MEDS: IV FLUID CONTINUATION 1,000 ML IV ONE (06:45)
[2024-09-16] MEDS: LIDOCAINE 1% (10MG/ML) FOR IV START INTRADERMA PRN (06:45)
[2024-09-16] MEDS: ACETAMINOPHEN TAB 500 MG TAB PO PRN (06:58)
[2024-09-16] MEDS: MELOXICAM 7.5 MG TAB PO PRN (06:59)
[2024-09-16] MEDS: ONDANSETRON 4 MG/2 ML VIAL IVP ONE (07:00)
[2024-09-16] MEDS ORDERED: fentaNYL (PF) 50 MCG/ML 2 ML AMP IVP PRN (07:00)
[2024-09-16] MEDS: DEXAMETHASONE SOD PHOSPHATE 4 MG/ML 1 ML VIAL IV ONE (07:01)
[2024-09-16] MEDS: MIDAZOLAM 2 MG/2 ML VIAL IV PRN (07:08)
[2024-09-16 07:14] LABS: INR 1.2 (<1.2); Prothrombin Time 12.7 sec (10.0-12.5)
[2024-09-16] MEDS ORDERED: SUCCINYLCHOLINE CHLORIDE 200 MG/10 ML VIAL IV ONE (07:25)
[2024-09-16] MEDS ORDERED: fentaNYL (PF) 50 MCG/ML 2 ML AMP ONE (07:25)
[2024-09-16] MEDS ORDERED: TRANEXAMIC 1,000 MG/100ML-NACL PREMIX BAG ONE (07:25)
[2024-09-16] MEDS ORDERED: GLYCOPYRROLATE 0.2 MG/ML 2 ML VIAL ONE (07:25)
[2024-09-16] MEDS ORDERED: ROCURONIUM 10 MG/ML (5 ML VIAL) IV ONE (07:25)
[2024-09-16] MEDS ORDERED: LIDOCAINE 1% INJ 10MG/ML (20 ML MDV) ONE (07:25)
[2024-09-16] MEDS ORDERED: PHENYLEPHRINE-0.9% NACL SYG 1,000 MCG/10 ML SYRINGE ONE (07:25)
[2024-09-16] MEDS ORDERED: MIDAZOLAM 2 MG/2 ML VIAL ONE (07:25)
[2024-09-16] MEDS ORDERED: ePHEDrine 50 MG/ML 1 ML VIAL ONE (07:25)
[2024-09-16] MEDS ORDERED: ROPIVACAINE 5 MG/ML 30 ML VIAL ONE (07:25)
[2024-09-16] MEDS ORDERED: PROPOFOL 10 MG/ML 20 ML VIAL IV ONE (07:25)
[2024-09-16] MEDS ORDERED: NEOSTIGMINE 1 MG/ML 10 ML VIAL ONE (07:25)
[2024-09-16] MEDS ORDERED: WATER FOR INJECTION, STERILE 10 ML VIAL IV ONE (07:25)
[2024-09-16 07:26] LABS: Potassium 3.9 mmol/L (3.5-5.1)
[2024-09-16] MEDS: ceFAZolin 2 GM in DEXTROSE 5% IN WATER 50 ML IVPB PRN (07:30)
[2024-09-16] MEDS: ceFAZolin 1,000 MG in SODIUM CHLORIDE 0.9% 1,000 ML IRRIGATION ONE (07:39)
--- NOTE | 2024-09-16 08:05 | P.ANPRN ---
Procedure Note - Anesthesia - Nerve Block Performed Right Interscalene Single Date of Procedure: 09/16/24 Procedure Start Time: :08 Procedure Stop Time: :15 Indication: Acute Post-Operative Pain, Requested by Surgeon Sedation Type: Sedate with meaningful contact maintained Preparation: Sterile Prep Position: Supine Needle Types: Pajunk Needle Gauge: 21 Ultrasound used to visualize needle placement: Yes Ultrasound used to observe medication spread: Yes Injectate: 0.5% Ropivacaine (see comment for volume) (25 mls) Blood Aspirated: No Pain Paresthesia on Injection Noted: No Resistance on Injection: Normal Image Stored and Saved: Yes Events: Uneventful and Well Tolerated
[2024-09-16] MEDS: LACTATED RINGERS 1,000 ML IV ONE ×2 (09:46→09:55)
[2024-09-16] MEDS ORDERED: hydrOXYzine pamoate 25 MG CAP PO PRN (10:11)
[2024-09-16] MEDS ORDERED: SENNOSIDES-DOCUSATE SODIUM 1 EACH TAB PO PRN (10:11)
[2024-09-16] MEDS ORDERED: HYDROmorphone 0.5 MG/0.5 ML SYRINGE IVP PRN (10:11)
[2024-09-16] MEDS ORDERED: HYDROcodone/APAP 7.5-325MG 1 EACH TAB PO PRN (10:15)
--- NOTE | 2024-09-16 10:17 | P.OP ---
Date of Procedure: 09/16/24 Preoperative Diagnosis: Right severe glenohumeral joint osteoarthrosis Postoperative Diagnosis: Same in addition to right rotator cuff tear Procedure(s) Performed: Right reverse total shoulder arthroplasty Implants: DePuy Inhance size medium humeral baseplate with a short stem, 32+4 articular surface, 32 mm +4 glenosphere, 24 mm glenosphere baseplate. Anesthesia: [facility], [facility] Surgeon: Devin Liu Nursing Surgical Services Director #1: Reid Arango Estimated Blood Loss (ml): 200 Pathology: none sent Condition: stable Disposition: PACU Indications for Procedure: The patient is a 74-year-old female who presents with progressive right shoulder pain and weakness secondary to osteoarthrosis despite conservative measures. She had undergone 2 previous arthroscopies with rotator cuff repair. A discussion of the risks and benefits of operative intervention versus continued conservative measures was made with the patient. She opted to proceed with surgery. Operative risks include infection, neurovascular injury, development of blood clots, fracture, possible component loosening/failure and possible need for subsequent procedures was discussed. Operative options include standard total shoulder arthroplasty versus a reverse was also discussed. I informed her we would base that decision on the integrity of her rotator cuff intraoperatively. Operative Findings: As below Description of Procedure: The patient was brought to the operating room, and after induction of general anesthesia was placed in a beachchair position. The bony prominences were appropriately padded. I examined the right shoulder. There was moderate lack of passive forward elevation and external rotation. The right upper extremity was prepped and draped in normal fashion. The bony outlines the coracoid p rocess, distal clavicle, and acromion were outlined with a skin marker. A pulse centimeter deltopectoral incision was made lateral to the coracoid process. Skin was incised sharply. Subcutaneous tissues were divided bluntly. Electrocautery was used for hemostasis. The cephalic vein was identified and gently retracted laterally with the deltoid. The deltopectoral was bluntly developed. Subdeltoid adhesions were then released. The self-retaining retractor was placed. The conjoined tendon was retracted medially and the deltoid laterally. The biceps was identified. Its sheath was opened. A biceps tenotomy was performed along the remaining tendon did retract distally. A subscapularis peel was performed. This was then tagged with #2 Ethibond suture. The head was then exposed. The shoulder was dislocated. The alignment guide was then utilized planning on 20 degrees of retroversion. This was flush with the rotator cuff insertion superiorly. There appeared to be a large tear involving the supraspinatus and infraspinatus. The cutting guide was then placed. The humeral head cut was then made. The bone was removed in one fragment. Residual inferomedial osteophytes were removed flush with the [place] cortical bone. The humeral surface measured most appropriately at a medium. The reamer was then inserted to the appropriate depth. The trial component was then fully seated. Attention was then paid towards preparing the glenoid. An anterior and posterior retractors placed. The labrum was released from the 12-6 o'clock position. Remaining biceps was removed as well. A guidepin was placed in the inferior aspect of the glenoid with the guide slightly tilting inferior. The reamer was used down to a bleeding bony surface. The central peg hole was drilled. The 24 mm baseplate was inserted with good purchase. Inferior, superior, and posterior locking screws the appropriate length were placed. Good purchase was obtained. The 32+4 mm glenosphere was inserted over a guidewire. This was fully seated and secured with the retention screw. Care was taken to avoid any soft tissue interposition. Attention was then paid towards preparing the proximal humerus. The appropriate trial medium humeral surface with a short stem was placed and 20 of retroversion and was fully seated. Trial reduction was obtained with a 32 mm + 4 articular surface. The shoulder was taken through range of motion. The shoulder was felt to be stable in flexion and extension with internal and external rotation. I felt there was adequate worship of soft tissue tension. The shoulder was gently dislocated. The trial components were then removed. A #2 Ethibond was placed in the bicipital groove for reattachment of the subscapularis. The final size medium humeral component with a short stem was fully seated. There was good rotational stability. The 32 mm + 4 articular surface was impacted. The shoulder again was gently reduced and taken through range of motion. Again it was felt to be stable in all planes. Pulsatile lavage was utilized. The subscapularis was a attached to the lesser tuberosity with #2 Ethibond suture. The deltopectoral interval was closed with interrupted 2-0 Vicryl sutures. The skin was reapproximated with 3-0 subcuticular Prolene suture. Steri-Strips were applied. A sterile dressing was applied. A sling was placed. The patient was awoken from general anesthesia and transferred to recovery room in good condition. Blood loss was estimated at 200 mL. No complications were incurred. Sponge and needle counts were correct at the end the case. Reid ART assisted during the major components of the case to include exposure, glenoid and humeral preparation, implantation, and closure.
--- NOTE | 2024-09-16 10:35 | XR ---
EXAMINATION TYPE: XR shoulder limited RT DATE OF EXAM: 09/16/2024 10:29 AM INDICATION: Patient age:Female; 74 years old; Reason for study: s/p revers right total shoulder arthroplasty; pain COMPARISON: Chest radiograph 07/23/2024, MRI right shoulder 12/28/2023 TECHNIQUE: The right shoulder was examined in single AP projection.. FINDINGS: Postsurgical changes from right reverse total shoulder arthroplasty. Hardware appears intact with jose guadalupe ropriate alignment. There is associated soft tissue gas and edema. No acute fracture or dislocation. Sternotomy wires. The remaining portions of the visualized chest are unremarkable. IMPRESSION: Postsurgical changes from right reverse total shoulder arthroplasty. Hardware appears intact with jose guadalupe ropriate alignment. [facility], , 09/16/2024 10:33 AM
[2024-09-16] MEDS: droPERidol 2.5 MG/ML VIAL IVP ONE (10:39)
[2024-09-16] MEDS: HYDROmorphone 0.5 MG/0.5 ML SYRINGE IVP PRN (10:40)
[2024-09-16 16:53] LABS: Basophils # (A) 0.01 10*3/uL (0.00-0.10); Basophils % (A) 0.1 %; HCT 37.5 % (37.2-46.3); Lymphocytes # (A) 0.76 10*3/uL (0.90-5.00); Lymphocytes % (A) 7.2 %; MCH 31.5 pg (27.0-32.0); MCHC 34.7 g/dL (32.0-37.0); MCV 90.8 fL (80.0-97.0); Monocytes # (A) 0.23 10*3/uL (0.20-1.00); Monocytes % (A) 2.2 %; Neutrophils # (A) 9.55 10*3/uL (1.80-7.70); Neutrophils % (A) 90.2 %; Platelet Count 180 10*3/uL (140-440); RBC 4.13 10*6/uL (4.10-5.20); RDW 13.5 % (11.5-14.5); WBC 10.58 10*3/uL (4.50-10.00)
[2024-09-16] MEDS: ceFAZolin 2 GM in DEXTROSE 5% IN WATER 50 ML IVPB SCH (17:57)
[2024-09-16] MEDS: WARFARIN 5 MG TAB PO ONE (18:14)
[2024-09-16] MEDS: PREGABALIN 100 MG CAP PO SCH (21:14)
[2024-09-16] MEDS ORDERED: LOPERAMIDE 2 MG CAP PO PRN (21:37)
[2024-09-16] MEDS ORDERED: CHOLESTYRAMINE (WITH SUGAR) 4 GM PACKET PO PRN (21:37)
[2024-09-16] MEDS ORDERED: ALBUTEROL NEBULIZED 2.5 MG/3 ML INHALATION PRN (21:37)
[2024-09-16] MEDS ORDERED: FLUTICASONE NASAL 50MCG/SPRAY 16GM BTL EA NOSTRIL PRN (21:37)
[2024-09-16] MEDS: lisinopriL 5 MG TAB PO SCH (22:32)
[2024-09-16] MEDS: AMITRIPTYLINE HCL 10 MG TAB PO SCH (22:32)
[2024-09-16] MEDS: ALPRAZolam 0.5 MG TAB PO PRN (22:32)
[2024-09-16] MEDS: METOPROLOL TARTRATE 12.5 MG TAB PO SCH (22:32)
[2024-09-16] MEDS: HYDROcodone/APAP 10-325MG 1 EACH TAB PO PRN (22:33)
[2024-09-16] MEDS: ATORVASTATIN 40 MG TAB PO SCH (22:34)
[2024-09-17] MEDS: HYDROmorphone 0.5 MG/0.5 ML SYRINGE IVP PRN (01:12)
[2024-09-17 04:59] LABS: INR 1.2 (<1.2); Prothrombin Time 12.9 sec (10.0-12.5)
[2024-09-17] MEDS: PANTOPRAZOLE 40 MG TABLET PO SCH (05:49)
[2024-09-17] MEDS: LEVOTHYROXINE 125 MCG TAB PO SCH (05:49)
[2024-09-17 07:50] VITALS: BP 116/67; RESP 16; TEMP 98.8
[2024-09-17] MEDS: CHOLECALCIFEROL 25 MCG (1000 IU) TABLET PO SCH (08:40)
[2024-09-17] MEDS: CYANOCOBALAMIN 500 MCG TAB PO SCH (08:40)
[2024-09-17] MEDS: FUROSEMIDE 20 MG TAB PO SCH (08:41)
[2024-09-17] MEDS: LACTOBACILLUS ACIDOPHILUS/PECT 1 EACH CAPSULE PO SCH (08:44)
[2024-09-17] MEDS: MULTIVITAMINS, THERA 1 EACH TAB PO SCH (08:44)
[2024-09-17] MEDS: ENOXAPARIN 40 MG/0.4 ML SYRINGE SQ SCH (08:45)
[2024-09-17] MEDS: AMIODARONE 100 MG TAB PO SCH (08:46)
[2024-09-17] MEDS: IBANDRONATE 150 MG PO SCH (08:47)
[2024-09-17] MEDS: BUDESONIDE 0.5 MG/2 ML NEBU INHALATION PRN (09:42)
[2024-09-17] MEDS: IPRATROPIUM-ALBUTEROL 3 ML NEB INHALATION PRN (09:42)
[2024-09-17 09:48] LABS: African American GFR (CKD) >90 (>60 ml/min/1.73 sqM); Anion Gap 5 mmol/L; Blood Urea Nitrogen 14 mg/dL (7-17); Calcium 8.9 mg/dL (8.4-10.2); Carbon Dioxide 30 mmol/L (22-30); Chloride 100 mmol/L (98-107); Glucose 115 mg/dL (74-99); Non-African American GFR(CKD) 89 (>60 ml/min/1.73 sqM); Sodium 135 mmol/L (137-145)
[2024-09-17 09:55] VITALS: PULSE 78
--- NOTE | 2024-09-17 11:33 | P.CONS ---
History of Present Illness - Reason for Consult Consult date: 09/17/24 Medical management Requesting physician: Devin Liu - Chief Complaint Progressive right shoulder pain, failed conservative treatment - History of Present Illness This is a pleasant 74-year-old female with past medical history significant for atrial fibrillation, anticoagulated on Coumadin, ablation, mitral valve replacement, hypertension, hyperlipidemia, morbid obesity, obstructive sleep apnea, COPD, tracheobronchomalacia, hypothyroidism, recent COVID-19 infection/a cute on chronic CHF exacerbation/acute COPD exacerbation 07/29 and multiple medical issues, status post reverse right total shoulder arthroplasty secondary to right severe glenohumeral humeral joint osteoarthrosis. Reports pain, recently medicated with [place] 10. Reports she has been up out of bed, tolerated exertion well. Not yet passing flatus. Spontaneously voiding. Denies chest pain, palpitations or shortness of breath. Maintaining O2 sats of 96% this morning on room air. Review of Systems ROS Statement: Those systems with pertinent positive or pertinent negative responses have been documented in the HPI. ROS Other: All systems not noted in ROS Statement are negative. 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 History of Any Multi-Drug Resistant Organisms: None Reported Past Surgical History: Appendectomy, Back Surgery, Breast Surgery, Cardiac Ablation, Cardiac Valve Replacement, Heart Catheterization, Hysterectomy, Joint Replacement, Orthopedic Surgery, Tonsillectomy Additional Past Surgical History / Comment(s): bronchoscopy with lavage, cardioversion x2, cardiac ablation x3, open mitral valve replacement 2013, back surgery with rods/screws, cervical injections, R wrist ganglion cyst removed, R great toe surgery, L great toe "cleaned up" and then surgery, L knee arthroscopy, L ankle surgery for tendon/ligament and cysts, colonoscopy, R breast cystectomy, L knee replacement, bilateral cataracts removed. Right shoulder arthroscopy x 2. Reverse TRS Past Anesthesia/Blood Transfusion Reactions: Postoperative Nausea & Vomiting (PONV) Additional Past Anesthesia/Blood Transfusion Reaction / Comm: No hx blood transfusion. Mom and sister have PONV. Past Psychological History: Anxiety Additional Psychological History / Comment(s): . Smoking Status: Former smoker Past Alcohol Use History: None Reported, Occasional Additional Past Alcohol Use History / Comment(s): Started smoking at age 22, smoked 1 ppd off and on, quit in 2011. Past Drug Use History: None Reported Additional Drug Use History / Comment(s): CBD Cream PRN. - Past Family History Mother Family Medical History: CVA/TIA Father Family Medical History: CVA/TIA Additional Family Medical History / Comment(s): . Medications and Allergies Home Medications Medication Instructions Recorded Confirmed Type Furosemide [Lasix] 20 mg PO DAILY 12/20/13 09/11/24 History Multivitamins, Thera [Multivitamin 1 tab PO DAILY 12/20/13 09/11/24 History (formulary)] ALPRAZolam [Xanax] 0.5 mg PO BID PRN 06/02/15 09/11/24 History Atorvastatin [Lipitor] 40 mg PO HS 06/02/15 09/11/24 History Cyanocobalamin (Vitamin B-12) 1,000 mcg PO DAILY 04/05/21 09/11/24 History [Vitamin B-12] Albuterol Sulfate [Albuterol 2 puff PO RT-QID PRN 12/20/21 09/11/24 History Sulfate Hfa] Hydrocodone/Acetaminophen 1 tab PO TID PRN 01/17/22 09/11/24 History [Hydrocodone/Acetaminophen 5-325] Cholestyramine/Aspartame 4 gm PO BID PRN 02/09/23 09/11/24 History [Cholestyramine Light Packet] Ibandronate Sodium [Boniva] 150 mg PO QMONTHLY 02/09/23 09/11/24 History Omeprazole 20 mg PO AC-BRKFST 02/09/23 09/11/24 History Cholecalciferol (Vitamin D3) 75 mcg PO DAILY 07/24/24 09/11/24 History [Vitamin D3 (3000 Iu)] Fluticasone Nasal [place] [Flonase 1 spray EA NOSTRIL DAILY PRN 07/24/24 09/11/24 History Nasal [place]] L.acidoph,Paracasei, B.lactis 1 cap PO DAILY 07/24/24 09/11/24 History [Probiotic] Levothyroxine Sodium [Synthroid] 125 mcg PO QAM 07/24/24 09/11/24 History Lidocaine 5% Patch [Lidoderm 5% 1 patch TOPICAL DAILY PRN 07/24/24 09/11/24 History Patch] Loperamide [Imodium] 2 mg PO QID PRN 07/24/24 09/11/24 History Montelukast [Singulair] 10 mg PO HS 07/24/24 09/11/24 History Pregabalin [Lyrica] 100 mg PO BID 07/24/24 09/11/24 History lisinopriL [Zestril] 5 mg PO HS 07/24/24 09/11/24 History Amiodarone [Cordarone] 100 mg PO QAM 09/11/24 09/11/24 History Amitriptyline HCl 10 mg PO HS 09/11/24 09/11/24 History Budesonide 0.5 mg INHALATION DAILY PRN 09/11/24 09/11/24 History HYDROcodone/APAP 10-325MG [[place] 1 tab PO Q6HR PRN 09/11/24 09/11/24 History 10-325] Hydrocodone/Acetaminophen 1 tab PO Q6H PRN 09/11/24 09/11/24 History [Hydrocodone/Acetaminophen 7.5-325] Metoprolol Tartrate [Lopressor] 12.5 mg PO BID 09/11/24 09/11/24 History Warfarin [Coumadin] 2 mg PO [id number] 09/11/24 09/11/24 History Warfarin [Coumadin] 4 mg PO MOTH 09/11/24 09/11/24 History Enoxaparin [Lovenox] 40 mg SQ DAILY #5 each 09/17/24 Rx Sennosides-Docusate Sodium 2 each PO HS PRN tab 09/17/24 Rx [Senokot-S] hydrOXYzine pamoate [Vistaril] 25 mg PO QID PRN #28 cap 09/17/24 Rx Allergies Allergy/AdvReac Type Severity Reaction Status Date / Time gabapentin Allergy Rash/Hives Verified 09/11/24 10:44 Penicillins Allergy Rash/Hives Verified 09/11/24 10:44 Sulfa (Sulfonamide Allergy Rash/Hives Verified 09/11/24 10:44 Antibiotics) tretinoin [From Retin-A] Allergy Rash/Hives Verified 09/11/24 10:44 escitalopram [From Lexapro] AdvReac Nausea & Verified 09/11/24 10:44 Vomiting meperidine HCl [From Demerol] AdvReac Nausea & Verified 09/11/24 10:44 Vomiting Physical Exam Vitals: Vital Signs Temp Pulse Pulse Pulse Resp BP Pulse Ox 09/17/24 09:54 78 09/17/24 09:44 75 09/17/24 07:03 98.8 F 73 16 116/67 96 09/17/24 02:43 106/56 09/17/24 01:52 98.6 F 79 17 96/45 93 L 09/16/24 22:31 84 116/56 94 L 09/16/24 20:00 17 09/16/24 19:13 97.6 F 82 16 104/62 96 09/16/24 14:50 97.5 F L 76 18 99/61 94 L 09/16/24 13:15 57 L 16 104/55 96 09/16/24 12:45 65 16 99/51 95 09/16/24 12:15 56 L 16 97/50 97 09/16/24 12:00 60 16 91/52 97 09/16/24 11:45 70 16 97/54 96 Intake and Output 09/16/24 09/17/24 09/17/24 22:59 06:59 14:59 Output Total 150 Balance -150 Output: Urine 150 Other: Voiding Method Toilet Toilet Diaper Diaper # Voids 3 1 GENERAL: well-nourished, alert and oriented x 3, sitting up in bed, no acute distress. HEENT: Atraumatic, normocephalic. Pupils equal, sclera anicteric conjunctivae normal,mmm. NECK: supple, no JVD,no lymphadenopathy no thyromegaly. LUNGS: Unlabored, equal air entry, essentially clear, bilateral bases diminished. No accessory muscle use. HEART: S1-S2. Regular rate and rhythm without murmurs, rubs or gallops. ABDOMEN: Soft, nontender, normoactive bowel sounds. No guarding, no rebound. No masses appreciated. EXTREMITIES: Right upper extremity with dressing clean dry and intact , wearing a sling, ice pack on , positive radial pulse , moves digits freely .sensation grossly intact .no pitting or lower extremity edema. No clubbing or cyanosis. NEUROLOGICAL: Cranial nerves II through XII grossly intact. No focal deficits. SKIN: Warm, Dry,no rashes noted. Results CBC & Chem 7: 09/16/24 16:39 09/17/24 09:23 Labs: Abnormal Lab Results - Last 24 Hours (Table) 09/16/24 09/17/24 09/17/24 Range/Units 16:39 02:49 09:23 WBC 10.58 H (4.50-10.00) 10*3/uL Neutrophils # 9.55 H (1.80-7.70) 10*3/uL Lymphocytes # 0.76 L (0.90-5.00) 10*3/uL Eosinophils # 0.00 L (0.04-0.35) 10*3/uL PT 12.9 H (10.0-12.5) sec INR 1.2 H (<1.2) Sodium 135 L (137-145) mmol/L Glucose 115 H (74-99) mg/dL Assessment and Plan Assessment: Right rotator cuff tear status post right reverse total shoulder arthroplasty Recent inpatient hospitalization 07/29 with acute hypoxic respiratory failure secondary to COVID-19 infection,acute on chronic CHF with preserved EF and acute COPD exacerbation , discharged 07/28/2024 Chronic tracheobronchomalacia Paroxysmal atrial fibrillation, anticoagulated on Coumadin History of ablation History of mitral valve replacement, pig valve. Hypertension Hyperlipidemia Hypothyroidism Obstructive sleep apnea, CPAP at home Morbid obesity, BMI 34 Plan: Continue on current medication regimen ,monitoring and symptomatic treatment. Aggressive pulmonary toileting with prn nebulized bronchodilators ordered. Pain management as per orthopedic surgery. PPI for GI prophylaxis. maintained on Coumadin as per pharmacy dosing. Patient is anticipating di scharge home today with orthopedic surgery. Lovenox bridging ordered as per orthopedic surgery. resume home dose of Coumadin, repeat PT/INR on Sunday ,follow-up with Dr. Carson in 3 days. Thank you for the consult. The impression and plan of care has been dictated as directed. : I performed a history and examination of this patient, discussed the same with the dictator. I agree with the dictator's note ,documented as a scribe. Any additional findings or plans will be noted.
--- NOTE | 2024-09-17 12:14 | P.DS ---
Providers Date of admission: 09/16/2024 Expected date of discharge: 09/17/24 Attending physician: Devin Liu Consults: 09/16/24 10:11 Consult Physician Routine Consulting Provider: Jesus Carson Reason/Comments: medical management s/p reverse right total shoulder arthroplasty Do you want consulting provider notified?: Yes Primary care physician: Jesus Carson Hospital Course: Date of admission: 09/16/2024 Date of discharge: 09/17/2024 Admission diagnosis: Right severe glenohumeral joint osteoarthrosis Discharge diagnosis: Right severe glenohumeral joint osteoarthrosis in addition to rotator cuff tear Attending physician: Dr. Liu Surgical procedures: Reverse right total shoulder arthroplasty Brief history: Patient is a 74-year-old female with a history of right severe glenohumeral joint osteoarthrosis. At this point patient has failed conservative treatment measures and has opted to proceed with a elective reverse right total shoulder arthroplasty. Hospital course: Details of patient's surgery can be found in operative report. Patient tolerated the procedure well and was subsequently transported to orthopedic floor. Patient's orthopeidc and medical care was provided daily. Patient had daily laboratory tests performed for evaluation of overall blood counts. Patient had daily physical therapy to include strengthening range of motion as well as education with walker ambulation. Patient was treated with Lovenox and Coumadin for their postoperative DVT prophylaxis during their inpatient stay. Patient was noted to have a relatively uneventful postoperative course. Patient reported satisfactory pain control with oral pain medications by postoperative day 1. Patient showed satisfactory progress with physical therapy. Patient moved steadily through the program and had no difficulty meeting the goals by postoperative day 1. Given patient's otherwise satisfactory course and having met physical therapy goals, plan is to discharge patient home on postoperative day 1. Discharge condition/disposition: Patient will be discharged home in stable condition. Discharge medications: Instructions are given on resumption of patient's normal daily medications per primary care recommendation, in addition patient will be prescribed Coumadin; Lovenox; Vistaril. Take Lovenox daily until INR is therapeutic. Discontinue Lovenox once INR is therapeutic. Take Couamdin 5 mg ton, 09/17/2024, and tomorrow, , 09/18/2024. Resume regular home dosing of Coumadin starting on 09/19/2024. Go to outpatient LAB to have PT/INR drawn on Sunday09/19/2024 Orthopedic Discharge Instructions: 1. Wound care and infection precautions, keep incision dry and covered while showering, no lotions, creams, moisturizers. No soaking, pools, hot tubs. Do not scrub over incision. 2. Nonweightbearing right upper extremity. 3. Ice when necessary. Do not exceed 20 minutes per hour with ice pack. 4. Utilize sling to the right upper extremity until seen at first follow up appointment. 5. Pain meds and anticoagulants per prescription. 6. Pain medication has potential to cause constipation. Increase oral fluid and fiber intake. Contact primary care provider if you have not had a bowel movement within 48 hours after discharge. 7. No anti-inflammatory medication until discussed at first post operative visit, this including Motrin, Aleve, Mobic, Diclofenac. 8. Follow up in office at 2 weeks postop with Arjun Alvares PA-C / Reid Arango PA-C 9. Follow up with your primary care doctor 7-10 days after discharge. 10. Contact [facility] with any questions, . Keep incision clean, dry, intact. While showering, cover incision / Steri- Strips with Saran wrap. Keep Steri-Strips on until follow-up appointment in the office in 2 weeks. Assessment: Right severe glenohumeral joint osteoarthrosis Procedures: Right reverse total shoulder arthroplasty Patient Condition at Discharge: Good Plan - Discharge Summary Discharge Rx Participant: No New Discharge Prescriptions: New Enoxaparin [Lovenox] 40 mg SQ DAILY #5 each Warfarin [Coumadin] 5 mg PO DAILY #2 tab hydrOXYzine pamoate [Vistaril] 25 mg PO QID PRN #28 cap PRN Reason: Pain Continue Furosemide [Lasix] 20 mg PO DAILY Multivitamins, Thera [Multivitamin (formulary)] 1 tab PO DAILY ALPRAZolam [Xanax] 0.5 mg PO BID PRN PRN Reason: Anxiety Atorvastatin [Lipitor] 40 mg PO HS Ibandronate Sodium [Boniva] 150 mg PO QMONTHLY Montelukast [Singulair] 10 mg PO HS Fluticasone Nasal [place] [Flonase Nasal [place]] 1 spray EA NOSTRIL DAILY PRN PRN Reason: Congestion Pregabalin [Lyrica] 100 mg PO BID Loperamide [Imodium] 2 mg PO QID PRN PRN Reason: Diarrhea Levothyroxine Sodium [Synthroid] 125 mcg PO QAM Amiodarone [Cordarone] 100 mg PO QAM Metoprolol Tartrate [Lopressor] 12.5 mg PO BID Cyanocobalamin (Vitamin B-12) [Vitamin B-12] 1,000 mcg PO DAILY Albuterol Sulfate [Albuterol Sulfate Hfa] 2 puff PO RT-QID PRN PRN Reason: Shortness Of Breath Omeprazole 20 mg PO AC-BRKFST Cholestyramine/Aspartame [Cholestyramine Light Packet] 4 gm PO BID PRN PRN Reason: Diarrhea L.acidoph,Paracasei, B.lactis [Probiotic] 1 cap PO DAILY Lidocaine 5% Patch [Lidoderm 5% Patch] 1 patch TOPICAL DAILY PRN PRN Reason: Pain lisinopriL [Zestril] 5 mg PO HS Cholecalciferol (Vitamin D3) [Vitamin D3 (3000 Iu)] 75 mcg PO DAILY Amitriptyline HCl 10 mg PO HS Budesonide 0.5 mg INHALATION DAILY PRN PRN Reason: Shortness Of Breath No Action Hydrocodone/Acetaminophen [Hydrocodone/Acetaminophen 7.5-325] 1 tab PO Q6H PRN PRN Reason: Moderate Pain (Scale 4 To 6) HYDROcodone/APAP 10-325MG [[place] 10-325] 1 tab PO Q6HR PRN PRN Reason: Severe Pain (Scale 7 To 10) Hydrocodone/Acetaminophen [Hydrocodone/Acetaminophen 5-325] 1 tab PO TID PRN PRN Reason: Mild Pain (Scale 1 To 3) Warfarin [Coumadin] 2 mg PO SUTUWEFRSA Warfarin [Coumadin] 4 mg PO MOTH Discharge Medication List Furosemide [Lasix] 20 mg PO DAILY 12/20/13 [History] Multivitamins, Thera [Multivitamin (formulary)] 1 tab PO DAILY 12/20/13 [History] ALPRAZolam [Xanax] 0.5 mg PO BID PRN 06/02/15 [History] Atorvastatin [Lipitor] 40 mg PO HS 06/02/15 [History] Cyanocobalamin (Vitamin B-12) [Vitamin B-12] 1,000 mcg PO DAILY 04/05/21 [History] Albuterol Sulfate [Albuterol Sulfate Hfa] 2 puff PO RT-QID PRN 12/20/21 [History] Hydrocodone/Acetaminophen [Hydrocodone/Acetaminophen 5-325] 1 tab PO TID PRN 01/17/22 [History] Cholestyramine/Aspartame [Cholestyramine Light Packet] 4 gm PO BID PRN 02/09/23 [History] Ibandronate Sodium [Boniva] 150 mg PO QMONTHLY 02/09/23 [History] Omeprazole 20 mg PO AC-BRKFST 02/09/23 [History] Cholecalciferol (Vitamin D3) [Vitamin D3 (3000 Iu)] 75 mcg PO DAILY 07/24/24 [History] Fluticasone Nasal [place] [Flonase Nasal [place]] 1 spray EA NOSTRIL DAILY PRN 07/24/24 [History] L.acidoph,Paracasei, B.lactis [Probiotic] 1 cap PO DAILY 07/24/24 [History] Levothyroxine Sodium [Synthroid] 125 mcg PO QAM 07/24/24 [History] Lidocaine 5% Patch [Lidoderm 5% Patch] 1 patch TOPICAL DAILY PRN 07/24/24 [History] Loperamide [Imodium] 2 mg PO QID PRN 07/24/24 [History] Montelukast [Singulair] 10 mg PO HS 07/24/24 [History] Pregabalin [Lyrica] 100 mg PO BID 07/24/24 [History] lisinopriL [Zestril] 5 mg PO HS 07/24/24 [History] Amiodarone [Cordarone] 100 mg PO QAM 09/11/24 [History] Amitriptyline HCl 10 mg PO HS 09/11/24 [History] Budesonide 0.5 mg INHALATION DAILY PRN 09/11/24 [History] HYDROcodone/APAP 10-325MG [[place] 10-325] 1 tab PO Q6HR PRN 09/11/24 [History] Hydrocodone/Acetaminophen [Hydrocodone/Acetaminophen 7.5-325] 1 tab PO Q6H PRN 09/11/24 [History] Metoprolol Tartrate [Lopressor] 12.5 mg PO BID 09/11/24 [History] Warfarin [Coumadin] 2 mg PO SUTUWEFRSA 09/11/24 [History] Warfarin [Coumadin] 4 mg PO MOTH 09/11/24 [History] Enoxaparin [Lovenox] 40 mg SQ DAILY #5 each 09/17/24 [Rx] Warfarin [Coumadin] 5 mg PO DAILY #2 tab 09/17/24 [Rx] hydrOXYzine pamoate [Vistaril] 25 mg PO QID PRN #28 cap 09/17/24 [Rx] Follow up Appointment(s)/Referral(s): Reid Arango PAC [PHYSICIAN PHARMACY OPERATIONS SPECIALIST] - 2 Weeks Jesus Carson MD [Primary Care Provider] - 1 Week Ambulatory/Diagnostic Orders: Prothrombin Time INR [LAB.AMB] Time Frame: 09/19/24, Location: None Selected Patient Instructions/Handouts: Shoulder Arthroplasty (GEN) Activity/Diet/Wound Care/Special Instructions: Take Lovenox daily until INR is therapeutic. Discontinue Lovenox once INR is therapeutic. Take Couamdin 5 mg , 09/17/2024, and tomorrow, , 09/18/2024. Resume regular home dosing of Coumadin starting on 09/19/2024. Go to outpatient LAB to have PT/INR drawn on Sunday09/19/2024 Orthopedic Discharge Instructions: 1. Wound care and infection precautions, keep incision dry and covered while showering, no lotions, creams, moisturizers. No soaking, pools, hot tubs. Do not scrub over incision. 2. Nonweightbearing right upper extremity. 3. Ice when necessary. Do not exceed 20 minutes per hour with ice pack. 4. Utilize sling to the right upper extremity until seen at first follow up appointment. 5. Pain meds and anticoagulants per prescription. 6. Pain medication has potential to cause constipation. Increase oral fluid and fiber intake. Contact primary care provider if you have not had a bowel movement within 48 hours after discharge. 7. No anti-inflammatory medication until discussed at first post operative visit, this including Motrin, Aleve, Mobic, Diclofenac. 8. Follow up in office at 2 weeks postop with Arjun Alvares PA-C / Reid Arango PA-C 9. Follow up with your primary care doctor 7-10 days after discharge. 10. Contact [facility] with any questions, . Keep incision clean, dry, intact. While showering, cover incision / Steri- Strips with Saran wrap. Keep Steri-Strips on until follow-up appointment in the office in 2 weeks. Discharge Disposition: HOME SELF-CARE
--- NOTE | 2024-09-17 12:27 | P.PN ---
Subjective Progress Note Date: 09/17/24 Principal diagnosis: Right severe glenohumeral joint osteoarthrosis Patient was seen at bedside this morning lying in the semirecumbent addition with sling present to right upper extremity and bulky dressing present over the right shoulder. Patient says her shoulder has been in a fair amount of pain since surgery yesterday. She says she has been up walking under her own power since surgery without issue. Patient says she is hoping to go home today. Patient denies any other issues at this time. Objective - Vital Signs Vital signs: Vital Signs Temp 98.8 F 09/17/24 07:03 Pulse 78 09/17/24 09:54 Resp 16 09/17/24 07:03 BP 116/67 09/17/24 07:03 Pulse Ox 96 09/17/24 07:03 FiO2 Intake & Output 09/16/24 09/17/24 09/17/24 18:59 06:59 18:59 Intake Total 1251 Output Total 350 Balance 901 Weight 91.6 kg Intake: IV 1251 Output: Urine 150 Estimated Blood Loss 200 Other: Voiding Method Toilet Toilet Diaper Diaper # Voids 3 1 - Exam Right shoulder: Incision is clean, dry, and intact. The bulky dressing is in good condition. There is minimal soft tissue swelling and ecchymosis surrounding the medial and lateral aspects of the incision. Calf is soft, no tenderness with palpation. Plantar flexion, dorsiflexion, EHL, FHL are intact. Sensory exam to light touch throughout the extremity is intact, dorsal pedis pulses 2+. - Labs CBC & Chem 7: 09/16/24 16:39 09/17/24 09:23 Labs: Abnormal Lab Results - Last 24 Hours (Table) 09/16/24 09/17/24 09/17/24 Range/Units 16:39 02:49 09:23 WBC 10.58 H (4.50-10.00) 10*3/uL Neutrophils # 9.55 H (1.80-7.70) 10*3/uL Lymphocytes # 0.76 L (0.90-5.00) 10*3/uL Eosinophils # 0.00 L (0.04-0.35) 10*3/uL PT 12.9 H (10.0-12.5) sec INR 1.2 H (<1.2) Sodium 135 L (137-145) mmol/L Glucose 115 H (74-99) mg/dL Assessment and Plan Assessment: Right severe glenohumeral joint osteoarthrosis Postop day 1 status post reverse right total shoulder arthroplasty Plan: 1. Right severe glenohumeral joint osteoarthrosis -surgery form yesterday, 09/16/2024 - reverse right total shoulder arthroplasty. Patient stable at bedside this morning. Pain medication as needed. Nonweightbearing right upper extremity. Maintain sling. Keep incision clean, dry, intact. Lovenox to Coumadin bridge. Get PT/INR drawn on 09/19/2024. Follow closely with [facility] office in regards to INR follow-up in office in 2 weeks. Discharge home today 2. Appreciate medical management 3. Pain management -[place] 4. DVT prophylaxis -Lovenox; Coumadin 5. GI prophylaxis -[place] 6. PT/OT -nonweightbearing right upper extremity. Maintain in sling. Okay to perform gentle range of motion exercises of the right wrist/elbow. 7. Encourage incentive spirometer use 8. Discharge planning -discharge home today Time with Patient: Less than 30
[2024-09-17] MEDS ORDERED: WARFARIN 5 MG TAB PO ONE (18:00)
[2024-09-17] MEDS ORDERED: MONTELUKAST 10 MG TAB PO SCH (21:00)
== END 2024-09-17 13:22 | disposition home or self-care (01) ==
LOC: OR 05:38 → 4SSUR 09:53 → OR 09-17 13:22
PROVIDERS: ATTEND Orthopaedic Surgery
DX: M19.011 Primary osteoarthritis, right shoulder (principal); M75.101 Unspecified rotator cuff tear or rupture of right shoulder, not specified as traumatic; G89.29 Other chronic pain; I48.0 Paroxysmal atrial fibrillation; J44.9 Chronic obstructive pulmonary disease, unspecified; Z86.73 Personal history of transient ischemic attack (TIA), and cerebral infarction without residual deficits; E78.5 Hyperlipidemia, unspecified; I11.0 Hypertensive heart disease with heart failure; G47.33 Obstructive sleep apnea (adult) (pediatric); E03.9 Hypothyroidism, unspecified; Z87.891 Personal history of nicotine dependence; Z79.890 Hormone replacement therapy; Z79.01 Long term (current) use of anticoagulants; Z88.0 Allergy status to penicillin; Z88.1 Allergy status to other antibiotic agents; Z88.2 Allergy status to sulfonamides; Z88.5 Allergy status to narcotic agent; Z88.8 Allergy status to other drugs, medicaments and biological substances; Z95.2 Presence of prosthetic heart valve
CPT/HCPCS: 94640; 64415; 80051; 80048; 85025; 85610 ×2; 73020; 23472; C1776; C1713; J2250; J1100; J0690 ×2; J2405; J1650; J1171 ×2; J1790

== ENCOUNTER → 2024-11-26 | Outpatient (CLI) | payer MEDICARE ==
[2024-11-26 11:02] LABS: ALT 19 U/L (4-34); AST 34 U/L (14-36); African American GFR (CKD) 87 (>60 ml/min/1.73 sqM); Albumin/Globulin Ratio 1.4; Alkaline Phosphatase 103 U/L (38-126); Anion Gap 9 mmol/L; Blood Urea Nitrogen 15 mg/dL (7-17); Calcium 9.3 mg/dL (8.4-10.2); Carbon Dioxide 29 mmol/L (22-30); Chloride 102 mmol/L (98-107); Globulin 2.9 g/dL; Glucose 91 mg/dL (74-99); Non-African American GFR(CKD) 76 (>60 ml/min/1.73 sqM); Potassium 3.3 mmol/L (3.5-5.1); Sodium 140 mmol/L (137-145); Total Bilirubin 0.6 mg/dL (0.2-1.3); Total Protein 6.9 g/dL (6.3-8.2)
--- NOTE | 2024-11-27 07:58 | XR ---
EXAMINATION TYPE: XR chest 2V DATE OF EXAM: 11/26/2024 10:42 AM COMPARISON: 08/20/2020 CT CLINICAL INDICATION: Female, 74 years old with history of Z79.899 Other [facility] drug therapy, TECHNIQUE: XR chest 2V view(s) obtained. FINDINGS: The heart size is prominent. There is some fullness in the right hilar region. Additional workup wit h CT chest recommended The pulmonary vasculature is normal. The lungs are clear. IMPRESSION: 1. Mild cardiomegaly. 2. Fullness of the right hilar region. Additional workup with CT chest recommended. [facility], , 11/27/2024 7:56 AM
--- NOTE | 2024-11-27 22:23 | CT ---
EXAMINATION TYPE: CT angio chest DATE OF EXAM: 11/26/2024 12:23 PM COMPARISON: 08/20/2020 CLINICAL INDICATION: Female, 74 years old with history of I48.91 UNSPECIFIED ATRIAL FIBRILLATION, , TECHNIQUE: CT of the chest is performed on a spiral scan at 2 mm thick sections. Study is performed with intravenous contrast timed for evaluation for pulmonary embolism. This will limit additional po rtions of the evaluation. 10mm MIP images reconstructed by the technologist are reviewed on the comp uter in the coronal and sagittal planes. Contrast used: mL of , (none if empty) Oral contrast used: (none if empty) CT DLP: 965.20 mGycm, Automated exposure control for dose reduction was used. FINDINGS: No persistent filling defects are evident to suggest an acute pulmonary embolism. 'S 1.5 cm aortopulmonic window lymph node. Smaller shotty lymphadenopathy is within the mediastinum. The ascending aorta diameter at the level of the main pulmonary artery is 3.6 cm. The main pulmonary artery diameter at the bifurcation is 3.1 cm. There is calcification posterior right lung base. Moderate coronary artery calcifications present. Limited CT sections were through the upper abdomen. Upper abdomen appears unremarkable. IMPRESSION: 1. No acute pulmonary embolism. 2. No acute pulmonary process. 3. Enlarged aortopulmonic window lymph node with some shotty lymphadenopathy within the pretracheal s pace. [facility], , 11/27/2024 10:21 PM
== END | disposition home or self-care (01) ==
LOC: RADCTMAIN 10:10
PROVIDERS: ATTEND Internal Medicine Clinical Cardiac Electrophysiology
DX: I48.91 Unspecified atrial fibrillation (principal); I51.7 Cardiomegaly; R59.1 Generalized enlarged lymph nodes; Z79.899 Other long term (current) drug therapy
CPT/HCPCS: 84439; 80053; 84443; 71046; 71275; 36415; Q9967

== ENCOUNTER → 2024-12-10 | Outpatient (CLI) | payer MEDICARE ==
--- NOTE | 2024-12-10 14:35 | BD ---
EXAMINATION TYPE: Axial Bone Density DATE OF EXAM: 12/10/2024 CLINICAL HISTORY: 74 years old Female. ICD-10 CODE: M810 AGE RELATED OSTEO , Additional History: Height: 62.5 Weight: 200 FRAX RISK QUESTIONS: Family History (Parent hip fracture): no History of Fracture in Adulthood: yes Secondary Osteoporosis: no RISK FACTORS HISTORY OF: Spine Fracture: yes When: Surgery to Spine/Hip/Wrist (right): yes When: MEDICATIONS: Thyroid Medications: yes Which medication: Synthroid How Lon+ years Osteoporosis Medications: yes Which medication: Boniva How Lon+ years EXAM MEASUREMENTS: Bone mineral densitometry was performed using the [employer] System. Bone mineral density about the R hip (g/cm2): 0.899 Bone mineral density about the L hip (g/cm2): 0.731 T Score values are as follows: -----R Neck: -1.4 -----L Neck: -2.3 -----R Total: -0.9 -----L Total: -2.2 Z Score values are as follows: -----R Neck: -0.1 -----L Neck: -1.1 -----R Total: 0.1 -----L Total: -1.2 Bone mineral density has: Increased 4.5% since study of: 06/14/2021 Bone mineral density about the L Wrist (g/cm2): 0.459 T Score values are as follows: -----Dist. R+U: -4.5 -----Prox. R+U: -1.8 -----Radius total: -3.1 Z Score values are as follows: -----Dist. R+U: -2.4 -----Prox. R+U: 0.2 -----Radius total: -1.0 Bone mineral density has: Decreased -0.7% since study of: 06/14/2021 FRAX%s: The graph provided illustrates a 20.2% chance for a major osteoporotic fx and a 4.8% chance f or the hips probability for fx in 10 years time. IMPRESSION: Osteopenia (T Score between -2.5 and -1) remains present. There is slightly increased risk of fracture and the patient may be considered for treatment. Re-Screen 2-5 years. NOTE: T-SCORE=SD OF THE YOUNG ADULT MEAN. [facility], , 12/10/2024 2:33 PM
--- NOTE | 2024-12-10 14:37 | MM ---
Reason for Exam: Screening (asymptomatic). Last mammogram was performed 1 year(s) and 7 month(s) ago. Patient History: Menarche at age 15. Patient has no children. Left ovary removed at age 47. Right ovary removed at age 47. Hysterectomy at age 47. Postmenopausal. 1974, Benign Excisional Biopsy on the right side. 1973, Benign Excisional Biopsy on the right side. Maternal aunt had breast cancer. Risk Values: Osiris 5 year model risk: 2.9%. NCI Lifetime model risk: 7.5%. Prior Study Comparison: 08/14/2019 Left Diagnostic Mammogram, [facility]. 06/20/2021 Bilateral Screening Mammogram, [facility]. 05/25/2023 Bilateral MG 3D screening mammo w/cad, [facility]. Tissue Density: There are scattered areas of fibroglandular density. Findings: Analyzed By CAD. Vascular calcification is present bilaterally. Benign-appearing bilateral axillary lymph nodes are again seen. There are a few tiny benign appearing calcifications bilaterally redemonstrated. There is no suspicious group of microcalcifications or new suspicious mass in either breast. Overall Assessment: Benign, BI-RAD 2 Management: Screening Mammogram of both breasts in 1 year. . Patient should continue monthly self-breast exams. A clinical breast exam by your physician is recommended on an annual basis. This exam should not preclude additional follow-up of suspicious palpable abnormalities. Note on Osiris scores and lifetime risk: 1. A Osiris score greater than 3% is considered moderate risk. If this is the case, consider specialist referral to assess eligibility for a risk reducing agent. 2. If overall lifetime risk for the development of breast cancer is 20% or higher, the patient may qualify for future screening with alternating mammogram and breast MRI. [facility], , 12/10/2024 2:34 PM. Electronically signed and approved by: Amari Willis M.D.
== END | disposition home or self-care (01) ==
LOC: RADMAMWWP 13:18
PROVIDERS: ATTEND Family Medicine
DX: Z12.31 Encounter for screening mammogram for malignant neoplasm of breast (principal); M81.0 Age-related osteoporosis without current pathological fracture; R92.323 Mammographic fibroglandular density, bilateral breasts; R92.1 Mammographic calcification found on diagnostic imaging of breast; M85.89 Other specified disorders of bone density and structure, multiple sites; Z78.0 Asymptomatic menopausal state; Z80.3 Family history of malignant neoplasm of breast
CPT/HCPCS: 77063; 77067; 77080